=== PATIENT | female | born 1940 | race Caucasian/White ===

== ENCOUNTER → 2017-10-01 08:02 | Outpatient (CLI) | payer MEDICARE, OTHER, SELFPAY ==
[2017-10-01 09:08] LABS: Hemoglobin A1C% w Est Avg Glu 5.7 % (4.0-6.0)
== END ==
PROVIDERS: PCP Family Medicine; Visit Provider Family Medicine
DX: E11.9 Type 2 diabetes mellitus without complications (principal)
CPT/HCPCS: 36415; 83036

== ENCOUNTER → 2017-11-30 12:49 | Outpatient (CLI) | payer MEDICARE, OTHER, SELFPAY | PROVIDERS: PCP Family Medicine; Visit Provider Family Medicine | DX: M85.851 Other specified disorders of bone density and structure, right thigh (principal); Z78.0 Asymptomatic menopausal state | CPT/HCPCS: 77080 ==

== ENCOUNTER → 2018-03-21 08:09 | Outpatient (CLI) | payer MEDICARE, OTHER, SELFPAY ==
[2018-03-21 08:56] LABS: Add Manual Diff / Slide Review NO; Basophils Percent Auto 0.7 % (0-2); Hematocrit 37.8 % (36-46); Hemoglobin 12.2 g/dL (12.0-16.0); Lymphocytes Percent Auto 22.2 % (25-40); Mean Corpuscular HGB Conc 32.3 % (30-36); Mean Corpuscular Hemoglobin 29.9 PG (26-34); Mean Corpuscular Volume 92.5 fL (80-100); Monocytes Percent Auto 6.1 % (3-14); Neutrophils Absolute Auto 5800 /uL (3000-5900); Platelet Count 183 X10^3/uL (150-400); Red Blood Cell Count 4.09 X10^6/uL (4.0-5.2); Red Cell Distribution Width 14.6 % (11.6-14.8); White Blood Cell Count 8.7 X10^3/uL (4.5-11.0)
[2018-03-21 09:18] LABS: Alanine Aminotransferase 26 IU/L (9-52); Albumin 3.9 g/dL (3.5-5.0); Albumin Globulin Ratio 1.1 (1.0-2.8); Alkaline Phosphatase 79 U/L (38-126); Aspartate Aminotransferase 25 IU/L (14-36); Bilirubin Total 0.5 mg/dL (0.2-1.3); Blood Urea Nitrogen 22 mg/dL (7-17); Carbon Dioxide 23 mmol/L (22-32); Chloride 112 mmol/L (98-107); Cholesterol 113 mg/dL (140-199); Globulin 3.5 g/dL (1.7-4.1); Glucose 106 mg/dL (80-110); HDL Cholesterol 39 mg/dL (40-60); HEMOLYSIS < 15 (0-50); LDL Cholesterol Calculated 54 mg/dL (<100); Potassium 4.7 mmol/L (3.4-5.1); Sodium 147 mmol/L (137-145); Total Protein 7.4 g/dL (6.3-8.2); Triglycerides 99 mg/dL (35-150)
[2018-03-21 09:40] LABS: Hemoglobin A1C% w Est Avg Glu 6.2 % (4.0-6.0)
[2018-03-21 09:55] LABS: Microalbumin Urine Random 3.4 mg/dL (0-1.6)
[2018-03-21 09:56] LABS: Creatinine Urine Random 81.3 mg/dL; Microalbumi Creatinin Ratio Ur 41.8 ug/mg CR (<30)
== END ==
PROVIDERS: PCP Family Medicine; Visit Provider Family Medicine
DX: E03.9 Hypothyroidism, unspecified (principal); E11.9 Type 2 diabetes mellitus without complications; I10 Essential (primary) hypertension
CPT/HCPCS: 36415; 80053; 80061; 82043; 82570; 83036; 84443; 85025

== ENCOUNTER → 2018-04-26 10:02 | Outpatient (CLI) | payer MEDICARE, OTHER, SELFPAY ==
--- NOTE | 2018-04-26 10:05 | DI.US.S_ITS ---
PROCEDURE: US THYROID INDICATIONS: thyroid nodule TECHNIQUE: Real-time scanning was performed of the thyroid gland, with image documentation. COMPARISON: [facility], US, THYROID, 07/13/2016, 8:41. FINDINGS: Right: Thyroid lobe measures 4.7 x 2.9 x 2.9 cm, and is homogeneous in echotexture. Left: Thyroid lobe measures 3.2 x 1.4 x 1.1 cm, and is homogenous in echotexture. Isthmus: 4.0 mm thick. Nodule number: 1 Location: Right thyroid Size: Increased at 3.9 x 2.1 x 3.0 cm. Composition: Mixed cystic and solid Echogenicity: Heterogeneous Shape: wider than tall. Margins: Smooth Echogenic foci: None Total points: 2 ACR TI-RADS category: Not suspicious IMPRESSION: Slight increase in size of non-suspicious right thyroid nodule. ACR TI-RADS definitions and recommendations: TI-RADS 1 (benign): 0 points. FNA not needed. TI-RADS 2 (not suspicious): 2 points. FNA not needed. TI-RADS 3 (mildly suspicious): 3 points. * FNA if 2.5 cm or larger, follow up if 1.5 cm or larger (at 1, 3, and 5 years). TI-RADS 4 (moderately suspicious): 4-6 points. * FNA if 1.5 cm or larger, follow up if 1 cm or larger (at 1, 2, 3, and 5 years). TI-RADS 5 (highly suspicious): 7 points or more. * FNA if 1 cm or larger, follow up if 0.5 cm or larger (every year for 5 years). Dictated by: Lester MATTHEWS Interpreted: Saranya Romero MD on 04/26/2018 at 11:18 Approved by: Saranya Romero M.D. on 04/26/2018 at 12:56
== END ==
PROVIDERS: PCP Family Medicine; Visit Provider Family Medicine
DX: E04.1 Nontoxic single thyroid nodule (principal)
CPT/HCPCS: 76536

== ENCOUNTER → 2018-09-26 08:09 | Outpatient (CLI) | payer MEDICARE, OTHER, SELFPAY ==
[2018-09-26 09:09] LABS: Add Manual Diff / Slide Review NO; Basophils Absolute Auto 100 /uL (0-100); Basophils Percent Auto 0.9 % (0-2); Eosinophils Absolute Auto 300 /uL (0-450); Eosinophils Percent Auto 3.4 % (2-4); Hematocrit 35.5 % (36-46); Hemoglobin 12.1 g/dL (12.0-16.0); Lymphocytes Absolute Auto 1400 /uL (1100-4500); Lymphocytes Percent Auto 16.6 % (25-40); Mean Corpuscular Hemoglobin 31.2 PG (26-34); Monocytes Absolute Auto 500 /uL (0-900); Monocytes Percent Auto 6.1 % (3-14); Neutrophils Absolute Auto 6300 /uL (1500-7000); Platelet Count 218 X10^3/uL (150-400); Red Blood Cell Count 3.86 X10^6/uL (4.0-5.2); Red Cell Distribution Width 13.5 % (11.6-14.8); White Blood Cell Count 8.6 X10^3/uL (4.5-11.0)
[2018-09-26 09:27] LABS: Hemoglobin A1C% w Est Avg Glu 5.7 % (4.0-6.0)
[2018-09-26 09:46] LABS: BUN Creatinine Ratio 22.3 (6-22); Blood Urea Nitrogen 29 mg/dL (7-17); Calcium 9.8 mg/dL (8.4-10.2); Carbon Dioxide 26 mmol/L (22-32); Chloride 108 mmol/L (98-107); Estimated Glomerular Filt Rate 39.6 mL/min (>60); Glucose 100 mg/dL (80-110); HEMOLYSIS < 15 (0-50); Potassium 5.3 mmol/L (3.4-5.1); Sodium 141 mmol/L (137-145)
[2018-09-26 10:12] LABS: Thyroid Stimulating Hormone 4.15 uIU/mL (0.47-4.68)
== END ==
PROVIDERS: PCP Family Medicine; Visit Provider Family Medicine
DX: E03.9 Hypothyroidism, unspecified (principal); E11.9 Type 2 diabetes mellitus without complications; I10 Essential (primary) hypertension
CPT/HCPCS: 36415; 80048; 83036; 84443; 85025

== ENCOUNTER → 2018-10-10 08:41 | Outpatient (CLI) | payer MEDICARE, OTHER, SELFPAY ==
[2018-10-10 10:49] LABS: BUN Creatinine Ratio 27.1 (6-22); Blood Urea Nitrogen 38 mg/dL (7-17); Calcium 9.5 mg/dL (8.4-10.2); Carbon Dioxide 28 mmol/L (22-32); Chloride 107 mmol/L (98-107); Estimated Glomerular Filt Rate 36.3 mL/min (>60); Glucose 107 mg/dL (80-110); HEMOLYSIS < 15 (0-50); Potassium 4.6 mmol/L (3.4-5.1); Sodium 144 mmol/L (137-145)
== END ==
PROVIDERS: PCP Family Medicine; Visit Provider Family Medicine
DX: N28.9 Disorder of kidney and ureter, unspecified (principal)
CPT/HCPCS: 36415; 80048

== ENCOUNTER → 2018-10-28 09:49 | Outpatient (CLI) | payer MEDICARE, OTHER, SELFPAY ==
[2018-10-28 11:50] LABS: BUN Creatinine Ratio 21.7 (6-22); Blood Urea Nitrogen 26 mg/dL (7-17); Calcium 8.9 mg/dL (8.4-10.2); Carbon Dioxide 25 mmol/L (22-32); Chloride 109 mmol/L (98-107); Estimated Glomerular Filt Rate 43.3 mL/min (>60); Glucose 98 mg/dL (80-110); HEMOLYSIS 24 (0-50); Potassium 4.9 mmol/L (3.4-5.1); Sodium 142 mmol/L (137-145)
== END ==
PROVIDERS: PCP Family Medicine; Visit Provider Family Medicine
DX: N28.9 Disorder of kidney and ureter, unspecified (principal)
CPT/HCPCS: 36415; 80048

== ENCOUNTER → 2019-05-08 13:42 | Outpatient (CLI) | payer MEDICARE, OTHER, SELFPAY ==
[2019-05-08 18:44] LABS: Appearance Urine UA CLEAR; Bilirubin Urine UA NEGATIVE (NEGATIVE); Color Urine UA YELLOW; Glucose Urine UA NEGATIVE (Negative); Ketones Urine UA NEGATIVE (NEGATIVE); Leukocyte Esterase Urine UA TRACE (NEGATIVE); Nitrite Urine UA POSITIVE (Negative); Occult Blood Urine UA 3+ (Negative); Protein Urine UA 1+ (Negative); Specific Gravity Urine UA 1.025 (1.000-1.035); Urobilinogen Urine UA 0.2 E.U./dL (0.2)
[2019-05-08 18:47] LABS: Bacteria Urine Many (>30); Culture Indicated Urine Specimen Cultured; Hyaline Casts Urine 1-5/LPF; RBC Urine 5-10/HPF (0-5/HPF); Squamous Epithelial Cell Urine 1-5 /HPF (0-5/HPF); WBC Urine 10-30/HPF (0-5/HPF)
[2019-05-08 19:04] LABS: Creatinine Urine Random 85.4 mg/dL
[2019-05-08 19:09] LABS: Microalbumi Creatinin Ratio Ur 101.8 ug/mg CR (<30); Microalbumin Urine Random 8.7 mg/dL (0-1.6)
== END ==
PROVIDERS: PCP Family Medicine; Visit Provider Family Medicine
DX: E11.9 Type 2 diabetes mellitus without complications (principal); N39.0 Urinary tract infection, site not specified
CPT/HCPCS: 81001; 82043; 82570; 87077; 87086; 87186

== ENCOUNTER → 2019-06-03 11:22 | Outpatient (CLI) | payer MEDICARE, OTHER, SELFPAY | PROVIDERS: PCP Family Medicine; Visit Provider Nurse Practitioner | DX: N39.0 Urinary tract infection, site not specified (principal) | CPT/HCPCS: 87077; 87086; 87186 ==

== ENCOUNTER 2019-07-02 09:05 | Emergency (ER) | payer MEDICARE, OTHER, SELFPAY ==
[2019-07-02 09:10] VITALS: BP 193/79; PULSE 73; RESP 18; TEMP 36.9; O2SAT 99
--- NOTE | 2019-07-02 09:35 | DI.RAD.S_ITS ---
PROCEDURE: XR CHEST 2V INDICATIONS: cough for 5 days TECHNIQUE: 2 views of the chest were acquired. COMPARISON: [facility], , CHEST 2 VIEW, 07/05/2017, 20:13. FINDINGS: Surgical changes and devices: Left total shoulder arthroplasty Lungs and pleura: Lungs are clear. No pleural effusions or pneumothorax. Mediastinum: Mediastinal contours are normal. Heart size is normal. Bones and chest wall: No suspicious bony abnormalities. Soft tissues appear unremarkable. IMPRESSION: No evidence acute pulmonary process. Dictated by: Moo Fitzpatrick M.D. on 07/02/2019 at 9:50 Approved by: Moo Fitzpatrick M.D. on 07/02/2019 at 9:51
--- NOTE | 2019-07-02 09:37 | ED.URI ---
HPI - URI/Sore Throat General Chief Complaint: Upper Respiratory Symptoms Stated Complaint: NASTY COUGH PAST 2 DAYS POSS BLADDER INFECTION Time Seen by Provider: 07/02/19 09:18 Source: patient Mode of arrival: Ambulatory Limitations: no limitations History of Present Illness HPI Narrative: HPI: The patient is a 78-year-old female who presents to the emergency department with a dry and productive cough for the last 5 days prior to admission. She denies a history of fever sore throat headache. She believes that she may have a bladder infection because she has had some mild increased frequency. She states that she had a urinary tract infection in April and earlier in the year she had an abscess in her right lower abdomen of requiring surgery and developed a urinary tract infection at that time. She has minimal urgency. She has noted no blood recently in her urine and no vaginal bleeding or discharge. She admits to a history of myasthenia gravis that is in remission. 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 She also has braces on both legs from polio as a youth. She has had a history of hypertension in the past but is currently on no medications for that. She denies a history of congestive heart failure myocardial infarction COPD or asthma. She used to smoke as a youth and quit at the age of 25. She does not chew tobacco drink alcohol use any drugs. She denies a history of hepatitis but has a positive PPD skin test because her mother had a history of tuberculosis. She denies any HIV. She has not traveled outside the [place] or bent exposed to anyone known to have cope with 19. She has had no significant worsening shortness of breath or high fever. She denies any fever chills sweats headache nasal congestion sinus congestion sore throat significant shortness of breath chest pain palpitations dizziness nausea vomiting or abdominal pain. She has chronic loose stools without melena or hematochezia secondary to her ulcerative colitis and medications for ulcerative colitis. She denies any urinary symptoms. Related Data Home Medications Medication Instructions Recorded Confirmed cholecalciferol (vitamin D3) 25 1,000 unit PO DAILY 10/01/17 06/03/19 mcg (1,000 unit) capsule lysine 500 mg tablet 500 mg PO DAILY 10/01/17 06/03/19 Previous Rx's Medication Instructions Recorded Glucose: Home Monitor ea #1 07/01/16 Glucose: Test Strips str BID #100 07/01/16 Lancets BID #100 07/01/16 levothyroxine 100 mcg tablet 100 mcg PO QDAY #90 tab 09/26/18 naproxen sodium 220 mg tablet 440 mg PO DAILY #60 tab 09/26/18 baclofen 5 mg tablet 5 mg PO BID PRN #30 tab 05/08/19 famotidine 20 mg tablet 20 mg PO BID #60 tab 05/08/19 azithromycin 250 mg tablet See Rx Instructions PO .COMPLEX #6 06/03/19 tab albuterol sulfate 2 puff INHALATION Q4-6H PRN #8.5 07/02/19 gram levofloxacin [Levaquin] 500 mg PO Q24H #7 tab 07/02/19 prednisone 60 mg PO DAILY #15 tab 07/02/19 Allergies Allergy/AdvReac Type Severity Reaction Status Date / Time Sulfa (Sulfonamide Allergy Severe HIVES FROM Verified 07/02/19 09:23 Antibiotics) SULFA CREAM [SULFA (SULFONAMIDE ANTIBIOTICS)] Review of Systems Review of Systems Narrative: Review of systems are all negative except for those mentioned in the history of present illness. Patient History Medical History Chicken pox (Resolved ~1947) History of chickenpox (Acute) History of colitis (Acute) History of diabetes mellitus (Acute) History of diverticulitis (Acute) History of eczema (Acute) History of gastric ulcer (Acute) History of [facility] fever (Acute) History of skin cancer (Acute) History of ulcerative colitis (Acute) History of urinary incontinence (Acute) Hyperthyroidism (Chronic ~1992) Polio (Acute) Shoulder pain (Acute) Surgical History History of cholecystectomy (Acute) History of hip replacement History of knee replacement History of shoulder replacement (Acute) Status post cholecystectomy Family History Sister Age: 77 Heart disease Father No problems noted. Mother Myocardial infarction Brother No problems noted. Brother No problems noted. Social History marital status: Smoking Status: Former smoker alcohol intake: current substance use type: does not use Smoking Status: Former smoker alcohol intake frequency: 0-2 drinks per day Substance Use Type: does not use Exam Narrative Exam Narrative: PHYSICAL EXAM: CONSTITUTIONAL: Awake, Alert, Oriented, Coherent, Cooperative in NAD. Does not appear toxic or ill. HEAD: AT/NC EENT: PERRL, FROM of eyes, no discharge, . No epistaxis or nasal drainage Oral mucosa is moist and pink, posterior pharynx is without erythema or exudate. NECK: Supple, no obvious JVD, Trachea is midline without stridor, no palpable LN .. SPINE: No gross deformity, no palpable tenderness of the cervical, thoracic, lumbar or sacral spine. No CVA tenderness. THORAX: No deformity, retractions, chest wall tenderness, subcutaneous air or crepitice. LUNGS: She she has inspiratory crackles in her right posterior lower lung garcia with a few expiratory rhonchi and wheezes on the right. The rest of her lungs are clear and symmetrical HEART: Regular rhythm and rate without murmur. Heart tones are distant. ABDOMEN: Soft, non-tender, normal bowel sounds without guarding, rebound, rigidity or palpable mass EXTREMITIES: No edema, cyanosis, deformity or tenderness. The patient is wearing bilateral braces on her legs for secondary to her polio. SKIN: No rash, bruising, petechiae or purpura. NEURO: Awake, alert, oriented, conversive, cranial nerves II-XII are symmetrical and normal, moves all 4 extremities and is ambulatory Initial Vital Signs Initial Vital Signs: Vital Signs Temperature 98.4 F 07/02/19 09:10 Pulse Rate 73 07/02/19 09:10 Respiratory Rate 18 07/02/19 09:10 Blood Pressure 193/79 H 07/02/19 09:10 Pulse Oximetry 99 07/02/19 09:10 Course Orders Ordered: ED Orders 07/02/19 09:35 XR chest 2V Stat 07/02/19 10:00 Urinalysis and Microscopic Stat Urine Culture Stat 07/02/19 10:10 Influenza A & B (PCR) Stat Discontinued Medications Albuterol/Ipratropium (Duoneb) 3 ml INH NOW ONE Stop: 07/02/19 09:37 Last Admin: 07/02/19 11:06 Dose: Not Given Documented by: LIDIAIEDLE Prednisone (Deltasone) 60 mg PO NOW ONE Stop: 07/02/19 09:36 Last Admin: 07/02/19 10:08 Dose: 60 mg Documented by: ZUNILDA Vital Signs Vital signs: Vital Signs - 8 hr 07/02/19 09:10 07/02/19 11:10 07/02/19 11:32 Temperature 98.4 F Pulse Rate 73 67 69 Respiratory Rate 18 20 18 Blood Pressure 193/79 H 198/79 H Pulse Oximetry 99 96 96 MDM - URI/Sore Throat Lab Data Labs: Lab Results 07/02/19 07/02/19 Range/Units 10:00 10:10 Urine Color Yellow Urine Appearance Sl cloudy Urine pH 5.5 (4.5-8.0) Ur Specific [place] 1.025 (1.000-1.035) Urine Protein Trace H (Negative) Urine Glucose (UA) 1+ H (Negative) g/dL Urine Ketones Negative (NEGATIVE) Urine Occult Blood 1+ H (Negative) Urine Nitrate Positive H (Negative) Urine Bilirubin Negative (NEGATIVE) Urine Urobilinogen 0.2 (0.2) E.U./dL Ur Leukocyte Esterase Trace H (NEGATIVE) Urine RBC None seen (0-5/HPF) Urine WBC 0-1/hpf (0-5/HPF) Ur Squamous Epith Cells 0-1 /hpf (0-5/HPF) Urine Bacteria Many (>30) H (None) Ur Culture Indicated? Specimen cultured Influenza A (RT-PCR) Flu a negative (NEGATIVE) Influenza B (RT-PCR) Flu b negative (NEGATIVE) Discharge Plan Departure Patient Disposition: Home Clinical Impression: Cough, Myasthenia gravis, Polio Ulcerative colitis Qualifiers: Ulcerative colitis location: unspecified ulcerative colitis location Digestive disease complication type: unspecified complication Qualified Code(s): K51.919 - Ulcerative colitis, unspecified with unspecified complications Urinary tract infection Qualifiers: Urinary tract infection type: site unspecified Hematuria presence: without hematuria Qualified Code(s): N39.0 - Urinary tract infection, site not specified Discharge Date/Time: 07/02/19 11:44 Instructions: DI for Cough -- Adult, DI for Urinary Tract Infection (UTI), DI for Acute Bronchitis Activity Restrictions/Additional Instructions: 1. Take Levaquin 500 mg per day. 2. Drink 3-4 L of fluid per day keep yourself hydrated. 3. Follow-up with your primary care physician and be rechecked in 48-72 hours. 4. For the cough take the albuterol inhaler with a spacer 1-2 puffs every 2-4 hours as needed for cough, shortness of breath, or wheezing. 5. For the cough take the prednisone 60 mg per day for the next 5 days. 6. If you develop worsening pain, chest pain, shortness of breath, passing out, dizziness, you need to return to the emergency department or proceed to the nearest emergency whereever you are. Prescriptions: New albuterol sulfate 90 mcg/actuation HFA aerosol inhaler 2 puff INHALATION Q4-6H PRN (Reason: shortness of breath or wheezing) Qty: 8.5 RF: 2 prednisone 20 mg tablet 60 mg PO DAILY Qty: 15 RF: 0 levofloxacin [Levaquin] 500 mg tablet 500 mg PO Q24H Qty: 7 RF: 0 No Action levothyroxine 100 mcg tablet 100 mcg PO QDAY Qty: 90 RF: 3 naproxen sodium [Midol (naproxen)] 220 mg tablet 440 mg PO DAILY Qty: 60 RF: 3 azithromycin 250 mg tablet See Rx Instructions PO .COMPLEX Qty: 6 RF: 0 famotidine [Pepcid AC] 20 mg tablet 20 mg PO BID Qty: 60 RF: 3 baclofen 5 mg tablet 5 mg PO BID PRN (Reason: spasm) Qty: 30 RF: 0 Glucose: Home Monitor Qty: 1 RF: 0 Glucose: Test Strips BID Qty: 100 RF: 1 Lancets BID Qty: 100 RF: 6 lysine [L-Lysine] 500 mg tablet 500 mg PO DAILY RF: 0 cholecalciferol (vitamin D3) 1,000 unit capsule 1,000 unit PO DAILY RF: 0 Referrals: Sandhya Beaver DO [Primary Care Provider] -
[2019-07-02 10:08] LABS: RBC Urine None Seen (0-5/HPF)
[2019-07-02] MEDS: predniSONE 20 MG TABLET 60 MG PO (10:08)
[2019-07-02 10:10] LABS: Bilirubin Urine UA NEGATIVE (NEGATIVE); Color Urine UA YELLOW; Glucose Urine UA 1+ g/dL (Negative); Ketones Urine UA NEGATIVE (NEGATIVE); Leukocyte Esterase Urine UA TRACE (NEGATIVE); Nitrite Urine UA POSITIVE (Negative); Occult Blood Urine UA 1+ (Negative); Protein Urine UA TRACE (Negative); Specific Gravity Urine UA 1.025 (1.000-1.035); Urobilinogen Urine UA 0.2 E.U./dL (0.2)
[2019-07-02 10:18] LABS: Appearance Urine UA SL CLOUDY; pH Urine UA 5.5 (4.5-8.0)
[2019-07-02 10:19] LABS: Bacteria Urine Many (>30); Culture Indicated Urine Specimen Cultured; Squamous Epithelial Cell Urine 0-1 /HPF (0-5/HPF); WBC Urine 0-1/HPF (0-5/HPF)
--- NOTE | 2019-07-02 10:41 | RT ---
RT started Duoneb tx on wrong pt. Tx stopped approx after 1 min. HR remained the same. Pt in no distress.
[2019-07-02 10:46] LABS: Influenza A - CEPHEID Flu A NEGATIVE (NEGATIVE); Influenza B - CEPHEID Flu B NEGATIVE (NEGATIVE)
[2019-07-02 11:10] VITALS: PULSE 67; RESP 20; O2SAT 96
[2019-07-02] MEDS: ALBUTEROL/IPRATROPIUM 3 ML AMPUL INH (11:12)
[2019-07-02 11:32] VITALS: BP 198/79; PULSE 69; RESP 18; O2SAT 96
== END 2019-07-02 11:44 | disposition home or self-care (01) ==
PROVIDERS: Emergency Provider Emergency Medicine; PCP Family Medicine
DX: R05 Cough (principal); K51.919 Ulcerative colitis, unspecified with unspecified complications; N39.0 Urinary tract infection, site not specified; G70.9 Myoneural disorder, unspecified; A80.9 Acute poliomyelitis, unspecified
CPT/HCPCS: 71046; 81001; 87077; 87086; 87186; 87502; 94640; 99283

== ENCOUNTER → 2019-08-25 09:47 | Outpatient (CLI) | payer MEDICARE, OTHER, SELFPAY ==
[2019-08-27 08:52] LABS: COVID19 Sendout Not Detected (Not Detected)
== END ==
PROVIDERS: PCP Family Medicine; Visit Provider Registered Nurse
DX: R05 Cough (principal)
CPT/HCPCS: 87635

== ENCOUNTER → 2019-08-31 16:08 | Outpatient (CLI) | payer MEDICARE, OTHER, SELFPAY ==
--- NOTE | 2019-08-31 16:12 | DI.RAD.S_ITS ---
PROCEDURE: XR CHEST 2V INDICATIONS: Cough, recent pneumonia TECHNIQUE: 2 views of the chest were acquired. COMPARISON: [facility], CR, XR CHEST 2V, 07/02/2019, 9:35. FINDINGS: Surgical changes and devices: Patient is status post left shoulder arthroplasty. Lungs and pleura: Increased bronchovascular markings and bilateral hilar region are seen with mild bronchial wall thickening. No focal infiltrate. No pleural effusions or pneumothorax. Mediastinum: Mediastinal contours are normal. Heart size is normal. Bones and chest wall: No suspicious bony abnormalities. Soft tissues appear unremarkable. IMPRESSION: Suggestion of mild reactive airway disease. No focal infiltrate. Dictated by: Graham Hodgson M.D. on 08/31/2019 at 16:32 Approved by: Graham Hodgson M.D. on 08/31/2019 at 16:33
== END ==
PROVIDERS: PCP Family Medicine; Referring Provider Family Medicine; Visit Provider Family Medicine
DX: R05 Cough (principal); Z87.01 Personal history of pneumonia (recurrent)
CPT/HCPCS: 71046

== ENCOUNTER → 2019-09-13 08:31 | Outpatient (CLI) | payer MEDICARE, OTHER, SELFPAY ==
--- NOTE | 2019-09-13 08:34 | DI.US.S_ITS ---
PROCEDURE: US THYROID INDICATIONS: ENLARGED THYROID TECHNIQUE: Real-time scanning was performed of the thyroid gland, with image documentation. COMPARISON: [facility], US, THYROID, 07/13/2016, 8:41. [facility], US, US THYROID, 04/26/2018, 10:43. FINDINGS: Right: Thyroid lobe measures 5.7 x 3.0 x 3.0 cm, and is homogeneous in echotexture. Left: Thyroid lobe measures 3.8 x 1.9 x 1.1 cm, and is homogenous in echotexture. Isthmus: 4 mm thick. Nodule number: 1 Location: Superior right lobe Size: 3.7 x 1.9 x 3.1 cm. Composition: Mixed cystic and solid Echogenicity: Heterogeneous Shape: Wider than tall Margins: Smooth Echogenic foci: None Total points: 3 ACR TI-RADS category: Mildly suspicious IMPRESSION: Stable right thyroid nodule. Based on size of the nodule and ACR TI-RADS category, ultrasound-guided fine needle aspiration is recommended. ACR TI-RADS definitions and recommendations: TI-RADS 1 (benign): 0 points. FNA not needed. TI-RADS 2 (not suspicious): 2 points. FNA not needed. TI-RADS 3 (mildly suspicious): 3 points. * FNA if 2.5 cm or larger, follow up if 1.5 cm or larger (at 1, 3, and 5 years). TI-RADS 4 (moderately suspicious): 4-6 points. * FNA if 1.5 cm or larger, follow up if 1 cm or larger (at 1, 2, 3, and 5 years). TI-RADS 5 (highly suspicious): 7 points or more. * FNA if 1 cm or larger, follow up if 0.5 cm or larger (every year for 5 years). Dictated by: Enriqueta Rainey MD, PhD on 09/13/2019 at 14:09 Approved by: Enriqueta Rainey MD, PhD on 09/13/2019 at 14:15
== END ==
PROVIDERS: PCP Family Medicine; Referring Provider Family Medicine; Visit Provider Family Medicine
DX: E03.9 Hypothyroidism, unspecified (principal); E04.1 Nontoxic single thyroid nodule
CPT/HCPCS: 76536

== ENCOUNTER → 2019-10-11 15:00 | Outpatient (CLI) | payer MEDICARE, OTHER, SELFPAY ==
[2019-10-11 15:27] LABS: Appearance Urine UA SL CLOUDY; Bilirubin Urine UA NEGATIVE (NEGATIVE); Color Urine UA YELLOW; Glucose Urine UA 2+ g/dL (Negative); Ketones Urine UA NEGATIVE (NEGATIVE); Leukocyte Esterase Urine UA TRACE (NEGATIVE); Nitrite Urine UA NEGATIVE (Negative); Occult Blood Urine UA TRACE-INTACT (Negative); Protein Urine UA TRACE (Negative); Specific Gravity Urine UA 1.025 (1.000-1.035); Urobilinogen Urine UA 0.2 E.U./dL (0.2)
[2019-10-11 15:36] LABS: Bacteria Urine Moderate (10-30); Culture Indicated Urine Specimen Cultured; RBC Urine 0-1/HPF (0-5/HPF); Squamous Epithelial Cell Urine 1-5 /HPF (0-5/HPF); Transitional Epi Cells Urine 1-5/HPF (0-5/HPF); WBC Urine 10-30/HPF (0-5/HPF)
== END ==
PROVIDERS: PCP Family Medicine; Referring Provider Family Medicine; Visit Provider Family Medicine
DX: R35.0 Frequency of micturition (principal); R82.90 Unspecified abnormal findings in urine; R82.998 Other abnormal findings in urine
CPT/HCPCS: 81001; 87077; 87086; 87186

== ENCOUNTER 2019-10-20 12:42 | Emergency (ER) | payer MEDICARE, OTHER, SELFPAY ==
[2019-10-20] VITALS (7 sets, daily range): BP systolic 126–146; BP diastolic 60–67; PULSE 74–89; RESP 16–18; O2SAT 95–99; BMI 30.2
--- NOTE | 2019-10-20 14:07 | ED_ITS ---
HPI - Extremity Problem General Chief complaint: Extremity Problem,Nontraumatic Stated complaint: LEFT LEG IS SWOLLEN Time Seen by Provider: 10/20/19 14:05 Source: patient Mode of arrival: Family Vehicle Limitations: no limitations History of Present Illness HPI Narrative: CC: Swollen left lack HPI: The patient is an 79-year-old female with a past history of polio and states that her left leg is always smaller than her right. She has noticed over the last 2 days that her left leg has become more swollen than usual and greater than the right leg. She denies any fall or injury pain or discomfort. She states that she is on a diuretic which she has been taking without fail. She has a history of having deep vein thrombophlebitis years ago in the early . She is no longer on a blood thinner. She states she has also had questionable blood clots that have gone to her lungs. 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 She has had no problems since then. She denies any chest pain at this time shortness of breath cough difficulty in breathing. She denies a history of rheumatoid arthritis polymyalgia rheumatica lupus or any autoimmune disorders other than her myasthenia gravis. She denies any fever chills or sweats any chest pain, cough shortness of breath palpitations or dizziness nausea vomiting diarrhea change in bowel habits any urinary symptoms. The patient did admit that she has a history of ulcerative colitis in her medications were recently increased by her physician. She denies any pain or discomfort at this time.. She was just alarmed at the swelling of her leg which is never happened before. Related Data Home Medications Medication Instructions Recorded Confirmed cholecalciferol (vitamin D3) 25 1,000 unit PO DAILY 10/01/17 08/25/19 mcg (1,000 unit) capsule lysine 500 mg tablet 500 mg PO DAILY 10/01/17 08/25/19 prednisone 20 mg tablet 20 mg PO DAILY 09/08/19 Previous Rx's Medication Instructions Recorded Glucose: Home Monitor ea #1 07/01/16 Glucose: Test Strips str BID #100 07/01/16 Lancets BID #100 07/01/16 levothyroxine 100 mcg tablet 100 mcg PO QDAY #90 tab 09/26/18 naproxen sodium 220 mg tablet 440 mg PO DAILY #60 tab 09/26/18 baclofen 5 mg tablet 5 mg PO BID PRN #30 tab 05/08/19 albuterol sulfate 2 puff INHALATION Q4-6H PRN #8.5 07/02/19 gram famotidine 20 mg tablet 20 mg PO BID #180 tab 07/31/19 hydrocodone 5 mg-acetaminophen 325 See Rx Instructions PO BEDTIME PRN 08/31/19 mg tablet #10 tab cefpodoxime 200 mg tablet 200 mg PO BID 10 Days #20 tab 10/12/19 rivaroxaban [Xarelto] 15 mg PO BID #42 tab 10/20/19 Allergies Allergy/AdvReac Type Severity Reaction Status Date / Time Sulfa (Sulfonamide Allergy Severe HIVES FROM Verified 10/20/19 13:08 Antibiotics) SULFA CREAM [SULFA (SULFONAMIDE ANTIBIOTICS)] Review of Systems Review of Systems Narrative: Her review of systems were all negative except for those mentioned in the history of present illness. Patient History Medical History Chicken pox (Resolved ~1947) History of chickenpox (Acute) History of colitis (Acute) History of diabetes mellitus (Acute) History of diverticulitis (Acute) History of eczema (Acute) History of gastric ulcer (Acute) History of [place] fever (Acute) History of skin cancer (Acute) History of ulcerative colitis (Acute) History of urinary incontinence (Acute) Hyperthyroidism (Chronic ~1992) Polio (Acute) Shoulder pain (Acute) Surgical History History of cholecystectomy (Acute) History of hip replacement History of knee replacement History of shoulder replacement (Acute) Status post cholecystectomy Family History Sister Age: 77 Heart disease Father No problems noted. Mother Myocardial infarction Brother No problems noted. Brother No problems noted. Social History marital status: Smoking Status: Former smoker alcohol intake: current substance use type: does not use Smoking Status: Former smoker alcohol intake frequency: 0-2 drinks per day Substance Use Type: does not use Exam Narrative Exam Narrative: PHYSICAL EXAM: CONSTITUTIONAL: Awake, Alert, Oriented, Coherent, Cooperative in NAD. Does not appear toxic or ill. HEAD: AT/NC EENT: PERRL, FROM of eyes, . NOSE:No epistaxis or nasal drainage MOUTH:Oral mucosa is moist and pink,. NECK: Supple, no obvious JVD, Trachea is midline without stridor. SPINE: Palpationof the cervical, Thoracic, Lumbar or Sacral spine reveals no gross deformity or tenderness. No CVA tenderness. THORAX: No deformity, retractions, chest wall tenderness. LUNGS: Symmetrical breath sounds with crackles in both bases HEART: Normal heart tones, regular rhythm and rate without murmur. ABDOMEN: Soft, non-tender, normal bowel sounds without guarding, rebound, rigidity or palpable mass. EXTREMITIES: The patient has diffuse swelling of her left foot ankle leg knee and thigh with mild pitting no calf tenderness noted. Her right leg it is nontender to palpation. SKIN: No rash, bruising, petechiae or purpura. NEURO: Awake, alert, oriented, conversive, cranial nerves II-XII are symmetrical , moves all 4 extremities and is ambulatory. MENTAL HEALTH: Does not appear anxious or depressed. Initial Vital Signs Initial Vital Signs: Vital Signs Pulse Rate 89 10/20/19 13:03 Respiratory Rate 18 10/20/19 13:03 Blood Pressure 132/67 10/20/19 13:03 Pulse Oximetry 96 10/20/19 13:03 Course Course Course Narrative: 1516 the patient's chest x-ray revealed no acute cardiopulmonary pathology demonstrated radiographically. There are no findings consistent with congestive heart failure or pulmonary edema. 1545: Ultrasound was positive for deep vein thrombophlebitis involving the right common femoral vein. The patient will be started on Xarelto Orders Ordered: Discontinued Medications Rivaroxaban (Xarelto) 15 mg PO NOW ONE Stop: 10/20/19 16:05 Last Admin: 10/20/19 16:19 Dose: 15 mg Documented by: PILI Vital Signs Vital signs: Vital Signs - 8 hr 10/20/19 13:03 Pulse Rate 89 Respiratory Rate 18 Blood Pressure 132/67 Pulse Oximetry 96 MDM - Extremity (Nontraumatic) Lab Data Result diagrams: 10/20/19 14:48 10/20/19 14:48 Labs: Lab Results 10/20/19 10/20/19 10/20/19 Range/Units 14:48 14:48 14:48 WBC 8.9 (4.5-11.0) X10^3/uL RBC 4.09 (4.0-5.2) X10^6/uL Hgb 13.1 (12.0-16.0) g/dL Hct 39.4 (36-46) % MCV 96.5 (80-100) fL MCH 32.2 (26-34) PG MCHC 33.3 (30-36) % RDW 13.2 (11.6-14.8) % Plt Count 166 (150-400) X10^3/uL Neut % (Auto) 64.6 (50-75) % Lymph % (Auto) 24.4 L (25-40) % [place] % (Auto) 7.3 (3-14) % Eos % (Auto) 2.4 (2-4) % Baso % (Auto) 1.3 (0-2) % Neut # (Auto) 5800 (2648-9002) /uL Lymph # (Auto) 2200 (9423-4873) /uL [place] # (Auto) 700 (0-900) /uL Eos # (Auto) 200 (0-450) /uL Baso # (Auto) 100 (0-100) /uL D-Dimer 3196 H (<230) ng/mL Sodium 138 (137-145) mmol/L Potassium 3.6 (3.4-5.1) mmol/L Chloride 108 H (98-107) mmol/L Carbon Dioxide 23 (22-32) mmol/L BUN 20 H (7-17) mg/dL Creatinine 1.15 H (0.52-1.04) mg/dL Estimated GFR 45.4 L (>60) mL/min BUN/Creatinine Ratio 17.4 (6-22) Glucose 118 H (80-110) mg/dL Calcium 9.3 (8.4-10.2) mg/dL Total Bilirubin 0.4 (0.2-1.3) mg/dL AST 27 (14-36) IU/L ALT 22 (<35) IU/L Alkaline Phosphatase 55 (38-126) U/L Troponin I < 0.012 (0.01-0.034) ng/mL NT-Pro-B Natriuret Pep 105 (<450) pg/mL Total Protein 7.2 (6.3-8.2) g/dL Albumin 3.7 (3.5-5.0) g/dL Globulin 3.5 (1.7-4.1) g/dL Albumin/Globulin Ratio 1.1 (1.0-2.8) Discharge Plan Departure Patient Disposition: Home Clinical Impression: Myasthenia gravis, H/O poliomyelitis, Left leg swelling Ulcerative colitis Qualifiers: Ulcerative colitis location: unspecified ulcerative colitis location Digestive disease complication type: unspecified complication Qualified Code(s): K51.919 - Ulcerative colitis, unspecified with unspecified complications DVT (deep venous thrombosis) Qualifiers: DVT location: lower extremity Affected thrombotic vein of extremity: femoral Chronicity: acute Laterality: left Qualified Code(s): I82.412 - Acute embolism and thrombosis of left femoral vein Discharge Date/Time: 10/20/19 17:21 Instructions: Phlebitis/DVT (Alternative Therapy), DI for Deep Vein Thrombosis Activity Restrictions/Additional Instructions: 1. Your left leg is swollen as you have developed deep vein thrombophlebitis involving your right common femoral vein in the leg. 2. You need to take Xarelto 15 mg twice a day for 21 days. After that you need to take 20 mg per day for as long as needed per your primary care physician. 3. You need to follow-up with your primary care physician to be re-evaluated and receive your prescription for the Xarelto 20 mg per day starting on day 22 4. If you develop worsening pain, fever, chills, chest pain, shortness of breath, palpitations, racing of your heart, dizziness, feeling faint, or passing-out you need to return to the emergency department or proceed to the nearest emergency department where you are. 5. Continue the rest of your medications. Prescriptions: New Xarelto 15 mg tablet 15 mg PO BID Qty: 42 RF: 0 No Action levothyroxine 100 mcg tablet 100 mcg PO QDAY Qty: 90 RF: 3 naproxen sodium [Midol (naproxen)] 220 mg tablet 440 mg PO DAILY Qty: 60 RF: 3 famotidine [Pepcid AC] 20 mg tablet 20 mg PO BID Qty: 180 RF: 3 hydrocodone-acetaminophen 5-325 mg tablet See Rx Instructions PO BEDTIME PRN (Reason: pain) Qty: 10 RF: 0 baclofen 5 mg tablet 5 mg PO BID PRN (Reason: spasm) Qty: 30 RF: 0 Glucose: Home Monitor Qty: 1 RF: 0 Glucose: Test Strips BID Qty: 100 RF: 1 Lancets BID Qty: 100 RF: 6 prednisone 20 mg tablet 20 mg PO DAILY RF: 0 cefpodoxime 200 mg tablet 200 mg PO BID 10 Days Qty: 20 RF: 0 lysine [L-Lysine] 500 mg tablet 500 mg PO DAILY RF: 0 cholecalciferol (vitamin D3) 1,000 unit capsule 1,000 unit PO DAILY RF: 0 albuterol sulfate 90 mcg/actuation HFA aerosol inhaler 2 puff INHALATION Q4-6H PRN (Reason: shortness of breath or wheezing) Qty: 8.5 RF: 2 Referrals: Sandhya Beaver DO [Primary Care Provider] -
--- NOTE | 2019-10-20 14:17 | DI.US.S_ITS ---
PROCEDURE: US PERIPH VENOUS LOW EXTREM LT INDICATIONS: EDEMA TECHNIQUE: Real-time imaging, as well as color and pulse Doppler interrogation, were performed of the lower extremity deep veins from the inguinal ligament to the popliteal fossa. COMPARISON: None. FINDINGS: The common femoral, superficial femoral, profunda and popliteal veins are not compressible, and demonstrate intraluminal thrombus. The greater saphenous vein is patent. IMPRESSION: Common femoral, profunda, superficial femoral and popliteal veins demonstrate intraluminal thrombus consistent with the venous thrombosis.. Dictated by: Saranya Romero M.D. on 10/20/2019 at 16:12 Approved by: Saranya Romero M.D. on 10/20/2019 at 16:14
--- NOTE | 2019-10-20 14:20 | DI.RAD.S_ITS ---
PROCEDURE: XR CHEST 2V INDICATIONS: Swollen left leg; rule out pulmonary edema and CHF TECHNIQUE: 2 views of the chest were acquired. COMPARISON: [facility], CR, XR CHEST 2V, 08/31/2019, 16:07. FINDINGS: Surgical changes and devices: None. Lungs and pleura: Lungs are clear. No pleural effusions or pneumothorax. Mediastinum: Mediastinal contours are normal. Heart size is normal. Bones and chest wall: No suspicious bony abnormalities. Soft tissues appear unremarkable. IMPRESSION: No acute cardiopulmonary process demonstrated radiographically. No findings of CHF or pulmonary edema. Dictated by: Gilbert Cortes M.D. on 10/20/2019 at 14:40 Approved by: Gilbert Cortes M.D. on 10/20/2019 at 14:45
--- NOTE | 2019-10-20 14:58 | PC.NURSE ---
patient stated that she took hydrochlorothiazide today 50 mg for edema. Prednisone for colitis.
[2019-10-20 15:00] LABS: Add Manual Diff / Slide Review NO; Basophils Absolute Auto 100 /uL (0-100); Basophils Percent Auto 1.3 % (0-2); Eosinophils Absolute Auto 200 /uL (0-450); Eosinophils Percent Auto 2.4 % (2-4); Hematocrit 39.4 % (36-46); Hemoglobin 13.1 g/dL (12.0-16.0); Lymphocytes Absolute Auto 2200 /uL (1100-4500); Lymphocytes Percent Auto 24.4 % (25-40); Mean Corpuscular HGB Conc 33.3 % (30-36); Mean Corpuscular Hemoglobin 32.2 PG (26-34); Mean Corpuscular Volume 96.5 fL (80-100); Monocytes Absolute Auto 700 /uL (0-900); Monocytes Percent Auto 7.3 % (3-14); Neutrophils Absolute Auto 5800 /uL (1500-7000); Neutrophils Percent Auto 64.6 % (50-75); Platelet Count 166 X10^3/uL (150-400); Red Blood Cell Count 4.09 X10^6/uL (4.0-5.2); Red Cell Distribution Width 13.2 % (11.6-14.8); White Blood Cell Count 8.9 X10^3/uL (4.5-11.0)
[2019-10-20 15:10] LABS: Alanine Aminotransferase 22 IU/L (<35); Albumin 3.7 g/dL (3.5-5.0); Albumin Globulin Ratio 1.1 (1.0-2.8); Alkaline Phosphatase 55 U/L (38-126); Aspartate Aminotransferase 27 IU/L (14-36); BUN Creatinine Ratio 17.4 (6-22); Bilirubin Total 0.4 mg/dL (0.2-1.3); Blood Urea Nitrogen 20 mg/dL (7-17); Calcium 9.3 mg/dL (8.4-10.2); Carbon Dioxide 23 mmol/L (22-32); Chloride 108 mmol/L (98-107); Estimated Glomerular Filt Rate 45.4 mL/min (>60); Globulin 3.5 g/dL (1.7-4.1); Glucose 118 mg/dL (80-110); HEMOLYSIS 24 (0-50); Potassium 3.6 mmol/L (3.4-5.1); Sodium 138 mmol/L (137-145); Total Protein 7.2 g/dL (6.3-8.2)
[2019-10-20 15:16] LABS: D Dimer 3196 ng/mL (<230)
[2019-10-20 15:22] LABS: NT-proBNP (BNP-Adult 18+) 105 pg/mL (<450); Troponin I < 0.012 ng/mL (0.01-0.034)
[2019-10-20] MEDS: RIVAROXABAN 10 MG TABLET 15 MG PO (16:19)
== END 2019-10-20 17:21 | disposition home or self-care (01) ==
PROVIDERS: Emergency Provider Emergency Medicine; PCP Family Medicine
DX: I82.412 Acute embolism and thrombosis of left femoral vein (principal); K51.919 Ulcerative colitis, unspecified with unspecified complications; G70.00 Myasthenia gravis without (acute) exacerbation; Z86.12 Personal history of poliomyelitis
CPT/HCPCS: 71046; 80053; 83880; 84484; 85025; 85379; 93971; 99283; 99284

== ENCOUNTER → 2019-10-30 09:06 | Outpatient (CLI) | payer MEDICARE, SELFPAY | PROVIDERS: PCP Family Medicine; Referring Provider Family Medicine; Visit Provider Family Medicine | DX: E04.9 Nontoxic goiter, unspecified (principal); Z53.9 Procedure and treatment not carried out, unspecified reason ==

== ENCOUNTER → 2019-11-01 13:18 | Outpatient (CLI) | payer MEDICARE, OTHER, SELFPAY ==
--- NOTE | 2019-11-01 | DI.US.S_ITS ---
PROCEDURE: US FINE NEEDLE ASPIRATION INDICATIONS: ENLARGED THYROID TECHNIQUE: The indications, alternatives, benefits, risks, and complications of the procedure were explained to the patient. Written informed consent was obtained and placed in the chart. The area of interest was examined sonographically and a site was chosen for ultrasound guided percutaneous sampling. The skin was prepared and draped in the usual fashion, and anesthetized with 1% lidocaine infiltrated from the skin down to the lesion. Multiple passes were then performed, with contents emptied into an appropriate pathology specimen container. A bandage was applied to the area of access at completion of the study. COMPARISON: [facility], , THYROID, 09/13/2019, 9:15. FINDINGS: Location(s) of lesion(s) sampled: Complex partially solid and partially cystic right thyroid nodule measuring 3.7 x 1.9 x 3.1 cm. [place]: 25 gauge hypodermic needles, 18 gauge needle. Number of passes: 6 FNAs with a 25 gauge needle, aspiration of 6 mL of thin, clear fluid with the 18 gauge needle Medications: 1% lidocaine for local anaesthesia. Complications: None. IMPRESSION: Successful ultrasound-guided right lobe complex thyroid nodule fine needle aspiration, as well as cyst fluid aspiration, with cytology results pending. Dictated by: Moo Fitzpatrick M.D. on 11/01/2019 at 16:11 Approved by: Moo Fitzpatrick M.D. on 11/01/2019 at 16:13
--- NOTE | 2019-11-01 14:09 | PATH_ITS ---
Note [facility] Accession Number: [id number] TESTS RESULT FLAG UNITS REF RANGE LAB Clinician Provided Cytology Information No. of containers..01 Other (Miscellaneous) No. of containers..00 Previously Prepared Cytology Slide 01 RIGHT THYROID Clinician ICD10: R05 DIAGNOSIS: 02 RIGHT THYROID INCONCLUSIVE. [place] CATEGORY III. ATYPIA OF UNDETERMINED SIGNIFICANCE. PREDOMINANTLY BENIGN APPEARING FOLLICULAR CELLS WITH HURTHLE-OID FEATURES AND WITH FOCAL CYTOLOGIC ATYPIA. PLEASE SEE NOTE. NOTE: A repeat aspirate after an appropriate interval of observation may be helpful, if clinically indicated. Pathologist ICD10: 02 R89.6, E04.1 01 XR CHEST 2V 02 Susan Vicente MD, Pathologist NPI- [id number] 01 Zach Contreras, Mechanic ([facility]) 01 30 CC, RED, CLOUDY RECIEVED: IN CYTOLYT WITH 5 ALCOHOL FIXED AND 5 QUICK STAINED SLIDES ALSO 1 RNA VIAL WAS RECEIVED FOR FURTHER TESTING. /VDU 11/02/2019 [facility] FLAG LEGEND: L-Low Normal,H-High Normal,LL-Alert Low,HH-Alert High <-Panic Low,>-Panic High,A-Abnormal,AA-Critical Abnormal Performed at: 01 =Z [facility] [address] [address] [place] [address] [address] [facility], [place] [address] Dominick Aponte MD, 02 [facility] [address] [place] [id number] Carole Hernández MD, Performed at: [address] [facility] [address], [place], [place] [id number] MD Dominick Aponte MD Phone: [phone]
== END ==
PROVIDERS: PCP Family Medicine; Referring Provider Family Medicine; Visit Provider Family Medicine
DX: E04.1 Nontoxic single thyroid nodule (principal)
CPT/HCPCS: 10005

== ENCOUNTER → 2019-11-07 14:46 | Outpatient (CLI) | payer MEDICARE, OTHER, SELFPAY | PROVIDERS: PCP Family Medicine; Visit Provider Family Medicine | DX: N30.01 Acute cystitis with hematuria (principal) | CPT/HCPCS: 87077; 87086; 87186 ==

== ENCOUNTER 2019-11-10 08:46 | Emergency (ER) | payer MEDICARE, OTHER, SELFPAY ==
[2019-11-10] VITALS (7 sets, daily range): BP systolic 133–163; BP diastolic 63–89; PULSE 65–79; RESP 15–22; TEMP 37; O2SAT 96–98; BMI 30.6
--- NOTE | 2019-11-10 10:00 | DI.US.S_ITS ---
PROCEDURE: US PERIP VENOUS LOW EXTREM LT INDICATIONS: LEFT GROIN PAIN, HX RECURRENT DVT, HIGH THIGH TECHNIQUE: Real-time imaging, as well as color and pulse Doppler interrogation, were performed of the lower extremity deep veins from the inguinal ligament to the popliteal fossa. COMPARISON: [facility], , [facility] VENOUS LOW EXTREM LT, 10/20/2019, 15:36. FINDINGS: There are filling defects seen common femoral, femoral and popliteal veins are normally compressible, and free of intraluminal thrombus. Color and pulse Doppler consistent with extensive DVT. Compared with last exam, there is minimal change. IMPRESSION: Extensive DVT in the left lower extremity, minimally changed from the last exam. The preliminary result was given to Dr. Cazares by analytical lab technician. Dictated by: Flako Nieto M.D. on 11/10/2019 at 11:13 Approved by: Flako Nieto M.D. on 11/10/2019 at 11:19
[2019-11-10 10:10] LABS: Add Manual Diff / Slide Review NO; Basophils Absolute Auto 100 /uL (0-100); Basophils Percent Auto 0.9 % (0-2); Eosinophils Absolute Auto 400 /uL (0-450); Eosinophils Percent Auto 3.2 % (2-4); Hematocrit 36.1 % (36-46); Hemoglobin 11.6 g/dL (12.0-16.0); Lymphocytes Absolute Auto 2200 /uL (1100-4500); Lymphocytes Percent Auto 18.3 % (25-40); Mean Corpuscular Hemoglobin 30.4 PG (26-34); Mean Corpuscular Volume 94.8 fL (80-100); Monocytes Absolute Auto 900 /uL (0-900); Monocytes Percent Auto 7.1 % (3-14); Neutrophils Absolute Auto 8400 /uL (1500-7000); Neutrophils Percent Auto 70.5 % (50-75); Platelet Count 282 X10^3/uL (150-400); Red Cell Distribution Width 12.9 % (11.6-14.8)
[2019-11-10 10:17] LABS: Alanine Aminotransferase 14 IU/L (<35); Albumin 3.4 g/dL (3.5-5.0); Albumin Globulin Ratio 0.9 (1.0-2.8); Alkaline Phosphatase 62 U/L (38-126); Aspartate Aminotransferase 30 IU/L (14-36); BUN Creatinine Ratio 15.1 (6-22); Bilirubin Total 0.3 mg/dL (0.2-1.3); Blood Urea Nitrogen 19 mg/dL (7-17); Carbon Dioxide 21 mmol/L (22-32); Chloride 112 mmol/L (98-107); Creatine Kinase 32 U/L (30-135); D Dimer 668 ng/mL (<230); Estimated Glomerular Filt Rate 40.9 mL/min (>60); Globulin 3.7 g/dL (1.7-4.1); Glucose 109 mg/dL (80-110); HEMOLYSIS 26 (0-50); Potassium 4.1 mmol/L (3.4-5.1); Sodium 139 mmol/L (137-145); Total Protein 7.1 g/dL (6.3-8.2)
[2019-11-10 10:31] LABS: Erythrocyte Sedimentation Rate 57 MM/HR (0-20)
--- NOTE | 2019-11-10 12:05 | ED_ITS ---
HPI - Extremity Problem General Chief complaint: Extremity Problem,Nontraumatic Stated complaint: pain in groin area,possible blood clot Time Seen by Provider: 11/10/19 09:42 Source: patient Mode of arrival: Wheelchair History of Present Illness HPI Narrative: CC: left thigh and groin pain HPI: The patient is an 79-year-old female who was here 3 weeks ago and was diagnosed to have a blood clot in her left leg. She comes in today because she is having continued pain and discomfort in the same area. The patient states that she has pain and discomfort when arm walking. 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 She does not have an IVC umbrella. The pain and discomfort is 5 to 7/10 in intensity. She was just worried that the pain has continued and is not significantly improved. She denies a history of myocardial infarction stroke hypertension diabetes mellitus. She admits to history of polio. She has had no history of hepatitis TB or HIV. She denies any fever chills or sweats. She has had no headache chest pain cough shortness of breath racing of her heart palpitations dizziness. She has had no abdominal pain nausea vomiting diarrhea or any urinary symptoms. She states that she has a bladder infection and is on Cipro currently. Related Data Home Medications Medication Instructions Recorded Confirmed cholecalciferol (vitamin D3) 25 1,000 unit PO DAILY 10/01/17 10/27/19 mcg (1,000 unit) capsule lysine 500 mg tablet 500 mg PO DAILY 10/01/17 10/27/19 Previous Rx's Medication Instructions Recorded levothyroxine 100 mcg tablet 100 mcg PO QDAY #90 tab 09/26/18 baclofen 5 mg tablet 5 mg PO BID PRN #30 tab 05/08/19 albuterol sulfate 2 puff INHALATION Q4-6H PRN #8.5 07/02/19 gram famotidine 20 mg tablet 20 mg PO BID #180 tab 07/31/19 hydrocodone 5 mg-acetaminophen 325 1 tab PO DAILY PRN #20 tab 10/27/19 mg tablet rivaroxaban 20 mg tablet 20 mg PO DAILY #90 tab 10/27/19 cephalexin 500 mg capsule 500 mg PO TID #21 cap 11/09/19 cyclobenzaprine 10 mg PO TID PRN #15 tab 11/10/19 hydrocodone-acetaminophen [[place]] 1 tab PO Q6H PRN #12 tab 11/10/19 Allergies Allergy/AdvReac Type Severity Reaction Status Date / Time Sulfa (Sulfonamide Allergy Severe HIVES FROM Verified 11/10/19 08:58 Antibiotics) SULFA CREAM [SULFA (SULFONAMIDE ANTIBIOTICS)] Review of Systems Review of Systems Narrative: Review of systems were all negative except for those mentioned in the history of present illness Patient History Medical History (Updated 11/10/19 @ 12:10 by Moncho Nelson MD) Chicken pox (Resolved ~194) History of chickenpox (Acute) History of colitis (Acute) History of diabetes mellitus (Acute) History of diverticulitis (Acute) History of eczema (Acute) History of gastric ulcer (Acute) [facility] (Ac[facility]) History of skin cancer (Acute) History of ulcerative colitis (Acute) History of urinary incontinence (Acute) Hyperthyroidism (Chronic ~1992) Polio (Acute) Shoulder pain (Acute) Surgical History History of cholecystectomy (Acute) History of hip replacement History of knee replacement History of shoulder replacement (Acute) Status post cholecystectomy Family History Sister Age: 77 Heart disease Father No problems noted. Mother Myocardial infarction Brother No problems noted. Brother No problems noted. Social History marital status: Smoking Status: Former smoker alcohol intake: current substance use type: does not use Smoking Status: Former smoker alcohol intake frequency: 0-2 drinks per day Substance Use Type: does not use Exam Narrative Exam Narrative: PHYSICAL EXAM: CONSTITUTIONAL: Awake, Alert, Oriented, Coherent, Cooperative in NAD. Does not appear toxic or ill. HEAD: AT/NC EENT: PERRL, FROM of eyes, no discharge, no nystagmus MOUTH:Oral mucosa is moist and pink, posterior pharynx is without erythema or exudate. NECK: Supple, no obvious JVD, Trachea is midline without stridor, no palpable LN. SPINE: Palpation of the cervical, Thoracic, Lumbar or Sacral spine reveals no gross deformity or tenderness. No CVA tenderness. THORAX: No deformity, retractions, chest wall tenderness. LUNGS: Clear, symmetrical breath sounds without respiratory distress. HEART: Normal heart tones, regular rhythm and rate without murmur. ABDOMEN: Soft, non-tender, normal bowel sounds without guarding, rebound, rigidity or palpable mass. EXTREMITIES: The patient is tender to palpation over her medial thigh adjacent to the inguinal ligament as well as the adductor muscles of the left thigh. There is no significant swelling of the leg erythema or warmth. There is pain on internal rotation and flexion of the left hip. The patient may have some degree of tendinitis or strain involving the adductor muscles and flexors of the hip including the ileus psoas and iliacus muscles. SKIN: No rash, bruising, petechiae or purpura. NEURO: Awake, alert, oriented, conversive, cranial nerves II-XII are symmetrical , moves all 4 extremities with generalized weakness in both of her legs secondary to her polio. However she is ambulatory. MENTAL HEALTH: Does not appear anxious or depressed. Initial Vital Signs Initial Vital Signs: Vital Signs Temperature 98.6 F 11/10/19 08:58 Pulse Rate 79 11/10/19 08:58 Respiratory Rate 15 11/10/19 08:58 Blood Pressure 136/63 11/10/19 08:58 Pulse Oximetry 98 11/10/19 08:58 Course Course Course Narrative: 1145: The information technology specialist stated that the patient still has t he thrombosis in her thigh which is unchanged but is not a complete occlusion. The patient was not having any chest pain or shortness of breath. The D-dimer was checked just confirm whether not the patient had deep vein thrombosis in her leg. Clinically the patient has tenderness over her abductor muscles of the left thigh with pain on internal rotation of the leg. She also has pain on flexion of the hip which appears to be muscular in nature. The patient is on Xarelto for her blood clot. The patient will be discharged with [place] and cyclobenzaprine for pain management. Orders Ordered: ED Orders 11/10/19 09:00 Complete Blood Count AUTO DIFF Stat Comprehensive Metabolic Panel Stat Creatine Kinase Stat D Dimer Stat Erythrocyte Sedimentation Rate Stat 11/10/19 10:00 US periph venous low extrem lt Stat Vital Signs Vital signs: Vital Signs - 8 hr 11/10/19 08:58 11/10/19 09:32 11/10/19 10:00 Temperature 98.6 F Pulse Rate 79 67 71 Respiratory Rate 15 21 22 Blood Pressure 136/63 142/64 H Pulse Oximetry 98 97 97 11/10/19 10:30 11/10/19 11:00 11/10/19 11:30 Temperature Pulse Rate 65 69 66 Respiratory Rate 15 18 15 Blood Pressure 144/65 H 133/64 147/65 H Pulse Oximetry 97 97 MDM - Extremity (Nontraumatic) Lab Data Result diagrams: 11/10/19 09:00 11/10/19 09:00 Labs: Lab Results 11/10/19 11/10/19 11/10/19 Range/Units 09:00 09:00 09:00 WBC 12.0 H (4.5-11.0) X10^3/uL RBC 3.80 L (4.0-5.2) X10^6/uL Hgb 11.6 L (12.0-16.0) g/dL Hct 36.1 (36-46) % MCV 94.8 (80-100) fL MCH 30.4 (26-34) PG MCHC 32.0 (30-36) % RDW 12.9 (11.6-14.8) % Plt Count 282 (150-400) X10^3/uL Neut % (Auto) 70.5 (50-75) % Lymph % (Auto) 18.3 L (25-40) % Dixie % (Auto) 7.1 (3-14) % Eos % (Auto) 3.2 (2-4) % Baso % (Auto) 0.9 (0-2) % Neut # (Auto) 8400 H (2328-1548) /uL Lymph # (Auto) 2200 (7587-3098) /uL Dixie # (Auto) 900 (0-900) /uL Eos # (Auto) 400 (0-450) /uL Baso # (Auto) 100 (0-100) /uL ESR 57 H (0-20) MM/HR D-Dimer 668 H (<230) ng/mL Sodium 139 (137-145) mmol/L Potassium 4.1 (3.4-5.1) mmol/L Chloride 112 H (98-107) mmol/L Carbon Dioxide 21 L (22-32) mmol/L BUN 19 H (7-17) mg/dL Creatinine 1.26 H (0.52-1.04) mg/dL Estimated GFR 40.9 L (>60) mL/min BUN/Creatinine Ratio 15.1 (6-22) Glucose 109 (80-110) mg/dL Calcium 9.0 (8.4-10.2) mg/dL Total Bilirubin 0.3 (0.2-1.3) mg/dL AST 30 (14-36) IU/L ALT 14 (<35) IU/L Alkaline Phosphatase 62 (38-126) U/L Total Creatine Kinase 32 (30-135) U/L Total Protein 7.1 (6.3-8.2) g/dL Albumin 3.4 L (3.5-5.0) g/dL Globulin 3.7 (1.7-4.1) g/dL Albumin/Globulin Ratio 0.9 L (1.0-2.8) Discharge Plan Departure Patient Disposition: Home Clinical Impression: Polio Muscle strain of left thigh Qualifiers: Encounter type: initial encounter Qualified Code(s): S76.912A - Strain of unspecified muscles, fascia and tendons at thigh level, left thigh, initial encounter Deep venous thrombosis Qualifiers: DVT location: lower extremity Affected thrombotic vein of extremity: unspecified lower extremity proximal vein Chronicity: unspecified Laterality: left Qualified Code(s): I82.4Y2 - Acute embolism and thrombosis of unspecified deep veins of left proximal lower extremity Discharge Date/Time: 11/10/19 12:44 Instructions: DI for Deep Vein Thrombosis, DI for Muscle Strain Activity Restrictions/Additional Instructions: 1. The the ultrasound of your leg reveals that you still have the blood clot in your thigh and it is not completely occluded and is not any larger. Clinically I believe you also have a muscle strain of your adductor muscles and anterior thigh muscles causing the pain and discomfort. 2. Follow-up with your primary care physician to be evaluated in 48-72 hours. 3. Take the cyclobenzaprine 10 mg 3 times a day as necessary for muscle spasms pain and discomfort in your thigh. 4. Continue taking your Xarelto as prescribed 5. For severe pain and discomfort as a rescue medication you can take 1 [place] 5/325 every 6 hours. Prescriptions: New hydrocodone-acetaminophen [[place]] 5-325 mg tablet 1 tab PO Q6H PRN (Reason: pain) Qty: 12 RF: 0 cyclobenzaprine 10 mg tablet 10 mg PO TID PRN (Reason: muscle spasm) Qty: 15 RF: 0 No Action levothyroxine 100 mcg tablet 100 mcg PO QDAY Qty: 90 RF: 3 famotidine [Pepcid AC] 20 mg tablet 20 mg PO BID Qty: 180 RF: 3 Xarelto 20 mg tablet 20 mg PO DAILY Qty: 90 RF: 0 hydrocodone-acetaminophen 5-325 mg tablet 1 tab PO DAILY PRN (Reason: pain) Qty: 20 RF: 0 baclofen 5 mg tablet 5 mg PO BID PRN (Reason: spasm) Qty: 30 RF: 0 cephalexin 500 mg capsule 500 mg PO TID Qty: 21 RF: 0 lysine [L-Lysine] 500 mg tablet 500 mg PO DAILY RF: 0 cholecalciferol (vitamin D3) 1,000 unit capsule 1,000 unit PO DAILY RF: 0 albuterol sulfate 90 mcg/actuation HFA aerosol inhaler 2 puff INHALATION Q4-6H PRN (Reason: shortness of breath or wheezing) Qty: 8.5 RF: 2 Referrals: Sandhya Beaver DO [Primary Care Provider] -
== END 2019-11-10 12:44 | disposition home or self-care (01) ==
PROVIDERS: Emergency Provider Emergency Medicine; PCP Family Medicine
DX: I82.4Y2 Acute embolism and thrombosis of unspecified deep veins of left proximal lower extremity (principal); S76.912A Strain of unspecified muscles, fascia and tendons at thigh level, left thigh, initial encounter; Z86.12 Personal history of poliomyelitis
CPT/HCPCS: 36415; 80053; 82550; 85025; 85379; 85651; 93041; 93971; 99284

== ENCOUNTER → 2019-11-22 08:25 | Outpatient (CLI) | payer MEDICARE, OTHER, SELFPAY ==
--- NOTE | 2019-11-22 08:27 | DI.RAD.S_ITS ---
PROCEDURE: FL BARIUM SWALLOW INDICATIONS: dysphagia COMPARISON: None. FINDINGS: Function: There is normal esophageal peristalsis except for episodic tertiary contractions within the distal esophagus. No elicited gastroesophageal reflux. Morphology: Single contrast images demonstrate normal mucosal morphology. These views show no esophageal strictures, extrinsic mass effects, or diverticula. Limited images of the stomach demonstrate normal appearance. IMPRESSION: Episodic tertiary contractions are identified within the esophagus as a likely etiology of reported dysphagia. No stricture or mass is found, no reflux was identified. 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 Dictated by: Meek Chase M.D. on 11/22/2019 at 10:47 Approved by: Meek Chase M.D. on 11/22/2019 at 10:55
== END ==
PROVIDERS: PCP Family Medicine; Referring Provider Family Medicine; Visit Provider Family Medicine
DX: R13.10 Dysphagia, unspecified (principal)
CPT/HCPCS: 74220

== ENCOUNTER → 2019-12-06 15:58 | Outpatient (CLI) | payer MEDICARE, OTHER, SELFPAY ==
--- NOTE | 2019-12-06 16:02 | DI.RAD.S_ITS ---
PROCEDURE: XR CHEST 2V INDICATIONS: cough TECHNIQUE: 2 views of the chest were acquired. COMPARISON: [facility], CR, XR CHEST 2V, 10/20/2019, 14:14. FINDINGS: Surgical changes and devices: Right shoulder arthroplasty. Lungs and pleura: Lungs are clear. No pleural effusions or pneumothorax. Mediastinum: Mediastinal contours are normal. Heart size is normal. Bones and chest wall: No suspicious bony abnormalities. Soft tissues appear unremarkable. IMPRESSION: No acute pulmonary process. Dictated by: Saranya Romero M.D. on 12/06/2019 at 16:29 Approved by: Saranya Romero M.D. on 12/06/2019 at 16:29
== END ==
PROVIDERS: PCP Family Medicine; Referring Provider Physician Assistant; Visit Provider Physician Assistant
DX: R05 Cough (principal)
CPT/HCPCS: 71046

== ENCOUNTER → 2019-12-28 10:19 | Outpatient (CLI) | payer MEDICARE, OTHER, SELFPAY ==
[2019-12-28 11:13] LABS: Add Manual Diff / Slide Review NO; Basophils Absolute Auto 100 /uL (0-100); Basophils Percent Auto 1.3 % (0-2); Eosinophils Absolute Auto 300 /uL (0-450); Eosinophils Percent Auto 3.9 % (2-4); Hematocrit 37.5 % (36-46); Hemoglobin 12.3 g/dL (12.0-16.0); Lymphocytes Absolute Auto 1400 /uL (1100-4500); Lymphocytes Percent Auto 16.9 % (25-40); Mean Corpuscular HGB Conc 32.7 % (30-36); Mean Corpuscular Hemoglobin 30.5 PG (26-34); Mean Corpuscular Volume 93.4 fL (80-100); Monocytes Absolute Auto 500 /uL (0-900); Monocytes Percent Auto 5.4 % (3-14); Neutrophils Absolute Auto 6100 /uL (1500-7000); Neutrophils Percent Auto 72.5 % (50-75); Platelet Count 209 X10^3/uL (150-400); Red Blood Cell Count 4.02 X10^6/uL (4.0-5.2); Red Cell Distribution Width 13.9 % (11.6-14.8); White Blood Cell Count 8.5 X10^3/uL (4.5-11.0)
[2019-12-28 11:20] LABS: Hemoglobin A1C% w Est Avg Glu 6.4 % (4.0-6.0)
[2019-12-28 11:26] LABS: Alanine Aminotransferase 20 IU/L (<35); Albumin 3.7 g/dL (3.5-5.0); Albumin Globulin Ratio 1.1 (1.0-2.8); Alkaline Phosphatase 81 U/L (38-126); Aspartate Aminotransferase 29 IU/L (14-36); BUN Creatinine Ratio 12.4 (6-22); Bilirubin Total 0.4 mg/dL (0.2-1.3); Blood Urea Nitrogen 16 mg/dL (7-17); C-Reactive Protein Quant 0.5 mg/dL (<1.0); Calcium 9.3 mg/dL (8.4-10.2); Carbon Dioxide 25 mmol/L (22-32); Chloride 108 mmol/L (98-107); Estimated Glomerular Filt Rate 39.8 mL/min (>60); Globulin 3.5 g/dL (1.7-4.1); Glucose 112 mg/dL (80-110); HEMOLYSIS < 15 (0-50); Potassium 4.5 mmol/L (3.4-5.1); Sodium 139 mmol/L (137-145); Total Protein 7.2 g/dL (6.3-8.2)
[2019-12-28 11:28] LABS: Erythrocyte Sedimentation Rate 35 MM/HR (0-20)
[2019-12-28 11:55] LABS: TSH w/ Reflex to FT4 3.07 uIU/mL (0.47-4.68)
== END ==
PROVIDERS: PCP Family Medicine; Referring Provider Family Medicine; Visit Provider Family Medicine
DX: E03.9 Hypothyroidism, unspecified (principal); E11.9 Type 2 diabetes mellitus without complications; E66.9 Obesity, unspecified; I10 Essential (primary) hypertension
CPT/HCPCS: 36415; 80053; 83036; 84443; 85025; 85651; 86140

== ENCOUNTER → 2020-04-29 15:39 | Outpatient (CLI) | payer MEDICARE, OTHER, SELFPAY ==
[2020-04-29 16:38] LABS: COVID19 -Nasal RAPID Negative (Negative)
== END ==
PROVIDERS: PCP Family Medicine; Visit Provider Physician Assistant
DX: Z01.812 Encounter for preprocedural laboratory examination (principal); Z20.822 Contact with and (suspected) exposure to COVID-19
CPT/HCPCS: 87635; C9803

== ENCOUNTER → 2020-05-02 09:48 | Outpatient (CLI) | payer MEDICARE, OTHER, SELFPAY ==
--- NOTE | 2020-05-02 09:55 | DI.RAD.S_ITS ---
PROCEDURE: XR HAND RT MIN 3V INDICATIONS: pain and swelling in hands and wrists TECHNIQUE: 3 views of the hand(s) acquired. COMPARISON: [facility], CR, XR WRIST RT MIN 3V, 05/02/2020, 10:41. FINDINGS: Bones: No fractures or dislocations. Diffuse IP and 1st CMC degenerative narrowing are present. Radiocarpal narrowing is present. There is mild appearance of dystrophic calcifications near the radial ulnar joint. No suspicious bony lesions. Soft tissues: No suspicious soft tissue calcifications. IMPRESSION: 1. IP, CMC as well as radiocarpal arthritic narrowing are present. Dystrophic calcifications versus chondral calcinosis is noted at the radioulnar joint. Dictated by: Saranya Roemro M.D. on 05/02/2020 at 12:56 Approved by: Saranya Romero M.D. on 05/02/2020 at 12:58
--- NOTE | 2020-05-02 09:55 | DI.RAD.S_ITS ---
PROCEDURE: XR HAND LT MIN 3V INDICATIONS: pain and swelling in hands and wrists TECHNIQUE: 3 views of the hand(s) acquired. COMPARISON: None. FINDINGS: Bones: No fractures or dislocations. Diffuse IP degenerative changes are present. Minimal periarticular osteophytes are present. No gross erosions. Mild 1st CMC degenerative narrowing.. No suspicious bony lesions. Soft tissues: No suspicious soft tissue calcifications. IMPRESSION: IP and 1st CMC degenerative narrowing suggestive of osteoarthritis. Dictated by: Saranya Romero M.D. on 05/02/2020 at 12:55 Approved by: Saranya Romero M.D. on 05/02/2020 at 12:56
--- NOTE | 2020-05-02 09:55 | DI.RAD.S_ITS ---
PROCEDURE: XR WRIST RT MIN 3V INDICATIONS: joint swelling, possible RA? TECHNIQUE: 3 views of the wrist were acquired. COMPARISON: [facility], , WRIST MINIMUM 3 VIEWS LEFT, 07/05/2017, 20:01. FINDINGS: Bones: No fractures or dislocations. No suspicious bony lesions. Dystrophic calcifications are noted the radial ulnar joint space. Radiocarpal narrowing as well as 1st CMC narrowing or identified. No definitive erosions are identified. Soft tissues: No suspicious soft tissue calcifications. IMPRESSION: Radiocarpal and 1st CMC degenerative narrowing suggestive of arthritis. Dystrophic calcifications the radial ulnar joint are present possibly related to cartilage degeneration/chondrocalcinosis. No erosions are identified. Dictated by: Saranya Romero M.D. on 05/02/2020 at 13:00 Approved by: Saranya Romero M.D. on 05/02/2020 at 13:02
--- NOTE | 2020-05-02 09:55 | DI.RAD.S_ITS ---
PROCEDURE: XR WRIST LT MIN 3V INDICATIONS: joint swelling, possible RA? TECHNIQUE: 3 views of the wrist were acquired. COMPARISON: [facility], , WRIST MINIMUM 3 VIEWS LEFT, 07/05/2017, 20:01. FINDINGS: Bones: No fractures or dislocations. No suspicious bony lesions. Radiocarpal and mild 1st CMC degenerative narrowing are present. No erosions are identified. Overall appearance is relatively stable compared to 2018. Soft tissues: No suspicious soft tissue calcifications. IMPRESSION: Radiocarpal and 1st CMC degenerative narrowing suggestive of arthritis. No erosions are identified. Dictated by: Saranya Romero M.D. on 05/02/2020 at 13:00 Approved by: Saranya Romero M.D. on 05/02/2020 at 13:00
[2020-05-02 12:18] LABS: Add Manual Diff / Slide Review NO; Basophils Absolute Auto 0 /uL (0-100); Basophils Percent Auto 0.5 % (0-2); Eosinophils Absolute Auto 400 /uL (0-450); Eosinophils Percent Auto 5.5 % (2-4); Hematocrit 32.7 % (36-46); Hemoglobin 10.5 g/dL (12.0-16.0); Lymphocytes Absolute Auto 1500 /uL (1100-4500); Lymphocytes Percent Auto 22.1 % (25-40); Mean Corpuscular HGB Conc 32.1 % (30-36); Mean Corpuscular Hemoglobin 29.8 PG (26-34); Mean Corpuscular Volume 92.7 fL (80-100); Monocytes Absolute Auto 300 /uL (0-900); Monocytes Percent Auto 5.2 % (3-14); Neutrophils Absolute Auto 4400 /uL (1500-7000); Neutrophils Percent Auto 66.7 % (50-75); Platelet Count 224 X10^3/uL (150-400); Red Blood Cell Count 3.53 X10^6/uL (4.0-5.2); Red Cell Distribution Width 14.4 % (11.6-14.8); White Blood Cell Count 6.6 X10^3/uL (4.5-11.0)
[2020-05-02 12:26] LABS: Hemoglobin A1C% w Est Avg Glu 5.8 % (4.0-6.0)
[2020-05-02 12:40] LABS: Erythrocyte Sedimentation Rate 39 MM/HR (0-20)
[2020-05-02 13:20] LABS: Alanine Aminotransferase 23 IU/L (<35); Albumin 3.3 g/dL (3.5-5.0); Albumin Globulin Ratio 0.9 (1.0-2.8); Alkaline Phosphatase 71 U/L (38-126); Aspartate Aminotransferase 31 IU/L (14-36); BUN Creatinine Ratio 19.6 (6-22); Bilirubin Total 0.3 mg/dL (0.2-1.3); Blood Urea Nitrogen 28 mg/dL (7-17); C-Reactive Protein Quant < 0.5 mg/dL (<1.0); Calcium 9.3 mg/dL (8.4-10.2); Carbon Dioxide 23 mmol/L (22-32); Chloride 114 mmol/L (98-107); Estimated Glomerular Filt Rate 35.3 mL/min (>60); Globulin 3.7 g/dL (1.7-4.1); Glucose 122 mg/dL (80-110); HEMOLYSIS < 15 (0-50); Potassium 5.3 mmol/L (3.4-5.1); Sodium 142 mmol/L (137-145)
[2020-05-02 13:25] LABS: Rheumatoid Factor < 8.6 IU/mL (<12.0)
== END ==
PROVIDERS: PCP Family Medicine; Referring Provider Family Medicine; Visit Provider Family Medicine
DX: M79.642 Pain in left hand (principal); M79.641 Pain in right hand; M25.532 Pain in left wrist; M25.531 Pain in right wrist; M25.432 Effusion, left wrist; M25.431 Effusion, right wrist; E11.9 Type 2 diabetes mellitus without complications; E03.9 Hypothyroidism, unspecified
CPT/HCPCS: 36415; 73110; 73130; 80053; 83036; 84439; 84443; 85025; 85651; 86140; 86430

== ENCOUNTER → 2020-05-02 13:28 | Outpatient (CLI) | payer MEDICARE, OTHER, SELFPAY ==
[2020-05-02 14:17] LABS: TSH w/ Reflex to FT4 5.03 uIU/mL (0.47-4.68)
[2020-05-02 15:11] LABS: Free T4, Direct Thyroxine 1.69 ng/dL (0.78-2.19)
== END ==
PROVIDERS: PCP Family Medicine; Visit Provider Family Medicine
DX: E03.9 Hypothyroidism, unspecified (principal)
CPT/HCPCS: 84439; 84443

== ENCOUNTER → 2020-05-20 09:04 | Outpatient (CLI) | payer MEDICARE, OTHER, SELFPAY ==
[2020-05-20 11:22] LABS: COVID19 -Nasal RAPID Negative (Negative)
== END ==
PROVIDERS: PCP Family Medicine; Referring Provider Physician Assistant; Visit Provider Physician Assistant
DX: Z01.812 Encounter for preprocedural laboratory examination (principal); Z20.822 Contact with and (suspected) exposure to COVID-19
CPT/HCPCS: 87635; C9803

== ENCOUNTER 2020-05-22 07:36 | Day surgery (SDC) | payer MEDICARE, OTHER, SELFPAY ==
--- NOTE | 2020-05-22 | PATH_ITS ---
[facility] Accession Number: [id number] . 01 Material submitted: . PART A: colon - RIGHT COLON RANDOM PART B: cecum - CECAL POLYP PART C: colon - TRANSVERSE COLON RANDOM PART D: colon - LEFT COLON RANDOM PART E: rectum - RECTUM RANDOM . 01 Clinical history: . A: H/O ULCERATIVE COLITIS C: H/O ULCERATIVE COLITIS D: H/O ULCERATIVE COLITIS . 02 Diagnosis: A, C-E: Right Colon, Transverse Colon, Left Colon, Rectum, Random Biopsies: Colonic mucosa with no significant diagnostic abnormality. Negative for active inflammation, granulomas, dysplasia, and malignancy. . B. Cecum, Polyp, Biopsy: Tubular adenoma. [facility] 05/27/2020 1345 Local . 02 Electronically signed: . Carole Hernández MD, Pathologist NPI- [id number] . 01 Gross description: . Part A: RIGHT COLON RANDOM: Received in formalin are 4 fragment(s) of wilhelm, soft tissue measuring 0.1 x 0.1 x 0.1 cm to 0.4 x 0.2 x 0.2 cm submitted entirely in 1 cassette(s) Part B: CECAL POLYP: Received in formalin are multiple fragment(s) of wilhelm, soft tissue measuring 0.1 x 0.1 x 0.1 cm to 0.2 x 0.2 x 0.2 cm submitted entirely in 1 cassette(s) Part C: TRANSVERSE COLON RANDOM: Received in formalin are 4 fragment(s) of wilhelm, soft tissue measuring 0.1 x 0.1 x 0.1 cm to 0.4 x 0.2 x 0.2 cm submitted entirely in 1 cassette(s) Part D: LEFT COLON RANDOM: Received in formalin are multiple fragment(s) of wilhelm, soft tissue measuring 0.1 x 0.1 x 0.1 cm to 0.4 x 0.4 x 0.2 cm submitted entirely in 1 cassette(s) Part E: RECTUM RANDOM: Received in formalin are 4 fragment(s) of wilhelm, soft tissue measuring 0.1 x 0.1 x 0.1 cm to 0.4 x 0.3 x 0.2 cm submitted entirely in 1 cassette(s) /TASH 05/23/2020 1915 Local . 02 Pathologist provided ICD-10: D12.0, R19.7 . 02 CPT . 465059, [id number], 190237, [id number], [id number] Performed at: 01 [facility] [address] [place] [address], [place], [place] [id number] MD Dominick Aponte MD Phone: [phone] Performed at: 02 [facility] [address] [place], [place] [id number] MD Carole Hernández MD Phone: [phone]
--- NOTE | 2020-05-22 07:58 | P.HP_ITS ---
History of Present Illness History of Present Illness Date Patient Seen: 05/22/20 Chief complaint: SDC Narrative: 79-year-old female with history of ulcer colitis who is presenting with weight loss. Last colonoscopy performed in 2013 here for assessment of disease activity Patient History Medical History Chicken pox (~1947) Frequent urinary tract infections History of chickenpox History of colitis History of diabetes mellitus History of diverticulitis History of eczema History of gastric ulcer History of [facility] fever History of skin cancer History of ulcerative colitis History of urinary incontinence Hyperthyroidism (~1992) Polio Shoulder pain Surgical History History of cholecystectomy History of hip replacement History of knee replacement History of shoulder replacement Status post cholecystectomy Family & Social History Family History Sister Age: 78 Heart disease Father No problems noted. Mother Myocardial infarction Brother No problems noted. Brother No problems noted. Tobacco & Substance use: Smoking Status Former smoker alcohol intake current alcohol intake frequency 0-2 drinks per day Substance Use Type does not use Meds Home Medications and Allergies Home Medications Medication Instructions Recorded Confirmed Type cholecalciferol (vitamin D3) 25 1,000 unit PO DAILY 10/01/17 12/06/19 History mcg (1,000 unit) capsule lysine 500 mg tablet 500 mg PO DAILY 10/01/17 12/06/19 History baclofen 5 mg tablet 5 mg PO BID PRN #30 tab 05/08/19 12/06/19 Rx albuterol sulfate 2 puff INHALATION Q4-6H PRN #8.5 07/02/19 12/06/19 Rx gram hydrocodone 5 mg-acetaminophen 325 1 tab PO DAILY PRN #20 tab 10/27/19 12/06/19 Rx mg tablet Acetaminophen 1000mg PO 11/30/19 12/06/19 History Centrum for Women w/D3 PO 11/30/19 12/06/19 History mesalamine 1.2 gram tablet,delayed 2.4 gram PO BID tab 11/30/19 12/06/19 History release famotidine 20 mg tablet 20 mg PO BID #180 tab 12/28/19 12/28/19 Rx rivaroxaban 20 mg tablet 20 mg PO DAILY #90 tab 12/28/19 12/28/19 Rx hydrochlorothiazide 50 mg tablet 50 mg PO Q OTHER DAY #90 tab 01/01/20 Rx levothyroxine 100 mcg tablet 100 mcg PO QDAY #90 tab 01/01/20 Rx Lialda BID 05/22/20 History Synthroid 05/22/20 History Xarelto 05/22/20 History Allergies Allergy/AdvReac Type Severity Reaction Status Date / Time Sulfa (Sulfonamide Allergy Severe HIVES FROM Verified 05/22/20 08:18 Antibiotics) SULFA CREAM [SULFA (SULFONAMIDE ANTIBIOTICS)] Exam Narrative Exam Narrative: General: Patient is well developed, not in apparent distress Cardiovascular: Regular rate and rhythm, no murmurs, rubs, or gallops; no evidence of edema; no palpable abdominal aortic aneurysm Gastrointestinal: Normoactive bowel sounds, soft, nontender, nondistended, no rebound tenderness, no hepatosplenomegaly, no evidence of hernia Assessment & Plan Assessment & Plan narrative: 79-year-old female with history of ulcerative colitis here for evaluation of disease activity and random biopsies. Regarding the procedure(s), the risks and potential complications, benefits, and alternatives (including not doing the procedure) were discussed with the patient. The risks include but are not limited to bleeding, splenic injury, infection, perforation which may require surgical intervention, missed lesions, and adverse reactions to sedative medicines. After a question and answer period, the patient agreed to proceed with the procedure(s) and gives informed consent.
--- NOTE | 2020-05-22 08:01 | P.HP_ITS ---
History of Present Illness History of Present Illness Chief complaint: [facility] Narrative: 79-year-old female with history of ulcer colitis who is presenting with weight loss. Last colonoscopy performed in 2013 here for assessment of disease activity Patient History Medical History Chicken pox (~1947) Frequent urinary tract infections History of chickenpox History of colitis History of diabetes mellitus History of diverticulitis History of eczema History of gastric ulcer History of [facility] fever History of skin cancer History of ulcerative colitis History of urinary incontinence Hyperthyroidism (~1992) Polio Shoulder pain Surgical History History of cholecystectomy History of hip replacement History of knee replacement History of shoulder replacement Status post cholecystectomy Family & Social History Family History Sister Age: 78 Heart disease Father No problems noted. Mother Myocardial infarction Brother No problems noted. Brother No problems noted. Tobacco & Substance use: Smoking Status Former smoker alcohol intake current alcohol intake frequency 0-2 drinks per day Substance Use Type does not use Meds Home Medications and Allergies Home Medications Medication Instructions Recorded Confirmed Type cholecalciferol (vitamin D3) 25 1,000 unit PO DAILY 10/01/17 12/06/19 History mcg (1,000 unit) capsule lysine 500 mg tablet 500 mg PO DAILY 10/01/17 12/06/19 History baclofen 5 mg tablet 5 mg PO BID PRN #30 tab 05/08/19 12/06/19 Rx albuterol sulfate 2 puff INHALATION Q4-6H PRN #8.5 07/02/19 12/06/19 Rx gram hydrocodone 5 mg-acetaminophen 325 1 tab PO DAILY PRN #20 tab 10/27/19 12/06/19 Rx mg tablet Acetaminophen 1000mg PO 11/30/19 12/06/19 History Centrum for Women w/D3 PO 11/30/19 12/06/19 History mesalamine 1.2 gram tablet,delayed 2.4 gram PO BID tab 11/30/19 12/06/19 History release famotidine 20 mg tablet 20 mg PO BID #180 tab 12/28/19 12/28/19 Rx rivaroxaban 20 mg tablet 20 mg PO DAILY #90 tab 12/28/19 12/28/19 Rx hydrochlorothiazide 50 mg tablet 50 mg PO Q OTHER DAY #90 tab 01/01/20 Rx levothyroxine 100 mcg tablet 100 mcg PO QDAY #90 tab 01/01/20 Rx Allergies Allergy/AdvReac Type Severity Reaction Status Date / Time Sulfa (Sulfonamide Allergy Severe HIVES FROM Verified 12/06/19 15:37 Antibiotics) SULFA CREAM [SULFA (SULFONAMIDE ANTIBIOTICS)]
[2020-05-22] MEDS: SODIUM CHLORIDE 0.9% 1,000 ML 70 ML IV (08:20)
[2020-05-22 08:35] VITALS: BP 130/67; PULSE 62; RESP 18; TEMP 36.2; O2SAT 100; BMI 27.6
[2020-05-22 08:42] VITALS: BP 130/67; PULSE 62; RESP 18; TEMP 36.2; O2SAT 100
--- NOTE | 2020-05-22 09:16 | P.OP.ENDO_ITS ---
Operative Date/Time/Diagnoses Date of procedure: 05/22/20 Procedure Notes Procedure in detail: Surgeon: Dave Veliz MD Procedure: Colonoscopy with polypectomy and biopsy Preoperative diagnosis: History of ulcerative colitis (assess disease activity), weight loss Postoperative diagnosis: No evidence of active inflammation; cecal polyp; diverticulosis; grade 1 internal hemorrhoids Medications: Conscious sedation using 4 mg IV of Midazolam and 75 mcg IV of Fentanyl Preanesthesia Assessment An H and P was performed/updated and the Px?s ASA class is 2. The procedure was discussed in detail with the patient. The potential risks and complications including infection, bleeding, missed lesions, perforation, need for surgery in case of perforation, prolonged hospital stay, and were explained. A brief question and answer period was allotted and once all questions were answered, informed consent was obtained. The patient was brought back to the procedure room and placed on standard monitoring. The patient?s vital signs were monitored continuously throughout the entire procedure. Prior to starting, a timeout was performed to confirm the patient?s identity, allergies, medications, and procedure. Procedure in detail The patient was placed in left lateral decubitus position and once adequate sedation was obtained a RICHY was performed. The digital rectal examination did not reveal any palpable lesions. The tip of the colonoscope was placed in the anal canal and advanced without difficulty all the way to the cecum which was identified by the appendiceal orifice and the ileocecal valve. The terminal ileum was intubated to a distance of 5 cm from the ileocecal valve and the mucosa appeared normal. The colonoscope was then brought back to the cecum and careful examination of all alcantar of the colon was performed with irrigation of any residual stool. The colonic mucosa appeared normal throughout the entire colon. Random colon biopsies were obtained from the right colon, transverse colon, left colon, and rectum to evaluate for microscopic colitis There was note of few diverticula in the ascending, transverse colon, and descending colon which were medium-sized There were multiple diverticula in the sigmoid colon which were small to medium-sized Retroflexion was performed in the rectum which revealed grade 1 internal hemorrhoids The patient tolerated the procedure well and will be brought back to the recovery area to be discharged once criteria are met. The prep was judged to be good and adequate to identify polyps less than 5 mm. The withdrawal time was 14 minutes. The total physician intraservice time was 23 minutes. Complications There were no complications and estimated blood loss was minimal. Recommendations: Resume previous diet Continue outPx medications Follow up pathology results Repeat colonoscopy in 2 years for surveillance. This would be dependent on the patient's health issues at that time. Call our office ([facility]) to schedule follow-up with Alberto An emergency contact number was given to the patient for any complications related to the procedure
[2020-05-22] MEDS: MIDAZOLAM 5 MG/5 ML VIAL IV (09:24)
[2020-05-22] MEDS: fentaNYL 250 MCG/5 ML INJ IV (09:26)
[2020-05-22 09:48] VITALS: BP 122/55; PULSE 76; RESP 17; TEMP 36.3; O2SAT 98
[2020-05-22 09:53] VITALS: BP 120/62; PULSE 67; RESP 12; O2SAT 100
[2020-05-22 09:57] VITALS: BP 133/71; PULSE 63; RESP 13; O2SAT 99
--- NOTE | 2020-05-22 10:17 | SUR.PHASEII ---
Pt has met discharge criteria: VSS, denied pain or nausea, able to drink fluids without difficulty. Discharge instructions discussed with pt, all questions answered. Transported via W\C to private vehicle.
== END 2020-05-22 10:18 | disposition home or self-care (01) ==
PROVIDERS: PCP Family Medicine; Referring Provider Family Medicine; Visit Provider Internal Medicine Gastroenterology
PROC: 0DJD8ZZ Inspection of Lower Intestinal Tract, Via Natural or Artificial Opening Endoscopic (ICD-10-PCS; CPT 45378; principal; 2020-05-22 09:30)
DX: Z09 Encounter for follow-up examination after completed treatment for conditions other than malignant neoplasm (principal); Z87.19 Personal history of other diseases of the digestive system; R63.4 Abnormal weight loss; E11.9 Type 2 diabetes mellitus without complications; E03.9 Hypothyroidism, unspecified; I10 Essential (primary) hypertension; K57.30 Diverticulosis of large intestine without perforation or abscess without bleeding; K64.0 First degree hemorrhoids; D12.0 Benign neoplasm of cecum
CPT/HCPCS: 45380; J2250; J3010

== ENCOUNTER → 2020-08-29 11:33 | Outpatient (CLI) | payer MEDICARE, OTHER, SELFPAY ==
[2020-08-29 14:45] LABS: Appearance Urine UA CLEAR; Bilirubin Urine UA NEGATIVE (NEGATIVE); Color Urine UA YELLOW; Glucose Urine UA NEGATIVE (Negative); Ketones Urine UA NEGATIVE (NEGATIVE); Leukocyte Esterase Urine UA NEGATIVE (NEGATIVE); Nitrite Urine UA POSITIVE (Negative); Occult Blood Urine UA TRACE-LYSED (Negative); Protein Urine UA 1+ (Negative); Specific Gravity Urine UA >=1.030 (1.000-1.035); Urobilinogen Urine UA 0.2 E.U./dL (0.2)
[2020-08-29 15:06] LABS: RBC Urine 0-1/HPF (0-5/HPF)
[2020-08-29 15:07] LABS: Bacteria Urine Many (>30); Culture Indicated Urine Specimen Cultured; Hyaline Casts Urine 1-5/LPF; Squamous Epithelial Cell Urine 0-1 /HPF (0-5/HPF); WBC Urine 1-5/HPF (0-5/HPF)
== END ==
PROVIDERS: PCP Family Medicine; Referring Provider Family Medicine; Visit Provider Family Medicine
DX: N39.0 Urinary tract infection, site not specified (principal)
CPT/HCPCS: 81001; 87077; 87086; 87186

== ENCOUNTER → 2020-09-17 08:12 | Outpatient (CLI) | payer MEDICARE, OTHER, SELFPAY ==
[2020-09-17 08:46] LABS: Appearance Urine UA CLEAR; Bilirubin Urine UA NEGATIVE (NEGATIVE); Color Urine UA YELLOW; Glucose Urine UA NEGATIVE (Negative); Ketones Urine UA NEGATIVE (NEGATIVE); Leukocyte Esterase Urine UA NEGATIVE (NEGATIVE); Nitrite Urine UA NEGATIVE (Negative); Occult Blood Urine UA 2+ (Negative); Protein Urine UA TRACE (Negative); Specific Gravity Urine UA 1.025 (1.000-1.035); Urobilinogen Urine UA 0.2 E.U./dL (0.2)
[2020-09-17 08:58] LABS: Bacteria Urine Many (>30); RBC Urine 5-10/HPF (0-5/HPF); Squamous Epithelial Cell Urine 10-30 /HPF (0-5/HPF); WBC Urine 10-30/HPF (0-5/HPF)
[2020-09-17 08:59] LABS: Culture Indicated Urine Cult Not Indicated
== END ==
PROVIDERS: PCP Family Medicine; Referring Provider Family Medicine; Visit Provider Family Medicine
DX: N39.0 Urinary tract infection, site not specified (principal)
CPT/HCPCS: 81001

== ENCOUNTER → 2020-09-24 08:53 | Outpatient (CLI) | payer MEDICARE, OTHER, SELFPAY ==
[2020-09-24 10:12] LABS: Add Manual Diff / Slide Review NO; Basophils Absolute Auto 0 /uL (0-100); Basophils Percent Auto 0.8 % (0-2); Eosinophils Absolute Auto 100 /uL (0-450); Eosinophils Percent Auto 1.1 % (2-4); Hematocrit 33.5 % (36-46); Hemoglobin A1C% w Est Avg Glu 5.5 % (4.0-6.0); Lymphocytes Absolute Auto 1300 /uL (1100-4500); Lymphocytes Percent Auto 21.7 % (25-40); Mean Corpuscular HGB Conc 32.8 % (30-36); Mean Corpuscular Hemoglobin 30.3 PG (26-34); Mean Corpuscular Volume 92.6 fL (80-100); Monocytes Absolute Auto 400 /uL (0-900); Monocytes Percent Auto 5.8 % (3-14); Neutrophils Absolute Auto 4300 /uL (1500-7000); Neutrophils Percent Auto 70.6 % (50-75); Platelet Count 232 X10^3/uL (150-400); Red Blood Cell Count 3.61 X10^6/uL (4.0-5.2); Red Cell Distribution Width 13.8 % (11.6-14.8); White Blood Cell Count 6.1 X10^3/uL (4.5-11.0)
[2020-09-24 10:56] LABS: Alanine Aminotransferase 28 IU/L (<35); Albumin 3.5 g/dL (3.5-5.0); Albumin Globulin Ratio 0.9 (1.0-2.8); Alkaline Phosphatase 78 U/L (38-126); Aspartate Aminotransferase 28 IU/L (14-36); BUN Creatinine Ratio 22.2 (6-22); Bilirubin Total 0.3 mg/dL (0.2-1.3); Blood Urea Nitrogen 32 mg/dL (7-17); Calcium 9.2 mg/dL (8.4-10.2); Carbon Dioxide 19 mmol/L (22-32); Chloride 114 mmol/L (98-107); Cholesterol 146 mg/dL (140-199); Globulin 3.9 g/dL (1.7-4.1); Glucose 95 mg/dL (80-110); HDL Cholesterol 43 mg/dL (40-60); HEMOLYSIS < 15 (0-50); LDL Cholesterol Calculated 85 mg/dL (<100); Potassium 5.1 mmol/L (3.4-5.1); Sodium 141 mmol/L (137-145); Total Protein 7.4 g/dL (6.3-8.2); Triglycerides 89 mg/dL (35-150)
[2020-09-24 11:24] LABS: TSH w/ Reflex to FT4 4.36 uIU/mL (0.47-4.68)
[2020-09-24 14:35] LABS: Creatinine Urine Random 92.6 mg/dL
[2020-09-24 14:39] LABS: Microalbumi Creatinin Ratio Ur 32.3 ug/mg CR (<30)
== END ==
PROVIDERS: PCP Family Medicine; Referring Provider Family Medicine; Visit Provider Family Medicine
DX: E03.9 Hypothyroidism, unspecified (principal); E11.9 Type 2 diabetes mellitus without complications; E66.9 Obesity, unspecified; I10 Essential (primary) hypertension; N39.0 Urinary tract infection, site not specified
CPT/HCPCS: 36415; 80053; 80061; 82043; 82570; 83036; 84443; 85025; 87077; 87086; 87186

== ENCOUNTER → 2020-10-11 09:51 | Outpatient (CLI) | payer MEDICARE, OTHER, SELFPAY ==
[2020-10-11 10:54] LABS: BUN Creatinine Ratio 20.8 (6-22); Blood Urea Nitrogen 27 mg/dL (7-17); Calcium 8.9 mg/dL (8.4-10.2); Carbon Dioxide 20 mmol/L (22-32); Chloride 113 mmol/L (98-107); Estimated Glomerular Filt Rate 39.3 mL/min (>60); Glucose 90 mg/dL (80-110); HEMOLYSIS < 15 (0-50); Potassium 4.8 mmol/L (3.4-5.1); Sodium 140 mmol/L (137-145)
== END ==
PROVIDERS: PCP Family Medicine; Referring Provider Family Medicine; Visit Provider Family Medicine
DX: Z12.31 Encounter for screening mammogram for malignant neoplasm of breast (principal); N28.9 Disorder of kidney and ureter, unspecified; N39.0 Urinary tract infection, site not specified
CPT/HCPCS: 36415; 80048; 87077; 87086; 87186

== ENCOUNTER → 2020-12-30 11:09 | Outpatient (CLI) | payer MEDICARE, OTHER, SELFPAY ==
[2020-12-30 13:05] LABS: BUN Creatinine Ratio 16.1 (6-22); Blood Urea Nitrogen 20 mg/dL (7-17); Calcium 8.7 mg/dL (8.4-10.2); Carbon Dioxide 21 mmol/L (22-32); Chloride 115 mmol/L (98-107); Estimated Glomerular Filt Rate 41.5 mL/min (>60); Glucose 91 mg/dL (80-110); HEMOLYSIS < 15 (0-50); Potassium 5.3 mmol/L (3.4-5.1); Sodium 142 mmol/L (137-145)
== END ==
PROVIDERS: PCP Family Medicine; Referring Provider Family Medicine; Visit Provider Family Medicine
DX: I10 Essential (primary) hypertension (principal); E11.9 Type 2 diabetes mellitus without complications
CPT/HCPCS: 36415; 80048

== ENCOUNTER 2021-04-07 11:28 | Emergency (ER) | payer MEDICARE, OTHER, SELFPAY ==
[2021-04-07 11:44] VITALS: BP 192/78; PULSE 78; RESP 18; TEMP 36.7; O2SAT 100
--- NOTE | 2021-04-07 14:05 | ED_ITS ---
HPI - Eye Problem General Chief complaint: Eye Problems Stated complaint: Swelling/infection? on right eye Time Seen by Provider: 04/07/21 14:04 Source: patient Mode of arrival: Ambulatory Limitations: no limitations History of Present Illness HPI Narrative: This is a 80-year-old female comes emergency department with complaint of swelling of her right upper eyelid. Patient states been there for several days has been increasing in size. She states not painful, it is not interfering with her vision but has been increasing in size. She has tried warm compresses without any improvement. She tried setting up a follow-up appointment with ophthalmology in [place] or [place] but has been unsuccessful. She comes in today it has been continuing to grow in size. Patient states she is on Xarelto for history of DVT. She does have a history of hypothyroidism, ulcerative colitis, CKD and myasthenia gravis. She is allergic to sulfa. Related Data Home Medications Medication Instructions Recorded Confirmed cholecalciferol (vitamin D3) 25 1,000 unit PO DAILY 10/01/17 12/31/20 mcg (1,000 unit) capsule lysine 500 mg tablet (L-Lysine) 500 mg PO DAILY 10/01/17 12/31/20 Centrum for Women w/D3 PO 11/30/19 12/31/20 mesalamine 1.2 gram tablet,delayed 2.4 gram PO BID tab 11/30/19 12/31/20 release Lialda BID 05/22/20 12/31/20 Previous Rx's Medication Instructions Recorded baclofen 5 mg tablet 5 mg PO BID PRN #30 tab 05/08/19 albuterol sulfate 90 mcg/actuation 2 puff INHALATION Q4-6H PRN #8.5 07/02/19 aerosol inhaler gram tramadol 50 mg tablet 50 mg PO DAILY PRN #20 tab 06/20/20 famotidine 20 mg tablet (Pepcid AC) 20 mg PO BID #180 tab 09/26/20 levothyroxine 100 mcg tablet 100 mcg PO QDAY #90 tab 09/26/20 rivaroxaban 20 mg tablet (Xarelto) 20 mg PO DAILY #90 tab 09/26/20 nitrofurantoin 100 mg PO BID #14 cap 10/14/20 monohydrate/macrocrystals 100 mg capsule hydrochlorothiazide 25 mg tablet 25 mg PO DAILY PRN #90 tab 12/31/20 Allergies Allergy/AdvReac Type Severity Reaction Status Date / Time Sulfa (Sulfonamide Allergy Severe HIVES FROM Verified 05/22/20 08:18 Antibiotics) SULFA CREAM [SULFA (SULFONAMIDE ANTIBIOTICS)] Review of Systems Review of Systems ROS Unobtainable: All systems reviewed & are unremarkable except as noted in HPI and below Patient History Medical History Arthritis, multiple joint involvement Chicken pox (~194) CKD (chronic kidney disease) stage 3, GFR 30-59 ml/min Frequent urinary tract infections History of chickenpox History of colitis History of diabetes mellitus History of diverticulitis History of eczema History of gastric ulcer History of [place] fever History of skin cancer History of ulcerative colitis History of urinary incontinence Hyperthyroidism (~1992) Polio Shoulder pain Surgical History History of cholecystectomy History of hip replacement History of knee replacement History of shoulder replacement Status post cholecystectomy Family History Sister Age: 78 Heart disease Father No problems noted. Mother Myocardial infarction Brother No problems noted. Brother No problems noted. Social History marital status: household members: spouse and children Smoking Status: Former smoker alcohol intake: current substance use type: does not use Smoking Status: Former smoker alcohol intake frequency: 0-2 drinks per day Substance Use Type: does not use Exam Narrative Exam Narrative: GEN: well nourished, well appearing female, alert and oriented x 3, patient appears to be in mild distress. HEENT: Atraumatic, pupils are equal round reactive to light, extraocular movements are intact, patient has a right upper eyelid has a circumscribed area of swelling that the about marble size. It is slightly full but nontender to touch. It is not fluctuant. There is some slight erythema. There is no drainage, she does not have any conjunctival changes. Nares are clear. HEART: Regular rate and rhythm without murmur, clicks, rubs. LUNGS:Lungs clear to auscultation, no wheezes, rales, crackles, chest moves symmetrically ABD:bowel sounds normal, soft, non-tender, no guarding, rebound, rigidity, no masses noted, no hepatosplenomegaly MSCL: Non-tender, no muscle atrophy, normal gait patient does use walker. NEURO:CN 2-12 intact, sensation normal Initial Vital Signs Initial Vital Signs: Vital Signs Temperature 98.1 F 04/07/21 11:44 Pulse Rate 78 04/07/21 11:44 Respiratory Rate 18 04/07/21 11:44 Blood Pressure 192/78 H 04/07/21 11:44 Pulse Oximetry 100 04/07/21 11:44 Course Consultations Consultation #1: Dr. Aranza Vergara, patient has largely exam does not appear to have any infection. It is not interfering with her vision but has been growing and is quite sizable. She is happy to see the patient shortly. Patient is otherwise asymptomatic so plan for patient to see in the office tomorrow 11:10 a.m. for treatment. Vital Signs Vital signs: Vital Signs - 8 hr 04/07/21 15:18 Pulse Rate 70 Respiratory Rate 16 Blood Pressure 186/82 H Pulse Oximetry 96 Discharge Plan Departure Patient Disposition: Home Clinical Impression: Chalazion of right upper eyelid Activity Restrictions/Additional Instructions: Follow up with Dr. Vergara, tomorrow the ophthalmology office here at [facility] @ 11:10am. Please arrive by 10:45am for your appointment. Use warm compresses to the affected eyelid every several hours. If you have pain you can take Tylenol up to 650 mg every 6 hours. Please return with for pain, warmth, increasing or spreading redness or swelling, fevers, changes to vision or other new or concerning symptoms. Prescriptions: No Action hydrochlorothiazide 25 mg tablet 25 mg PO DAILY PRN (Reason: swelling) Qty: 90 1RF baclofen 5 mg tablet 5 mg PO BID PRN (Reason: spasm) Qty: 30 0RF tramadol 50 mg tablet 50 mg PO DAILY PRN (Reason: severe pain) Qty: 20 0RF mesalamine 1.2 gram tablet,delayed release (DR/EC) 2.4 gram PO BID 0RF Centrum for Women w/D3 PO 0RF famotidine [Pepcid AC] 20 mg tablet 20 mg PO BID Qty: 180 3RF levothyroxine 100 mcg tablet 100 mcg PO QDAY Qty: 90 3RF Xarelto 20 mg tablet 20 mg PO DAILY Qty: 90 3RF Rx Instructions: must administer with evening meal nitrofurantoin monohyd/m-cryst 100 mg capsule 100 mg PO BID Qty: 14 0RF Rx Instructions: must administer with a meal/food lysine [L-Lysine] 500 mg tablet 500 mg PO DAILY 0RF cholecalciferol (vitamin D3) 1,000 unit capsule 1,000 unit PO DAILY 0RF albuterol sulfate 90 mcg/actuation HFA aerosol inhaler 2 puff INHALATION Q4-6H PRN (Reason: shortness of breath or wheezing) Qty: 8.5 2RF Rx Instructions: Take 1-2 puffs every 2-4 hours as needed for cough, shortness of breath, or wheezing Lialda 1,000 mg BID 0RF Referrals: Aranza Vergara MD [Physician] - Sandhya Beaver DO [Primary Care Provider] -
[2021-04-07 15:18] VITALS: BP 186/82; PULSE 70; RESP 16; O2SAT 96
== END 2021-04-07 15:19 | disposition home or self-care (01) ==
PROVIDERS: Emergency Provider Emergency Medicine; PCP Family Medicine
DX: H00.11 Chalazion right upper eyelid (principal); Z79.01 Long term (current) use of anticoagulants; Z87.891 Personal history of nicotine dependence
CPT/HCPCS: 99281

== ENCOUNTER → 2021-06-30 09:05 | Outpatient (CLI) | payer MEDICARE, OTHER, SELFPAY ==
[2021-06-30 11:43] LABS: Add Manual Diff / Slide Review NO; Basophils Absolute Auto 100 /uL (0-100); Eosinophils Absolute Auto 300 /uL (0-450); Eosinophils Percent Auto 3.5 % (2-4); Hematocrit 34.6 % (36-46); Hemoglobin 11.5 g/dL (12.0-16.0); Lymphocytes Absolute Auto 1600 /uL (1100-4500); Lymphocytes Percent Auto 21.8 % (25-40); Mean Corpuscular HGB Conc 33.1 % (30-36); Mean Corpuscular Hemoglobin 30.9 PG (26-34); Mean Corpuscular Volume 93.5 fL (80-100); Monocytes Absolute Auto 300 /uL (0-900); Monocytes Percent Auto 4.4 % (3-14); Neutrophils Absolute Auto 4900 /uL (1500-7000); Neutrophils Percent Auto 69.3 % (50-75); Platelet Count 222 X10^3/uL (150-400); Red Cell Distribution Width 14.2 % (11.6-14.8); White Blood Cell Count 7.1 X10^3/uL (4.5-11.0)
[2021-06-30 12:25] LABS: BUN Creatinine Ratio 17.2 (6-22); Blood Urea Nitrogen 20 mg/dL (7-17); C-Reactive Protein Quant < 0.5 mg/dL (<1.0); Calcium 9.3 mg/dL (8.4-10.2); Carbon Dioxide 24 mmol/L (22-32); Chloride 109 mmol/L (98-107); Estimated Glomerular Filt Rate 44.8 mL/min (>60); Glucose 87 mg/dL (80-110); HEMOLYSIS < 15 (0-50); Potassium 5.1 mmol/L (3.4-5.1); Sodium 142 mmol/L (137-145)
[2021-06-30 12:28] LABS: Rheumatoid Factor < 8.6 IU/mL (<12.0)
== END ==
PROVIDERS: PCP Family Medicine; Referring Provider Family Medicine; Visit Provider Family Medicine
DX: K51.90 Ulcerative colitis, unspecified, without complications (principal); M25.541 Pain in joints of right hand; M25.542 Pain in joints of left hand; N18.30 Chronic kidney disease, stage 3 unspecified
CPT/HCPCS: 36415; 80048; 85025; 86140; 86430

== ENCOUNTER → 2021-09-01 09:53 | Outpatient (CLI) | payer MEDICARE, OTHER, SELFPAY ==
[2021-09-01 14:50] LABS: BUN Creatinine Ratio 21.8 (6-22); Blood Urea Nitrogen 26 mg/dL (7-17); Calcium 8.8 mg/dL (8.4-10.2); Carbon Dioxide 28 mmol/L (22-32); Chloride 107 mmol/L (98-107); Estimated Glomerular Filt Rate 46 mL/min (>60); Glucose 158 mg/dL (80-110); HEMOLYSIS < 15 (0-50); Potassium 4.6 mmol/L (3.4-5.1); Sodium 142 mmol/L (137-145)
== END ==
PROVIDERS: PCP Family Medicine; Referring Provider Family Medicine; Visit Provider Family Medicine
DX: I10 Essential (primary) hypertension (principal); N18.32 Chronic kidney disease, stage 3b
CPT/HCPCS: 36415; 80048

== ENCOUNTER → 2022-02-05 08:41 | Outpatient (CLI) | payer MEDICARE, OTHER, SELFPAY ==
[2022-02-05 09:22] LABS: Appearance Urine UA CLEAR; Bilirubin Urine UA NEGATIVE (NEGATIVE); Color Urine UA YELLOW; Glucose Urine UA NEGATIVE (Negative); Ketones Urine UA NEGATIVE (NEGATIVE); Leukocyte Esterase Urine UA TRACE (NEGATIVE); Nitrite Urine UA POSITIVE (Negative); Occult Blood Urine UA 2+ (Negative); Protein Urine UA 1+ (Negative); Specific Gravity Urine UA 1.025 (1.000-1.035); Urobilinogen Urine UA 0.2 E.U./dL (0.2)
[2022-02-05 09:40] LABS: Bacteria Urine Many (>30); RBC Urine 5-10/HPF (0-5/HPF); Squamous Epithelial Cell Urine 1-5 /HPF (0-5/HPF); WBC Urine 10-30/HPF (0-5/HPF)
[2022-02-05 09:41] LABS: Culture Indicated Urine Specimen Cultured
[2022-02-05 11:06] LABS: Add Manual Diff / Slide Review NO; Basophils Absolute Auto 100 /uL (0-100); Basophils Percent Auto 1.1 % (0-2); Eosinophils Absolute Auto 300 /uL (0-450); Hematocrit 32.7 % (36-46); Hemoglobin 10.5 g/dL (12.0-16.0); Lymphocytes Absolute Auto 1400 /uL (1100-4500); Lymphocytes Percent Auto 19.6 % (25-40); Mean Corpuscular Hemoglobin 29.3 PG (26-34); Mean Corpuscular Volume 91.6 fL (80-100); Monocytes Absolute Auto 400 /uL (0-900); Monocytes Percent Auto 6.1 % (3-14); Neutrophils Absolute Auto 4700 /uL (1500-7000); Neutrophils Percent Auto 68.2 % (50-75); Platelet Count 225 X10^3/uL (150-400); Red Blood Cell Count 3.57 X10^6/uL (4.0-5.2); Red Cell Distribution Width 13.7 % (11.6-14.8); White Blood Cell Count 6.9 X10^3/uL (4.5-11.0)
[2022-02-05 11:13] LABS: Hemoglobin A1C% w Est Avg Glu 5.6 % (4.0-6.0)
[2022-02-05 11:23] LABS: Alanine Aminotransferase 20 IU/L (<35); Albumin 3.7 g/dL (3.5-5.0); Alkaline Phosphatase 72 U/L (38-126); Aspartate Aminotransferase 23 IU/L (14-36); BUN Creatinine Ratio 22.1 (6-22); Bilirubin Total 0.3 mg/dL (0.2-1.3); Blood Urea Nitrogen 29 mg/dL (7-17); Calcium 8.4 mg/dL (8.4-10.2); Carbon Dioxide 21 mmol/L (22-32); Chloride 111 mmol/L (98-107); Estimated Glomerular Filt Rate 41 mL/min (>60); Globulin 3.6 g/dL (1.7-4.1); Glucose 99 mg/dL (80-110); HEMOLYSIS < 15 (0-50); Potassium 4.8 mmol/L (3.4-5.1); Sodium 142 mmol/L (137-145); Total Protein 7.3 g/dL (6.3-8.2)
[2022-02-05 11:55] LABS: TSH w/ Reflex to FT4 4.25 uIU/mL (0.47-4.68)
== END ==
PROVIDERS: PCP Family Medicine; Referring Provider Family Medicine; Visit Provider Family Medicine
DX: E11.9 Type 2 diabetes mellitus without complications (principal); N18.32 Chronic kidney disease, stage 3b; N39.0 Urinary tract infection, site not specified; E03.9 Hypothyroidism, unspecified
CPT/HCPCS: 36415; 80053; 81003; 81015; 83036; 84443; 85025; 87077; 87086; 87186

== ENCOUNTER 2022-05-31 20:09 | Emergency (ER) | payer MEDICARE, OTHER, SELFPAY ==
--- NOTE | 2022-05-31 20:28 | ED_ITS ---
HPI - General Adult General Chief complaint: Urogenital-Female Stated complaint: Bladder infection for 4 months, Dizzy Time Seen by Provider: 05/31/22 20:11 Source: patient Mode of arrival: Ambulatory Limitations: no limitations History of Present Illness HPI narrative: Patient is an 81-year-old female. She is here for evaluation of dizziness. Patient states that she was at her normal state of health. She took a nap this afternoon which is somewhat unusual for her. When she woke up she felt lightheaded. She was able to walk to the bathroom with her walker which she normally uses. She told family about the dizziness. She went and ate something. She also drank some fluids. She sat down on her chair and watched more TV and after period of time then told the rest of her family that she still was not feeling very well. She states that she has felt like this in the past. She was concerned that maybe her frequent urinary tract infections had returned and that she had sepsis because this has happened to her in the past. She is not have any specific urinary symptoms. She denied chest pain and shortness of breath. No vision changes. Shortness of breath. Related Data Home Medications Medication Instructions Recorded Confirmed cholecalciferol (vitamin D3) 25 1,000 unit PO DAILY 10/01/17 04/02/22 mcg (1,000 unit) capsule lysine 500 mg tablet (L-Lysine) 500 mg PO DAILY 10/01/17 04/02/22 Centrum for Women w/D3 PO 11/30/19 04/02/22 mesalamine 1.2 gram tablet,delayed 2.4 gram PO BID 11/30/19 04/02/22 release Lialda BID COLITIS 05/22/20 04/02/22 Previous Rx's Medication Instructions Recorded albuterol sulfate 90 mcg/actuation 2 puff inhalation Q4-6H PRN 07/02/19 aerosol inhaler shortness of breath or wheezing #8.5 grams tramadol 50 mg tablet 50 mg PO DAILY PRN severe pain #20 06/20/20 tabs diclofenac sodium 1 % topical gel 2 g topical BID #100 grams 06/30/21 (Arthritis Pain (diclofenac)) famotidine 20 mg tablet (Pepcid AC) 20 mg PO BID #180 tabs 09/04/21 rivaroxaban 20 mg tablet (Xarelto) 20 mg PO DAILY #90 tabs 09/04/21 lisinopril 20 mg tablet See Rx Instructions .Route 09/29/21 .COMPLEX #30 tabs levothyroxine 100 mcg tablet 100 mcg PO QDAY #14 tabs 12/08/21 amlodipine 5 mg tablet 5 mg PO DAILY #30 tabs 02/05/22 hydrochlorothiazide 25 mg tablet 25 mg PO DAILY PRN swelling #90 02/05/22 tabs cefpodoxime 100 mg tablet 100 mg PO BID #10 tabs 02/09/22 valacyclovir 1 gram tablet 1,000 mg PO BID #20 tabs 04/02/22 gabapentin 100 mg capsule See Rx Instructions .Route 05/08/22 .COMPLEX #30 caps Allergies Allergy/AdvReac Type Severity Reaction Status Date / Time Sulfa (Sulfonamide Allergy Severe HIVES FROM Verified 04/02/22 14:42 Antibiotics) SULFA CREAM [SULFA (SULFONAMIDE ANTIBIOTICS)] Review of Systems Constitutional Constitutional: Reports system reviewed and no additional complaints, except as documented ENT Ears, Nose, Mouth, and Throat: Reports system reviewed and no additional complaints, except as documented Cardiovascular Cardiovascular: Reports system reviewed and no additional complaints, except as documented Respiratory Respiratory: Reports system reviewed and no additional complaints, except as documented Gastrointestinal Gastrointestinal: Reports system reviewed and no additional complaints, except as documented Neurologic Neurologic: Reports system reviewed and no additional complaints, except as documented Hematologic/Lymphatic On Anticoagulants: No Patient History Medical History Arthritis, multiple joint involvement Chicken pox (~1947) CKD (chronic kidney disease) stage 3, GFR 30-59 ml/min Frequent urinary tract infections History of chickenpox History of colitis History of diabetes mellitus History of diverticulitis History of eczema History of gastric ulcer [facility] History of skin cancer History of ulcerative colitis History of urinary incontinence Hyperthyroidism (~1992) Polio Shoulder pain Surgical History History of cholecystectomy History of hip replacement History of knee replacement History of shoulder replacement Status post cholecystectomy Family History Sister Age: 80 Heart disease Father No problems noted. Mother Myocardial infarction Brother No problems noted. Brother No problems noted. Social History marital status: household members: spouse and children Smoking Status: Former smoker alcohol intake: current substance use type: does not use Smoking Status: Former smoker alcohol intake frequency: 0-2 drinks per day Substance Use Type: does not use Exam Initial Vital Signs Initial Vital Signs: Vital Signs Temperature 98.6 F 05/31/22 20:29 Pulse Rate 78 05/31/22 20:29 Respiratory Rate 18 05/31/22 20:29 Blood Pressure 177/75 H 05/31/22 20:29 Pulse Oximetry 97 05/31/22 20:29 Oxygen Delivery Method 05/31/22 20:29 Const General: cooperative, comfortable and No ill appearing HENMT Head: normal to inspection and normocephalic Resp Effort & Inspection: normal respiratory effort Auscultation: clear to auscultation bilaterally Cardio Rate: regular rate Rhythm: regular rhythm GI Inspection: normal to inspection Palpation: soft and No tender Skin General: no rashes or lesions noted Neuro General: patient alert, patient awake and moves all extremities Speech: speech normal Extrem General: normal to inspection and capillary refill normal Psych Appearance: grossly normal and well kempt Course Orders Ordered: ED Orders 05/31/22 20:35 EKG-12 Lead Stat 05/31/22 20:49 Basic Metabolic Panel Stat Complete Blood Count AUTO DIFF Stat Vital Signs Vital signs: Vital Signs - 8 hr 05/31/22 20:29 Temperature 98.6 F Pulse Rate 78 Respiratory Rate 18 Blood Pressure 177/75 H Pulse Oximetry 97 Oxygen Delivery Method Room Air Medical Decision Making Medical Records Medical records reviewed: Yes I reviewed the patient's medical records. Lab Data Lab results reviewed: Yes I reviewed the patient's lab results. 05/31/22 20:49 05/31/22 20:49 Labs: Lab Results 05/31/22 05/31/22 Range/Units 20:49 20:49 WBC 8.9 (4.5-11.0) X10^3/uL RBC 3.21 L (4.0-5.2) X10^6/uL Hgb 10.2 L (12.0-16.0) g/dL Hct 31.4 L (36-46) % MCV 97.9 (80-100) fL MCH 31.8 (26-34) PG MCHC 32.5 (30-36) % RDW 14.5 (11.6-14.8) % Plt Count 213 (150-400) X10^3/uL Neut % (Auto) 64.9 (50-75) % Lymph % (Auto) 24.0 L (25-40) % [place] % (Auto) 6.5 (3-14) % Eos % (Auto) 3.9 (2-4) % Baso % (Auto) 0.7 (0-2) % Neut # (Auto) 5800 (9464-2002) /uL Lymph # (Auto) 2100 (6573-5282) /uL [place] # (Auto) 600 (0-900) /uL Eos # (Auto) 300 (0-450) /uL Baso # (Auto) 100 (0-100) /uL Sodium 146 H (137-145) mmol/L Potassium 4.2 (3.4-5.1) mmol/L Chloride 112 H (98-107) mmol/L Carbon Dioxide 23 (22-32) mmol/L BUN 29 H (7-17) mg/dL Creatinine 1.07 H (0.52-1.04) mg/dL Estimated GFR 52 L (>60) mL/min BUN/Creatinine Ratio 27.1 H (6-22) Glucose 140 H (80-110) mg/dL Calcium 8.5 (8.4-10.2) mg/dL Urine Dip Bedside Urine Glucose Negative Bedside Urine Bilirubin - Negative Bedside Urine Ketone - Negative Urine Specific [place] 1.025 Bedside Urine Occult Blood - Negative Bedside Urine pH 6.0 Bedside Urine Protein - Negative Bedside Urine Urobilinogen - Negative Bedside Urine Nitrite - Negative Bedside Urine Leukocytes - Negative Esterase Point of care testing: Urine Dip Bedside Urine Glucose Negative Bedside Urine Bilirubin - Negative Bedside Urine Ketone - Negative Urine Specific [place] 1.025 Bedside Urine Occult Blood - Negative Bedside Urine pH 6.0 Bedside Urine Protein - Negative Bedside Urine Urobilinogen - Negative Bedside Urine Nitrite - Negative Bedside Urine Leukocytes - Negative Esterase ECG Data Attestation: I personally reviewed and interpreted this ECG as follows: Interpretation: Sinus rhythm Ventricular rate 65 Normal QRS Normal QTC No ST T wave changes MDM Narrative Medical decision making narrative: Patient's workup here in the emergency department is unremarkable. Low suspicion for ACS/CVA. Her symptoms are also not consistent with vertigo as she describes more of a lightheadedness rather than a room spinning sensation. She is no palpitations. Her EKG is unremarkable. Labs show no acute abnormalities that would explain her symptoms today. During her stay here in the emergency department her symptoms completely resolved. She was able to ambulate at home with her walker which she does at baseline. We will hold on any further workup for now. Patient was given return precautions. She expressed understanding and agreement. Discharge Plan Departure Patient Disposition: Home Clinical Impression: Lightheadedness Instructions: DI for Dizziness-Nonvertigo Activity Restrictions/Additional Instructions: Recommend that you continue to take all of your medications as directed. Sure that you are staying hydrated. Contact your primary doctor for follow-up. Return to the emergency department for any new symptoms. Prescriptions: No Action diclofenac sodium [Arthritis Pain (diclofenac)] 1 % gel 2 g topical BID Qty: 100 1RF Rx Instructions: apply to single elbow, wrist or hand; for hand includes palm/fingers/back of hand tramadol 50 mg tablet 50 mg PO DAILY PRN (Reason: severe pain) Qty: 20 0RF hydrochlorothiazide 25 mg tablet 25 mg PO DAILY PRN (Reason: swelling) Qty: 90 1RF amlodipine 5 mg tablet 5 mg PO DAILY Qty: 30 2RF valacyclovir 1 gram tablet 1,000 mg PO BID Qty: 20 0RF mesalamine 1.2 gram tablet,delayed release (DR/EC) 2.4 gram PO BID Centrum for Women w/D3 PO Xarelto 20 mg tablet 20 mg PO DAILY Qty: 90 3RF Rx Instructions: must administer with evening meal famotidine [Pepcid AC] 20 mg tablet 20 mg PO BID Qty: 180 3RF lisinopril 20 mg tablet See Rx Instructions .ROUTE .COMPLEX Qty: 30 3RF Dose Instruction: TAKE 1 TABLET BY MOUTH DAILY Rx Instructions: TAKE 1 TABLET BY MOUTH DAILY levothyroxine 100 mcg tablet 100 mcg PO QDAY Qty: 14 0RF cefpodoxime 100 mg tablet 100 mg PO BID Qty: 10 0RF Rx Instructions: must administer with a meal/food gabapentin 100 mg capsule See Rx Instructions .ROUTE .COMPLEX Qty: 30 0RF Dose Instruction: TAKE 1 TO 3 CAPSULES BY MOUTH EVERY NIGHT AT BEDTIME FOR PAIN DUE TO SHINGLES OUTBREAK Rx Instructions: TAKE 1 TO 3 CAPSULES BY MOUTH EVERY NIGHT AT BEDTIME FOR PAIN DUE TO SHINGLES OUTBREAK lysine [L-Lysine] 500 mg tablet 500 mg PO DAILY cholecalciferol (vitamin D3) 1,000 unit capsule 1,000 unit PO DAILY albuterol sulfate 90 mcg/actuation HFA aerosol inhaler 2 puff INHALATION Q4-6H PRN (Reason: shortness of breath or wheezing) Qty: 8.5 2RF Rx Instructions: Take 1-2 puffs every 2-4 hours as needed for cough, shortness of breath, or wheezing Lialda 1,000 mg BID Referrals: Sandhya Beaver DO [Primary Care Provider] - Stand Alone Forms: Patient Portal/API
[2022-05-31 20:29] VITALS: BP 177/75; PULSE 78; RESP 18; TEMP 37; O2SAT 97; BMI 26.9
[2022-05-31 21:00] LABS: Add Manual Diff / Slide Review NO; Basophils Absolute Auto 100 /uL (0-100); Basophils Percent Auto 0.7 % (0-2); Eosinophils Absolute Auto 300 /uL (0-450); Eosinophils Percent Auto 3.9 % (2-4); Hematocrit 31.4 % (36-46); Hemoglobin 10.2 g/dL (12.0-16.0); Lymphocytes Absolute Auto 2100 /uL (1100-4500); Mean Corpuscular HGB Conc 32.5 % (30-36); Mean Corpuscular Hemoglobin 31.8 PG (26-34); Mean Corpuscular Volume 97.9 fL (80-100); Monocytes Absolute Auto 600 /uL (0-900); Monocytes Percent Auto 6.5 % (3-14); Neutrophils Absolute Auto 5800 /uL (1500-7000); Neutrophils Percent Auto 64.9 % (50-75); Platelet Count 213 X10^3/uL (150-400); Red Blood Cell Count 3.21 X10^6/uL (4.0-5.2); Red Cell Distribution Width 14.5 % (11.6-14.8); White Blood Cell Count 8.9 X10^3/uL (4.5-11.0)
[2022-05-31 21:11] VITALS: PULSE 70; O2SAT 95
[2022-05-31 21:11] LABS: BUN Creatinine Ratio 27.1 (6-22); Blood Urea Nitrogen 29 mg/dL (7-17); Calcium 8.5 mg/dL (8.4-10.2); Carbon Dioxide 23 mmol/L (22-32); Chloride 112 mmol/L (98-107); Estimated Glomerular Filt Rate 52 mL/min (>60); Glucose 140 mg/dL (80-110); HEMOLYSIS < 15 (0-50); Potassium 4.2 mmol/L (3.4-5.1); Sodium 146 mmol/L (137-145)
[2022-05-31 21:30] VITALS: PULSE 63; O2SAT 94
[2022-05-31 21:42] VITALS: BP 152/78; PULSE 66; RESP 14; TEMP 36.1; O2SAT 98
== END 2022-05-31 21:43 | disposition home or self-care (01) ==
PROVIDERS: Emergency Provider Emergency Medicine; PCP Family Medicine
DX: R42 Dizziness and giddiness (principal); R07.9 Chest pain, unspecified
CPT/HCPCS: 36415; 80048; 81003; 85025; 93005; 93010; 99282; 99284

== ENCOUNTER → 2022-08-11 09:33 | Outpatient (CLI) | payer MEDICARE, SELFPAY ==
[2022-08-11 10:35] LABS: Appearance Urine UA CLEAR; Bilirubin Urine UA NEGATIVE (NEGATIVE); Color Urine UA YELLOW; Glucose Urine UA NEGATIVE (Negative); Ketones Urine UA NEGATIVE (NEGATIVE); Leukocyte Esterase Urine UA NEGATIVE (NEGATIVE); Nitrite Urine UA POSITIVE (Negative); Occult Blood Urine UA NEGATIVE (Negative); Protein Urine UA TRACE (Negative); Specific Gravity Urine UA >=1.030 (1.000-1.035); Urobilinogen Urine UA 0.2 E.U./dL (0.2)
[2022-08-11 10:36] LABS: Add Manual Diff / Slide Review NO; Basophils Absolute Auto 100 /uL (0-100); Basophils Percent Auto 0.9 % (0-2); Eosinophils Absolute Auto 400 /uL (0-450); Eosinophils Percent Auto 3.9 % (2-4); Hematocrit 31.2 % (36-46); Hemoglobin 10.3 g/dL (12.0-16.0); Lymphocytes Absolute Auto 1400 /uL (1100-4500); Lymphocytes Percent Auto 14.5 % (25-40); Mean Corpuscular Hemoglobin 31.5 PG (26-34); Mean Corpuscular Volume 95.3 fL (80-100); Monocytes Absolute Auto 500 /uL (0-900); Monocytes Percent Auto 5.1 % (3-14); Neutrophils Absolute Auto 7100 /uL (1500-7000); Neutrophils Percent Auto 75.6 % (50-75); Platelet Count 216 X10^3/uL (150-400); Red Blood Cell Count 3.27 X10^6/uL (4.0-5.2); White Blood Cell Count 9.4 X10^3/uL (4.5-11.0)
[2022-08-11 10:47] LABS: pH Urine UA 5.5 (4.5-8.0)
[2022-08-11 10:51] LABS: Alanine Aminotransferase 25 IU/L (<35); Albumin 3.6 g/dL (3.5-5.0); Alkaline Phosphatase 64 U/L (38-126); Aspartate Aminotransferase 26 IU/L (14-36); Bilirubin Total 0.4 mg/dL (0.2-1.3); Blood Urea Nitrogen 19 mg/dL (7-17); Calcium 8.5 mg/dL (8.4-10.2); Carbon Dioxide 25 mmol/L (22-32); Chloride 109 mmol/L (98-107); Cholesterol 136 mg/dL (140-199); Estimated Glomerular Filt Rate 42 mL/min (>60); Globulin 3.5 g/dL (1.7-4.1); Glucose 98 mg/dL (80-110); HDL Cholesterol 47 mg/dL (40-60); HEMOLYSIS < 15 (0-50); LDL Cholesterol Calculated 68 mg/dL (<100); Potassium 4.9 mmol/L (3.4-5.1); Sodium 141 mmol/L (137-145); Total Protein 7.1 g/dL (6.3-8.2); Triglycerides 103 mg/dL (35-150)
[2022-08-11 10:55] LABS: RBC Urine 1-5/HPF (0-5/HPF); WBC Urine 1-5/HPF (0-5/HPF)
[2022-08-11 10:56] LABS: Bacteria Urine Moderate (10-30); Culture Indicated Urine Cult Not Indicated; Squamous Epithelial Cell Urine 1-5 /HPF (0-5/HPF)
[2022-08-11 11:27] LABS: Creatinine Urine Random 97.3 mg/dL
[2022-08-11 11:35] LABS: Microalbumi Creatinin Ratio Ur 70.9 ug/mg CR (<30); Microalbumin Urine Random 6.9 mg/dL (0-1.6)
[2022-08-11 11:43] LABS: TSH w/ Reflex to FT4 5.41 uIU/mL (0.47-4.68)
[2022-08-12 07:36] LABS: Labcorp Hemoglobin (Hb) A1c 5.8 % (4.8-5.6)
== END ==
PROVIDERS: PCP Family Medicine; Referring Provider Physician Assistant; Visit Provider Physician Assistant
DX: E03.9 Hypothyroidism, unspecified (principal); G70.00 Myasthenia gravis without (acute) exacerbation; I10 Essential (primary) hypertension; K51.90 Ulcerative colitis, unspecified, without complications; N18.30 Chronic kidney disease, stage 3 unspecified; N39.0 Urinary tract infection, site not specified; E11.9 Type 2 diabetes mellitus without complications
CPT/HCPCS: 36415; 80053; 80061; 81001; 82043; 82570; 83036; 84439; 84443; 85025

== ENCOUNTER 2022-09-06 10:17 | Emergency (ER) | payer MEDICARE, OTHER, SELFPAY ==
[2022-09-06 10:25] VITALS: BP 172/70; PULSE 79; RESP 16; TEMP 36.1; O2SAT 99; BMI 26.4
[2022-09-06] MEDS: PROPARACAINE 0.5% OPHTH SOL 1 DROPS EYE-LEFT (10:27)
[2022-09-06] MEDS: FLUORESCEIN 1 MG STRIP EYE-LEFT (10:27)
--- NOTE | 2022-09-06 10:31 | ED.EYEPROB ---
HPI - Eye Problem General Chief complaint: Eye Problems Stated complaint: redness in left eye Time Seen by Provider: 09/06/22 10:18 History of Present Illness HPI Narrative: 81-year-old female with history of hypertension, former smoker presents with a chief complaint of some left eye irritation. Yesterday she states that she felt like something might be in her eye and she was itching and scratching it over the course of the day and then noticed over the night and this morning that her eye was crusted and had become more red and she is feeling the beginning of some crusting in her right eye as well. She denies any traumatic injury. She does not complain of any visual change. She does not wear contacts. She recently traveled from [place] and saw her grandkids but denies exposure to any ill persons. She is had no runny nose, sore throat or cough. She denies any chest pain or shortness of breath. She has no nausea, vomiting or diarrhea but does state that she was up multiple times last night urinating. She complains of frequency but denies any dysuria, urgency or hematuria Related Data Home Medications Medication Instructions Recorded Confirmed cholecalciferol (vitamin D3) 25 1,000 unit PO DAILY 10/01/17 08/11/22 mcg (1,000 unit) capsule lysine 500 mg tablet (L-Lysine) 500 mg PO DAILY 10/01/17 08/11/22 Centrum for Women w/D3 PO 11/30/19 08/11/22 Previous Rx's Medication Instructions Recorded diclofenac sodium 1 % topical gel 2 g topical BID #100 grams 06/30/21 (Arthritis Pain (diclofenac)) amlodipine 5 mg tablet 5 mg PO DAILY #30 tabs 08/11/22 amlodipine 5 mg tablet 5 mg PO DAILY #90 tabs 08/11/22 famotidine 20 mg tablet (Pepcid AC) 20 mg PO BID #180 tabs 08/11/22 hydrochlorothiazide 25 mg tablet 25 mg PO DAILY PRN swelling #90 08/11/22 tabs levothyroxine 100 mcg tablet 100 mcg PO QDAY #90 tabs 08/11/22 lisinopril 20 mg tablet 20 mg PO DAILY #90 tabs 08/11/22 rivaroxaban 20 mg tablet (Xarelto) 20 mg PO DAILY #90 tabs 08/11/22 cephalexin 500 mg capsule 500 mg PO BID #10 caps 09/06/22 Allergies Allergy/AdvReac Type Severity Reaction Status Date / Time Sulfa (Sulfonamide Allergy Severe HIVES FROM Verified 08/11/22 11:08 Antibiotics) SULFA CREAM [SULFA (SULFONAMIDE ANTIBIOTICS)] Review of Systems Review of Systems Narrative: GENERAL: Denies chills, fatigue, malaise, fever, sweats. HEENT: See HPI RESPIRATORY: Denies dyspnea, cough, wheezing, hemoptysis, sputum. CARDIOVASCULAR: Denies chest pain, palpitations, orthopnea, edema, GASTROINTESTINAL: Denies nausea, vomiting, abdominal pain, diarrhea, constipation, melena. : See HPI MUSCULOSKELETAL: denies weakness, joint pain, or bony pain SKIN: Denies rash, skin lesions, or other NEUROLOGIC: Denies weakness, headache, numbness, change in speech, confusion, seizures, incoordination. PSYCHIATRIC: No concerning psychosocial issues. 12 point review of systems is negative except for those stated above Patient History Medical History Arthritis, multiple joint involvement Chicken pox (~1947) CKD (chronic kidney disease) stage 3, GFR 30-59 ml/min Frequent urinary tract infections Herpes zoster History of chickenpox History of colitis History of diabetes mellitus History of diverticulitis History of eczema History of gastric ulcer [facility] of [facility] fever History of skin cancer History of ulcerative colitis History of urinary incontinence Hyperthyroidism (~1992) Polio Shoulder pain Type 2 diabetes mellitus without complication, without long-term current use of insulin (12/29/16) Surgical History History of cholecystectomy History of hip replacement History of knee replacement History of shoulder replacement Status post cholecystectomy Family History Sister Age: 80 Heart disease Father No problems noted. Mother Myocardial infarction Brother No problems noted. Brother No problems noted. Social History marital status: household members: spouse and children Smoking Status: Former smoker alcohol intake: current substance use type: does not use Smoking Status: Former smoker alcohol intake frequency: 0-2 drinks per day Substance Use Type: does not use Exam Narrative Exam Narrative: GENERAL: [81] year old patient appears stated age. Well-developed patient, in mild distress. HEAD: Atraumatic. Normocephalic. EYES: Pupils equal round and reactive. Extraocular motions intact. Left eye with minimal exudate, some matting, watering and scleral injection with minimal subconjunctival hemorrhage. Funduscopic exam within normal limits. Patient feels significant improvement after use of proparacaine. No dye uptake with fluorescein. Upper lid everted and no foreign body noted. Pressure 18 mmHg. Right eye without injection or drainage, normal funduscopic exam ENT: Nose without bleeding, purulent drainage. Throat without erythema, tonsillar hypertrophy or exudate. Airway patent. NECK: Trachea midline. Non tender CARDIOVASCULAR: Regular rate and rhythm without murmurs, gallops, or rubs. RESPIRATORY: Clear to auscultation. Breath sounds equal bilaterally. No wheezes, rales, or rhonchi. GASTROINTESTINAL: Abdomen soft, non-tender, nondistended. EXTREMITIES: No edema or joint tenderness. BACK: Nontender without deformity or crepitance. No flank tenderness. NEURO: AOx3. SKIN: No rash or erythema of visible areas Initial Vital Signs Initial Vital Signs: Vital Signs Temperature 96.9 F L 09/06/22 10:25 Pulse Rate 79 09/06/22 10:25 Respiratory Rate 16 09/06/22 10:25 Blood Pressure 172/70 H 09/06/22 10:25 Pulse Oximetry 99 09/06/22 10:25 Oxygen Delivery Method Room Air 09/06/22 10:25 Course Orders Ordered: ED Orders 09/06/22 10:57 Urine Microscopic Stat Discontinued Medications Fluorescein Sodium (Fluorescein 1 Mg Strip) 1 mg EYE-LEFT NOW ONE Stop: 09/06/22 10:19 Last Admin: 09/06/22 10:27 Dose: 1 mg Documented By: ARACELI Ofloxacin (Ofloxacin 0.3% Ophth 5 Ml) 1 drops EYE-BOTH NOW ONE Stop: 09/06/22 10:43 Last Admin: 09/06/22 10:52 Dose: 1 drop Documented By: RACH Proparacaine HCl (Proparacaine 0.5% Ophth Whit) 1 drops EYE-LEFT NOW ONE Stop: 09/06/22 10:19 Last Admin: 09/06/22 10:27 Dose: 1 drop Documented By: ARACELI Vital Signs Vital signs: Vital Signs - 8 hr 09/06/22 10:25 Temperature 96.9 F L Pulse Rate 79 Respiratory Rate 16 Blood Pressure 172/70 H Pulse Oximetry 99 Oxygen Delivery Method Room Air MDM - Eye Problem Lab Data Labs: Urine Dip Bedside Urine Glucose Negative Bedside Urine Bilirubin - Negative Bedside Urine Ketone - Negative Urine Specific [place] 1.025 Bedside Urine Occult Blood + Bedside Urine pH 6.0 Bedside Urine Protein + 30 Bedside Urine Urobilinogen - Negative Bedside Urine Nitrite + Positive Bedside Urine Leukocytes + 70 Esterase MDM Narrative Medical decision making narrative: [81] year old patient presents with left eye redness drainage and irritation, also urinary frequency Multiple etiologies for patient's symptoms considered including, but not limited to: [Viral conjunctivitis, bacterial conjunctivitis, foreign body, corneal abrasion, acute angle closure glaucoma versus other, also UTI considered] Prior Charts reviewed in our EMR Primary Historian: patient Labs reviewed and interpreted by myself: Urine POC notes Patient's history and physical exam are reassuring. Multiple diagnoses considered regarding her eyes and based on physical exam findings noted above there is no evidence of abrasion or foreign body, pressures are normal, no visual change. Given the redness, watering and matting she is appropriate for antibiotic treatment. Urine with evidence of infection, but thankfully no systemic complaints. Prior Cx notes pansensitive Ecoli and Klebsiela. Findings and discharge diagnosis discussed with patient/family followed by verbalization of understanding Return precautions discussed with patient/family whom verbalize understanding of diagnosis and plan Discharge Plan Departure Patient Disposition: Home Clinical Impression: Conjunctivitis, Subconjunctival hemorrhage, Acute UTI Instructions: DI for Conjunctivitis, DI for Urinary Tract Infection (UTI), DI for Subconjunctival Hemorrhage Activity Restrictions/Additional Instructions: *You have been diagnosed with [conjunctivitis, mild subconjunctival hemorrhage and urinary tract infection] *What to do: *Please continue to take your regular medications as directed. [ x] New medication prescriptions sent to your pharmacy: [[facility] in [place] ] [ ] New medication written as a paper prescription [ ] No new medications given *Please follow up with your primary care provider in 2-3 days, call for an appointment. Let them know you were seen in the Emergency Department and that we ask that you be seen in follow up. We will electronically transmit a record of today's note if your PCP is in our system *Return to Emergency Department if you should have any new, worsening or concerning symptoms, such as [fever greater than 101 F, shaking chills, worsening pain, persistent vomiting or other bothersome symptoms] Prescriptions: New cephalexin 500 mg capsule 500 mg PO BID Qty: 10 0RF No Action diclofenac sodium [Arthritis Pain (diclofenac)] 1 % gel 2 g topical BID Qty: 100 1RF Rx Instructions: apply to single elbow, wrist or hand; for hand includes palm/fingers/back of hand amlodipine 5 mg tablet 5 mg PO DAILY Qty: 90 3RF amlodipine 5 mg tablet 5 mg PO DAILY Qty: 30 0RF famotidine [Pepcid AC] 20 mg tablet 20 mg PO BID Qty: 180 3RF hydrochlorothiazide 25 mg tablet 25 mg PO DAILY PRN (Reason: swelling) Qty: 90 3RF levothyroxine 100 mcg tablet 100 mcg PO QDAY Qty: 90 3RF lisinopril 20 mg tablet 20 mg PO DAILY Qty: 90 3RF Xarelto 20 mg tablet 20 mg PO DAILY Qty: 90 3RF Rx Instructions: must administer with evening meal Centrum for Women w/D3 PO lysine [L-Lysine] 500 mg tablet 500 mg PO DAILY cholecalciferol (vitamin D3) 1,000 unit capsule 1,000 unit PO DAILY Referrals: Sandhya Beaver DO [Primary Care Provider] - Stand Alone Forms: Patient Portal/API
[2022-09-06] MEDS: OFLOXACIN 0.3% OPHTH 5 ML 1 DROPS EYE-BOTH (10:52)
[2022-09-06 11:16] LABS: Bacteria Urine Many (>30); RBC Urine 1-5/HPF (0-5/HPF); Squamous Epithelial Cell Urine 1-5 /HPF (0-5/HPF); WBC Urine 10-30/HPF (0-5/HPF)
[2022-09-06 11:17] LABS: Culture Indicated Urine Specimen Cultured
== END 2022-09-06 11:09 | disposition home or self-care (01) ==
PROVIDERS: Emergency Provider Emergency Medicine; PCP Family Medicine
DX: H11.32 Conjunctival hemorrhage, left eye (principal); H10.9 Unspecified conjunctivitis; N39.0 Urinary tract infection, site not specified
CPT/HCPCS: 81003; 81015; 87077; 87086; 87186; 99282

== ENCOUNTER → 2023-01-05 14:40 | Outpatient (CLI) | payer MEDICARE, OTHER, SELFPAY ==
[2023-01-05 18:43] LABS: Bacteria Urine Many (>30); RBC Urine None Seen (0-5/HPF); Squamous Epithelial Cell Urine 1-5 /HPF (0-5/HPF); WBC Urine 5-10/HPF (0-5/HPF)
[2023-01-05 18:44] LABS: Culture Indicated Urine Specimen Cultured
== END ==
PROVIDERS: PCP Student in an Organized Health Care Education/Training Program; Visit Provider Student in an Organized Health Care Education/Training Program
DX: N39.0 Urinary tract infection, site not specified (principal)
CPT/HCPCS: 81015; 87077; 87086; 87186

== ENCOUNTER → 2023-01-14 11:12 | Outpatient (CLI) | payer MEDICARE, OTHER, SELFPAY ==
[2023-01-14 11:46] LABS: Add Manual Diff / Slide Review NO; Basophils Absolute Auto 100 /uL (0-100); Basophils Percent Auto 0.9 % (0-2); Eosinophils Absolute Auto 400 /uL (0-450); Hematocrit 31.9 % (36-46); Hemoglobin 10.6 g/dL (12.0-16.0); Lymphocytes Absolute Auto 1600 /uL (1100-4500); Lymphocytes Percent Auto 17.5 % (25-40); Mean Corpuscular Hemoglobin 30.5 PG (26-34); Mean Corpuscular Volume 92.4 fL (80-100); Monocytes Absolute Auto 500 /uL (0-900); Monocytes Percent Auto 5.4 % (3-14); Neutrophils Absolute Auto 6700 /uL (1500-7000); Neutrophils Percent Auto 72.2 % (50-75); Platelet Count 216 X10^3/uL (150-400); Red Blood Cell Count 3.46 X10^6/uL (4.0-5.2); Red Cell Distribution Width 14.5 % (11.6-14.8); White Blood Cell Count 9.3 X10^3/uL (4.5-11.0)
[2023-01-14 12:30] LABS: Alanine Aminotransferase 62 IU/L (<35); Albumin 3.5 g/dL (3.5-5.0); Albumin Globulin Ratio 0.9 (1.0-2.8); Alkaline Phosphatase 84 U/L (38-126); Aspartate Aminotransferase 44 IU/L (14-36); BUN Creatinine Ratio 18.3 (6-22); Bilirubin Total 0.5 mg/dL (0.2-1.3); Blood Urea Nitrogen 21 mg/dL (7-17); Calcium 9.1 mg/dL (8.4-10.2); Carbon Dioxide 20 mmol/L (22-32); Chloride 109 mmol/L (98-107); Estimated Glomerular Filt Rate 47 mL/min (>60); Globulin 3.7 g/dL (1.7-4.1); Glucose 95 mg/dL (80-110); HEMOLYSIS < 15 (0-50); Potassium 4.7 mmol/L (3.4-5.1); Sodium 140 mmol/L (137-145); Total Protein 7.2 g/dL (6.3-8.2)
== END ==
PROVIDERS: PCP Student in an Organized Health Care Education/Training Program; Referring Provider Student in an Organized Health Care Education/Training Program; Visit Provider Student in an Organized Health Care Education/Training Program
DX: D64.9 Anemia, unspecified (principal); R79.89 Other specified abnormal findings of blood chemistry
CPT/HCPCS: 36415; 80053; 85025

== ENCOUNTER → 2023-01-18 10:01 | Outpatient (CLI) | payer MEDICARE, OTHER, SELFPAY ==
[2023-01-18 13:32] LABS: Bacteria Urine None Seen; Culture Indicated Urine Cult Not Indicated; RBC Urine None Seen (0-5/HPF); Squamous Epithelial Cell Urine None Seen (0-5/HPF); Urine Comments N; WBC Urine 0-1/HPF (0-5/HPF)
== END ==
PROVIDERS: PCP Student in an Organized Health Care Education/Training Program; Visit Provider Student in an Organized Health Care Education/Training Program
DX: N39.0 Urinary tract infection, site not specified (principal)
CPT/HCPCS: 81015

== ENCOUNTER → 2023-02-19 14:14 | Outpatient (CLI) | payer MEDICARE, OTHER, SELFPAY ==
[2023-02-19 19:05] LABS: Bilirubin Urine UA NEGATIVE (NEGATIVE); Color Urine UA YELLOW; Glucose Urine UA NEGATIVE (Negative); Ketones Urine UA NEGATIVE (NEGATIVE); Leukocyte Esterase Urine UA NEGATIVE (NEGATIVE); Nitrite Urine UA POSITIVE (Negative); Occult Blood Urine UA TRACE-INTACT (Negative); Protein Urine UA NEGATIVE (Negative); Specific Gravity Urine UA 1.025 (1.000-1.035); Urobilinogen Urine UA 0.2 E.U./dL (0.2)
[2023-02-19 19:17] LABS: Appearance Urine UA SL CLOUDY; Bacteria Urine Many (>30); Culture Indicated Urine Specimen Cultured; RBC Urine 1-5/HPF (0-5/HPF); Squamous Epithelial Cell Urine 1-5 /HPF (0-5/HPF); WBC Urine 1-5/HPF (0-5/HPF)
== END ==
PROVIDERS: PCP Student in an Organized Health Care Education/Training Program; Visit Provider Student in an Organized Health Care Education/Training Program
DX: R53.83 Other fatigue (principal)
CPT/HCPCS: 81001; 87077; 87086; 87186

== ENCOUNTER → 2023-02-19 14:18 | Outpatient (CLI) | payer MEDICARE, OTHER, SELFPAY ==
[2023-02-19 18:08] LABS: Add Manual Diff / Slide Review NO; Basophils Absolute Auto 100 /uL (0-100); Basophils Percent Auto 0.6 % (0-2); Eosinophils Absolute Auto 400 /uL (0-450); Hematocrit 30.3 % (36-46); Hemoglobin 10.1 g/dL (12.0-16.0); Lymphocytes Absolute Auto 1700 /uL (1100-4500); Lymphocytes Percent Auto 19.9 % (25-40); Mean Corpuscular HGB Conc 33.3 % (30-36); Mean Corpuscular Hemoglobin 30.1 PG (26-34); Mean Corpuscular Volume 90.3 fL (80-100); Monocytes Absolute Auto 600 /uL (0-900); Monocytes Percent Auto 7.4 % (3-14); Neutrophils Absolute Auto 5700 /uL (1500-7000); Neutrophils Percent Auto 67.1 % (50-75); Platelet Count 241 X10^3/uL (150-400); Red Blood Cell Count 3.35 X10^6/uL (4.0-5.2); Red Cell Distribution Width 13.5 % (11.6-14.8); White Blood Cell Count 8.5 X10^3/uL (4.5-11.0)
[2023-02-19 18:21] LABS: Alanine Aminotransferase 20 IU/L (<35); Albumin 3.5 g/dL (3.5-5.0); Albumin Globulin Ratio 0.9 (1.0-2.8); Alkaline Phosphatase 76 U/L (38-126); Aspartate Aminotransferase 25 IU/L (14-36); BUN Creatinine Ratio 21.5 (6-22); Bilirubin Total 0.2 mg/dL (0.2-1.3); Blood Urea Nitrogen 26 mg/dL (7-17); Calcium 9.3 mg/dL (8.4-10.2); Carbon Dioxide 19 mmol/L (22-32); Chloride 113 mmol/L (98-107); Estimated Glomerular Filt Rate 44 mL/min (>60); Globulin 3.7 g/dL (1.7-4.1); Glucose 74 mg/dL (80-110); HEMOLYSIS < 15 (0-50); Sodium 140 mmol/L (137-145); Total Protein 7.2 g/dL (6.3-8.2)
[2023-02-19 18:39] LABS: Vitamin D 25 Hydroxy (D3) 19.6 ng/mL (30.0-100.0)
[2023-02-19 18:56] LABS: TSH w/ Reflex to FT4 3.47 uIU/mL (0.47-4.68)
== END ==
PROVIDERS: PCP Student in an Organized Health Care Education/Training Program; Referring Provider Student in an Organized Health Care Education/Training Program; Visit Provider Student in an Organized Health Care Education/Training Program
DX: R53.83 Other fatigue (principal); Z00.00 Encounter for general adult medical examination without abnormal findings
CPT/HCPCS: 36415; 80053; 81001; 82306; 84443; 85025; 87077; 87086; 87186

== ENCOUNTER → 2023-03-08 13:58 | Outpatient (CLI) | payer MEDICARE, OTHER, SELFPAY ==
[2023-03-08 18:48] LABS: Appearance Urine UA CLEAR; Bilirubin Urine UA NEGATIVE (NEGATIVE); Color Urine UA YELLOW; Glucose Urine UA NEGATIVE (Negative); Ketones Urine UA NEGATIVE (NEGATIVE); Leukocyte Esterase Urine UA NEGATIVE (NEGATIVE); Nitrite Urine UA NEGATIVE (Negative); Occult Blood Urine UA TRACE-INTACT (Negative); Protein Urine UA NEGATIVE (Negative); Urobilinogen Urine UA 0.2 E.U./dL (0.2)
[2023-03-08 18:50] LABS: pH Urine UA 5.5 (4.5-8.0)
[2023-03-08 19:05] LABS: Bacteria Urine Many (>30); Culture Indicated Urine Specimen Cultured; RBC Urine None Seen (0-5/HPF); Squamous Epithelial Cell Urine 1-5 /HPF (0-5/HPF); WBC Urine 5-10/HPF (0-5/HPF)
== END ==
PROVIDERS: PCP Student in an Organized Health Care Education/Training Program; Visit Provider Student in an Organized Health Care Education/Training Program
DX: N39.0 Urinary tract infection, site not specified (principal)
CPT/HCPCS: 81001; 87077; 87086; 87186

== ENCOUNTER → 2023-03-19 11:11 | Outpatient (CLI) | payer MEDICARE, OTHER, SELFPAY ==
[2023-03-19 13:43] LABS: Appearance Urine UA CLEAR; Bilirubin Urine UA NEGATIVE (NEGATIVE); Color Urine UA YELLOW; Glucose Urine UA TRACE g/dL (Negative); Ketones Urine UA TRACE (NEGATIVE); Leukocyte Esterase Urine UA NEGATIVE (NEGATIVE); Nitrite Urine UA NEGATIVE (Negative); Occult Blood Urine UA NEGATIVE (Negative); Protein Urine UA TRACE (Negative); Specific Gravity Urine UA >=1.030 (1.000-1.035); Urobilinogen Urine UA 0.2 E.U./dL (0.2)
[2023-03-19 14:02] LABS: Bacteria Urine None Seen; Culture Indicated Urine Cult Not Indicated; RBC Urine None Seen (0-5/HPF); Squamous Epithelial Cell Urine 0-1 /HPF (0-5/HPF); WBC Urine None Seen (0-5/HPF)
== END ==
PROVIDERS: PCP Student in an Organized Health Care Education/Training Program; Visit Provider Student in an Organized Health Care Education/Training Program
DX: N39.0 Urinary tract infection, site not specified (principal)
CPT/HCPCS: 81001

== ENCOUNTER → 2023-05-11 09:35 | Outpatient (CLI) | payer MEDICARE, OTHER, SELFPAY ==
[2023-05-11 11:44] LABS: Add Manual Diff / Slide Review NO; Basophils Absolute Auto 100 /uL (0-100); Basophils Percent Auto 0.7 % (0-2); Eosinophils Absolute Auto 200 /uL (0-450); Eosinophils Percent Auto 1.8 % (2-4); Hematocrit 24.1 % (36-46); Hemoglobin 7.9 g/dL (12.0-16.0); Lymphocytes Absolute Auto 1800 /uL (1100-4500); Lymphocytes Percent Auto 17.2 % (25-40); Mean Corpuscular HGB Conc 32.8 % (30-36); Mean Corpuscular Hemoglobin 29.1 PG (26-34); Mean Corpuscular Volume 88.5 fL (80-100); Monocytes Absolute Auto 400 /uL (0-900); Monocytes Percent Auto 3.6 % (3-14); Neutrophils Absolute Auto 7900 /uL (1500-7000); Neutrophils Percent Auto 76.7 % (50-75); Platelet Count 340 X10^3/uL (150-400); Red Blood Cell Count 2.72 X10^6/uL (4.0-5.2); Red Cell Distribution Width 15.2 % (11.6-14.8); White Blood Cell Count 10.3 X10^3/uL (4.5-11.0)
[2023-05-11 12:07] LABS: HEMOLYSIS < 15 (0-50); Iron 18 ug/dL (37-170)
[2023-05-11 12:09] LABS: Alanine Aminotransferase 17 IU/L (<35); Albumin 3.4 g/dL (3.5-5.0); Alkaline Phosphatase 69 U/L (38-126); Aspartate Aminotransferase 24 IU/L (14-36); BUN Creatinine Ratio 19.3 (6-22); Bilirubin Total 0.5 mg/dL (0.2-1.3); Blood Urea Nitrogen 31 mg/dL (7-17); Calcium 9.1 mg/dL (8.4-10.2); Carbon Dioxide 17 mmol/L (22-32); Chloride 114 mmol/L (98-107); Estimated Glomerular Filt Rate 32 mL/min (>60); Globulin 3.5 g/dL (1.7-4.1); Glucose 113 mg/dL (80-110); HEMOLYSIS < 15 (0-50); Potassium 5.2 mmol/L (3.4-5.1); Sodium 139 mmol/L (137-145); Total Protein 6.9 g/dL (6.3-8.2)
[2023-05-11 12:19] LABS: Percent Iron Saturation 6 % (15-50); Total Iron Binding Capacity 298 ug/dL (265-497); Transferrin 255 mg/dL (206-381)
[2023-05-11 12:36] LABS: Ferritin 8 ng/mL (11-264)
== END ==
PROVIDERS: PCP Student in an Organized Health Care Education/Training Program; Referring Provider Student in an Organized Health Care Education/Training Program; Visit Provider Student in an Organized Health Care Education/Training Program
DX: R53.83 Other fatigue (principal)
CPT/HCPCS: 36415; 80053; 82728; 83540; 83550; 85025

== ENCOUNTER → 2023-05-18 08:40 | Outpatient (CLI) | payer MEDICARE, OTHER, SELFPAY ==
[2023-05-18 09:00] LABS: Add Manual Diff / Slide Review NO; Basophils Absolute Auto 100 /uL (0-100); Basophils Percent Auto 1.1 % (0-2); Eosinophils Absolute Auto 400 /uL (0-450); Eosinophils Percent Auto 3.6 % (2-4); Hematocrit 22.3 % (36-46); Hemoglobin 7.1 g/dL (12.0-16.0); Lymphocytes Absolute Auto 1500 /uL (1100-4500); Lymphocytes Percent Auto 14.7 % (25-40); Mean Corpuscular Hemoglobin 28.4 PG (26-34); Mean Corpuscular Volume 88.7 fL (80-100); Monocytes Absolute Auto 600 /uL (0-900); Monocytes Percent Auto 5.9 % (3-14); Neutrophils Absolute Auto 7600 /uL (1500-7000); Neutrophils Percent Auto 74.7 % (50-75); Platelet Count 283 X10^3/uL (150-400); Red Blood Cell Count 2.51 X10^6/uL (4.0-5.2); Red Cell Distribution Width 15.3 % (11.6-14.8); White Blood Cell Count 10.2 X10^3/uL (4.5-11.0)
[2023-05-18 09:52] LABS: Alanine Aminotransferase 19 IU/L (<35); Albumin 3.2 g/dL (3.5-5.0); Albumin Globulin Ratio 0.9 (1.0-2.8); Alkaline Phosphatase 68 U/L (38-126); Aspartate Aminotransferase 36 IU/L (14-36); BUN Creatinine Ratio 22.1 (6-22); Bilirubin Total 0.5 mg/dL (0.2-1.3); Blood Urea Nitrogen 30 mg/dL (7-17); Calcium 8.9 mg/dL (8.4-10.2); Carbon Dioxide 16 mmol/L (22-32); Chloride 118 mmol/L (98-107); Estimated Glomerular Filt Rate 39 mL/min (>60); Globulin 3.4 g/dL (1.7-4.1); Glucose 96 mg/dL (80-110); HEMOLYSIS < 15 (0-50); Sodium 141 mmol/L (137-145); Total Protein 6.6 g/dL (6.3-8.2)
[2023-05-18 09:57] LABS: Potassium 5.5 mmol/L (3.4-5.1)
[2023-05-18 10:25] LABS: Appearance Urine UA CLEAR; Bilirubin Urine UA NEGATIVE (NEGATIVE); Color Urine UA YELLOW; Glucose Urine UA NEGATIVE (Negative); Ketones Urine UA NEGATIVE (NEGATIVE); Leukocyte Esterase Urine UA NEGATIVE (NEGATIVE); Nitrite Urine UA NEGATIVE (Negative); Occult Blood Urine UA NEGATIVE (Negative); Protein Urine UA TRACE (Negative); Specific Gravity Urine UA 1.025 (1.000-1.035); Urobilinogen Urine UA 0.2 E.U./dL (0.2)
[2023-05-18 10:36] LABS: Bacteria Urine Few (2-10); Culture Indicated Urine Cult Not Indicated; RBC Urine None Seen (0-5/HPF); Squamous Epithelial Cell Urine 1-5 /HPF (0-5/HPF); Urine Volume 10mL (spun); WBC Urine 1-5/HPF (0-5/HPF)
== END ==
PROVIDERS: PCP Student in an Organized Health Care Education/Training Program; Referring Provider Student in an Organized Health Care Education/Training Program; Visit Provider Student in an Organized Health Care Education/Training Program
DX: K62.5 Hemorrhage of anus and rectum (principal); D64.9 Anemia, unspecified; R79.89 Other specified abnormal findings of blood chemistry; N39.0 Urinary tract infection, site not specified; R53.83 Other fatigue
CPT/HCPCS: 36415; 80053; 81001; 85025

== ENCOUNTER 2023-05-18 12:21 | Inpatient (IN) | payer MEDICARE, OTHER, SELFPAY ==
[2023-05-18] VITALS (18 sets, daily range): BP systolic 101–145; BP diastolic 41–64; PULSE 61–76; RESP 15–39; TEMP 36.1–36.9; O2SAT 98–100; BMI 25.1; BMI 25.7
--- NOTE | 2023-05-18 13:18 | ED_ITS ---
HPI - Recheck/Abnormal Lab/Rx General Chief Complaint: Recheck/Abnormal Lab/Rx Stated Complaint: HEMOGLOBIN WAS LOW DR ZELAYA Time Seen by Provider: 05/18/23 13:16 Source: patient Mode of arrival: Wheelchair Limitations: no limitations History of Present Illness HPI narrative: 82-year-old female history of hypertension, smoker, history of post-polio syndrome who presents with complaint of low hemoglobin. Patient notes on May 01 she had a large maroon bloody stool while visiting her family in [place]. She did not seek care at that time and returned here on the . She is noted she has been overall sort of weak. She saw her physician who started iron infusions she had 1 which made her feel quite a bit better and then she sort of tapered often become more weak over time. Patient states no fevers no chills. No lightheadedness or syncope. No chest pain or shortness of breath. No abdominal pain. She has not appreciate any other black or bloody stools. She has not been having frequent diarrhea. Patient denies any vaginal bleeding or urinary changes. No new swelling of extremities. Patient states she was at a GI appointment today with Dr. Meadows but did not get to complete that. She has had for scopes in the past with the last 1 being in 2013 with a small polyp. Patient states she is on Xarelto for prior pulmonary emboli. She has had prior cholecystectomy, partial vaginal hysterectomy, left leg surgery for polio syndrome, are 4 prior colonoscopies. Related Data Home Medications Medication Instructions Recorded Confirmed Centrum for Women w/D3 1 tab PO DAILY 11/30/19 05/18/23 acetaminophen 500 mg tablet 1,000 mg PO BID PRN Pain (Scale 05/18/23 05/18/23 (Acetaminophen Extra Strength) Score 4-6) hydrochlorothiazide 25 mg tablet 25 mg PO Q OTHER DAY swelling 05/18/23 05/18/23 Previous Rx's Medication Instructions Recorded famotidine 20 mg tablet (Pepcid AC) 20 mg PO BID #180 tabs 08/11/22 levothyroxine 100 mcg tablet 100 mcg PO QDAY #90 tabs 08/11/22 rivaroxaban 20 mg tablet (Xarelto) 20 mg PO DAILY #90 tabs 08/11/22 cephalexin 250 mg tablet 250 mg PO DAILY #30 tabs 03/19/23 Allergies Allergy/AdvReac Type Severity Reaction Status Date / Time Sulfa (Sulfonamide Allergy Severe HIVES FROM Verified 05/11/23 08:48 Antibiotics) SULFA CREAM [SULFA (SULFONAMIDE ANTIBIOTICS)] Review of Systems Review of Systems ROS Unobtainable: All systems reviewed & are unremarkable except as noted in HPI and below Patient History Medical History Herpes zoster CKD (chronic kidney disease) stage 3, GFR 30-59 ml/min Arthritis, multiple joint involvement Frequent urinary tract infections Chicken pox (~1947) Hyperthyroidism (~1992) History of [place] fever Shoulder pain History of eczema Polio History of chickenpox History of urinary incontinence History of ulcerative colitis History of gastric ulcer History of diverticulitis History of colitis History of skin cancer History of diabetes mellitus Type 2 diabetes mellitus without complication, without long-term current use of insulin (12/29/16) Surgical History History of shoulder replacement History of cholecystectomy Status post cholecystectomy History of knee replacement History of hip replacement Family History Sister Age: 80 Heart disease Father No problems noted. Mother Myocardial infarction Brother No problems noted. Brother No problems noted. Social History marital status: household members: spouse and children Smoking Status: Former smoker alcohol intake: current substance use type: does not use Smoking Status: Former smoker alcohol intake frequency: 0-2 drinks per day Substance Use Type: does not use Exam Narrative Exam Narrative: GENERAL: Alert and oriented x three, pale female in mild distress. HEENT: Head normocephalic, atraumatic, EOMI, pupils reactive, face symmetric, moist mucous membranes NECK: Supple, full range of motion CARDIOVASCULAR: Regular rate and rhythm without murmurs, rubs or gallops. RESPIRATORY: Breath sounds equal bilaterally, no wheezes rales or rhonchi. ABDOMEN: Soft, nontender. Nondistended. Normoactive bowel sounds all 4 quadrants. No guarding or rebound, rigidity, no mass : No CVA tenderness EXTREMITIES: No clubbing or edema. Neurovascularly intact NEUROLOGICAL: Cranial nerves II through XII grossly intact. Moving all extremities SKIN: Warm, dry, no petechiae, no rashes or lesions. Initial Vital Signs Initial Vital Signs: Vital Signs Temperature 98.4 F 05/18/23 12:31 Pulse Rate 71 05/18/23 12:31 Respiratory Rate 18 05/18/23 12:31 Blood Pressure 104/52 L 05/18/23 12:31 Pulse Oximetry 98 05/18/23 12:31 Oxygen Delivery Method Room Air 05/18/23 12:31 Course Orders Ordered: ED Orders 05/18/23 13:16 Complete Blood Count AUTO DIFF Stat Comprehensive Metabolic Panel Stat PRBC [Packed Cells] Stat PTT Partial Thromboplastin [place] Stat Prothrombin Time INR Stat Type and Screen Stat 05/18/23 13:43 EKG-12 Lead Stat 05/18/23 14:50 Consult to General Surgery Stat Lactated Ringer's (Lactated Ringers) 1,000 mls @ 42 mls/hr IV CONT EBONI Naloxone HCl (Naloxone 0.4 Mg/Ml Vial) 0.2 mg IV Q2MIN PRN PRN Reason: Opiate Reversal Pantoprazole Sodium (Pantoprazole 40 Mg Vial) 40 mg IV DAILY EBONI Discontinued Medications Ondansetron HCl (Ondansetron 4 Mg/2 Ml Inj) 4 mg IV NOW PRN PRN Reason: Nausea And Vomiting Ondansetron HCl (Ondansetron 4 Mg Odt) 4 mg SL NOW PRN PRN Reason: Nausea And Vomiting Pantoprazole Sodium (Pantoprazole 40 Mg Vial) 80 mg IV NOW ONE Stop: 05/18/23 12:49 Last Admin: 05/18/23 13:45 Dose: 80 mg Documented By: ARACELI Vital Signs Vital signs: Vital Signs - 8 hr 05/18/23 12:31 05/18/23 12:45 05/18/23 13:00 Temperature 98.4 F Pulse Rate 71 76 69 Respiratory Rate 18 25 H 39 H Blood Pressure 104/52 L Pulse Oximetry 98 Oxygen Delivery Method Room Air 05/18/23 13:02 05/18/23 13:02 05/18/23 13:30 Temperature Pulse Rate 68 Respiratory Rate 15 Blood Pressure 135/58 L 136/59 L Pulse Oximetry 98 Oxygen Delivery Method 05/18/23 13:30 05/18/23 14:00 05/18/23 14:01 Temperature Pulse Rate 69 65 67 Respiratory Rate 18 20 Blood Pressure Pulse Oximetry 100 100 100 Oxygen Delivery Method 05/18/23 14:01 05/18/23 14:30 05/18/23 14:30 Temperature Pulse Rate 69 Respiratory Rate 19 Blood Pressure 119/57 L 121/59 L Pulse Oximetry 100 Oxygen Delivery Method 05/18/23 14:51 05/18/23 14:51 Temperature Pulse Rate 71 Respiratory Rate 28 H Blood Pressure 145/64 H Pulse Oximetry 100 Oxygen Delivery Method MDM - Recheck/Abnormal Lab/Rx Lab Data 05/18/23 13:16 05/18/23 13:16 Labs: Lab Results 05/18/23 Range/Units 13:16 WBC 9.9 (4.5-11.0) X10^3/uL RBC 2.51 L (4.0-5.2) X10^6/uL Hgb 7.0 L (12.0-16.0) g/dL Hct 22.2 L (36-46) % MCV 88.4 (80-100) fL MCH 28.1 (26-34) PG MCHC 31.8 (30-36) % RDW 15.5 H (11.6-14.8) % Plt Count 274 (150-400) X10^3/uL Neut % (Auto) 73.4 (50-75) % Lymph % (Auto) 15.8 L (25-40) % Petroleum % (Auto) 5.8 (3-14) % Eos % (Auto) 4.1 H (2-4) % Baso % (Auto) 0.9 (0-2) % Neut # (Auto) 7300 H (5870-4430) /uL Lymph # (Auto) 1600 (4790-9051) /uL Petroleum # (Auto) 600 (0-900) /uL Eos # (Auto) 400 (0-450) /uL Baso # (Auto) 100 (0-100) /uL PT 16.8 H (9.4-12.5) SECONDS INR 1.5 H (0.9-1.3) APTT 40 H (25.1-36.5) SECONDS Sodium 140 (137-145) mmol/L Potassium 5.6 H (3.4-5.1) mmol/L Chloride 117 H (98-107) mmol/L Carbon Dioxide 16 L (22-32) mmol/L BUN 31 H (7-17) mg/dL Creatinine 1.34 H (0.52-1.04) mg/dL Estimated GFR 39 L (>60) mL/min BUN/Creatinine Ratio 23.1 H (6-22) Glucose 93 (80-110) mg/dL Calcium 9.0 (8.4-10.2) mg/dL Total Bilirubin 0.4 (0.2-1.3) mg/dL AST 27 (14-36) IU/L ALT 19 (<35) IU/L Alkaline Phosphatase 63 (38-126) U/L Total Protein 7.1 (6.3-8.2) g/dL Albumin 3.4 L (3.5-5.0) g/dL Globulin 3.7 (1.7-4.1) g/dL Albumin/Globulin Ratio 0.9 L (1.0-2.8) Blood Type A Positive Antibody Screen Negative Crossmatch See Detail Urine Dip Bedside Urine Glucose Negative Bedside Urine Bilirubin - Negative Bedside Urine Ketone - Negative Urine Specific [place] 1.020 Bedside Urine Occult Blood - Negative Bedside Urine pH 5.5 Bedside Urine Protein +/- 15 Bedside Urine Urobilinogen - Negative Bedside Urine Nitrite - Negative Bedside Urine Leukocytes - Negative Esterase ECG Data Attestation: I personally reviewed and interpreted this ECG as follows: Prior ECG tracings: available for review Interpretation: Sinus rhythm rate of 64 WI 178 QTC of 398, QRS of 92. Nonspecific change. Patient has prior from 05/31/2022 no significant changes noted. MDM Narrative Medical decision making narrative: This is an 82-year-old female who comes to emergency department with complaint of recent GI bleed around the 01 of May with low hemoglobin. Patient is overall hemodynamically stable. Patient has had downward trending hemoglobin was in the 10 range throughout December and February on April was 7 9 dropped to 7 1 on 05/18 after iron infusion. Patient is 7 on repeat here. No microcytosis. INR is 1.5. CMP from this morning show chronic kidney disease but appeared stable with elevated BUN potassium of 5.5 was not noted to have hemolysis. LFTs were appropriate. Repeat CMP shows slightly increased potassium of 5.6 creatinine of 1.34, chloride of 117, CO2 of 16 with a BUN of 31. LFTs are overall negative. Sodium is 140. Patient was transfused 1 unit of PRBCs. Given Protonix. Spoke with Dr. Johnson, general surgery happy to see patient. We did discuss patient is on rivaroxaban. Spoke with Dr. Nunez, accepts patient for admission. Asked for a 2nd unit of blood. Hold off on additional fluids with the hyperkalemia no acute EKG changes but patient will be getting quite a bit of fluid with her blood work. Discharge Plan Departure Patient Disposition: Admitted As Inpatient Clinical Impression: Anemia, GI bleed Admit Date/Time: 05/18/23 14:59 Admit Provider: Ana Nunez
[2023-05-18 13:27] LABS: Add Manual Diff / Slide Review NO; Basophils Absolute Auto 100 /uL (0-100); Basophils Percent Auto 0.9 % (0-2); Eosinophils Absolute Auto 400 /uL (0-450); Eosinophils Percent Auto 4.1 % (2-4); Hematocrit 22.2 % (36-46); Lymphocytes Absolute Auto 1600 /uL (1100-4500); Lymphocytes Percent Auto 15.8 % (25-40); Mean Corpuscular HGB Conc 31.8 % (30-36); Mean Corpuscular Hemoglobin 28.1 PG (26-34); Mean Corpuscular Volume 88.4 fL (80-100); Monocytes Absolute Auto 600 /uL (0-900); Monocytes Percent Auto 5.8 % (3-14); Neutrophils Absolute Auto 7300 /uL (1500-7000); Neutrophils Percent Auto 73.4 % (50-75); Platelet Count 274 X10^3/uL (150-400); Red Blood Cell Count 2.51 X10^6/uL (4.0-5.2); Red Cell Distribution Width 15.5 % (11.6-14.8); White Blood Cell Count 9.9 X10^3/uL (4.5-11.0)
[2023-05-18 13:33] LABS: INR 1.5 (0.9-1.3); Prothrombin Time 16.8 SECONDS (9.4-12.5)
[2023-05-18 13:36] LABS: PTT Partial Thromboplastin Tim 40 SECONDS (25.1-36.5)
[2023-05-18] MEDS: PANTOPRAZOLE 40 MG VIAL 80 MG IV (13:45)
[2023-05-18 13:54] LABS: Alanine Aminotransferase 19 IU/L (<35); Albumin 3.4 g/dL (3.5-5.0); Albumin Globulin Ratio 0.9 (1.0-2.8); Alkaline Phosphatase 63 U/L (38-126); Aspartate Aminotransferase 27 IU/L (14-36); BUN Creatinine Ratio 23.1 (6-22); Bilirubin Total 0.4 mg/dL (0.2-1.3); Blood Urea Nitrogen 31 mg/dL (7-17); Carbon Dioxide 16 mmol/L (22-32); Chloride 117 mmol/L (98-107); Estimated Glomerular Filt Rate 39 mL/min (>60); Globulin 3.7 g/dL (1.7-4.1); Glucose 93 mg/dL (80-110); HEMOLYSIS 17 (0-50); Potassium 5.6 mmol/L (3.4-5.1); Sodium 140 mmol/L (137-145); Total Protein 7.1 g/dL (6.3-8.2)
--- NOTE | 2023-05-18 14:03 | PC.NURSE ---
Blood consent signed and on the chart
--- NOTE | 2023-05-18 16:54 | PM.CALLCOV.1 ---
Call Coverage Note Note Date of Patient Contact: 05/18/23 Time of Patient Contact: 16:54 Narrative of Care Provided: 82F on Xarelto admitted with GIB/melena. Hx of UC last colonoscopy 3 yrs ago normal. Hct at admit 22, baseline 35. Hemodynamically stable. Plan EGD WednesdayMay 19 afternoon. If neg EGD will prep for colonoscopy NPO after 10 AM tomorrow.
--- NOTE | 2023-05-18 18:07 | PM.HP.1 ---
History of Present Illness History of Present Illness Date Patient Seen: 05/18/23 Time Patient Seen: 17:00 Chief complaint: HEMOGLOBIN WAS LOW DR ZELAYA Narrative: Patient is a pleasant 82 yo F with myasthenia gravis, post polio syndrome, chronic UTIs, CKD, hypothyroidism, hypertension, and hx of pulmonary emboli and DVT requiring anticoagulation therapy who presented to me in clinic May 11 with increased weakness. She returned from a trip to [place] in which she had large volume bright red blood per rectum on one occasion (may 01). She reports stools have returned to normal. She continues to have weakness despite iron transfusions. She was scheduled to see GI doctor today who recommended upper and lower scopes based on decreased hemoglobin. Patient presented to the ED for evaluation and admission. [facility] Medical History Herpes zoster CKD (chronic kidney disease) stage 3, GFR 30-59 ml/min Arthritis, multiple joint involvement Frequent urinary tract infections Chicken pox (~1946) Hyperthyroidism (~1992) History of [place] fever Shoulder pain History of eczema Polio History of chickenpox History of urinary incontinence History of ulcerative colitis History of gastric ulcer History of diverticulitis History of colitis History of skin cancer History of diabetes mellitus Type 2 diabetes mellitus without complication, without long-term current use of insulin (12/29/16) Surgical History History of shoulder replacement History of cholecystectomy Status post cholecystectomy History of knee replacement History of hip replacement Family History Sister Age: 80 Heart disease Father No problems noted. Mother Myocardial infarction Brother No problems noted. Brother No problems noted. Social History marital status: household members: spouse and children Smoking Status: Former smoker alcohol intake: current substance use type: does not use Meds Home Medications and Allergies Home Medications Medication Instructions Recorded Confirmed Type Centrum for Women w/D3 1 tab PO DAILY 11/30/19 05/18/23 History famotidine 20 mg tablet (Pepcid AC) 20 mg PO BID #180 tabs 08/11/22 05/18/23 Rx levothyroxine 100 mcg tablet 100 mcg PO QDAY #90 tabs 08/11/22 05/18/23 Rx rivaroxaban 20 mg tablet (Xarelto) 20 mg PO DAILY #90 tabs 08/11/22 05/18/23 Rx cephalexin 250 mg tablet 250 mg PO DAILY #30 tabs 03/19/23 05/18/23 Rx acetaminophen 500 mg tablet 1,000 mg PO BID PRN Pain (Scale 05/18/23 05/18/23 History (Acetaminophen Extra Strength) Score 4-6) hydrochlorothiazide 25 mg tablet 25 mg PO Q OTHER DAY swelling 05/18/23 05/18/23 History Allergies Allergy/AdvReac Type Severity Reaction Status Date / Time Sulfa (Sulfonamide Allergy Severe HIVES FROM Verified 05/11/23 08:48 Antibiotics) SULFA CREAM [SULFA (SULFONAMIDE ANTIBIOTICS)] Review of Systems Review of Systems Narrative: as per HPI Exam Vital Signs (past 8 hours): - 05/18/23 12:31 05/18/23 12:45 05/18/23 13:00 Temperature 98.4 F Pulse Rate 71 76 69 Respiratory Rate 18 25 H 39 H Blood Pressure 104/52 L Pulse Oximetry 98 Oxygen Delivery Method Room Air Oxygen Flow Rate 05/18/23 13:02 05/18/23 13:02 05/18/23 13:30 Temperature Pulse Rate 68 Respiratory Rate 15 Blood Pressure 135/58 L 136/59 L Pulse Oximetry 98 Oxygen Delivery Method Oxygen Flow Rate 05/18/23 13:30 05/18/23 14:00 05/18/23 14:01 Temperature Pulse Rate 69 65 67 Respiratory Rate 18 20 Blood Pressure Pulse Oximetry 100 100 100 Oxygen Delivery Method Oxygen Flow Rate 05/18/23 14:01 05/18/23 14:30 05/18/23 14:30 Temperature Pulse Rate 69 Respiratory Rate 19 Blood Pressure 119/57 L 121/59 L Pulse Oximetry 100 Oxygen Delivery Method Oxygen Flow Rate 05/18/23 14:51 05/18/23 14:51 05/18/23 15:00 Temperature Pulse Rate 71 Respiratory Rate 28 H Blood Pressure 145/64 H 132/60 Pulse Oximetry 100 Oxygen Delivery Method Oxygen Flow Rate 05/18/23 15:00 05/18/23 15:30 05/18/23 16:50 Temperature 97.4 F L 97.6 F Pulse Rate 65 64 75 Respiratory Rate 20 18 16 Blood Pressure 123/46 L 120/57 L Pulse Oximetry 99 100 Oxygen Delivery Method Oxygen Flow Rate 0 05/18/23 17:08 Temperature 97.5 F L Pulse Rate 71 Respiratory Rate 16 Blood Pressure 117/41 L Pulse Oximetry Oxygen Delivery Method Oxygen Flow Rate Oxygen Delivery Method Room Air Oxygen Flow Rate 0 Narrative Exam Narrative: Const General: comfortable, no acute distress and well groomed HENMT Head: normal to inspection Eyes General: appearance normal, both eyes and all related structures Neck Neck: normal visual inspection Resp Effort & Inspection: normal respiratory effort and able to speak in complete sentences Neuro General: patient alert and patient oriented x3 Psych Appearance: grossly normal Mental Status: mental status grossly normal Speech and Movement: speech and movement normal Mood: congruent mood Affect: normal affect Attitude: cooperative Thought Process: normal Thought Content: normal Judgment: judgment good Objective Labs 05/18/23 13:16 05/18/23 13:16 Labs: Laboratory Results - last 24 hr 05/18/23 13:16 WBC 9.9 RBC 2.51 L Hgb 7.0 L Hct 22.2 L MCV 88.4 MCH 28.1 MCHC 31.8 RDW 15.5 H Plt Count 274 Neut % (Auto) 73.4 Lymph % (Auto) 15.8 L [place] % (Auto) 5.8 Eos % (Auto) 4.1 H Baso % (Auto) 0.9 Neut # (Auto) 7300 H Lymph # (Auto) 1600 [place] # (Auto) 600 Eos # (Auto) 400 Baso # (Auto) 100 PT 16.8 H INR 1.5 H APTT 40 H Sodium 140 Potassium 5.6 H Chloride 117 H Carbon Dioxide 16 L BUN 31 H Creatinine 1.34 H Estimated GFR 39 L BUN/Creatinine Ratio 23.1 H Glucose 93 Calcium 9.0 Total Bilirubin 0.4 AST 27 ALT 19 Alkaline Phosphatase 63 Total Protein 7.1 Albumin 3.4 L Globulin 3.7 Albumin/Globulin Ratio 0.9 L Blood Type A Positive Antibody Screen Negative Crossmatch See Detail Assessment & Plan Assessment and plan (1) GI bleed: Qualifiers: GI bleed type/associated pathology: unspecified gastrointestinal hemorrhage type Qualified Code(s): K92.2 - Gastrointestinal hemorrhage, unspecified Status: Acute (2) Anemia: Qualifiers: Anemia type: iron deficiency Iron deficiency anemia type: chronic blood loss Qualified Code(s): D50.0 - Iron deficiency anemia secondary to blood loss (chronic) Status: Acute (3) Weakness: Status: Acute (4) Hyperkalemia: Status: Acute (5) Hx of deep venous thrombosis: Status: Acute (6) Elevated serum creatinine: Status: Acute (7) CKD (chronic kidney disease) stage 3, GFR 30-59 ml/min: Qualifiers: Chronic kidney disease stage 3 subtype: stage 3b (GFR 30-44) Qualified Code(s): N18.32 - Chronic kidney disease, stage 3b Status: Acute Plan GI Bleed Anemia Chronic anticoagulation Patient reported large volume of bright red blood per rectum 05/01 with transition back to normal stool and no further episodes. She does have chronic anemia normally with hemoglobin around 10, decreased to 7.9. Iron panel consistent with iron deficiency anemia. She was started on outpatient infusion therapy with repeat labs showing Hgb 7.1. She was admitted 05/18 with consultation from surgery and plan to perform EGD 05/19 and if no findings, plan for colonoscopy on 05/20. Patient is on anticoagulation for hx of DVT and pulmonary emboli, holding at this time. Pantoprazole IV given. -transfuse 2 units PRBC, repeat CBC following -daily CBC -IV pantoprazole daily -hold anticoagulation -appreciate recs and surgery input Hyperkalemia CKD, stage 3 Slowly rising potassium, currently at 5.6. Patient asymptomatic. ECG without changes. Patient does have stable CKD with creatinine currently 1.3. -daily ekg, daily BMP Hypertension -continue daily HCTZ Chronic UTIs -will hold daily cephalexin while inpatient Hypothyroidism -continue levothyroxine 100 mcg Disposition -Pending evaluation of EGD and colonoscopy. Anticipate 3-4 day inpatient admission. Quality VTE Deep Vein Thrombosis/Pulmonary Embolism Present on Admission: No
[2023-05-19] VITALS (13 sets, daily range): BP systolic 118–140; BP diastolic 45–67; PULSE 60–73; RESP 12–24; TEMP 36.1–36.8; O2SAT 73–99; BMI 25.7
--- NOTE | 2023-05-19 | PATH_ITS ---
[facility] Accession Number: [id number] No. of containers..01 Tissue . 01 Material submitted: . gastrointestinal site - GASTRIC BX . 01 Diagnosis: Stomach, Biopsy: Gastric antral mucosa with mild chronic inlammation. Negative for Helicobacter organisms by immunohistochemistry. Negative for intestinal metaplasia. Negative for dysplasia or malignancy. MRV 05/25/2023 1615 Local . 01 Electronically signed: . Gregorio Huynh MD, PhD, Pathologist NPI- [id number] . 01 Gross description: . GASTRIC BX: Received in formalin are 2 fragment(s) of wilhelm, soft tissue measuring 0.1 x 0.1 x 0.1 cm to 0.3 x 0.3 x 0.2 cm submitted entirely in 1 cassette(s) /TASH 05/20/2023 2203 Local . 01 Microscopic: . An immunohistochemical stain was performed to evaluate for Helicobacter organisms and is negative. The control stain showed appropriate reactivity. . * This test was developed and its performance characteristics determined by [facility]. It has not been cleared or approved by the U.S. Food and Drug Administration. The FDA has determined that such clearance or approval is not necessary. This test is used for clinical purposes. It should not be regarded as investigational or for research. . 01 Pathologist provided ICD-10: K29.70 . 01 CPT . 576511, [id number] Specimen Comment: A courtesy copy of this report has been sent to [phone] Performed at: 01 [facility] [address] [place] [address] Suite [facility] [place], [place], [place] [id number] MD Dominick Aponte MD Phone: [phone]
[2023-05-19 05:12] LABS: Add Manual Diff / Slide Review NO; Basophils Absolute Auto 100 /uL (0-100); Basophils Percent Auto 0.7 % (0-2); Eosinophils Absolute Auto 500 /uL (0-450); Eosinophils Percent Auto 6.2 % (2-4); Hematocrit 29.3 % (36-46); Hemoglobin 9.6 g/dL (12.0-16.0); Lymphocytes Absolute Auto 1500 /uL (1100-4500); Lymphocytes Percent Auto 17.4 % (25-40); Mean Corpuscular HGB Conc 32.9 % (30-36); Mean Corpuscular Volume 87.9 fL (80-100); Monocytes Absolute Auto 700 /uL (0-900); Monocytes Percent Auto 8.1 % (3-14); Neutrophils Absolute Auto 5900 /uL (1500-7000); Neutrophils Percent Auto 67.6 % (50-75); Platelet Count 215 X10^3/uL (150-400); Red Blood Cell Count 3.33 X10^6/uL (4.0-5.2); Red Cell Distribution Width 15.1 % (11.6-14.8); White Blood Cell Count 8.7 X10^3/uL (4.5-11.0)
[2023-05-19 05:49] LABS: Blood Urea Nitrogen 25 mg/dL (7-17); Calcium 8.7 mg/dL (8.4-10.2); Carbon Dioxide 15 mmol/L (22-32); Chloride 119 mmol/L (98-107); Estimated Glomerular Filt Rate 43 mL/min (>60); Glucose 96 mg/dL (80-110); HEMOLYSIS < 15 (0-50); Sodium 141 mmol/L (137-145)
[2023-05-19] MEDS: LEVOTHYROXINE 100 MCG TABLET PO (06:20)
[2023-05-19] MEDS: PANTOPRAZOLE 40 MG VIAL IV (08:25)
--- NOTE | 2023-05-19 08:26 | PM.PN.1 ---
Subjective Subjective Date Patient Seen: 05/19/23 Time Patient Seen: 08:16 Exam Vital Signs (past 8 hours): - 05/19/23 04:00 Temperature 97.6 F Pulse Rate 60 Respiratory Rate 18 Blood Pressure 122/45 L Pulse Oximetry 96 Oxygen Flow Rate 0 Oxygen Delivery Method Room Air Oxygen Flow Rate 0 Objective Labs 05/19/23 04:40 05/19/23 04:40 Labs: Laboratory Results - last 24 hr 05/18/23 05/19/23 13:16 04:40 WBC 9.9 8.7 RBC 2.51 L 3.33 L Hgb 7.0 L 9.6 L Hct 22.2 L 29.3 L MCV 88.4 87.9 MCH 28.1 29.0 MCHC 31.8 32.9 RDW 15.5 H 15.1 H Plt Count 274 215 Neut % (Auto) 73.4 67.6 Lymph % (Auto) 15.8 L 17.4 L [place] % (Auto) 5.8 8.1 Eos % (Auto) 4.1 H 6.2 H Baso % (Auto) 0.9 0.7 Neut # (Auto) 7300 H 5900 Lymph # (Auto) 1600 1500 [place] # (Auto) 600 700 Eos # (Auto) 400 500 H Baso # (Auto) 100 100 PT 16.8 H INR 1.5 H APTT 40 H Sodium 140 141 Potassium 5.6 H 5.0 Chloride 117 H 119 H Carbon Dioxide 16 L 15 L BUN 31 H 25 H Creatinine 1.34 H 1.25 H Estimated GFR 39 L 43 L BUN/Creatinine Ratio 23.1 H 20.0 Glucose 93 96 Calcium 9.0 8.7 Total Bilirubin 0.4 AST 27 ALT 19 Alkaline Phosphatase 63 Total Protein 7.1 Albumin 3.4 L Globulin 3.7 Albumin/Globulin Ratio 0.9 L Blood Type A Positive Antibody Screen Negative Crossmatch See Detail [facility] Medical History Herpes zoster CKD (chronic kidney disease) stage 3, GFR 30-59 ml/min Arthritis, multiple joint involvement Frequent urinary tract infections Chicken pox (~1947) Hyperthyroidism (~1992) History of [place] fever Shoulder pain History of eczema Polio History of chickenpox History of urinary incontinence History of ulcerative colitis History of gastric ulcer History of diverticulitis History of colitis History of skin cancer History of diabetes mellitus Type 2 diabetes mellitus without complication, without long-term current use of insulin (12/29/16) Surgical History History of shoulder replacement History of cholecystectomy Status post cholecystectomy History of knee replacement History of hip replacement Family History Sister Age: 81 Heart disease Father No problems noted. Mother Myocardial infarction Brother No problems noted. Brother No problems noted. Social History marital status: household members: spouse and children Smoking Status: Former smoker alcohol intake: current substance use type: does not use Quality VTE Deep Vein Thrombosis/Pulmonary Embolism Present on Admission: No
--- NOTE | 2023-05-19 08:50 | PM.CN ---
History of Present Illness Consult details Date Patient Seen: 05/19/23 Time Patient Seen: 08:50 Chief complaint: HEMOGLOBIN WAS LOW DR ZELAYA Narrative: 82-year-old woman PMH peptic ulcer disease, atrial fibrillation on chronic anticoagulation admitted to the hospital for GI bleed. Describes melanotic stool no abdominal pain. History of peptic ulcer disease. At admission hemodynamically stable initial hematocrit 22 received 2 units of PRBCs now 29. Meds Home Medications and Allergies Home Medications Medication Instructions Recorded Confirmed Type Centrum for Women w/D3 1 tab PO DAILY 11/30/19 05/18/23 History famotidine 20 mg tablet (Pepcid AC) 20 mg PO BID #180 tabs 08/11/22 05/18/23 Rx levothyroxine 100 mcg tablet 100 mcg PO QDAY #90 tabs 08/11/22 05/18/23 Rx rivaroxaban 20 mg tablet (Xarelto) 20 mg PO DAILY #90 tabs 08/11/22 05/18/23 Rx cephalexin 250 mg tablet 250 mg PO DAILY #30 tabs 03/19/23 05/18/23 Rx acetaminophen 500 mg tablet 1,000 mg PO BID PRN Pain (Scale 05/18/23 05/18/23 History (Acetaminophen Extra Strength) Score 4-6) hydrochlorothiazide 25 mg tablet 25 mg PO Q OTHER DAY swelling 05/18/23 05/18/23 History Allergies Allergy/AdvReac Type Severity Reaction Status Date / Time Sulfa (Sulfonamide Allergy Severe HIVES FROM Verified 05/11/23 08:48 Antibiotics) SULFA CREAM [SULFA (SULFONAMIDE ANTIBIOTICS)] Exam Vital Signs (past 8 hours): - 05/19/23 04:00 05/19/23 08:37 Temperature 97.6 F 98.2 F Pulse Rate 60 63 Respiratory Rate 18 16 Blood Pressure 122/45 L 121/52 L Pulse Oximetry 96 99 Oxygen Flow Rate 0 Oxygen Delivery Method Room Air Oxygen Flow Rate 0 Narrative Exam Narrative: General adult woman alert oriented no acute distress Chest nonlabored respiration Extremities warm well perfused Objective Labs 05/19/23 04:40 05/19/23 04:40 Labs: Laboratory Results - last 24 hr 05/18/23 05/19/23 13:16 04:40 WBC 9.9 8.7 RBC 2.51 L 3.33 L Hgb 7.0 L 9.6 L Hct 22.2 L 29.3 L MCV 88.4 87.9 MCH 28.1 29.0 MCHC 31.8 32.9 RDW 15.5 H 15.1 H Plt Count 274 215 Neut % (Auto) 73.4 67.6 Lymph % (Auto) 15.8 L 17.4 L [place] % (Auto) 5.8 8.1 Eos % (Auto) 4.1 H 6.2 H Baso % (Auto) 0.9 0.7 Neut # (Auto) 7300 H 5900 Lymph # (Auto) 1600 1500 [place] # (Auto) 600 700 Eos # (Auto) 400 500 H Baso # (Auto) 100 100 PT 16.8 H INR 1.5 H APTT 40 H Sodium 140 141 Potassium 5.6 H 5.0 Chloride 117 H 119 H Carbon Dioxide 16 L 15 L BUN 31 H 25 H Creatinine 1.34 H 1.25 H Estimated GFR 39 L 43 L BUN/Creatinine Ratio 23.1 H 20.0 Glucose 93 96 Calcium 9.0 8.7 Total Bilirubin 0.4 AST 27 ALT 19 Alkaline Phosphatase 63 Total Protein 7.1 Albumin 3.4 L Globulin 3.7 Albumin/Globulin Ratio 0.9 L Blood Type A Positive Antibody Screen Negative Crossmatch See Detail [facility] Medical History Herpes zoster CKD (chronic kidney disease) stage 3, GFR 30-59 ml/min Arthritis, multiple joint involvement Frequent urinary tract infections Chicken pox (~1947) Hyperthyroidism (~1992) History of [place] fever Shoulder pain History of eczema Polio History of chickenpox History of urinary incontinence History of ulcerative colitis History of gastric ulcer History of diverticulitis History of colitis History of skin cancer History of diabetes mellitus Type 2 diabetes mellitus without complication, without long-term current use of insulin (12/29/16) Surgical History History of shoulder replacement History of cholecystectomy Status post cholecystectomy History of knee replacement History of hip replacement Family History Sister Age: 81 Heart disease Father No problems noted. Mother Myocardial infarction Brother No problems noted. Brother No problems noted. Social History marital status: household members: spouse and children Tobacco & Substance Use Smoking Status: Former smoker alcohol intake: former substance use type: does not use Assessment & Plan Assessment & Plan narrative: 82-year-old woman PMH peptic ulcer disease, atrial fibrillation on chronic anticoagulation admitted with GI bleed hemodynamically stable presumably upper source. Recommended we proceed with diagnostic esophagoduodenoscopy. If examination negative will prep for colonoscopy. Overview of the procedure discussed. Procedural risks including hemorrhage, intestinal injury were described and she provides her written and verbal consent to proceed.
[2023-05-19] MEDS: LACTATED RINGERS 1,000 ML 42 ML IV (09:01)
--- NOTE | 2023-05-19 09:07 | PM.OP.EGD ---
Operative Date/Time/Diagnoses Date of procedure: 05/19/23 Time of procedure: 09:07 Pre-op diagnosis: GI bleed Post-op diagnosis: other (Gastritis) Procedure & Clinicians Study performed: Esophagogastroduodenoscopy Same procedure as scheduled: Yes Indications: 82-year-old woman PMH DVT on chronic anticoagulation admitted with GI bleed hemodynamically stable Surgeon: David Johnson Procedure Notes Procedure in detail: The history and physical was performed/updated and the patient is ASA class is 2. The procedure was discussed in detail with the patient. Potential risks complications including infection, bleeding, missed diagnosis, perforation, need for surgery, and were explained. Their questions were answered and informed consent was obtained. Patient was placed in supine position. Time out was performed. Procedural sedation was administered by Anesthesia. A bite block was placed. the scope was inserted into the mouth and advanced through the esophagus and into the stomach. The pylorus was intubated and the duodenum was examined to the 2nd portion. The scope was then withdrawn into the stomach and was retroflexed. The stomach was decompressed and scope was withdrawn slowly through the esophagus. Diffuse gastritis no active hemorrhage Flecks of clot within the body of the stomach Biopsy of stomach performed with forceps No duodenal ulcer The patient tolerated the procedure well and will be discharged when they meet criteria. Specimen(s): other (Gastric) Complications: none Impression: Gastritis Post-procedure Plan for aftercare: Reasonable for discharge home on PPI Disposition: Acute Care
--- NOTE | 2023-05-19 14:07 | CM.DANOTE ---
Initial DCP Assessment Visit Reviewed EMR and team rounds for pt's medical status and initial anticipated d/c needs. Met only briefly w/pt as she required nursing assistance at this time of this visit. Pt resides independently in her own home with her in [place]. D/C likely tomorrow, will transport. Payor: Medicare PCP: Ana Smithbonnie Pt is a 82 year-old F who presented to the ED last evening at the encouragement of her PCP for concerns of low hemoglobin. She reports to have had an episode of bloody stool in mid-April while she was travelling, but has not had any more since. She did have one dose of iron infusion ordered by her PCP, but only with short-lived benefit, and has felt worsening fatigue and weakness since then. ED eval found her to be acutely anemic, she was given 2-units of blood, surgery was consulted, and she was admitted to the floor for further eval/tx. EGD was completed today, biopsies were taken, and pathology is pending. No further inpt workup is indicated at this time. Plan is for her to d/c home with OP f/u with PCP. No DCP needs are identified at this time. DCP will continue to monitor for any further evolving resource/support needs. Discharge Planning/Care Management Advanced directive, confirm from FAMILY Start: 05/18/23 15:54 Freq: Q24H Status: Active Protocol: Document 05/18/23 16:28 BT (Rec: 05/18/23 16:30 BT [id number]) Co-signed By Hayde Fajardo RN Advance Directive, confirm on record Time 16:29 Person contacted Pt Copy received No CM Discharge Assessment Start: 05/19/23 14:05 Freq: Status: Active Protocol: Document 05/19/23 14:06 DPL (Rec: 05/19/23 14:07 DPL [id number]) Discharge Planning Assessment Assigned Utility P[employer] JALEN Yip Advance Directives? Yes: states full code Advance Directives on File No History Provided By Patient,Medical Record Has Patient been admitted in last 30 No days? Prior Living Arrangements House Household Members spouse,children Type of transporation used prior to Relies on Others admit Independent with ADL's Yes Is patient alert and oriented? Yes Comment N/A Comment No identified d/c needs identified at this time. Barriers to Discharge No Discharge Plan Home Referrals Initiated None needed Review Status In Process Please Provide Date Initial DC 05/19/23 Assessment Was Performed
--- NOTE | 2023-05-19 15:03 | PM.DS.1 ---
History of Present Illness History of Present Illness Date Patient Seen: 05/19/23 Time Patient Seen: 15:03 Date of Onset of Symptoms: 05/01/23 Chief complaint: HEMOGLOBIN WAS LOW DR ZELAYA Narrative: Patient is a pleasant 82 yo F with myasthenia gravis, post polio syndrome, chronic UTIs, CKD, hypothyroidism, hypertension, and hx of pulmonary emboli and DVT requiring anticoagulation therapy who presented to me in clinic May 11 with increased weakness. She returned from a trip to [place] in which she had large volume bright red blood per rectum on one occasion (05/01/2023). She reports stools have returned to normal. She continues to have weakness despite iron transfusions. She was scheduled to see GI doctor on day of admission who recommended upper and lower scopes based on decreased hemoglobin. Patient presented to the ED for evaluation and admission. Discharge Providers Provider Date of admission: 05/18/23 14:59 Discharge Date: 05/19/23 Primary care physician: Ana Ortiz MD Consults: 05/18/23 14:50 Consult to General Surgery Stat Comment: Consulting Provider: David Johnson Reason for consultation: gi bleed Has provider been notified: Yes 05/18/23 15:53 Consult to Pastoral Services Routine Comment: pt request Discharge provider: Gilbert Stack MD Summary Hospital Course Discharge Diagnosis: Upper GI bleed Gastritis Acute on chronic anemia Rectal bleeding Weakness H/o DVT Chronic anticoagulation Hospital Course: Admitted due to rectal hemorrhage with persistent anemia. Received 2 units PRBC which improved her energy level significantly. EGD performed by Dr. Johnson revealed diffuse gastritis no active hemorrhage, flecks of clot within the body of the stomach, biopsy of stomach performed with forceps, no duodenal ulcer. Bleeding episode likely upper GI in nature in his opinion and it was decided that colonoscopy was not indicated at this time. Recommends discharge home on PPI while stopping anticoagulation given recent bleeding. Status at Discharge Cognitive/behavioral status at discharge: oriented Functional status at discharge: independent ambulation Overall status at discharge: patient is back to baseline Time Spent with Patient Time spent: Greater than 30 minutes Exam Vital Signs (past 8 hours): - 05/19/23 08:37 05/19/23 08:47 05/19/23 09:32 Temperature 98.2 F 97.0 F L 98.3 F Pulse Rate 63 66 64 Respiratory Rate 16 16 21 Blood Pressure 121/52 L 118/67 125/55 L Pulse Oximetry 99 96 96 Oxygen Delivery Method Room Air Room Air 05/19/23 09:37 05/19/23 09:42 05/19/23 09:47 Temperature 98.2 F Pulse Rate 63 62 63 Respiratory Rate 24 12 14 Blood Pressure 121/54 L 123/55 L 134/56 L Pulse Oximetry 94 99 99 Oxygen Delivery Method Room Air Room Air Room Air 05/19/23 10:00 Temperature 97.9 F Pulse Rate 69 Respiratory Rate 18 Blood Pressure 139/46 L Pulse Oximetry 98 Oxygen Delivery Method Oxygen Delivery Method Room Air Oxygen Flow Rate 0 Narrative Exam Narrative: General: Pleasant, well nourished, no distress HEENT: Normocephalic, EOMI, external ears and nose normal-appearing, moist mucous membranes Neck: Supple, full range of motion CV: Regular rate and rhythm, normal S1-S2, no murmur auscultated Resp: Clear to auscultation bilaterally, comfortable work of breathing, able to speak in complete sentences Abdomen: Soft, nontender in all quadrants, nondistended, bowel sounds present Extremities: Normal-appearing, no cyanosis or edema Neuro: Alert, normal cognition, moves all extremities, normal tone, no focal sensory or motor deficit Psych: Appropriate mood and affect Objective Labs 05/19/23 04:40 05/19/23 04:40 Labs: Laboratory Results - last 24 hr 05/18/23 05/19/23 13:16 04:40 WBC 8.7 RBC 3.33 L Hgb 9.6 L Hct 29.3 L MCV 87.9 MCH 29.0 MCHC 32.9 RDW 15.1 H Plt Count 215 Neut % (Auto) 67.6 Lymph % (Auto) 17.4 L [place] % (Auto) 8.1 Eos % (Auto) 6.2 H Baso % (Auto) 0.7 Neut # (Auto) 5900 Lymph # (Auto) 1500 [place] # (Auto) 700 Eos # (Auto) 500 H Baso # (Auto) 100 Sodium 141 Potassium 5.0 Chloride 119 H Carbon Dioxide 15 L BUN 25 H Creatinine 1.25 H Estimated GFR 43 L BUN/Creatinine Ratio 20.0 Glucose 96 Calcium 8.7 Blood Type A Positive Antibody Screen Negative Crossmatch See Detail [facility] Medical History Herpes zoster CKD (chronic kidney disease) stage 3, GFR 30-59 ml/min Arthritis, multiple joint involvement Frequent urinary tract infections Chicken pox (~194) Hyperthyroidism (~1992) History of [place] fever Shoulder pain History of eczema Polio History of chickenpox History of urinary incontinence History of ulcerative colitis History of gastric ulcer History of diverticulitis History of colitis History of skin cancer History of diabetes mellitus Type 2 diabetes mellitus without complication, without long-term current use of insulin (12/29/16) Surgical History History of shoulder replacement History of cholecystectomy Status post cholecystectomy History of knee replacement History of hip replacement Family History Sister Age: 81 Heart disease Father No problems noted. Mother Myocardial infarction Brother No problems noted. Brother No problems noted. 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 Plan of Treatment: GI Bleed Acute on chronic anemia H/o DVT Chronic anticoagulation Patient reported large volume of bright red blood per rectum 05/01 with transition back to normal stool and no further episodes. She does have chronic anemia normally with hemoglobin around 10, decreased to 7.9. Iron panel consistent with iron deficiency anemia. She was started on outpatient infusion therapy with repeat labs showing Hgb 7.1. She was admitted 05/18 with consultation from surgery who performed EGD 05/19 and noted gastritis. It was determined that colonoscopy was not indicated and patient stable for discharge. Anticoagulation stopped for now with PPI b.i.d. for gastritis per surgery recommendations. Patient to follow up with her primary physician next week to discuss further steps regarding risks/benefits of continuing or stopping anticoagulation given history of DVT x2 with the 1st episode leading to massive pulmonary embolus. -S/p 2 units PRBC -Omeprazole 20 mg b.i.d. Hyperkalemia CKD, stage 3 Slowly rising during admission, improved to 5.0 at discharge. Patient asymptomatic, ECG without changes. -Monitor outpatient Hypertension -HCTZ 25 mg daily Chronic UTIs -Cephalexin 250 mg daily Hypothyroidism -Levothyroxine 100 mcg daily Discharge Plan Discharge Plan Patient Disposition: Home Discharge orders & Medications Prescriptions: New omeprazole 20 mg capsule,delayed release(DR/EC) 20 mg PO BID Qty: 60 2RF Continued levothyroxine 100 mcg tablet 100 mcg PO QDAY Qty: 90 3RF cephalexin 250 mg tablet 250 mg PO DAILY Qty: 30 0RF Centrum for Women w/D3 1 tab PO DAILY acetaminophen [Acetaminophen Extra Strength] 500 mg Tablet 1,000 mg PO BID PRN (Reason: Pain (Scale Score 4-6)) hydrochlorothiazide 25 mg tablet 25 mg PO Q OTHER DAY Discontinued famotidine [Pepcid AC] 20 mg tablet 20 mg PO BID Qty: 180 3RF Xarelto 20 mg tablet 20 mg PO DAILY Qty: 90 3RF Rx Instructions: must administer with evening meal Follow up/Referrals: Ana Ortiz MD [Primary Care Provider] - Diet/Activity/Treatments Diet: Regular Visit Report/Discharge Packet Instructions: DI for Gastritis Stand Alone Forms: Patient Portal/API, Stroke Signs & Symptoms, EGD Result: [facility] Surg Discharge Data Primary Care Provider: Ana Ortiz Discharges patient from system. Discharge Date/Time: 05/19/23 16:05 Quality VTE Deep Vein Thrombosis/Pulmonary Embolism Present on Admission: No
== END 2023-05-19 16:05 | disposition home or self-care (01) | DRG 378 ==
LOC: ED 14:52 → AC 14:59
PROVIDERS: Surgery; Admitting Provider Student in an Organized Health Care Education/Training Program; Emergency Provider Emergency Medicine; PCP Student in an Organized Health Care Education/Training Program; Referring Provider Emergency Medicine; Visit Provider Student in an Organized Health Care Education/Training Program
PROC: 0DJ08ZZ Inspection of Upper Intestinal Tract, Via Natural or Artificial Opening Endoscopic (ICD-10-PCS; CPT 43235; principal; 2023-05-19 15:15)
DX: K29.71 Gastritis, unspecified, with bleeding (principal); D68.32 Hemorrhagic disorder due to extrinsic circulating anticoagulants; N39.0 Urinary tract infection, site not specified; G14 Postpolio syndrome; D50.0 Iron deficiency anemia secondary to blood loss (chronic); I12.9 Hypertensive chronic kidney disease with stage 1 through stage 4 chronic kidney disease, or unspecified chronic kidney disease; N18.30 Chronic kidney disease, stage 3 unspecified; D64.9 Anemia, unspecified; E03.9 Hypothyroidism, unspecified; Z87.891 Personal history of nicotine dependence; Z86.718 Personal history of other venous thrombosis and embolism; Z86.711 Personal history of pulmonary embolism; Z79.01 Long term (current) use of anticoagulants; K62.5 Hemorrhage of anus and rectum; R79.89 Other specified abnormal findings of blood chemistry; R53.83 Other fatigue
CPT/HCPCS: 36415; 36430; 43239; 80048; 80053; 81001; 81003; 85025; 85610; 85730; 86850; 86900; 86901; 93005; 96374; 99222; 99232; 99238; 99284; 99285; P9016; C9113; J2704

== ENCOUNTER → 2023-05-25 11:29 | Outpatient (CLI) | payer MEDICARE, OTHER, SELFPAY ==
[2023-05-18 15:05] VITALS: BMI 25.7
[2023-05-25 12:04] LABS: Add Manual Diff / Slide Review NO; Basophils Absolute Auto 100 /uL (0-100); Basophils Percent Auto 0.7 % (0-2); Eosinophils Absolute Auto 200 /uL (0-450); Eosinophils Percent Auto 2.4 % (2-4); Hemoglobin 11.1 g/dL (12.0-16.0); Lymphocytes Absolute Auto 1300 /uL (1100-4500); Lymphocytes Percent Auto 18.5 % (25-40); Mean Corpuscular HGB Conc 32.6 % (30-36); Mean Corpuscular Hemoglobin 29.5 PG (26-34); Mean Corpuscular Volume 90.5 fL (80-100); Monocytes Absolute Auto 300 /uL (0-900); Monocytes Percent Auto 4.3 % (3-14); Neutrophils Absolute Auto 5300 /uL (1500-7000); Neutrophils Percent Auto 74.1 % (50-75); Platelet Count 202 X10^3/uL (150-400); Red Blood Cell Count 3.76 X10^6/uL (4.0-5.2); Red Cell Distribution Width 17.7 % (11.6-14.8); White Blood Cell Count 7.2 X10^3/uL (4.5-11.0)
[2023-05-25 12:58] LABS: Alanine Aminotransferase 17 IU/L (<35); Albumin 3.6 g/dL (3.5-5.0); Alkaline Phosphatase 61 U/L (38-126); Aspartate Aminotransferase 35 IU/L (14-36); BUN Creatinine Ratio 20.6 (6-22); Bilirubin Total 0.4 mg/dL (0.2-1.3); Blood Urea Nitrogen 27 mg/dL (7-17); Carbon Dioxide 21 mmol/L (22-32); Chloride 111 mmol/L (98-107); Estimated Glomerular Filt Rate 40 mL/min (>60); Globulin 3.5 g/dL (1.7-4.1); Glucose 174 mg/dL (80-110); HEMOLYSIS < 15 (0-50); Potassium 4.2 mmol/L (3.4-5.1); Sodium 139 mmol/L (137-145); Total Protein 7.1 g/dL (6.3-8.2)
== END ==
PROVIDERS: PCP Student in an Organized Health Care Education/Training Program; Referring Provider Student in an Organized Health Care Education/Training Program; Visit Provider Student in an Organized Health Care Education/Training Program
DX: E87.5 Hyperkalemia (principal); K92.2 Gastrointestinal hemorrhage, unspecified; D50.0 Iron deficiency anemia secondary to blood loss (chronic)
CPT/HCPCS: 36415; 80053; 85025

== ENCOUNTER → 2023-06-17 11:22 | Outpatient (CLI) | payer MEDICARE, OTHER, SELFPAY ==
[2023-05-18 15:05] VITALS: BMI 25.7
[2023-06-17 12:37] LABS: Add Manual Diff / Slide Review NO; Basophils Absolute Auto 100 /uL (0-100); Basophils Percent Auto 0.7 % (0-2); Eosinophils Absolute Auto 100 /uL (0-450); Eosinophils Percent Auto 0.9 % (2-4); Hematocrit 35.2 % (36-46); Hemoglobin 11.5 g/dL (12.0-16.0); Lymphocytes Absolute Auto 1400 /uL (1100-4500); Lymphocytes Percent Auto 19.3 % (25-40); Mean Corpuscular HGB Conc 32.7 % (30-36); Mean Corpuscular Hemoglobin 29.4 PG (26-34); Mean Corpuscular Volume 89.9 fL (80-100); Monocytes Absolute Auto 400 /uL (0-900); Monocytes Percent Auto 4.8 % (3-14); Neutrophils Absolute Auto 5500 /uL (1500-7000); Neutrophils Percent Auto 74.3 % (50-75); Platelet Count 228 X10^3/uL (150-400); Red Blood Cell Count 3.92 X10^6/uL (4.0-5.2); Red Cell Distribution Width 18.8 % (11.6-14.8); White Blood Cell Count 7.4 X10^3/uL (4.5-11.0)
[2023-06-17 13:33] LABS: Ferritin 275 ng/mL (11-264)
[2023-06-17 13:47] LABS: Vitamin B12 883 pg/mL (239-931)
[2023-06-17 16:14] LABS: Microalbumin Urine Random 3.3 mg/dL (0-1.6)
[2023-06-17 16:16] LABS: Creatinine Urine Random 159.6 mg/dL; Microalbumi Creatinin Ratio Ur 20.6 ug/mg CR (<30)
[2023-06-17 16:25] LABS: Vitamin D 25 Hydroxy (D3) 33.6 ng/mL (30.0-100.0)
== END ==
PROVIDERS: PCP Student in an Organized Health Care Education/Training Program; Referring Provider Family Medicine; Visit Provider Family Medicine
DX: N39.0 Urinary tract infection, site not specified (principal); D64.9 Anemia, unspecified; R53.1 Weakness; R53.83 Other fatigue; R35.0 Frequency of micturition; E03.9 Hypothyroidism, unspecified; I10 Essential (primary) hypertension
CPT/HCPCS: 36415; 82043; 82306; 82570; 82607; 82728; 85025

== ENCOUNTER 2023-07-18 17:10 | Observation (INO) | payer MEDICARE, OTHER, SELFPAY ==
[2023-05-18 15:05] VITALS: BMI 25.7
[2023-07-18] VITALS (9 sets, daily range): BP systolic 102–143; BP diastolic 57–69; PULSE 70–82; RESP 17–20; TEMP 35.9–36.7; O2SAT 98–100; BMI 22.8
--- NOTE | 2023-07-18 17:24 | DI.US.S_ITS ---
PROCEDURE: US PERIP VENOUS LOW EXTREM RT INDICATIONS: right leg swelling, h/o DVT TECHNIQUE: Real-time imaging, as well as color and pulse Doppler interrogation, were performed of the lower extremity deep veins from the inguinal ligament to the popliteal fossa, with documentation of the visualized calf veins. COMPARISON: [facility], [facility] VENOUS LOW EXTREM LT, 10/20/2019, 15:36. FINDINGS: Occlusive thrombosis of the common femoral vein, profunda femoral vein, superficial femoral vein and popliteal vein. Veins of the calf are not seen secondary to edema. IMPRESSION: Extensive occlusive thrombosis of the right lower extremity veins. This is similar to prior exam from 2019. Dictated by: Travis Knight M.D. on 07/18/2023 at 18:10 Approved by: Travis Knight M.D. on 07/18/2023 at 18:12
[2023-07-18 18:19] LABS: Add Manual Diff / Slide Review NO; Basophils Absolute Auto 100 /uL (0-100); Basophils Percent Auto 0.7 % (0-2); Eosinophils Absolute Auto 200 /uL (0-450); Eosinophils Percent Auto 2.3 % (2-4); Hematocrit 30.7 % (36-46); Hemoglobin 10.1 g/dL (12.0-16.0); Lymphocytes Absolute Auto 2100 /uL (1100-4500); Lymphocytes Percent Auto 20.6 % (25-40); Mean Corpuscular Hemoglobin 30.1 PG (26-34); Mean Corpuscular Volume 91.1 fL (80-100); Monocytes Absolute Auto 800 /uL (0-900); Monocytes Percent Auto 7.9 % (3-14); Neutrophils Absolute Auto 7000 /uL (1500-7000); Neutrophils Percent Auto 68.5 % (50-75); Platelet Count 194 X10^3/uL (150-400); Red Blood Cell Count 3.37 X10^6/uL (4.0-5.2); Red Cell Distribution Width 17.4 % (11.6-14.8); White Blood Cell Count 10.2 X10^3/uL (4.5-11.0)
[2023-07-18 18:22] LABS: INR 2.4 (0.9-1.3)
[2023-07-18 18:25] LABS: PTT Partial Thromboplastin Tim 49 SECONDS (25.1-36.5)
[2023-07-18 18:26] LABS: Alanine Aminotransferase 20 IU/L (<35); Albumin 2.6 g/dL (3.5-5.0); Albumin Globulin Ratio 0.8 (1.0-2.8); Alkaline Phosphatase 73 U/L (38-126); Aspartate Aminotransferase 32 IU/L (14-36); BUN Creatinine Ratio 19.5 (6-22); Bilirubin Total 0.3 mg/dL (0.2-1.3); Blood Urea Nitrogen 25 mg/dL (7-17); Calcium 7.7 mg/dL (8.4-10.2); Carbon Dioxide 24 mmol/L (22-32); Chloride 114 mmol/L (98-107); Creatine Kinase 87 U/L (30-135); Estimated Glomerular Filt Rate 42 mL/min (>60); Globulin 3.4 g/dL (1.7-4.1); Glucose 107 mg/dL (80-110); HEMOLYSIS < 15 (0-50); Lipase 18 U/L (23-300); Magnesium 1.1 mg/dL (1.6-2.3); Potassium 4.2 mmol/L (3.4-5.1); Sodium 142 mmol/L (137-145)
[2023-07-18 18:35] LABS: NT-proBNP (BNP-Adult 18+) 408 pg/mL (<450)
[2023-07-18 18:37] LABS: Troponin I < 0.012 ng/mL (0.01-0.034)
--- NOTE | 2023-07-18 18:40 | ED.EXTPRO ---
HPI - Extremity Problem General Chief complaint: Extremity Problem,Nontraumatic Stated complaint: rt leg swelling/Hx blood clots Time Seen by Provider: 07/18/23 18:39 Source: patient Mode of arrival: Wheelchair History of Present Illness HPI Narrative: 82-year-old female with history of hypertension, tobacco use, history of post-polio syndrome, prior blood clots in her legs as well as pulmonary who then developed a GI bleed and has since been off of her Xarelto. Patient states she and her noted her right leg has been more swollen for the past week. It has always been a little bit larger than her left leg secondary to polio but the thigh and knee and calf all became more swollen over the past week and significantly more swollen yesterday and into today. She states it has not painful there have not been any color changes. She denies fevers or chills. Denies any chest pain or shortness of breath no lightheadedness or passing out. No nausea or vomiting she has had some orange bowel movements which she states she ate something that would cause it to be that color but no other GI symptoms or black or bloody stools. She states they have never discussed an IVC filter. They had stopped her Xarelto secondary to a single GI bleed in April. She states she was never told why she developed blood clots in that leg. She did take 40 mg total of Xarelto at 4:00 p.m. she has had prior cholecystectomy, partial vaginal hysterectomy, left leg surgery for polio syndrome and 5 prior colonoscopies. Patient primary care physician is Dr. Landa. Related Data Home Medications Medication Instructions Recorded Confirmed Centrum for Women w/D3 1 tab PO DAILY 11/30/19 07/18/23 acetaminophen 500 mg tablet 1,000 mg PO BID PRN Pain (Scale 05/18/23 07/18/23 (Acetaminophen Extra Strength) Score 4-6) Adult Low Dose Aspirin 81 mg BEDTIME 07/18/23 07/18/23 cephalexin 250 mg tablet 250 mg PO BEDTIME 07/18/23 07/18/23 Previous Rx's Medication Instructions Recorded amlodipine 5 mg tablet 5 mg PO DAILY #90 tabs 05/25/23 hydrochlorothiazide 25 mg tablet 25 mg PO DAILY swelling #90 tabs 05/25/23 levothyroxine 100 mcg tablet 100 mcg PO QDAY #90 tabs 05/25/23 lisinopril 20 mg tablet 20 mg PO DAILY #90 tabs 05/25/23 omeprazole 20 mg capsule,delayed 20 mg PO BID #60 caps 05/25/23 release Allergies Allergy/AdvReac Type Severity Reaction Status Date / Time Sulfa (Sulfonamide Allergy Severe HIVES FROM Verified 07/18/23 18:41 Antibiotics) SULFA CREAM [SULFA (SULFONAMIDE ANTIBIOTICS)] Review of Systems Review of Systems ROS Unobtainable: All systems reviewed & are unremarkable except as noted in HPI and below Patient History Medical History Herpes zoster CKD (chronic kidney disease) stage 3, GFR 30-59 ml/min Arthritis, multiple joint involvement Frequent urinary tract infections Chicken pox (~1946) Hyperthyroidism (~1992) History of [facility] fever Shoulder pain History of eczema Polio History of chickenpox History of urinary incontinence History of ulcerative colitis History of gastric ulcer History of diverticulitis History of colitis History of skin cancer History of diabetes mellitus Type 2 diabetes mellitus without complication, without long-term current use of insulin (12/29/16) Surgical History History of shoulder replacement History of cholecystectomy Status post cholecystectomy History of knee replacement History of hip replacement Family History Sister Age: 81 Heart disease Father No problems noted. Mother Myocardial infarction Brother No problems noted. Brother No problems noted. Social History marital status: household members: spouse and children Smoking Status: Former smoker alcohol intake: former substance use type: does not use Smoking Status: Former smoker alcohol intake frequency: 0-2 drinks per day Substance Use Type: does not use Exam Narrative Exam Narrative: GENERAL: Alert and oriented x three, well-appearing elderly female in mild distress HEENT: Head normocephalic, atraumatic, EOMI, pupils reactive, face symmetric, moist mucous membranes NECK: Supple, full range of motion CARDIOVASCULAR: Regular rate and rhythm without murmurs, rubs or gallops. No JVD. Patient has right lower extremity swelling greater than the left. No warmth, erythema or other skin changes. No pallor or cyanosis. 2+ pulses bilateral lower extremities. RESPIRATORY: Breath sounds equal bilaterally, no wheezes rales or rhonchi. No tachypnea. No accessory muscle use. ABDOMEN: Soft, nontender. Normoactive bowel sounds all 4 quadrants. No guarding or rebound, rigidity, no mass : No CVA tenderness EXTREMITIES: Normal range of motion, no clubbing or edema. Neurovascularly intact NEUROLOGICAL: Cranial nerves II through XII grossly intact. Moving all extremities SKIN: Warm, dry, no petechiae, no rashes or lesions. Initial Vital Signs Initial Vital Signs: Vital Signs Temperature 98.1 F 07/18/23 17:13 Pulse Rate 82 07/18/23 17:13 Respiratory Rate 20 07/18/23 17:13 Blood Pressure 123/58 L 07/18/23 17:13 Pulse Oximetry 99 07/18/23 17:13 Oxygen Delivery Method Room Air 07/18/23 17:13 Course Orders Ordered: ED Orders 07/18/23 17:24 US periph venous low extrem rt Stat EKG-12 Lead Stat 07/18/23 17:57 BNP [NT-proBNP (BNP-Adult 18+)] Stat Complete Blood Count AUTO DIFF Stat Comprehensive Metabolic Panel Stat Lipase Stat Magnesium Stat PTT Partial Thromboplastin [place] Stat Prothrombin Time INR Stat Troponin & CK Cardiac Panel Stat Acetaminophen (Acetaminophen 325 Mg Tablet) 975 mg PO BID PRN PRN Reason: Pain (Scale Score 4-6) Acetaminophen (Acetaminophen 325 Mg Tablet) 650 mg PO Q6H PRN PRN Reason: Fever/Mild Pain (1-3) Albuterol (Albuterol 2.5 Mg/3 Ml Neb (Adult)) 2.5 mg INH [id number] PRN PRN Reason: Dyspnea Amlodipine Besylate (Amlodipine 5 Mg Tablet) 5 mg PO DAILY [facility] Calcium Carbonate (Calcium Carbonate 500 Mg Tab) 1,000 mg PO Q4HR PRN PRN Reason: Dyspepsia Docusate Sodium (Docusate 100 Mg Capsule) 100 mg PO BID [facility] Last Admin: 07/18/23 21:06 Dose: Not Given Documented By: AT Heparin Sodium (Porcine) (Heparin 5,000 Unit/Ml Vial) 5,000 unit SUBCUT BID [facility] Hydrochlorothiazide (Hydrochlorothiazide 25 Mg Tablet) 25 mg PO DAILY [facility] Hydromorphone HCl (Hydromorphone 0.5 Mg Inj) 0.5 mg IV Q2H PRN PRN Reason: Pain, Severe (7-10) Magnesium Sulfate (Magnesium Sulfate) 2 gm in 50 mls @ 25 mls/hr IV NOW ONE Stop: 07/18/23 23:23 Levothyroxine Sodium (Levothyroxine 100 Mcg Tablet) 100 mcg PO QACBREAK [facility] Lisinopril (Lisinopril 20 Mg Tablet) 20 mg PO DAILY [facility] Melatonin (Melatonin 3 Mg Tablet) 9 mg PO BEDTIME PRN PRN Reason: insomnia Naloxone HCl (Naloxone 0.4 Mg/Ml Vial) 0.2 mg IV Q2MIN PRN PRN Reason: Opiate Reversal Ondansetron HCl (Ondansetron 4 Mg/2 Ml Inj) 4 mg IV Q8HR PRN PRN Reason: Nausea And Vomiting Oxycodone HCl (Oxycodone Ir 5 Mg Tablet) 2.5 mg PO BEDTIME PRN PRN Reason: pain Oxycodone HCl (Oxycodone Ir 5 Mg Tablet) 5 mg PO Q3H PRN PRN Reason: Pain, Moderate (4-6) Pantoprazole Sodium (Pantoprazole Dr 20 Mg Tablet) 20 mg PO BID [facility] Last Admin: 07/18/23 21:12 Dose: 20 mg Documented By: AT Vital Signs Vital signs: Vital Signs - 8 hr 07/18/23 17:13 07/18/23 17:46 07/18/23 17:48 Temperature 98.1 F Pulse Rate 82 75 78 Respiratory Rate 20 Blood Pressure 123/58 L Pulse Oximetry 99 98 99 Oxygen Delivery Method Room Air 07/18/23 17:48 07/18/23 18:00 07/18/23 18:00 Temperature Pulse Rate 76 Respiratory Rate Blood Pressure 102/57 L 117/58 L Pulse Oximetry 100 Oxygen Delivery Method 07/18/23 18:30 07/18/23 18:30 07/18/23 19:00 Temperature Pulse Rate 70 71 Respiratory Rate Blood Pressure 124/58 L Pulse Oximetry 100 99 Oxygen Delivery Method Room Air Room Air 07/18/23 19:00 Temperature Pulse Rate Respiratory Rate Blood Pressure 126/57 L Pulse Oximetry Oxygen Delivery Method MDM - Extremity (Nontraumatic) Lab Data 07/18/23 17:57 07/18/23 17:57 Labs: Lab Results 07/18/23 07/18/23 Range/Units 17:50 17:57 WBC 10.2 (4.5-11.0) X10^3/uL RBC 3.37 L (4.0-5.2) X10^6/uL Hgb 10.1 L (12.0-16.0) g/dL Hct 30.7 L (36-46) % MCV 91.1 (80-100) fL MCH 30.1 (26-34) PG MCHC 33.0 (30-36) % RDW 17.4 H (11.6-14.8) % Plt Count 194 (150-400) X10^3/uL Neut % (Auto) 68.5 (50-75) % Lymph % (Auto) 20.6 L (25-40) % [place] % (Auto) 7.9 (3-14) % Eos % (Auto) 2.3 (2-4) % Baso % (Auto) 0.7 (0-2) % Neut # (Auto) 7000 (6996-2980) /uL Lymph # (Auto) 2100 (9854-7623) /uL [place] # (Auto) 800 (0-900) /uL Eos # (Auto) 200 (0-450) /uL Baso # (Auto) 100 (0-100) /uL PT 28.0 H (9.4-12.5) SECONDS INR 2.4 H (0.9-1.3) APTT 49 H (25.1-36.5) SECONDS Sodium 142 (137-145) mmol/L Potassium 4.2 (3.4-5.1) mmol/L Chloride 114 H (98-107) mmol/L Carbon Dioxide 24 (22-32) mmol/L BUN 25 H (7-17) mg/dL Creatinine 1.28 H (0.52-1.04) mg/dL Estimated GFR 42 L (>60) mL/min BUN/Creatinine Ratio 19.5 (6-22) Glucose 107 (80-110) mg/dL Calcium 7.7 L (8.4-10.2) mg/dL Magnesium 1.1 L (1.6-2.3) mg/dL Total Bilirubin 0.3 (0.2-1.3) mg/dL AST 32 (14-36) IU/L ALT 20 (<35) IU/L Alkaline Phosphatase 73 (38-126) U/L Total Creatine Kinase 87 (30-135) U/L Troponin I < 0.012 (0.01-0.034) ng/mL NT-Pro-B Natriuret Pep 408 (<450) pg/mL Total Protein 6.0 L (6.3-8.2) g/dL Albumin 2.6 L (3.5-5.0) g/dL Globulin 3.4 (1.7-4.1) g/dL Albumin/Globulin Ratio 0.8 L (1.0-2.8) Triglycerides 75 (35-150) mg/dL Cholesterol 113 L (140-199) mg/dL LDL Cholesterol, Calc 47 (<100) mg/dL HDL Cholesterol 51 (40-60) mg/dL Lipase 18 L (23-300) U/L TSH 2.31 (0.47-4.68) uIU/mL MDM Narrative Medical decision making narrative: This is an 82-year-old female with history of prior DVTs and pulmonary emboli who presents with increased swelling of her right lower extremity. Patient states it has been going on for the past week. She has known history has been off her Xarelto after having a GI bleed in April, approximately 2 months ago. She was transfused 2 units packed red cells at that time. She has not had any bleeding since. Labs show a white count of 10, hemoglobin of 10.1 was 11 on last check no other significant downward trend. Platelets are 194. Patient's INR is 2.4 today elevated but she did take 40 mg of Xarelto prior to arrival which may play a role. Creatinine is 1.28 today which appears similar to patient's baseline from May, glucose is 107 sodium is 142 potassium is 4.2 chloride 114 CO2 is 24 with a BUN 25. Calcium low at 7.7 with a Mag of 1.1- LFTs, negative troponin. DVT ultrasound shows occlusive thrombus of the common femoral vein, profunda femoral vein and superficial femoral popliteal vein extensive occlusive thrombosis similar to prior from 2019. Patient has not any ultrasounds in between see if she had resolution of her DVTs at any point but with her new swelling I suspect she has some new clot burden. Ct angio for pulmonary emboli was deferred patient has been hemodynamically stable, no hypoxia, no hypotension, no chest pain or shortness of breath, negative troponin. Hestia score is 1 for prior bleeding. Patient was not started on any additional anticoagulation in the emergency department as she took 40 mg of Xarelto today at 1600. Discussed with patient would like to keep for observation while restarting her Xarelto she is tolerating well would potentially discharged home in the next 24 hours. If she was not or developed GI bleeding would potentially require IVC filter in the future. Spoke with Dr. Alvarez, tele-hospitalist: Discussed keeping for observation patient 40 mg of her Xarelto to watch for any bleeding if no bleeding could potentially discharge home on anticoagulants and if recurrence potential transfer for IVC filter. Agrees with plan for observation. Reviewed patient's troponin was negative, no chest pain or shortness of breath so I did not scan her for pulmonary emboli at time. Discharge Plan Departure Patient Disposition: Admitted as Observation Clinical Impression: DVT (deep venous thrombosis), History of GI bleed Admit Date/Time: 07/18/23 19:26 Admit Provider: David Alvarez
[2023-07-18 20:30] LABS: Cholesterol 113 mg/dL (140-199); HDL Cholesterol 51 mg/dL (40-60); LDL Cholesterol Calculated 47 mg/dL (<100); Triglycerides 75 mg/dL (35-150)
[2023-07-18 21:02] LABS: Thyroid Stimulating Hormone 2.31 uIU/mL (0.47-4.68)
[2023-07-18] MEDS: PANTOPRAZOLE DR 20 MG TABLET PO (21:12)
--- NOTE | 2023-07-18 21:18 | PM.HP.1 ---
History of Present Illness History of Present Illness Chief complaint: rt leg swelling/Hx blood clots Narrative: 82 years old female with history of hypertension, hypothyroidism, GERD, recurrent DVTs, history of GI bleed in April 2023 presented to the ER with right leg swelling and tenderness since Wednesday. The patient denies any shortness of breath, cough, fever, chest pain or palpitations. 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 The patient had DVT in 2019 and was on Xarelto 20 mg daily when she developed GI bleed in April 2023 requiring blood transfusions. Since then she was off Xarelto. In the ER Doppler ultrasound of the lower extremity shows occlusive thrombus of the common femoral vein, profound femoral vein and superficial femoral popliteal vessel extensive occlusive thrombus similar to prior from 2019. Laboratory shows H&H 10.1/30.7, platelets 194, creatinine of 1.28, INR 2.4, calcium 7.7. [facility] Medical History Herpes zoster CKD (chronic kidney disease) stage 3, GFR 30-59 ml/min Arthritis, multiple joint involvement Frequent urinary tract infections Chicken pox (~1946) Hyperthyroidism (~1992) History of [place] fever Shoulder pain History of eczema Polio History of chickenpox History of urinary incontinence History of ulcerative colitis History of gastric ulcer History of diverticulitis History of colitis History of skin cancer History of diabetes mellitus Type 2 diabetes mellitus without complication, without long-term current use of insulin (12/29/16) Surgical History History of shoulder replacement History of cholecystectomy Status post cholecystectomy History of knee replacement History of hip replacement Family History Sister Age: 81 Heart disease Father No problems noted. Mother Myocardial infarction Brother No problems noted. Brother No problems noted. Social History marital status: household members: spouse and children Smoking Status: Former smoker alcohol intake: former substance use type: does not use Meds Home Medications and Allergies Home Medications Medication Instructions Recorded Confirmed Type Centrum for Women w/D3 1 tab PO DAILY 11/30/19 07/18/23 History acetaminophen 500 mg tablet 1,000 mg PO BID PRN Pain (Scale 05/18/23 07/18/23 History (Acetaminophen Extra Strength) Score 4-6) amlodipine 5 mg tablet 5 mg PO DAILY #90 tabs 05/25/23 07/18/23 Rx hydrochlorothiazide 25 mg tablet 25 mg PO DAILY swelling #90 tabs 05/25/23 07/18/23 Rx levothyroxine 100 mcg tablet 100 mcg PO QDAY #90 tabs 05/25/23 07/18/23 Rx lisinopril 20 mg tablet 20 mg PO DAILY #90 tabs 05/25/23 07/18/23 Rx omeprazole 20 mg capsule,delayed 20 mg PO BID #60 caps 05/25/23 07/18/23 Rx release Adult Low Dose Aspirin 81 mg BEDTIME 07/18/23 07/18/23 History cephalexin 250 mg tablet 250 mg PO BEDTIME 07/18/23 07/18/23 History Allergies Allergy/AdvReac Type Severity Reaction Status Date / Time Sulfa (Sulfonamide Allergy Severe HIVES FROM Verified 07/18/23 18:41 Antibiotics) SULFA CREAM [SULFA (SULFONAMIDE ANTIBIOTICS)] Review of Systems Review of Systems ROS: Yes All systems reviewed with the patient and are negative except as otherwise documented Constitutional Constitutional: Reports as per HPI and Reports system reviewed and no additional complaints, except as documented Eyes Eyes: Reports as per HPI and Reports system reviewed and no additional complaints, except as documented ENT Ears, Nose, Mouth, and Throat: Yes as per HPI and Yes system reviewed and no additional complaints, except as documented Cardiovascular Cardiovascular: Reports system reviewed and no additional complaints, except as documented Respiratory Respiratory: Reports system reviewed and no additional complaints, except as documented Gastrointestinal Gastrointestinal: Reports system reviewed and no additional complaints, except as documented Genitourinary Genitourinary: Reports system reviewed and no additional complaints, except as documented Musculoskeletal Musculoskeletal: Reports system reviewed and no additional complaints, except as documented, Reports abnormal gait and Reports numbness Neurologic Neurologic: Reports system reviewed and no additional complaints, except as documented, Reports abnormal gait, Reports confusion and Reports numbness Psychiatric Psychiatric: Reports system reviewed and no additional complaints, except as documented and Reports confusion Exam Vital Signs (past 8 hours): - 07/18/23 17:13 07/18/23 17:46 07/18/23 17:48 Temperature 98.1 F Pulse Rate 82 75 78 Respiratory Rate 20 Blood Pressure 123/58 L Pulse Oximetry 99 98 99 Oxygen Delivery Method Room Air Oxygen Flow Rate 07/18/23 17:48 07/18/23 18:00 07/18/23 18:00 Temperature Pulse Rate 76 Respiratory Rate Blood Pressure 102/57 L 117/58 L Pulse Oximetry 100 Oxygen Delivery Method Oxygen Flow Rate 07/18/23 18:30 07/18/23 18:30 07/18/23 19:00 Temperature Pulse Rate 70 71 Respiratory Rate Blood Pressure 124/58 L Pulse Oximetry 100 99 Oxygen Delivery Method Room Air Room Air Oxygen Flow Rate 07/18/23 19:00 07/18/23 19:30 07/18/23 19:30 Temperature Pulse Rate 71 Respiratory Rate 18 Blood Pressure 126/57 L 137/60 Pulse Oximetry 99 Oxygen Delivery Method Oxygen Flow Rate 07/18/23 20:00 07/18/23 20:00 07/18/23 20:59 Temperature 96.7 F L Pulse Rate 82 75 Respiratory Rate 17 Blood Pressure 143/65 H 137/69 Pulse Oximetry 99 98 Oxygen Delivery Method Room Air Oxygen Flow Rate 0 Oxygen Delivery Method Room Air Oxygen Flow Rate 0 Const General: cooperative, comfortable and well developed Orientation: alert and oriented x3 HENMT Head: normal to inspection, normocephalic and atraumatic Face and sinus: normal facial exam Mouth: oral mucosae normal and moist mucous membranes Throat: posterior oropharynx normal Eyes General: appearance normal, both eyes and all related structures Pupils: PERRL EOM: EOM intact bilaterally Neck Neck: normal visual inspection and full ROM Chest Chest: normal inspection of the chest Resp Effort & Inspection: normal respiratory effort and able to speak in complete sentences Auscultation: clear to auscultation bilaterally Cardio Palpation: normal PMI Rate: regular rate Rhythm: regular rhythm Heart Sounds: S1 normal and S2 normal GI Inspection: normal to inspection Palpation: soft and no hepatosplenomegaly Auscultation: normal bowel sounds Skin General: no rashes or lesions noted Lesions: no lesions Rashes: no rashes Trauma: no lacerations or abrasions Neuro General: patient alert, patient awake, patient oriented x3 and no focal motor deficits Cranial Nerves: CN's II-XI intact bilaterally Cognition: normal cognition Speech: speech normal Gait: normal gait Motor: muscle tone normal throughout Sensory Exam: no sensory deficits noted Extrem General: full ROM and no calf tenderness Psych Appearance: grossly normal Mental Status: mental status grossly normal Speech and Movement: speech and movement normal Objective Labs 07/18/23 17:57 07/18/23 17:57 Labs: Laboratory Results - last 24 hr 07/18/23 07/18/23 17:50 17:57 WBC 10.2 RBC 3.37 L Hgb 10.1 L Hct 30.7 L MCV 91.1 MCH 30.1 MCHC 33.0 RDW 17.4 H Plt Count 194 Neut % (Auto) 68.5 Lymph % (Auto) 20.6 L [place] % (Auto) 7.9 Eos % (Auto) 2.3 Baso % (Auto) 0.7 Neut # (Auto) 7000 Lymph # (Auto) 2100 [place] # (Auto) 800 Eos # (Auto) 200 Baso # (Auto) 100 PT 28.0 H INR 2.4 H APTT 49 H Sodium 142 Potassium 4.2 Chloride 114 H Carbon Dioxide 24 BUN 25 H Creatinine 1.28 H Estimated GFR 42 L BUN/Creatinine Ratio 19.5 Glucose 107 Calcium 7.7 L Magnesium 1.1 L Total Bilirubin 0.3 AST 32 ALT 20 Alkaline Phosphatase 73 Total Creatine Kinase 87 Troponin I < 0.012 NT-Pro-B Natriuret Pep 408 Total Protein 6.0 L Albumin 2.6 L Globulin 3.4 Albumin/Globulin Ratio 0.8 L Triglycerides 75 Cholesterol 113 L LDL Cholesterol, Calc 47 HDL Cholesterol 51 Lipase 18 L TSH 2.31 Assessment & Plan Assessment & Plan narrative: Extensive DVT right lower extremity. Suspect might be chronic. INR is 2.4. -Supplemental oxygen, ABG if significant hypoxia -Telemetry -Hold anticoagulation therapy till a.m. The patient took Xarelto 40 mg few hours prior. -start on oral anticoagulation therapy a.m. Recheck an INR in the morning -evaluate the patient for bleeding risk -Vascular surgery consult as outpatient for considering IVC filter placement Electrolyte derangement including hypomagnesemia. Replace and monitor. Calculated calcium is 8.8 Hypertension. Restart hydrochlorothiazide and lisinopril and amlodipine GERD. Restart omeprazole CAD. Restart aspirin Hypothyroidism. Restart levothyroxine. Check TSH. Time Spent With Patient Time with patient: 50 to 69 minutes with 50% spent counseling/coordinating care Quality VTE Deep Vein Thrombosis/Pulmonary Embolism Present on Admission: No MIPS - Admit I confirm the patient?s Advance Care Plan is present, Code status is documented, Surrogate decision maker is in patient?s record [If Yes, STOP here]: Yes MIPS - Meds 'Current medications' to include all prescriptions, [id number] products, herbals, cannabis/cannabidiol products, and vitamin/mineral/dietary (nutritional) supplements. I have utilized all available resources to obtain, update, or review the patient?s current medications. [If Yes, STOP here]: Yes
[2023-07-18] MEDS: MAGNESIUM SULFATE 2 GM/50 ML PIGGYBACK IV (22:05)
--- NOTE | 2023-07-18 23:26 | PC.ADMIT ---
[email or web address] [address] Admission Note: Patient admitted to AC unit from ED at 20:30. Alert and oriented x 4, pleasant. Denies pain. Oriented to room and call light, bed in low and locked position, call light within reach. The patient,Kayleigh Holliday,82 y/o, was given written information regarding hospital policies, unit procedures and contact persons. Patient's smoking status: Former smoker. Vital Signs - 8 hr 07/18/23 17:13 07/18/23 17:46 07/18/23 17:48 Temperature 98.1 F Pulse Rate 82 75 78 Respiratory Rate 20 Blood Pressure 123/58 L Pulse Oximetry 99 98 99 Oxygen Delivery Method Room Air Oxygen Flow Rate 07/18/23 17:48 07/18/23 18:00 07/18/23 18:00 Temperature Pulse Rate 76 Respiratory Rate Blood Pressure 102/57 L 117/58 L Pulse Oximetry 100 Oxygen Delivery Method Oxygen Flow Rate 07/18/23 18:30 07/18/23 18:30 07/18/23 19:00 Temperature Pulse Rate 70 71 Respiratory Rate Blood Pressure 124/58 L Pulse Oximetry 100 99 Oxygen Delivery Method Room Air Room Air Oxygen Flow Rate 07/18/23 19:00 07/18/23 19:30 07/18/23 19:30 Temperature Pulse Rate 71 Respiratory Rate 18 Blood Pressure 126/57 L 137/60 Pulse Oximetry 99 Oxygen Delivery Method Oxygen Flow Rate 07/18/23 20:00 07/18/23 20:00 07/18/23 20:59 Temperature 96.7 F L Pulse Rate 82 75 Respiratory Rate 17 Blood Pressure 143/65 H 137/69 Pulse Oximetry 99 98 Oxygen Delivery Method Room Air Oxygen Flow Rate 0
[2023-07-19 06:00] VITALS: BP 124/61; PULSE 79; RESP 19; TEMP 35.9; O2SAT 96
[2023-07-19] MEDS: HEPARIN 5,000 UNIT/ML VIAL 5000 UNIT SUBCUT (06:40)
[2023-07-19] MEDS: LEVOTHYROXINE 100 MCG TABLET PO (06:40)
[2023-07-19 07:23] LABS: Add Manual Diff / Slide Review NO; Basophils Absolute Auto 100 /uL (0-100); Basophils Percent Auto 1.3 % (0-2); Eosinophils Absolute Auto 300 /uL (0-450); Eosinophils Percent Auto 2.8 % (2-4); Hematocrit 31.3 % (36-46); Hemoglobin 10.4 g/dL (12.0-16.0); Lymphocytes Absolute Auto 1800 /uL (1100-4500); Lymphocytes Percent Auto 16.6 % (25-40); Mean Corpuscular HGB Conc 33.1 % (30-36); Mean Corpuscular Hemoglobin 30.1 PG (26-34); Mean Corpuscular Volume 91.1 fL (80-100); Monocytes Absolute Auto 500 /uL (0-900); Monocytes Percent Auto 4.8 % (3-14); Neutrophils Absolute Auto 8100 /uL (1500-7000); Neutrophils Percent Auto 74.5 % (50-75); Platelet Count 190 X10^3/uL (150-400); Red Blood Cell Count 3.44 X10^6/uL (4.0-5.2); Red Cell Distribution Width 17.5 % (11.6-14.8); White Blood Cell Count 10.8 X10^3/uL (4.5-11.0)
[2023-07-19 07:29] LABS: INR 3.3 (0.9-1.3); Prothrombin Time 38.8 SECONDS (9.4-12.5)
[2023-07-19 08:00] VITALS: BP 118/58; PULSE 78; RESP 16; TEMP 36.2; O2SAT 98
--- NOTE | 2023-07-19 09:01 | CM.DANOTE ---
Brief DCP Assessment note Pt is a 82yo F here following rt leg swelling/with a PMH of blood clots PCP [facility] Payer Medicare and [employer] [employer]O reviewed EMR. Per chart review, pt resides indep in her home with spouse in [place]. per chart review, pt was admitted Apr 2023 for low H&H. Pt discharged home with spouse support no additional CM needs. Per chart review, per this admission pt has been off her Xarelto for her DVTs since bleed in Apr. Per RN, new plan is for pt to resume Xarelto when dc from here. Per RN, no obvious CM needs. Anticipate home with spouse today. Plan: anticipate home with spouse today. No obvious CM needs. CM team will follow as needed. JALEN Ritter Discharge Planning/Care Management Advanced directive, confirm from FAMILY Start: 07/18/23 20:42 Freq: Q24H Status: Active Protocol: Document 07/18/23 20:42 AT (Rec: 07/18/23 20:50 AT [id number]) Advance Directive, confirm on record Time 20:50 Person contacted self Copy received No CM Discharge Assessment Start: 07/19/23 08:59 Freq: Status: Active Protocol: Document 07/19/23 08:59 SL (Rec: 07/19/23 09:01 SL [id number]) Discharge Planning Assessment Assigned Reclamation Furnace Operator JALEN Rahman DPOA/Assigned Designee Name evan Sotelo Contact Information [phone] Advance Directives? Yes: states full code Advance Directives on File No History Provided By Patient,Medical Record Prior Living Arrangements House Household Members spouse,children Type of transporation used prior to Relies on Others admit Independent with ADL's Yes Is patient alert and oriented? Yes Comment no d/c needs identified at this time Barriers to Discharge No Discharge Plan Home Referrals Initiated None needed Whiteboard Updated in Patient Room with No name and ext. # of Reclamation Furnace Operator Review Status In Process Please Provide Date Initial DC 07/19/23 Assessment Was Performed Next Review Type Continued Stay Review
--- NOTE | 2023-07-19 11:04 | P.DS_ITS ---
History of Present Illness History of Present Illness Date Patient Seen: 07/19/23 Time Patient Seen: 11:05 Chief complaint: rt leg swelling/Hx blood clots Narrative: Per admitting provider, 82 years old female with history of hypertension, hypothyroidism, GERD, recurrent DVTs, history of GI bleed in April 2023 presented to the ER with right leg swelling and tenderness since Wednesday. The patient denies any shortness of breath, cough, fever, chest pain or palpitations. 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 The patient had DVT in 2019 and was on Xarelto 20 mg daily when she developed GI bleed in April 2023 requiring blood transfusions. Since then she was off Xarelto. In the ER Doppler ultrasound of the lower extremity shows occlusive thrombus of the common femoral vein, profound femoral vein and superficial femoral popliteal vessel extensive occlusive thrombus similar to prior from 2019. Laboratory shows H&H 10.1/30.7, platelets 194, creatinine of 1.28, INR 2.4, calcium 7.7. Discharge Providers Provider Date of admission: 07/18/23 19:26 Discharge Date: 07/19/23 Primary care physician: Ana Ortiz MD Consults: 07/18/23 20:41 Consult to Dietitian, Adult Routine Comment: Reason For Exam: weight loss Discharge provider: Rodolfo Soni DO Summary Hospital Course Discharge Diagnosis: DVT right lower extremity. hypomagnesemia. Hypertension. GERD. CAD. Hypothyroidism. Hospital Course: 82 years old female with history of hypertension, hypothyroidism, GERD, recurrent DVTs, history of GI bleed in April 2023 presented to the ER with right leg swelling and tenderness since Wednesday. The patient denied any shortness of breath, cough, fever, chest pain or palpitations. She took 40 mg of Xarelto at around 4pm. The patient had DVT in 2019 and was on Xarelto 20 mg daily when she developed GI bleed in April 2023 requiring blood transfusions. Since then she was off Xarelto. Her h/h remained stable after admission. She had no evidence of active bleeding. Her leg swelling she felt was improved. Patient was discharged home with instructions on bleeding precautions, which are presumed to be improved after treatment of gastritis. She is to take 3 weeks of rivaroxaban 15 mg BID followed by 20 mg daily after. She was sent a starter pack, recommended to follow up with primary care for ongoing management. Her INR was elevated, though these are not reliable on DOACs. I did order for an outpatient h/h and repeat INR for a couple of days from now. Time Spent with Patient Time spent: Greater than 30 minutes Exam Vital Signs (past 8 hours): - 07/19/23 06:00 07/19/23 08:00 Temperature 96.7 F L 97.2 F L Pulse Rate 79 78 Respiratory Rate 19 16 Blood Pressure 124/61 118/58 L Pulse Oximetry 96 98 Oxygen Flow Rate 0 0 Oxygen Delivery Method Room Air Oxygen Flow Rate 0 Narrative Exam Narrative: General: Pleasant, well nourished, no distress HEENT: Normocephalic, EOMI, external ears and nose normal-appearing, moist mucous membranes Neck: Supple, full range of motion CV: Regular rate and rhythm, normal S1-S2, no murmur auscultated Resp: Clear to auscultation bilaterally, comfortable work of breathing, able to speak in complete sentences Abdomen: Soft, nontender in all quadrants, nondistended, bowel sounds present Extremities: Normal-appearing, no cyanosiss. RLE edema is present, patient reports improvement. Neuro: Alert, normal cognition, moves all extremities, normal tone, no focal sensory or motor deficit Psych: Appropriate mood and affect Objective Labs 07/19/23 07:15 07/18/23 17:57 Labs: Laboratory Results - last 24 hr 07/18/23 07/18/23 07/19/23 17:50 17:57 07:15 WBC 10.2 10.8 RBC 3.37 L 3.44 L Hgb 10.1 L 10.4 L Hct 30.7 L 31.3 L MCV 91.1 91.1 MCH 30.1 30.1 MCHC 33.0 33.1 RDW 17.4 H 17.5 H Plt Count 194 190 Neut % (Auto) 68.5 74.5 Lymph % (Auto) 20.6 L 16.6 L [place] % (Auto) 7.9 4.8 Eos % (Auto) 2.3 2.8 Baso % (Auto) 0.7 1.3 Neut # (Auto) 7000 8100 H Lymph # (Auto) 2100 1800 [place] # (Auto) 800 500 Eos # (Auto) 200 300 Baso # (Auto) 100 100 PT 28.0 H 38.8 H D INR 2.4 H 3.3 H APTT 49 H Sodium 142 Potassium 4.2 Chloride 114 H Carbon Dioxide 24 BUN 25 H Creatinine 1.28 H Estimated GFR 42 L BUN/Creatinine Ratio 19.5 Glucose 107 Calcium 7.7 L Magnesium 1.1 L Total Bilirubin 0.3 AST 32 ALT 20 Alkaline Phosphatase 73 Total Creatine Kinase 87 Troponin I < 0.012 NT-Pro-B Natriuret Pep 408 Total Protein 6.0 L Albumin 2.6 L Globulin 3.4 Albumin/Globulin Ratio 0.8 L Triglycerides 75 Cholesterol 113 L LDL Cholesterol, Calc 47 HDL Cholesterol 51 Lipase 18 L TSH 2.31 PFSH Medical History (Updated 07/19/23 @ 09:15 by Rodolfo Soni DO) Elevated INR Herpes zoster CKD (chronic kidney disease) stage 3, GFR 30-59 ml/min Arthritis, multiple joint involvement Frequent urinary tract infections Chicken pox (~194) Hyperthyroidism (~1992) History of [place] fever Shoulder pain History of eczema Polio History of chickenpox History of urinary incontinence History of ulcerative colitis History of gastric ulcer History of diverticulitis History of colitis History of skin cancer History of diabetes mellitus Type 2 diabetes mellitus without complication, without long-term current use of insulin (12/29/16) Surgical History History of shoulder replacement History of cholecystectomy Status post cholecystectomy History of knee replacement History of hip replacement Family History Sister Age: 81 Heart disease Father No problems noted. Mother Myocardial infarction Brother No problems noted. Brother No problems noted. Social History marital status: household members: spouse and children Smoking Status: Former smoker alcohol intake: former substance use type: does not use Discharge Plan Discharge Plan Patient Disposition: Home Provider Discharge Comment: You have a DVT. Please monitor for bleeding at home. Another blood test was ordered for a couple of days from now to recheck blood counts after starting back on rivaroxaban. Discharge orders & Medications Prescriptions: New oxycodone 5 mg Tablet 5 mg PO BEDTIME PRN (Reason: pain) 14 Days Qty: 14 0RF rivaroxaban 15 mg (42)- 20 mg (9) tablets,dose pack See Rx Instructions .ROUTE .COMPLEX Qty: 51 0RF Rx Instructions: take one-15 mg tablet twice daily for 21 days, then one-20 mg tablet once daily; must take with meal/food Continued levothyroxine 100 mcg tablet 100 mcg PO QDAY Qty: 90 3RF omeprazole 20 mg capsule,delayed release(DR/EC) 20 mg PO BID Qty: 60 2RF hydrochlorothiazide 25 mg tablet 25 mg PO DAILY Qty: 90 3RF amlodipine 5 mg tablet 5 mg PO DAILY Qty: 90 3RF lisinopril 20 mg tablet 20 mg PO DAILY Qty: 90 3RF Centrum for Women w/D3 1 tab PO DAILY cephalexin 250 mg tablet 250 mg PO BEDTIME acetaminophen [Acetaminophen Extra Strength] 500 mg Tablet 1,000 mg PO BID PRN (Reason: Pain (Scale Score 4-6)) Discontinued Adult Low Dose Aspirin 81 mg BEDTIME Follow up/Referrals: Ana Ortiz MD [Primary Care Provider] - Other Ambulatory Orders: Hemoglobin and Hematocrit (Routine) Timeframe: 3 Days Facility: [facility] - Location: Laboratory Ordered By: Rodolfo Soni Prothrombin Time INR (Routine) Timeframe: 3 Days Facility: [facility] - Location: Laboratory Ordered By: Rodolfo Soni Diet/Activity/Treatments Diet: Diet as Tolerated and Regular Activity: As tolerated, no restrictions Visit Report/Discharge Packet Stand Alone Forms: Patient Portal/API, Stroke Signs & Symptoms Discharge Data Primary Care Provider: Ana Ortiz Attending Provider: David Alvarez Admit Date/Time: 07/18/23 19:26 Quality VTE Deep Vein Thrombosis/Pulmonary Embolism Present on Admission: No
== END 2023-07-19 11:18 | disposition home or self-care (01) ==
LOC: ED 19:20 → AC 19:26
PROVIDERS: Emergency Medicine; Admitting Provider Internal Medicine; Emergency Provider Emergency Medicine; PCP Student in an Organized Health Care Education/Training Program; Referring Provider Emergency Medicine; Visit Provider Internal Medicine
DX: I82.411 Acute embolism and thrombosis of right femoral vein (principal); Z86.718 Personal history of other venous thrombosis and embolism; Z79.01 Long term (current) use of anticoagulants; E83.42 Hypomagnesemia
CPT/HCPCS: 36415; 80053; 80061; 82550; 83690; 83735; 83880; 84443; 84484; 85025; 85610; 85730; 93005; 93010; 93971; 96365; 96366; 96372; 99284; G0378; J1644; J3475

== ENCOUNTER → 2023-07-21 11:17 | Outpatient (CLI) | payer MEDICARE, OTHER, SELFPAY ==
[2023-07-18 20:06] VITALS: BMI 22.8
[2023-07-21 12:43] LABS: Hematocrit 35.9 % (36-46); Hemoglobin 11.9 g/dL (12.0-16.0)
[2023-07-21 12:55] LABS: INR 3.9 (0.9-1.3)
== END ==
PROVIDERS: PCP Student in an Organized Health Care Education/Training Program; Referring Provider Internal Medicine; Visit Provider Internal Medicine
DX: R79.1 Abnormal coagulation profile (principal); Z87.19 Personal history of other diseases of the digestive system; I82.409 Acute embolism and thrombosis of unspecified deep veins of unspecified lower extremity
CPT/HCPCS: 36415; 85014; 85018; 85610

== ENCOUNTER 2023-07-30 10:05 | Emergency (ER) | payer MEDICARE, OTHER, SELFPAY ==
[2023-07-18 20:06] VITALS: BMI 22.8
[2023-07-30] VITALS (18 sets, daily range): BP systolic 97–137; BP diastolic 51–64; PULSE 65–99; RESP 10–29; TEMP 36.6; O2SAT 92–100; BMI 22.4
--- NOTE | 2023-07-30 10:29 | ED.WEAKNESS ---
HPI - Weakness General Chief complaint: Weakness Stated complaint: Legs are weak Time Seen by Provider: 07/30/23 10:29 Source: patient Mode of arrival: Wheelchair History of Present Illness HPI Narrative: Patient is a 82-year-old female history of hypertension hypothyroid GERD recurrent DVTs history of GI bleed in 2023 was recently diagnosed with recurrent DVT on July 17 stayed overnight for monitoring was sent home on Xarelto presents today with increasing weakness. She reports that she has had increasing weakness since April when she required a blood transfusion however weakness progressed yesterday and this morning. She had an appointment with her PCP this morning at 11:30 a.m. but decided that she could not wait. She has not fallen. She just feels like it is really hard to move and get around. It usually takes her 15 minutes to get dressed however this morning it took her 45 minutes. She feels like her right leg with a DVT swelling has improved pain has improved. She has been taking her Xarelto without any bleeding. She denies any chest pain palpitations or shortness of breath. Related Data Home Medications Medication Instructions Recorded Confirmed Centrum for Women w/D3 1 tab PO DAILY 11/30/19 07/18/23 acetaminophen 500 mg tablet 1,000 mg PO BID PRN Pain (Scale 05/18/23 07/18/23 (Acetaminophen Extra Strength) Score 4-6) cephalexin 250 mg tablet 250 mg PO BEDTIME 07/18/23 07/18/23 Previous Rx's Medication Instructions Recorded amlodipine 5 mg tablet 5 mg PO DAILY #90 tabs 05/25/23 hydrochlorothiazide 25 mg tablet 25 mg PO DAILY swelling #90 tabs 05/25/23 levothyroxine 100 mcg tablet 100 mcg PO QDAY #90 tabs 05/25/23 lisinopril 20 mg tablet 20 mg PO DAILY #90 tabs 05/25/23 omeprazole 20 mg capsule,delayed 20 mg PO BID #60 caps 05/25/23 release oxycodone 5 mg tablet 5 mg PO BEDTIME PRN pain 2 weeks 07/19/23 #14 tabs rivaroxaban 15 mg (42)-20 mg (9) See Rx Instructions PO .COMPLEX 07/19/23 tablets in a starter pack #51 ea Allergies Allergy/AdvReac Type Severity Reaction Status Date / Time Sulfa (Sulfonamide Allergy Severe HIVES FROM Verified 07/30/23 10:21 Antibiotics) SULFA CREAM [SULFA (SULFONAMIDE ANTIBIOTICS)] Patient History Medical History Elevated INR Herpes zoster CKD (chronic kidney disease) stage 3, GFR 30-59 ml/min Arthritis, multiple joint involvement Frequent urinary tract infections Chicken pox (~1947) Hyperthyroidism (~1992) History of [place] fever Shoulder pain History of eczema Polio History of chickenpox History of urinary incontinence History of ulcerative colitis History of gastric ulcer History of diverticulitis History of colitis History of skin cancer History of diabetes mellitus Type 2 diabetes mellitus without complication, without long-term current use of insulin (12/29/16) Surgical History History of shoulder replacement History of cholecystectomy Status post cholecystectomy History of knee replacement History of hip replacement Family History Sister Age: 81 Heart disease Father No problems noted. Mother Myocardial infarction Brother No problems noted. Brother No problems noted. Social History marital status: household members: spouse and children Smoking Status: Former smoker alcohol intake: former substance use type: does not use Smoking Status: Former smoker alcohol intake frequency: holidays/special occasions only Substance Use Type: does not use Exam Initial Vital Signs Initial Vital Signs: Vital Signs Temperature 97.9 F 07/30/23 10:15 Pulse Rate 89 07/30/23 10:15 Respiratory Rate 14 07/30/23 10:15 Blood Pressure 130/64 07/30/23 10:15 Pulse Oximetry 99 07/30/23 10:15 Oxygen Delivery Method Room Air 07/30/23 10:15 GENERAL: Alert very well-appearing 82-year-old female HEENT: Head atraumatic,EOMI, pupils reactive, face symmetric, [moist] mucous membranes CARDIOVASCULAR: Regular rate and rhythm without murmurs, rubs or gallops. RESPIRATORY: Breath sounds equal bilaterally, no wheezes rales or rhonchi. ABDOMEN: Soft, nontender. Normoactive bowel sounds all 4 quadrants. No guarding or rebound. EXTREMITIES: Normal range of motion, no clubbing or edema. Neurovascularly intact NEUROLOGICAL: Alert and oriented x4.Normal gait and speech. Cranial nerves II through XII grossly intact. Both legs are weak able to lift up off gurney but very minimally. SKIN: Warm, dry, no laceration, no petechiae, no rashes or lesions. Course Orders Ordered: ED Orders 07/30/23 10:30 XR chest 1V Stat 07/30/23 10:35 Complete Blood Count AUTO DIFF Stat Comprehensive Metabolic Panel Stat Lipase Stat Procalcitonin Stat Troponin & CK Cardiac Panel Stat 07/30/23 10:53 Lactate (Lactic Acid) Stat PTT Partial Thromboplastin Garett Stat Prothrombin Time INR Stat 07/30/23 11:06 CT head/brain wo con Stat 07/30/23 11:10 EKG-12 Lead Stat 07/30/23 11:50 Covid-19 + FLU A/B + RSV - PCR Stat 07/30/23 12:05 Urinalysis and Microscopic Stat 07/30/23 13:42 Consult to [employer] - [employer] Stat 07/30/23 14:29 Consult to Home Health Stat Discontinued Medications Sodium Chloride (Normal Saline 0.9%) 1,000 mls @ 150 mls/hr IV CONT EBONI Last Infusion: 07/30/23 15:00 Dose: Infused Documented By: Admin: 07/30/23 11:00 Dose: 150 mls/hr Documented By: ALTHEA Vital Signs Vital signs: Vital Signs - 8 hr 07/30/23 10:15 07/30/23 10:20 07/30/23 10:30 Temperature 97.9 F Pulse Rate 89 82 76 Pulse Rate [Orthostatic Sitting] Pulse Rate [Orthostatic Standing] Respiratory Rate 14 Blood Pressure 130/64 Blood Pressure [Orthostatic Sitting] Blood Pressure [Orthostatic Standing] Pulse Oximetry 99 98 100 Oxygen Delivery Method Room Air 07/30/23 10:57 07/30/23 10:57 07/30/23 11:00 Temperature Pulse Rate 76 74 Pulse Rate [Orthostatic Sitting] Pulse Rate [Orthostatic Standing] Respiratory Rate 10 L Blood Pressure 97/56 L Blood Pressure [Orthostatic Sitting] Blood Pressure [Orthostatic Standing] Pulse Oximetry 99 99 Oxygen Delivery Method 07/30/23 11:00 07/30/23 11:29 07/30/23 11:29 Temperature Pulse Rate 75 Pulse Rate [Orthostatic Sitting] Pulse Rate [Orthostatic Standing] Respiratory Rate 21 Blood Pressure 107/57 L 119/58 L Blood Pressure [Orthostatic Sitting] Blood Pressure [Orthostatic Standing] Pulse Oximetry 92 Oxygen Delivery Method 07/30/23 11:30 07/30/23 11:30 07/30/23 12:05 Temperature Pulse Rate 70 87 Pulse Rate [Orthostatic Sitting] Pulse Rate [Orthostatic Standing] Respiratory Rate 21 Blood Pressure 104/51 L Blood Pressure [Orthostatic Sitting] Blood Pressure [Orthostatic Standing] Pulse Oximetry 98 Oxygen Delivery Method 07/30/23 12:07 07/30/23 12:07 07/30/23 12:30 Temperature Pulse Rate 77 67 Pulse Rate [Orthostatic Sitting] Pulse Rate [Orthostatic Standing] Respiratory Rate 22 21 Blood Pressure 137/63 Blood Pressure [Orthostatic Sitting] Blood Pressure [Orthostatic Standing] Pulse Oximetry 97 98 Oxygen Delivery Method 07/30/23 12:31 07/30/23 12:31 07/30/23 13:00 Temperature Pulse Rate 65 67 Pulse Rate [Orthostatic Sitting] Pulse Rate [Orthostatic Standing] Respiratory Rate 16 20 Blood Pressure 116/54 L Blood Pressure [Orthostatic Sitting] Blood Pressure [Orthostatic Standing] Pulse Oximetry 99 97 Oxygen Delivery Method 07/30/23 13:00 07/30/23 13:13 07/30/23 13:13 Temperature Pulse Rate 70 Pulse Rate [Orthostatic Sitting] Pulse Rate [Orthostatic Standing] Respiratory Rate Blood Pressure 114/56 L 124/60 Blood Pressure [Orthostatic Sitting] Blood Pressure [Orthostatic Standing] Pulse Oximetry 100 Oxygen Delivery Method 07/30/23 13:16 07/30/23 13:16 07/30/23 13:25 Temperature Pulse Rate 99 H Pulse Rate [Orthostatic Sitting] 70 Pulse Rate [Orthostatic Standing] 99 H Respiratory Rate Blood Pressure 122/60 Blood Pressure [Orthostatic Sitting] 124/60 Blood Pressure [Orthostatic Standing] 122/60 Pulse Oximetry 99 Oxygen Delivery Method 07/30/23 13:46 07/30/23 13:46 07/30/23 14:00 Temperature Pulse Rate 75 66 Pulse Rate [Orthostatic Sitting] Pulse Rate [Orthostatic Standing] Respiratory Rate 29 H 17 Blood Pressure 128/60 Blood Pressure [Orthostatic Sitting] Blood Pressure [Orthostatic Standing] Pulse Oximetry 100 100 Oxygen Delivery Method 07/30/23 14:00 07/30/23 14:30 07/30/23 14:30 Temperature Pulse Rate 68 Pulse Rate [Orthostatic Sitting] Pulse Rate [Orthostatic Standing] Respiratory Rate 15 Blood Pressure 114/58 L 115/57 L Blood Pressure [Orthostatic Sitting] Blood Pressure [Orthostatic Standing] Pulse Oximetry 100 Oxygen Delivery Method MDM - Weakness Lab Data 07/30/23 10:35 07/30/23 10:35 Labs: Lab Results 07/30/23 07/30/23 07/30/23 Range/Units 10:35 10:53 11:50 WBC 9.3 (4.5-11.0) X10^3/uL RBC 3.78 L (4.0-5.2) X10^6/uL Hgb 11.6 L (12.0-16.0) g/dL Hct 35.8 L (36-46) % MCV 94.8 (80-100) fL MCH 30.6 (26-34) PG MCHC 32.3 (30-36) % RDW 17.4 H (11.6-14.8) % Plt Count 271 (150-400) X10^3/uL Neut % (Auto) 77.0 H (50-75) % Lymph % (Auto) 16.8 L (25-40) % [place] % (Auto) 4.0 (3-14) % Eos % (Auto) 1.8 L (2-4) % Baso % (Auto) 0.4 (0-2) % Neut # (Auto) 7100 H (0904-3959) /uL Lymph # (Auto) 1600 (4816-2280) /uL [place] # (Auto) 400 (0-900) /uL Eos # (Auto) 200 (0-450) /uL Baso # (Auto) 0 (0-100) /uL PT 30.8 H D (9.4-12.5) SECONDS INR 2.7 H (0.9-1.3) APTT 50 H (25.1-36.5) SECONDS Sodium 139 (137-145) mmol/L Potassium 4.7 (3.4-5.1) mmol/L Chloride 114 H (98-107) mmol/L Carbon Dioxide 19 L (22-32) mmol/L BUN 26 H (7-17) mg/dL Creatinine 1.24 H (0.52-1.04) mg/dL Estimated GFR 43 L (>60) mL/min BUN/Creatinine Ratio 21.0 (6-22) Glucose 157 H (80-110) mg/dL Lactate 3.1 H (0.7-2.1) mmol/L Calcium 8.0 L (8.4-10.2) mg/dL Total Bilirubin 0.7 (0.2-1.3) mg/dL AST 43 H (14-36) IU/L ALT 23 (<35) IU/L Alkaline Phosphatase 65 (38-126) U/L Total Creatine Kinase 52 (30-135) U/L Troponin I 0.032 (0.01-0.034) ng/mL Total Protein 6.3 (6.3-8.2) g/dL Albumin 2.6 L (3.5-5.0) g/dL Globulin 3.7 (1.7-4.1) g/dL Albumin/Globulin Ratio 0.7 L (1.0-2.8) Lipase 14 L (23-300) U/L Procalcitonin 0.08 (<0.5) ng/mL Urine Color Urine Appearance Urine pH (4.5-8.0) Ur Specific [place] (1.000-1.035) Urine Protein (Negative) Urine Glucose (UA) (Negative) g/dL Urine Ketones (NEGATIVE) Urine Occult Blood (Negative) Urine Nitrate (Negative) Urine Bilirubin (NEGATIVE) Urine Urobilinogen (0.2) E.U./dL Ur Leukocyte Esterase (NEGATIVE) Urine RBC (0-5/HPF) Urine WBC (0-5/HPF) Ur Squamous Epith Cells (0-5/HPF) Ur Transition Epith Cell Ur Renal Epithelial Cell Calcium Oxalate Crystal Uric Acid Crystals Triple Phos Crystals Other Crystals Amorphous Sediment Urine Bacteria (None) Hyaline Casts Granular Casts RBC Casts WBC Casts Other Casts Urine Mucus Urine Trichomonas Urine Yeast Urine Sperm Ur Culture Indicated? Micro UA Comment Vol Urine Centrifuged SARS-CoV-2 (PCR) Negative (Negative) Influenza A (RT-PCR) Flu a negative (NEGATIVE) Influenza B (RT-PCR) Flu b negative (NEGATIVE) RSV (PCR) Negative (Negative) 07/30/23 07/30/23 07/30/23 Range/Units 12:05 12:05 12:05 WBC (4.5-11.0) X10^3/uL RBC (4.0-5.2) X10^6/uL Hgb (12.0-16.0) g/dL Hct (36-46) % MCV (80-100) fL MCH (26-34) PG MCHC (30-36) % RDW (11.6-14.8) % Plt Count (150-400) X10^3/uL Neut % (Auto) (50-75) % Lymph % (Auto) (25-40) % [place] % (Auto) (3-14) % Eos % (Auto) (2-4) % Baso % (Auto) (0-2) % Neut # (Auto) (9409-7778) /uL Lymph # (Auto) (5694-0508) /uL [place] # (Auto) (0-900) /uL Eos # (Auto) (0-450) /uL Baso # (Auto) (0-100) /uL PT (9.4-12.5) SECONDS INR (0.9-1.3) APTT (25.1-36.5) SECONDS Sodium (137-145) mmol/L Potassium (3.4-5.1) mmol/L Chloride (98-107) mmol/L Carbon Dioxide (22-32) mmol/L BUN (7-17) mg/dL Creatinine (0.52-1.04) mg/dL Estimated GFR (>60) mL/min BUN/Creatinine Ratio (6-22) Glucose (80-110) mg/dL Lactate (0.7-2.1) mmol/L Calcium (8.4-10.2) mg/dL Total Bilirubin (0.2-1.3) mg/dL AST (14-36) IU/L ALT (<35) IU/L Alkaline Phosphatase (38-126) U/L Total Creatine Kinase (30-135) U/L Troponin I (0.01-0.034) ng/mL Total Protein (6.3-8.2) g/dL Albumin (3.5-5.0) g/dL Globulin (1.7-4.1) g/dL Albumin/Globulin Ratio (1.0-2.8) Lipase (23-300) U/L Procalcitonin (<0.5) ng/mL Urine Color Yellow Cancelled Urine Appearance Clear Cancelled Urine pH 5.0 (4.5-8.0) Ur Specific [place] (1.000-1.035) Urine Protein (Negative) Urine Glucose (UA) (Negative) g/dL Urine Ketones (NEGATIVE) Urine Occult Blood (Negative) Urine Nitrate (Negative) Urine Bilirubin (NEGATIVE) Urine Urobilinogen (0.2) E.U./dL Ur Leukocyte Esterase (NEGATIVE) Urine RBC (0-5/HPF) Urine WBC (0-5/HPF) Ur Squamous Epith Cells (0-5/HPF) Ur Transition Epith Cell Ur Renal Epithelial Cell Calcium Oxalate Crystal Uric Acid Crystals Triple Phos Crystals Other Crystals Amorphous Sediment Urine Bacteria (None) Hyaline Casts Granular Casts RBC Casts WBC Casts Other Casts Urine Mucus Urine Trichomonas Urine Yeast Urine Sperm Ur Culture Indicated? Micro UA Comment Vol Urine Centrifuged SARS-CoV-2 (PCR) (Negative) Influenza A (RT-PCR) (NEGATIVE) Influenza B (RT-PCR) (NEGATIVE) RSV (PCR) (Negative) 07/30/23 07/30/23 07/30/23 Range/Units 12:05 12:05 12:05 WBC (4.5-11.0) X10^3/uL RBC (4.0-5.2) X10^6/uL Hgb (12.0-16.0) g/dL Hct (36-46) % MCV (80-100) fL MCH (26-34) PG MCHC (30-36) % RDW (11.6-14.8) % Plt Count (150-400) X10^3/uL Neut % (Auto) (50-75) % Lymph % (Auto) (25-40) % [place] % (Auto) (3-14) % Eos % (Auto) (2-4) % Baso % (Auto) (0-2) % Neut # (Auto) (9408-7014) /uL Lymph # (Auto) (6257-9430) /uL [place] # (Auto) (0-900) /uL Eos # (Auto) (0-450) /uL Baso # (Auto) (0-100) /uL PT (9.4-12.5) SECONDS INR (0.9-1.3) APTT (25.1-36.5) SECONDS Sodium (137-145) mmol/L Potassium (3.4-5.1) mmol/L Chloride (98-107) mmol/L Carbon Dioxide (22-32) mmol/L BUN (7-17) mg/dL Creatinine (0.52-1.04) mg/dL Estimated GFR (>60) mL/min BUN/Creatinine Ratio (6-22) Glucose (80-110) mg/dL Lactate (0.7-2.1) mmol/L Calcium (8.4-10.2) mg/dL Total Bilirubin (0.2-1.3) mg/dL AST (14-36) IU/L ALT (<35) IU/L Alkaline Phosphatase (38-126) U/L Total Creatine Kinase (30-135) U/L Troponin I (0.01-0.034) ng/mL Total Protein (6.3-8.2) g/dL Albumin (3.5-5.0) g/dL Globulin (1.7-4.1) g/dL Albumin/Globulin Ratio (1.0-2.8) Lipase (23-300) U/L Procalcitonin (<0.5) ng/mL Urine Color Urine Appearance Urine pH Cancelled (4.5-8.0) Ur Specific [place] 1.025 Cancelled (1.000-1.035) Urine Protein Negative Cancelled (Negative) Urine Glucose (UA) Negative (Negative) g/dL Urine Ketones (NEGATIVE) Urine Occult Blood (Negative) Urine Nitrate (Negative) Urine Bilirubin (NEGATIVE) Urine Urobilinogen (0.2) E.U./dL Ur Leukocyte Esterase (NEGATIVE) Urine RBC (0-5/HPF) Urine WBC (0-5/HPF) Ur Squamous Epith Cells (0-5/HPF) Ur Transition Epith Cell Ur Renal Epithelial Cell Calcium Oxalate Crystal Uric Acid Crystals Triple Phos Crystals Other Crystals Amorphous Sediment Urine Bacteria (None) Hyaline Casts Granular Casts RBC Casts WBC Casts Other Casts Urine Mucus Urine Trichomonas Urine Yeast Urine Sperm Ur Culture Indicated? Micro UA Comment Vol Urine Centrifuged SARS-CoV-2 (PCR) (Negative) Influenza A (RT-PCR) (NEGATIVE) Influenza B (RT-PCR) (NEGATIVE) RSV (PCR) (Negative) 07/30/23 07/30/23 07/30/23 Range/Units 12:05 12:05 12:05 WBC (4.5-11.0) X10^3/uL RBC (4.0-5.2) X10^6/uL Hgb (12.0-16.0) g/dL Hct (36-46) % MCV (80-100) fL MCH (26-34) PG MCHC (30-36) % RDW (11.6-14.8) % Plt Count (150-400) X10^3/uL Neut % (Auto) (50-75) % Lymph % (Auto) (25-40) % [place] % (Auto) (3-14) % Eos % (Auto) (2-4) % Baso % (Auto) (0-2) % Neut # (Auto) (5182-4061) /uL Lymph # (Auto) (1860-8322) /uL [place] # (Auto) (0-900) /uL Eos # (Auto) (0-450) /uL Baso # (Auto) (0-100) /uL PT (9.4-12.5) SECONDS INR (0.9-1.3) APTT (25.1-36.5) SECONDS Sodium (137-145) mmol/L Potassium (3.4-5.1) mmol/L Chloride (98-107) mmol/L Carbon Dioxide (22-32) mmol/L BUN (7-17) mg/dL Creatinine (0.52-1.04) mg/dL Estimated GFR (>60) mL/min BUN/Creatinine Ratio (6-22) Glucose (80-110) mg/dL Lactate (0.7-2.1) mmol/L Calcium (8.4-10.2) mg/dL Total Bilirubin (0.2-1.3) mg/dL AST (14-36) IU/L ALT (<35) IU/L Alkaline Phosphatase (38-126) U/L Total Creatine Kinase (30-135) U/L Troponin I (0.01-0.034) ng/mL Total Protein (6.3-8.2) g/dL Albumin (3.5-5.0) g/dL Globulin (1.7-4.1) g/dL Albumin/Globulin Ratio (1.0-2.8) Lipase (23-300) U/L Procalcitonin (<0.5) ng/mL Urine Color Urine Appearance Urine pH (4.5-8.0) Ur Specific [place] (1.000-1.035) Urine Protein (Negative) Urine Glucose (UA) Cancelled (Negative) g/dL Urine Ketones Negative Cancelled (NEGATIVE) Urine Occult Blood Negative Cancelled (Negative) Urine Nitrate Negative (Negative) Urine Bilirubin (NEGATIVE) Urine Urobilinogen (0.2) E.U./dL Ur Leukocyte Esterase (NEGATIVE) Urine RBC (0-5/HPF) Urine WBC (0-5/HPF) Ur Squamous Epith Cells (0-5/HPF) Ur Transition Epith Cell Ur Renal Epithelial Cell Calcium Oxalate Crystal Uric Acid Crystals Triple Phos Crystals Other Crystals Amorphous Sediment Urine Bacteria (None) Hyaline Casts Granular Casts RBC Casts WBC Casts Other Casts Urine Mucus Urine Trichomonas Urine Yeast Urine Sperm Ur Culture Indicated? Micro UA Comment Vol Urine Centrifuged SARS-CoV-2 (PCR) (Negative) Influenza A (RT-PCR) (NEGATIVE) Influenza B (RT-PCR) (NEGATIVE) RSV (PCR) (Negative) 07/30/23 07/30/23 07/30/23 Range/Units 12:05 12:05 12:05 WBC (4.5-11.0) X10^3/uL RBC (4.0-5.2) X10^6/uL Hgb (12.0-16.0) g/dL Hct (36-46) % MCV (80-100) fL MCH (26-34) PG MCHC (30-36) % RDW (11.6-14.8) % Plt Count (150-400) X10^3/uL Neut % (Auto) (50-75) % Lymph % (Auto) (25-40) % [place] % (Auto) (3-14) % Eos % (Auto) (2-4) % Baso % (Auto) (0-2) % Neut # (Auto) (4952-3916) /uL Lymph # (Auto) (7632-2187) /uL [place] # (Auto) (0-900) /uL Eos # (Auto) (0-450) /uL Baso # (Auto) (0-100) /uL PT (9.4-12.5) SECONDS INR (0.9-1.3) APTT (25.1-36.5) SECONDS Sodium (137-145) mmol/L Potassium (3.4-5.1) mmol/L Chloride (98-107) mmol/L Carbon Dioxide (22-32) mmol/L BUN (7-17) mg/dL Creatinine (0.52-1.04) mg/dL Estimated GFR (>60) mL/min BUN/Creatinine Ratio (6-22) Glucose (80-110) mg/dL Lactate (0.7-2.1) mmol/L Calcium (8.4-10.2) mg/dL Total Bilirubin (0.2-1.3) mg/dL AST (14-36) IU/L ALT (<35) IU/L Alkaline Phosphatase (38-126) U/L Total Creatine Kinase (30-135) U/L Troponin I (0.01-0.034) ng/mL Total Protein (6.3-8.2) g/dL Albumin (3.5-5.0) g/dL Globulin (1.7-4.1) g/dL Albumin/Globulin Ratio (1.0-2.8) Lipase (23-300) U/L Procalcitonin (<0.5) ng/mL Urine Color Urine Appearance Urine pH (4.5-8.0) Ur Specific [place] (1.000-1.035) Urine Protein (Negative) Urine Glucose (UA) (Negative) g/dL Urine Ketones (NEGATIVE) Urine Occult Blood (Negative) Urine Nitrate Cancelled (Negative) Urine Bilirubin Negative Cancelled (NEGATIVE) Urine Urobilinogen 0.2 Cancelled (0.2) E.U./dL Ur Leukocyte Esterase Negative (NEGATIVE) Urine RBC (0-5/HPF) Urine WBC (0-5/HPF) Ur Squamous Epith Cells (0-5/HPF) Ur Transition Epith Cell Ur Renal Epithelial Cell Calcium Oxalate Crystal Uric Acid Crystals Triple Phos Crystals Other Crystals Amorphous Sediment Urine Bacteria (None) Hyaline Casts Granular Casts RBC Casts WBC Casts Other Casts Urine Mucus Urine Trichomonas Urine Yeast Urine Sperm Ur Culture Indicated? Micro UA Comment Vol Urine Centrifuged SARS-CoV-2 (PCR) (Negative) Influenza A (RT-PCR) (NEGATIVE) Influenza B (RT-PCR) (NEGATIVE) RSV (PCR) (Negative) 07/30/23 07/30/23 07/30/23 Range/Units 12:05 12:05 12:05 WBC (4.5-11.0) X10^3/uL RBC (4.0-5.2) X10^6/uL Hgb (12.0-16.0) g/dL Hct (36-46) % MCV (80-100) fL MCH (26-34) PG MCHC (30-36) % RDW (11.6-14.8) % Plt Count (150-400) X10^3/uL Neut % (Auto) (50-75) % Lymph % (Auto) (25-40) % [place] % (Auto) (3-14) % Eos % (Auto) (2-4) % Baso % (Auto) (0-2) % Neut # (Auto) (7678-0425) /uL Lymph # (Auto) (4286-5912) /uL [place] # (Auto) (0-900) /uL Eos # (Auto) (0-450) /uL Baso # (Auto) (0-100) /uL PT (9.4-12.5) SECONDS INR (0.9-1.3) APTT (25.1-36.5) SECONDS Sodium (137-145) mmol/L Potassium (3.4-5.1) mmol/L Chloride (98-107) mmol/L Carbon Dioxide (22-32) mmol/L BUN (7-17) mg/dL Creatinine (0.52-1.04) mg/dL Estimated GFR (>60) mL/min BUN/Creatinine Ratio (6-22) Glucose (80-110) mg/dL Lactate (0.7-2.1) mmol/L Calcium (8.4-10.2) mg/dL Total Bilirubin (0.2-1.3) mg/dL AST (14-36) IU/L ALT (<35) IU/L Alkaline Phosphatase (38-126) U/L Total Creatine Kinase (30-135) U/L Troponin I (0.01-0.034) ng/mL Total Protein (6.3-8.2) g/dL Albumin (3.5-5.0) g/dL Globulin (1.7-4.1) g/dL Albumin/Globulin Ratio (1.0-2.8) Lipase (23-300) U/L Procalcitonin (<0.5) ng/mL Urine Color Urine Appearance Urine pH (4.5-8.0) Ur Specific [place] (1.000-1.035) Urine Protein (Negative) Urine Glucose (UA) (Negative) g/dL Urine Ketones (NEGATIVE) Urine Occult Blood (Negative) Urine Nitrate (Negative) Urine Bilirubin (NEGATIVE) Urine Urobilinogen (0.2) E.U./dL Ur Leukocyte Esterase Cancelled (NEGATIVE) Urine RBC 0-1/hpf Cancelled (0-5/HPF) Urine WBC 0-1/hpf Cancelled (0-5/HPF) Ur Squamous Epith Cells 5-10 /hpf H (0-5/HPF) Ur Transition Epith Cell Ur Renal Epithelial Cell Calcium Oxalate Crystal Uric Acid Crystals Triple Phos Crystals Other Crystals Amorphous Sediment Urine Bacteria (None) Hyaline Casts Granular Casts RBC Casts WBC Casts Other Casts Urine Mucus Urine Trichomonas Urine Yeast Urine Sperm Ur Culture Indicated? Micro UA Comment Vol Urine Centrifuged SARS-CoV-2 (PCR) (Negative) Influenza A (RT-PCR) (NEGATIVE) Influenza B (RT-PCR) (NEGATIVE) RSV (PCR) (Negative) 07/30/23 07/30/23 07/30/23 Range/Units 12:05 12:05 12:05 WBC (4.5-11.0) X10^3/uL RBC (4.0-5.2) X10^6/uL Hgb (12.0-16.0) g/dL Hct (36-46) % MCV (80-100) fL MCH (26-34) PG MCHC (30-36) % RDW (11.6-14.8) % Plt Count (150-400) X10^3/uL Neut % (Auto) (50-75) % Lymph % (Auto) (25-40) % [place] % (Auto) (3-14) % Eos % (Auto) (2-4) % Baso % (Auto) (0-2) % Neut # (Auto) (1420-6717) /uL Lymph # (Auto) (7614-8999) /uL [place] # (Auto) (0-900) /uL Eos # (Auto) (0-450) /uL Baso # (Auto) (0-100) /uL PT (9.4-12.5) SECONDS INR (0.9-1.3) APTT (25.1-36.5) SECONDS Sodium (137-145) mmol/L Potassium (3.4-5.1) mmol/L Chloride (98-107) mmol/L Carbon Dioxide (22-32) mmol/L BUN (7-17) mg/dL Creatinine (0.52-1.04) mg/dL Estimated GFR (>60) mL/min BUN/Creatinine Ratio (6-22) Glucose (80-110) mg/dL Lactate (0.7-2.1) mmol/L Calcium (8.4-10.2) mg/dL Total Bilirubin (0.2-1.3) mg/dL AST (14-36) IU/L ALT (<35) IU/L Alkaline Phosphatase (38-126) U/L Total Creatine Kinase (30-135) U/L Troponin I (0.01-0.034) ng/mL Total Protein (6.3-8.2) g/dL Albumin (3.5-5.0) g/dL Globulin (1.7-4.1) g/dL Albumin/Globulin Ratio (1.0-2.8) Lipase (23-300) U/L Procalcitonin (<0.5) ng/mL Urine Color Urine Appearance Urine pH (4.5-8.0) Ur Specific [place] (1.000-1.035) Urine Protein (Negative) Urine Glucose (UA) (Negative) g/dL Urine Ketones (NEGATIVE) Urine Occult Blood (Negative) Urine Nitrate (Negative) Urine Bilirubin (NEGATIVE) Urine Urobilinogen (0.2) E.U./dL Ur Leukocyte Esterase (NEGATIVE) Urine RBC (0-5/HPF) Urine WBC (0-5/HPF) Ur Squamous Epith Cells Cancelled (0-5/HPF) Ur Transition Epith Cell Cancelled Ur Renal Epithelial Cell Cancelled Calcium Oxalate Crystal Cancelled Uric Acid Crystals Cancelled Triple Phos Crystals Cancelled Other Crystals Cancelled Amorphous Sediment Cancelled Urine Bacteria None seen Cancelled (None) Hyaline Casts Cancelled Granular Casts Cancelled RBC Casts Cancelled WBC Casts Cancelled Other Casts Cancelled Urine Mucus Cancelled Urine Trichomonas Cancelled Urine Yeast Cancelled Urine Sperm Cancelled Ur Culture Indicated? Cult not indicated Cancelled Micro UA Comment Cancelled Vol Urine Centrifuged 10ml (spun) SARS-CoV-2 (PCR) (Negative) Influenza A (RT-PCR) (NEGATIVE) Influenza B (RT-PCR) (NEGATIVE) RSV (PCR) (Negative) 07/30/23 07/30/23 Range/Units 12:05 12:38 WBC (4.5-11.0) X10^3/uL RBC (4.0-5.2) X10^6/uL Hgb (12.0-16.0) g/dL Hct (36-46) % MCV (80-100) fL MCH (26-34) PG MCHC (30-36) % RDW (11.6-14.8) % Plt Count (150-400) X10^3/uL Neut % (Auto) (50-75) % Lymph % (Auto) (25-40) % [place] % (Auto) (3-14) % Eos % (Auto) (2-4) % Baso % (Auto) (0-2) % Neut # (Auto) (9739-7878) /uL Lymph # (Auto) (8747-8469) /uL [place] # (Auto) (0-900) /uL Eos # (Auto) (0-450) /uL Baso # (Auto) (0-100) /uL PT (9.4-12.5) SECONDS INR (0.9-1.3) APTT (25.1-36.5) SECONDS Sodium (137-145) mmol/L Potassium (3.4-5.1) mmol/L Chloride (98-107) mmol/L Carbon Dioxide (22-32) mmol/L BUN (7-17) mg/dL Creatinine (0.52-1.04) mg/dL Estimated GFR (>60) mL/min BUN/Creatinine Ratio (6-22) Glucose (80-110) mg/dL Lactate 2.8 H (0.7-2.1) mmol/L Calcium (8.4-10.2) mg/dL Total Bilirubin (0.2-1.3) mg/dL AST (14-36) IU/L ALT (<35) IU/L Alkaline Phosphatase (38-126) U/L Total Creatine Kinase (30-135) U/L Troponin I (0.01-0.034) ng/mL Total Protein (6.3-8.2) g/dL Albumin (3.5-5.0) g/dL Globulin (1.7-4.1) g/dL Albumin/Globulin Ratio (1.0-2.8) Lipase (23-300) U/L Procalcitonin (<0.5) ng/mL Urine Color Urine Appearance Urine pH (4.5-8.0) Ur Specific [place] (1.000-1.035) Urine Protein (Negative) Urine Glucose (UA) (Negative) g/dL Urine Ketones (NEGATIVE) Urine Occult Blood (Negative) Urine Nitrate (Negative) Urine Bilirubin (NEGATIVE) Urine Urobilinogen (0.2) E.U./dL Ur Leukocyte Esterase (NEGATIVE) Urine RBC (0-5/HPF) Urine WBC (0-5/HPF) Ur Squamous Epith Cells (0-5/HPF) Ur Transition Epith Cell Ur Renal Epithelial Cell Calcium Oxalate Crystal Uric Acid Crystals Triple Phos Crystals Other Crystals Amorphous Sediment Urine Bacteria (None) Hyaline Casts Granular Casts RBC Casts WBC Casts Other Casts Urine Mucus Urine Trichomonas Urine Yeast Urine Sperm Ur Culture Indicated? Micro UA Comment Vol Urine Centrifuged Cancelled SARS-CoV-2 (PCR) (Negative) Influenza A (RT-PCR) (NEGATIVE) Influenza B (RT-PCR) (NEGATIVE) RSV (PCR) (Negative) Imaging Data Chest x-ray: Radiologist Impression: PROCEDURE: XR CHEST 1V INDICATIONS: chest pain TECHNIQUE: One view of the chest was acquired. COMPARISON: [facility], , XR CHEST 2V, 12/06/2019, 15:57. FINDINGS: Surgical changes and devices: Right shoulder arthroplasty. Lungs and pleura: Minimal bilateral costophrenic angle blunting. Mediastinum: Mediastinal contours appear normal. Heart size is normal. Bones and chest wall: No suspicious bony lesions. Overlying soft tissues appear unremarkable. IMPRESSION: Minimal costophrenic angle blunting suggestive scarring versus trace effusions. Dictated by: Saranya Romero M.D. on 07/30/2023 at 10:49 Approved by: Saranya Romero M.D. on 07/30/2023 at 10:51 CT scan - head: Radiologist Impression: PROCEDURE: CT HEAD/BRAIN WO CON INDICATIONS: weakness on Xarelto TECHNIQUE: Noncontrast 4.5 mm thick angled axial sections acquired from the foramen magnum to the vertex, with coronal and sagittal reformats. For radiation dose reduction, the following was used: automated exposure control, adjustment of mA and/or kV according to patient size. COMPARISON: [facility], CT, HEAD WITHOUT CONTRAST, 07/05/2017, 20:15. FINDINGS: Image quality: Diagnostic. CSF spaces: Basal cisterns are patent. No extra-axial fluid collections. The ventricles are symmetric in size and shape. Brain: No intracranial bleeds or masses. There is cerebral volume loss for age, with resultant ventricular and sulcal prominence. There are periventricular and deep white matter chronic small vessel ischemic changes. There is intracranial internal carotid artery atherosclerosis. Skull and face: Calvarium and visualized facial bones appear intact, without suspicious lesions. Sinuses: Visualized sinuses and mastoids are clear. IMPRESSION: No acute intracranial pathology. Dictated by: Moo Fitzpatrick M.D. on 07/30/2023 at 11:45 ECG Data Attestation: I personally reviewed and interpreted this ECG as follows: Prior ECG tracings: available for review Interpretation: Sinus rhythm rate 70 [place] interval 148 QRS [address] changes no T-wave inversion MDM Narrative Medical decision making narrative: MDM CC: Weakness Complicating co-morbidities: DVT, history GI bleed, GERD, hypertension hyperlipidemia Corroborating data: Chart and Data collected from: [ ] Medical records reviewed: Yes Differential considered: Anemia, infection, intracranial hemorrhage, Exam documented above, pertinent findings include: Generalized bilateral lower extremity weakness right leg more dementia since last however patient reports this is improved Lab Test results independently reviewed as above. Pertinent findings: WBC 9.3, hemoglobin 11.6, hematocrit 35.8, platelet 271, sodium 139, potassium 4.7, chloride 114, carbon dioxide 19, BUN 26, creatinine 1.24 which is baseline, lactate 3.1, procalcitonin negative, bilirubin 0.7, troponin negative Independently reviewed EKG as above Imaging studies independently reviewed: Head CT no acute intracranial abnormality chest x-ray does show scarring versus trace effusions Consultations: Dr. Soni hospitalist familiar with the patient updated on symptoms test results agrees no need for admission criteria despite elevated lactate [employer] evaluation for home health with progressive weakness since April Treatments: IV fluids Re-evaluations: Patient was able to ambulate with a walker she needed some assistance getting up. Discussion: Patient presents with progressive ongoing weakness worse over last 24 hours. She is found have an elevated lactate with an unclear source. Urinalysis is negative chest x-ray negative viral panel is negative. She has not anemic no significant leukocytosis or fever. 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 Patient evaluated by [employer] [employer] for home health. Discharge Plan Departure Patient Disposition: Home Clinical Impression: Weakness Instructions: DI for Muscle Weakness Activity Restrictions/Additional Instructions: *You have been diagnosed with weakness *What to do: At this time it is unclear cause of what is making or weakness worse. Blood levels are stable no active bleeding. set up worker is helping set up home health *Continue to take medications as directed *Follow up with your primary care provider in 2-3 days or call [phone] *Return to ER if you should have increasing weakness falls confusion or any new, worsening or concerning symptoms Prescriptions: No Action levothyroxine 100 mcg tablet 100 mcg PO QDAY Qty: 90 3RF omeprazole 20 mg capsule,delayed release(DR/EC) 20 mg PO BID Qty: 60 2RF hydrochlorothiazide 25 mg tablet 25 mg PO DAILY Qty: 90 3RF amlodipine 5 mg tablet 5 mg PO DAILY Qty: 90 3RF lisinopril 20 mg tablet 20 mg PO DAILY Qty: 90 3RF Centrum for Women w/D3 1 tab PO DAILY cephalexin 250 mg tablet 250 mg PO BEDTIME oxycodone 5 mg Tablet 5 mg PO BEDTIME PRN (Reason: pain) 14 Days Qty: 14 0RF rivaroxaban 15 mg (42)- 20 mg (9) tablets,dose pack See Rx Instructions .ROUTE .COMPLEX Qty: 51 0RF Rx Instructions: take one-15 mg tablet twice daily for 21 days, then one-20 mg tablet once daily; must take with meal/food acetaminophen [Acetaminophen Extra Strength] 500 mg Tablet 1,000 mg PO BID PRN (Reason: Pain (Scale Score 4-6)) Referrals: Ana Ortiz MD [Primary Care Provider] - Stand Alone Forms: Patient Portal/API
[2023-07-30 10:46] LABS: Add Manual Diff / Slide Review NO; Basophils Absolute Auto 0 /uL (0-100); Basophils Percent Auto 0.4 % (0-2); Eosinophils Absolute Auto 200 /uL (0-450); Eosinophils Percent Auto 1.8 % (2-4); Hematocrit 35.8 % (36-46); Hemoglobin 11.6 g/dL (12.0-16.0); Lymphocytes Absolute Auto 1600 /uL (1100-4500); Lymphocytes Percent Auto 16.8 % (25-40); Mean Corpuscular HGB Conc 32.3 % (30-36); Mean Corpuscular Hemoglobin 30.6 PG (26-34); Mean Corpuscular Volume 94.8 fL (80-100); Monocytes Absolute Auto 400 /uL (0-900); Neutrophils Absolute Auto 7100 /uL (1500-7000); Platelet Count 271 X10^3/uL (150-400); Red Blood Cell Count 3.78 X10^6/uL (4.0-5.2); Red Cell Distribution Width 17.4 % (11.6-14.8); White Blood Cell Count 9.3 X10^3/uL (4.5-11.0)
[2023-07-30] MEDS: SODIUM CHLORIDE 0.9% 1,000 ML 150 ML IV (11:00)
--- NOTE | 2023-07-30 11:06 | DI.CT.S_ITS ---
PROCEDURE: CT HEAD/BRAIN WO CON INDICATIONS: weakness on Xarelto TECHNIQUE: Noncontrast 4.5 mm thick angled axial sections acquired from the foramen magnum to the vertex, with coronal and sagittal reformats. For radiation dose reduction, the following was used: automated exposure control, adjustment of mA and/or kV according to patient size. COMPARISON: [facility], CT, HEAD WITHOUT CONTRAST, 07/05/2017, 20:15. FINDINGS: Image quality: Diagnostic. CSF spaces: Basal cisterns are patent. No extra-axial fluid collections. The ventricles are symmetric in size and shape. Brain: No intracranial bleeds or masses. There is cerebral volume loss for age, with resultant ventricular and sulcal prominence. There are periventricular and deep white matter chronic small vessel ischemic changes. There is intracranial internal carotid artery atherosclerosis. Skull and face: Calvarium and visualized facial bones appear intact, without suspicious lesions. Sinuses: Visualized sinuses and mastoids are clear. IMPRESSION: No acute intracranial pathology. Dictated by: Moo Fitzpatrick M.D. on 07/30/2023 at 11:45 Approved by: Moo Fitzpatrick M.D. on 07/30/2023 at 11:46
[2023-07-30 11:15] LABS: Alanine Aminotransferase 23 IU/L (<35); Albumin 2.6 g/dL (3.5-5.0); Albumin Globulin Ratio 0.7 (1.0-2.8); Alkaline Phosphatase 65 U/L (38-126); Bilirubin Total 0.7 mg/dL (0.2-1.3); Blood Urea Nitrogen 26 mg/dL (7-17); Carbon Dioxide 19 mmol/L (22-32); Creatine Kinase 52 U/L (30-135); Estimated Glomerular Filt Rate 43 mL/min (>60); Globulin 3.7 g/dL (1.7-4.1); Glucose 157 mg/dL (80-110); Lipase 14 U/L (23-300); Potassium 4.7 mmol/L (3.4-5.1); Sodium 139 mmol/L (137-145); Total Protein 6.3 g/dL (6.3-8.2)
[2023-07-30 11:18] LABS: INR 2.7 (0.9-1.3); Prothrombin Time 30.8 SECONDS (9.4-12.5)
[2023-07-30 11:19] LABS: HEMOLYSIS 107 (0-50)
--- NOTE | 2023-07-30 11:19 | PC.NURSE ---
Patient left department with certified neurodiagnostic technologist.
[2023-07-30 11:20] LABS: Aspartate Aminotransferase 43 IU/L (14-36); Chloride 114 mmol/L (98-107)
[2023-07-30 11:20] LABS: PTT Partial Thromboplastin Tim 50 SECONDS (25.1-36.5)
[2023-07-30 11:25] LABS: Lactate (Lactic Acid) 3.1 mmol/L (0.7-2.1)
[2023-07-30 11:26] LABS: Troponin I 0.032 ng/mL (0.01-0.034)
[2023-07-30 11:31] LABS: Procalcitonin 0.08 ng/mL (<0.5)
[2023-07-30 12:13] LABS: Appearance Urine UA CLEAR; Bilirubin Urine UA NEGATIVE (NEGATIVE); Color Urine UA YELLOW; Glucose Urine UA NEGATIVE (Negative); Ketones Urine UA NEGATIVE (NEGATIVE); Leukocyte Esterase Urine UA NEGATIVE (NEGATIVE); Nitrite Urine UA NEGATIVE (Negative); Occult Blood Urine UA NEGATIVE (Negative); Protein Urine UA NEGATIVE (Negative); Specific Gravity Urine UA 1.025 (1.000-1.035); Urobilinogen Urine UA 0.2 E.U./dL (0.2)
[2023-07-30 12:19] LABS: RBC Urine 0-1/HPF (0-5/HPF); Urine Volume 10mL (spun); WBC Urine 0-1/HPF (0-5/HPF)
[2023-07-30 12:20] LABS: Bacteria Urine None Seen; Culture Indicated Urine Cult Not Indicated; Squamous Epithelial Cell Urine 5-10 /HPF (0-5/HPF)
[2023-07-30 12:38] LABS: Reflexed Lactate in 2 Hours Y
[2023-07-30 12:59] LABS: Lactate 2HR (Lactic Acid Rflx) 2.8 mmol/L (0.7-2.1)
[2023-07-30 13:09] LABS: Influenza A - CEPHEID Flu A NEGATIVE (NEGATIVE); Influenza B - CEPHEID Flu B NEGATIVE (NEGATIVE); Respiratory Syncytial Virus Negative (Negative)
[2023-07-30 13:11] LABS: COVID-19 CEPHEID 4-PLEX PCR Negative (Negative)
--- NOTE | 2023-07-30 14:48 | CM.SWNOTE ---
ED WAISTBAND SETTER LOCKSTITCH Note WAISTBAND SETTER LOCKSTITCH receives consult from ED provider for HH referral. Patient is 82 y/o female who presents to ED due to concern for increase weakness, states it is taking her much longer to get dressed and walk with FWW. 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 Patient endorses she has noticed increased weakness since April 2023. Patient's PCP is Dr. Ana Ortiz. Patient has Medicare and [email or web address] insurance. Patient states she had a PCP appt scheduled with Dr. Stack for this morning and she decided she needed to go to the ED instead. Patient has hx of DVT, recent admission on 07/18/23, and admitted in April 2023 requiring a blood transfusion. 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 Patient endorses she has been on and off of Xarelto rx due to blood clotting and stated she was feeling better when she was off of the medication, but has been taking it since last admission to . It is reported that patient was able to ambulate with FWW in ED. WAISTBAND SETTER LOCKSTITCH enters room to meet with patient. Patient presents as A/Ox4, patient is on the phone with daughter Lyly who resides with patient and spouse in [place]. It is reported that daughter cooks, cleans, does laundry, helps patient get dressed and supports both patient as needed. It is reported that patient's spouse assists patient with showers as well. Patient endorses she has used a FWW at baseline since 2003 and noticed she has been moving much slower. WAISTBAND SETTER LOCKSTITCH discusses HH, patient endorses agreement for PT, OT and RN, patient denies preference for HH agency. Due to availability and location, WAISTBAND SETTER LOCKSTITCH calls [facility] who reports they can review patient and likely accept with soon availability. Ana at [facility] emails and confirms acceptance and can start care for patient on Wednesday. WAISTBAND SETTER LOCKSTITCH faxes F2F, order and clinical packet for review to [facility] . WAISTBAND SETTER LOCKSTITCH provides patient with [facility] brochure and senior resource guide. Plan: Patient to d/c to home upon medical clearance with spouse, [facility] to f/u with patient for PT, OT and RN early next week. Gely Rosas, ORDER MAKE UP CLERK
== END 2023-07-30 15:05 | disposition home or self-care (01) ==
PROVIDERS: Emergency Provider Emergency Medicine; PCP Student in an Organized Health Care Education/Training Program
DX: M62.81 Muscle weakness (generalized) (principal); R07.9 Chest pain, unspecified; Z79.01 Long term (current) use of anticoagulants; Z79.899 Other long term (current) drug therapy; Z20.822 Contact with and (suspected) exposure to COVID-19
CPT/HCPCS: 0241U; 36415; 70450; 71045; 80053; 81001; 82550; 83605; 83690; 84145; 84484; 85025; 85610; 85730; 93005; 93010; 99284

== ENCOUNTER 2023-08-16 12:58 | Inpatient (IN) | payer MEDICARE, OTHER, SELFPAY ==
[2023-07-18 20:06] VITALS: BMI 22.8
[2023-08-16] VITALS (25 sets, daily range): BP systolic 88–128; BP diastolic 45–60; PULSE 66–87; RESP 13–26; TEMP 36.3–36.8; O2SAT 94–100; BMI 22.1
--- NOTE | 2023-08-16 13:31 | DI.RAD.S_ITS ---
PROCEDURE: XR CHEST 1V INDICATIONS: weakness TECHNIQUE: One view of the chest was acquired. COMPARISON: [facility], CR, XR CHEST 1V, 07/30/2023, 10:34. [facility], CR, XR CHEST 2V, 12/06/2019, 15:57. FINDINGS: Surgical changes and devices: Partially seen left shoulder arthroplasty Lungs and pleura: No dense airspace disease. Small right pleural effusion versus thickening as before Mediastinum: Normal heart size Bones and chest wall: Degenerative changes. IMPRESSION: Similar small right pleural effusion versus thickening. No new airspace disease or enlarging effusion. Dictated by: Josh Maynard M.D. on 08/16/2023 at 14:11 Approved by: Josh Maynard M.D. on 08/16/2023 at 14:12
--- NOTE | 2023-08-16 13:33 | ED_ITS ---
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 This has been an ongoing issue for a number of months when she required a blood transfusion secondary to GI bleeding in April of this year. She was seen July 29 in the emergency department for similar findings with extensive and unrevealing workup done. She does have Neurology follow up to discuss possibility of worsening post-polio syndrome. She was diagnosed with myasthenia gravis but has been remission for the last 5 years and describes this weakness as decidedly different. She has not had any vomiting no black or red stools she notes that she has definitely had a decreased appetite and over the last year has lost around 80 lb. She is wondering if her blood pressure medications may need to be lowered or discontinued with all that weight loss. She continues to use a walker and has done so for the last number of years. She does not report fevers, cough, chills. No nausea or vomiting. Global weakness to the point that it is taking her almost an hour to get dressed for seems to be progressive. Related Data Home Medications Medication Instructions Recorded Confirmed Centrum for Women w/D3 1 tab PO DAILY 11/30/19 07/18/23 acetaminophen 500 mg tablet 1,000 mg PO BID PRN Pain (Scale 05/18/23 07/18/23 (Acetaminophen Extra Strength) Score 4-6) cephalexin 250 mg tablet 250 mg PO BEDTIME 07/18/23 07/18/23 Previous Rx's Medication Instructions Recorded amlodipine 5 mg tablet 5 mg PO DAILY #90 tabs 05/25/23 hydrochlorothiazide 25 mg tablet 25 mg PO DAILY swelling #90 tabs 05/25/23 levothyroxine 100 mcg tablet 100 mcg PO QDAY #90 tabs 05/25/23 lisinopril 20 mg tablet 20 mg PO DAILY #90 tabs 05/25/23 omeprazole 20 mg capsule,delayed 20 mg PO BID #60 caps 05/25/23 release rivaroxaban 15 mg (42)-20 mg (9) See Rx Instructions PO .COMPLEX 07/19/23 tablets in a starter pack #51 ea Allergies Allergy/AdvReac Type Severity Reaction Status Date / Time Sulfa (Sulfonamide Allergy Severe HIVES FROM Verified 08/16/23 13:23 Antibiotics) SULFA CREAM [SULFA (SULFONAMIDE ANTIBIOTICS)] Review of Systems Review of Systems Narrative: Pertinent positive and negative findings as per HPI Patient History Medical History Elevated INR Herpes zoster CKD (chronic kidney disease) stage 3, GFR 30-59 ml/min Arthritis, multiple joint involvement Frequent urinary tract infections Chicken pox (~194) Hyperthyroidism (~1992) [facility] Shoulder pain History of eczema Polio History of chickenpox History of urinary incontinence History of ulcerative colitis History of gastric ulcer History of diverticulitis History of colitis History of skin cancer History of diabetes mellitus Type 2 diabetes mellitus without complication, without long-term current use of insulin (12/29/16) Surgical History History of shoulder replacement History of cholecystectomy Status post cholecystectomy History of knee replacement History of hip replacement Family History Sister Age: 81 Heart disease Father No problems noted. Mother Myocardial infarction Brother No problems noted. Brother No problems noted. Social History marital status: household members: spouse and children Smoking Status: Former smoker alcohol intake: former substance use type: does not use Smoking Status: Former smoker alcohol intake frequency: holidays/special occasions only Substance Use Type: does not use Exam Initial Vital Signs Initial Vital Signs: Vital Signs Temperature 98.3 F 08/16/23 13:00 Pulse Rate 84 08/16/23 13:00 Respiratory Rate 16 08/16/23 13:00 Blood Pressure 125/57 L 08/16/23 13:00 Pulse Oximetry 98 08/16/23 13:00 Oxygen Delivery Method Room Air 08/16/23 13:00 General: Older appearing, quite thin, in no acute distress. Able to give a complete and coherent history. HEENT: Moist mucous membranes, normal sclera with reactive pupils, Neck: No JVD, prominent right sternoclavicular joint without tenderness Respiratory: Lungs are clear to auscultation, no wheezing no rales no rhonchi. Full and symmetrical air movement Cardiac: Regular rate and rhythm no murmurs no bruits Abdomen: Soft, nontender, good bowel tones, no flank pain Skin: Warm and dry, no rashes Neurologic: Left-sided weakness on post-polio syndrome patient's feels is at her baseline. No new focal neurologic findings, global weakness is noted Extremities: No trauma, compression socks to the thighs are in place Psych: Cooperative, appropriate insight and affect Course Orders Ordered: ED Orders 08/16/23 13:31 XR chest 1V Stat 08/16/23 13:32 EKG-12 Lead Stat 08/16/23 13:50 Respiratory Panel (Film Array) Stat 08/16/23 14:35 Urinalysis and Microscopic Stat Urine Culture Stat 08/16/23 14:45 Complete Blood Count AUTO DIFF Stat Comprehensive Metabolic Panel Stat Lactate (Lactic Acid) Stat Lipase Stat Magnesium Stat Troponin I Stat 08/16/23 15:15 Blood Culture Stat 08/16/23 16:11 Potassium Stat Type and Screen Stat EKG-12 Lead Stat 08/16/23 16:16 Hemoglobin and Hematocrit Stat Sodium Chloride (Sodium Chloride 0.9% Flush) 10 ml IV BID EBONI Last Admin: 08/16/23 15:09 Dose: 10 ml Documented By: ROBERT Sodium Chloride (Sodium Chloride 0.9% Flush) 10 ml IV PRN PRN PRN Reason: Flush Discontinued Medications Sodium Chloride (Normal Saline 0.9%) 1,000 mls @ 1,000 mls/hr IV BOLUS ONE Stop: 08/16/23 14:30 Last Admin: 08/16/23 15:08 Dose: 1,000 mls/hr Documented By: ROBERT Magnesium Sulfate (Magnesium Sulfate) 2 gm in 50 mls @ 150 mls/hr IV NOW ONE Stop: 08/16/23 16:30 Last Infusion: 08/16/23 16:29 Dose: 50 mls/hr Vital Signs Vital signs: Vital Signs - 8 hr 08/16/23 13:00 08/16/23 13:09 08/16/23 13:23 Temperature 98.3 F Pulse Rate 84 77 75 Respiratory Rate 16 Blood Pressure 125/57 L Pulse Oximetry 98 98 100 Oxygen Delivery Method Room Air 08/16/23 13:23 08/16/23 13:24 08/16/23 13:24 Temperature Pulse Rate 75 Respiratory Rate Blood Pressure 88/53 L 93/52 L Pulse Oximetry 100 Oxygen Delivery Method 08/16/23 13:30 08/16/23 13:30 08/16/23 13:45 Temperature Pulse Rate 72 Respiratory Rate 13 Blood Pressure 96/54 L 108/55 L Pulse Oximetry 96 Oxygen Delivery Method 08/16/23 13:45 08/16/23 14:00 08/16/23 14:01 Temperature Pulse Rate 71 72 Respiratory Rate 26 H 23 Blood Pressure 115/45 L Pulse Oximetry 99 99 Oxygen Delivery Method 08/16/23 14:01 08/16/23 14:15 08/16/23 14:15 Temperature Pulse Rate 76 70 Respiratory Rate 25 H 22 Blood Pressure 97/53 L Pulse Oximetry 100 97 Oxygen Delivery Method 08/16/23 14:33 08/16/23 14:36 08/16/23 14:36 Temperature Pulse Rate 80 66 Respiratory Rate 17 Blood Pressure 111/53 L Pulse Oximetry 94 Oxygen Delivery Method 08/16/23 14:45 08/16/23 14:45 08/16/23 15:00 Temperature Pulse Rate 66 72 Respiratory Rate 14 24 Blood Pressure 105/51 L Pulse Oximetry 100 100 Oxygen Delivery Method Room Air 08/16/23 15:00 08/16/23 15:15 08/16/23 15:15 Temperature Pulse Rate 66 Respiratory Rate 22 Blood Pressure 120/58 L 108/58 L Pulse Oximetry 96 Oxygen Delivery Method 08/16/23 15:30 08/16/23 15:30 08/16/23 15:45 Temperature Pulse Rate 67 Respiratory Rate 15 Blood Pressure 117/54 L 111/56 L Pulse Oximetry 95 Oxygen Delivery Method 08/16/23 15:45 08/16/23 16:00 08/16/23 16:00 Temperature Pulse Rate 87 72 Respiratory Rate 17 18 Blood Pressure 114/58 L Pulse Oximetry 95 100 Oxygen Delivery Method 08/16/23 16:15 08/16/23 16:15 08/16/23 16:30 Temperature Pulse Rate 74 Respiratory Rate 19 Blood Pressure 124/56 L 128/58 L Pulse Oximetry 100 Oxygen Delivery Method 08/16/23 16:30 08/16/23 16:45 08/16/23 16:45 Temperature Pulse Rate 79 78 Respiratory Rate 21 18 Blood Pressure 125/60 Pulse Oximetry 99 Oxygen Delivery Method 08/16/23 17:00 08/16/23 17:00 Temperature Pulse Rate 69 Respiratory Rate 19 Blood Pressure 121/58 L Pulse Oximetry 100 Oxygen Delivery Method Medical Decision Making Lab Data 08/16/23 16:16 08/16/23 16:16 Labs: Lab Results 08/16/23 08/16/23 08/16/23 Range/Units 13:50 14:35 14:45 WBC 6.0 (4.5-11.0) X10^3/uL RBC 2.80 L (4.0-5.2) X10^6/uL Hgb 9.0 L (12.0-16.0) g/dL Hct 26.9 L (36-46) % MCV 96.1 (80-100) fL MCH 32.1 (26-34) PG MCHC 33.4 (30-36) % RDW 15.1 H (11.6-14.8) % Plt Count 171 (150-400) X10^3/uL Neut % (Auto) 64.1 (50-75) % Lymph % (Auto) 27.2 (25-40) % [place] % (Auto) 5.6 (3-14) % Eos % (Auto) 1.7 L (2-4) % Baso % (Auto) 1.4 (0-2) % Neut # (Auto) 3800 (4780-4473) /uL Lymph # (Auto) 1600 (1614-5632) /uL [place] # (Auto) 300 (0-900) /uL Eos # (Auto) 100 (0-450) /uL Baso # (Auto) 100 (0-100) /uL Sodium 138 (137-145) mmol/L Potassium 6.2 H (3.4-5.1) mmol/L Chloride 115 H (98-107) mmol/L Carbon Dioxide 20 L (22-32) mmol/L BUN 24 H (7-17) mg/dL Creatinine 1.30 H (0.52-1.04) mg/dL Estimated GFR 41 L (>60) mL/min BUN/Creatinine Ratio 18.5 (6-22) Glucose 96 (80-110) mg/dL Lactate 1.7 (0.7-2.1) mmol/L Calcium 7.6 L (8.4-10.2) mg/dL Magnesium 1.2 L (1.6-2.3) mg/dL Total Bilirubin 0.4 (0.2-1.3) mg/dL AST 35 (14-36) IU/L ALT 23 (<35) IU/L Alkaline Phosphatase 67 (38-126) U/L Troponin I < 0.012 (0.01-0.034) ng/mL Total Protein 5.6 L (6.3-8.2) g/dL Albumin 2.4 L (3.5-5.0) g/dL Globulin 3.2 (1.7-4.1) g/dL Albumin/Globulin Ratio 0.8 L (1.0-2.8) Lipase 12 L (23-300) U/L Urine Color Yellow Urine Appearance Clear Urine pH 5.5 (4.5-8.0) Ur Specific [place] 1.020 (1.000-1.035) Urine Protein Negative (Negative) Urine Glucose (UA) Negative (Negative) g/dL Urine Ketones Trace H (NEGATIVE) Urine Occult Blood Negative (Negative) Urine Nitrate Negative (Negative) Urine Bilirubin Negative (NEGATIVE) Urine Urobilinogen 0.2 (0.2) E.U./dL Ur Leukocyte Esterase Trace H (NEGATIVE) Urine RBC None seen (0-5/HPF) Urine WBC 5-10/hpf H (0-5/HPF) Ur Squamous Epith Cells 10-30 /hpf H (0-5/HPF) Ur Transition Epith Cell 1-5/hpf (0-5/HPF) Ur Renal Epithelial Cell None seen (0-1/HPF) Urine Bacteria Occasional (0-1) (None) Ur Culture Indicated? Specimen cultured Vol Urine Centrifuged 10ml (spun) Chlamy pneumoniae PCR Not detected (Not Detect) Adenovirus (PCR) Not detected (Not Detect) B.parapertussis DNA PCR Not detected (Not Detecte) Coronavirus OC43 (PCR) Not detected (Not Detect) Coronavirus HKU1 (PCR) Not detected (Not Detect) Coronavirus 229E (PCR) Not detected (Not Detect) SARS-CoV-2 (PCR) Not detected (Not Detecte) Coronavirus NL63 (PCR) Not detected (Not Detect) Human Metapneumovir PCR Not detected (Not Detect) Influenza Type A (PCR) Not detected (Not Detect) Influenza Type B (PCR) Not detected (Not Detect) M. pneumoniae (PCR) Not detected (Not Detect) Parainfluenza 1 (PCR) Not detected (Not Detect) Parainfluenza 2 (PCR) Not detected (Not Detect) Parainfluenza 3 (PCR) Not detected (Not Detect) Parainfluenza 4 (PCR) Not detected (Not Detect) RSV (PCR) Not detected (Not Detect) Entero/Rhino (PCR) Not detected (Not Detect) Blood Type A Positive Antibody Screen Negative 08/16/23 Range/Units 16:16 WBC (4.5-11.0) X10^3/uL RBC (4.0-5.2) X10^6/uL Hgb 8.1 L (12.0-16.0) g/dL Hct 24.5 L (36-46) % MCV (80-100) fL MCH (26-34) PG MCHC (30-36) % RDW (11.6-14.8) % Plt Count (150-400) X10^3/uL Neut % (Auto) (50-75) % Lymph % (Auto) (25-40) % [place] % (Auto) (3-14) % Eos % (Auto) (2-4) % Baso % (Auto) (0-2) % Neut # (Auto) (9410-4218) /uL Lymph # (Auto) (2726-6917) /uL [place] # (Auto) (0-900) /uL Eos # (Auto) (0-450) /uL Baso # (Auto) (0-100) /uL Sodium (137-145) mmol/L Potassium 5.7 H (3.4-5.1) mmol/L Chloride (98-107) mmol/L Carbon Dioxide (22-32) mmol/L BUN (7-17) mg/dL Creatinine (0.52-1.04) mg/dL Estimated GFR (>60) mL/min BUN/Creatinine Ratio (6-22) Glucose (80-110) mg/dL Lactate (0.7-2.1) mmol/L Calcium (8.4-10.2) mg/dL Magnesium (1.6-2.3) mg/dL Total Bilirubin (0.2-1.3) mg/dL AST (14-36) IU/L ALT (<35) IU/L Alkaline Phosphatase (38-126) U/L Troponin I (0.01-0.034) ng/mL Total Protein (6.3-8.2) g/dL Albumin (3.5-5.0) g/dL Globulin (1.7-4.1) g/dL Albumin/Globulin Ratio (1.0-2.8) Lipase (23-300) U/L Urine Color Urine Appearance Urine pH (4.5-8.0) Ur Specific [place] (1.000-1.035) Urine Protein (Negative) Urine Glucose (UA) (Negative) g/dL Urine Ketones (NEGATIVE) Urine Occult Blood (Negative) Urine Nitrate (Negative) Urine Bilirubin (NEGATIVE) Urine Urobilinogen (0.2) E.U./dL Ur Leukocyte Esterase (NEGATIVE) Urine RBC (0-5/HPF) Urine WBC (0-5/HPF) Ur Squamous Epith Cells (0-5/HPF) Ur Transition Epith Cell (0-5/HPF) Ur Renal Epithelial Cell (0-1/HPF) Urine Bacteria (None) Ur Culture Indicated? Vol Urine Centrifuged Chlamy pneumoniae PCR (Not Detect) Adenovirus (PCR) (Not Detect) B.parapertussis DNA PCR (Not Detecte) Coronavirus OC43 (PCR) (Not Detect) Coronavirus HKU1 (PCR) (Not Detect) Coronavirus 229E (PCR) (Not Detect) SARS-CoV-2 (PCR) (Not Detecte) Coronavirus NL63 (PCR) (Not Detect) Human Metapneumovir PCR (Not Detect) Influenza Type A (PCR) (Not Detect) Influenza Type B (PCR) (Not Detect) M. pneumoniae (PCR) (Not Detect) Parainfluenza 1 (PCR) (Not Detect) Parainfluenza 2 (PCR) (Not Detect) Parainfluenza 3 (PCR) (Not Detect) Parainfluenza 4 (PCR) (Not Detect) RSV (PCR) (Not Detect) Entero/Rhino (PCR) (Not Detect) Blood Type Antibody Screen Urine Dip Bedside Urine Glucose Negative Bedside Urine Bilirubin - Negative Bedside Urine Ketone - Negative Urine Specific [place] 1.020 Bedside Urine Occult Blood - Negative Bedside Urine pH 5.0 Bedside Urine Protein - Negative Bedside Urine Urobilinogen - Negative Bedside Urine Nitrite - Negative Bedside Urine Leukocytes - Negative Esterase Point of care testing: Urine Dip Bedside Urine Glucose Negative Bedside Urine Bilirubin - Negative Bedside Urine Ketone - Negative Urine Specific [place] 1.020 Bedside Urine Occult Blood - Negative Bedside Urine pH 5.0 Bedside Urine Protein - Negative Bedside Urine Urobilinogen - Negative Bedside Urine Nitrite - Negative Bedside Urine Leukocytes - Negative Esterase MDM Narrative Medical decision making narrative: CC: Progressive global weakness Complicating co-morbidities: Hypothyroidism, recent GI bleed, anticoagulated for prior DVT, history of myasthenia gravis in remission for the last 5 years, post-polio syndrome Data collected from: patient, Medical records reviewed: Extensive workup for similar complaint done on July 29 is reviewed including labs and imaging studies Upper endoscopy done for GI bleeding on May 19 with gastritis, no active hemorrhage, small clots within the body of the stomach, no duodenal ulcer Differential considered: Anemia, viral syndrome, neoplastic process, sepsis, recurrent GI bleeding Exam documented above, pertinent findings include: Patient is cognitively entirely appropriate, pale, generally weak, left-sided weakness from her post- polio syndrome Lab Test results independently reviewed as above. Pertinent findings: -CBC does not show leukocytosis however her H&H has dropped fairly significantly from July 29. Had been at 11.6 and 35.8 and today is at 9 and 26.9. Comparison is low of 7 and 22.2 with the large GI bleed appreciated in April -Chemistries show potassium elevated at 6.2 with decreased renal function at creatinine of 1.3 which is close to her baseline. -Magnesium low at 1.2 -Lactic acid is within normal limits no evidence of sepsis -Liver enzymes are unremarkable -Initial troponin is undetectable -Lipase is appropriate no suggestion of pancreatitis -Urine has trace leukocyte esterase trace ketones 5-10 white blood cells multiple squamous epithelial cells occasional bacteria. Specimen has been cultured but in the absence of dysuria or fever I do not think this is a urinary tract infection. Antibiotics were held until culture returns suggesting otherwise Independently reviewed EKG: Sinus rhythm at a rate of 85. Normal intervals, normal axis. No evidence of widened QRS or peaked T-waves to suggest symptomatic hyperkalemia Imaging studies independently reviewed: CT scan of the head was done on July 29 and was unremarkable. This was done for similar indications and not indicated for repeat today Treatments: Fluids, magnesium, potassium is rechecked confirm that it truly is elevated Discussion: 82-year-old woman presents with recurrent complaints of significant weakness. She has had admission in April for an upper GI bleed with endoscopy that showed mild gastritis. She is stopped her Naprosyn and is currently on a proton pump inhibitor, she remains on Xarelto. She was admitted again the end of June with DVT which is were the Xarelto was restarted. She was seen on July 29 with complaints of weakness with no obvious identifier. Today she is significantly more anemic than she was 2 weeks ago. Hemoglobin has dropped from 11.6-9.0. She has not describing black or dark stools. No obvious bleeding source has been identified. Repeat H&H after a L of fluid shows hemoglobin dropping to 8.1. She is noted to be significantly hyperkalemic with mild chronic kidney disease. Potassium after a L of fluid and on re-evaluation remains elevated at 5.6. There are no acute EKG changes Magnesium is low and being replaced this certainly could contribute to her overall weakness. There was no evidence of sepsis. She currently is on Keflex at bedtime to prevent urinary tract infection. Sample today has quite a few squamous cells she is asymptomatic otherwise. We will wait for culture prior to adding any additional antibiotics. There was no evidence of acute coronary syndrome. TSH was checked in the end of June and was appropriate. I do not suspect dramatic hypothyroidism. With her continued progressive weakness the noted anemia and electrolyte abnormalities without obvious etiology will talk to our hospitalist service and suggest admission for further evaluation. Discharge Plan Departure Patient Disposition: Admitted as Observation Clinical Impression: Acute anemia, Weakness, Acute hyperkalemia, Hypomagnesemia Admit Date/Time: 08/16/23 17:05 Admit Provider: Ariel Wyman
[2023-08-16 14:49] LABS: Appearance Urine UA CLEAR; Bilirubin Urine UA NEGATIVE (NEGATIVE); Color Urine UA YELLOW; Glucose Urine UA NEGATIVE (Negative); Ketones Urine UA TRACE (NEGATIVE); Leukocyte Esterase Urine UA TRACE (NEGATIVE); Nitrite Urine UA NEGATIVE (Negative); Occult Blood Urine UA NEGATIVE (Negative); Protein Urine UA NEGATIVE (Negative); Urobilinogen Urine UA 0.2 E.U./dL (0.2)
[2023-08-16 14:53] LABS: pH Urine UA 5.5 (4.5-8.0)
[2023-08-16 14:57] LABS: Bacteria Urine Occasional (0-1); Culture Indicated Urine Specimen Cultured; RBC Urine None Seen (0-5/HPF); Renal Epithelial Cells Urine None Seen (0-1/HPF); Squamous Epithelial Cell Urine 10-30 /HPF (0-5/HPF); Transitional Epi Cells Urine 1-5/HPF (0-5/HPF); Urine Volume 10mL (spun); WBC Urine 5-10/HPF (0-5/HPF)
[2023-08-16 15:05] LABS: Adenovirus Not Detected (Not Detect); B. parapertussis Not Detected (Not Detecte); Bordetella pertussis Not Detected (Not Detect); Chlamydophila pneumoniae Not Detected (Not Detect); Coronavirus 229E Not Detected (Not Detect); Coronavirus HKU1 Not Detected (Not Detect); Coronavirus NL 63 Not Detected (Not Detect); Coronavirus OC43 Not Detected (Not Detect); Human Metapneumovirus Not Detected (Not Detect); Human Rhinovirus/Enterovirus Not Detected (Not Detect); Influenza A Not Detected (Not Detect); Influenza B Not Detected (Not Detect); Mycoplasma pneumoniae Not Detected (Not Detect); Parainfluenza Virus 1 Not Detected (Not Detect); Parainfluenza Virus 2 Not Detected (Not Detect); Parainfluenza Virus 3 Not Detected (Not Detect); Parainfluenza Virus 4 Not Detected (Not Detect); Respiratory Syncytial Virus Not Detected (Not Detect); SARS- CoV-2 Not Detected (Not Detecte)
[2023-08-16 15:08] LABS: Add Manual Diff / Slide Review NO; Basophils Absolute Auto 100 /uL (0-100); Basophils Percent Auto 1.4 % (0-2); Eosinophils Absolute Auto 100 /uL (0-450); Eosinophils Percent Auto 1.7 % (2-4); Hematocrit 26.9 % (36-46); Lymphocytes Absolute Auto 1600 /uL (1100-4500); Lymphocytes Percent Auto 27.2 % (25-40); Mean Corpuscular HGB Conc 33.4 % (30-36); Mean Corpuscular Hemoglobin 32.1 PG (26-34); Mean Corpuscular Volume 96.1 fL (80-100); Monocytes Absolute Auto 300 /uL (0-900); Monocytes Percent Auto 5.6 % (3-14); Neutrophils Absolute Auto 3800 /uL (1500-7000); Neutrophils Percent Auto 64.1 % (50-75); Platelet Count 171 X10^3/uL (150-400); Red Cell Distribution Width 15.1 % (11.6-14.8)
[2023-08-16] MEDS: SODIUM CHLORIDE 0.9% 1,000 ML 1000 ML IV (15:08)
[2023-08-16] MEDS: SODIUM CHLORIDE 0.9% FLUSH 10 ML IV ×2 (15:09→20:47)
[2023-08-16 15:19] LABS: Lactate (Lactic Acid) 1.7 mmol/L (0.7-2.1)
[2023-08-16 15:20] LABS: Alanine Aminotransferase 23 IU/L (<35); Albumin 2.4 g/dL (3.5-5.0); Albumin Globulin Ratio 0.8 (1.0-2.8); Alkaline Phosphatase 67 U/L (38-126); Aspartate Aminotransferase 35 IU/L (14-36); BUN Creatinine Ratio 18.5 (6-22); Bilirubin Total 0.4 mg/dL (0.2-1.3); Blood Urea Nitrogen 24 mg/dL (7-17); Calcium 7.6 mg/dL (8.4-10.2); Carbon Dioxide 20 mmol/L (22-32); Chloride 115 mmol/L (98-107); Estimated Glomerular Filt Rate 41 mL/min (>60); Globulin 3.2 g/dL (1.7-4.1); Glucose 96 mg/dL (80-110); HEMOLYSIS < 15 (0-50); Lipase 12 U/L (23-300); Magnesium 1.2 mg/dL (1.6-2.3); Sodium 138 mmol/L (137-145); Total Protein 5.6 g/dL (6.3-8.2)
[2023-08-16 15:25] LABS: Potassium 6.2 mmol/L (3.4-5.1)
[2023-08-16 15:32] LABS: Troponin I < 0.012 ng/mL (0.01-0.034)
[2023-08-16 16:27] LABS: Hematocrit 24.5 % (36-46); Hemoglobin 8.1 g/dL (12.0-16.0)
[2023-08-16] MEDS: MAGNESIUM SULFATE 2 GM/50 ML PIGGYBACK IV (16:29)
[2023-08-16 16:40] LABS: HEMOLYSIS 28 (0-50)
[2023-08-16 16:41] LABS: Potassium 5.7 mmol/L (3.4-5.1)
--- NOTE | 2023-08-16 17:58 | PM.HP.1 ---
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 This has been an ongoing issue for a number of months when she required a blood transfusion secondary to GI bleeding in April of this year. She was seen July 29 in the emergency department for similar findings with extensive and unrevealing workup done. She does have Neurology follow up to discuss possibility of worsening post-polio syndrome. She was diagnosed with myasthenia gravis but has been remission for the last 5 years and describes this weakness as decidedly different. She has not had any vomiting no black or red stools she notes that she has definitely had a decreased appetite and over the last year has lost around 80 lb. She is wondering if her blood pressure medications may need to be lowered or discontinued with all that weight loss. She continues to use a walker and has done so for the last number of years. She does not report fevers, cough, chills. No nausea or vomiting. Global weakness to the point that it is taking her almost an hour to get dressed for seems to be progressive. Additional info: She has a very interesting history of post-polio syndrome. She sees a neurologist at [facility] for this. This primarily as affected her from the waist down. She notes primarily that her left leg is typically the most weak and she is limited movement of her left foot especially her toes. Recently however she has had increased weakness of her right leg. This is primarily been proximal weakness of her right hip greater than her left hip. She still has relatively good muscle strength at her knees and ankles of both feet. She has had great difficulty using her walker recently because it is hard for her to get out of a chair. She denies any back pain or radicular symptoms. No fevers or chills. She did have myasthenia gravis diagnosed in 2001 and was on medications including CellCept and Mestinon until she went into remission about 6 years ago. Mg effects her with eyelid weakness and diplopia and she has had none of the symptoms. She was seen by Dr. Barker [facility] for her myasthenia and is sure that that is not the current problem. Her hyper kalemia and abnormal magnesium are new. Her creatinine is stable at 1.3. She denies any gross rectal bleeding. She has had rectal bleeding several times and did have endoscopy relatively recently revealing gastritis. Most recently she has had brown stool and no evidence of bleeding even though her hemoglobin is slightly lower today. She takes Xarelto and does not like this drug for numerous reasons including a multitude of side effects that include abdominal cramping and abnormally colored stool. She was open to switching anticoagulants if she was able to resume but has a very specific pharmacy to use if this is the case. She notes that she came off from Xarelto for 2 months and had a recurrent DVT. She had been on Xarelto for several years for previous DVT. She has no weakness from the waist up. [facility] Medical History Elevated INR Herpes zoster CKD (chronic kidney disease) stage 3, GFR 30-59 ml/min Arthritis, multiple joint involvement Frequent urinary tract infections Chicken pox (~1946) Hyperthyroidism (~1992) History of [place] fever Shoulder pain History of eczema Polio History of chickenpox History of urinary incontinence History of ulcerative colitis History of gastric ulcer History of diverticulitis History of colitis History of skin cancer History of diabetes mellitus Type 2 diabetes mellitus without complication, without long-term current use of insulin (12/29/16) Surgical History History of shoulder replacement History of cholecystectomy Status post cholecystectomy History of knee replacement History of hip replacement Family History Sister Age: 81 Heart disease Father No problems noted. Mother Myocardial infarction Brother No problems noted. Brother No problems noted. Social History marital status: household members: spouse and children Smoking Status: Former smoker alcohol intake: former substance use type: does not use Meds Home Medications and Allergies Home Medications Medication Instructions Recorded Confirmed Type Centrum for Women w/D3 1 tab PO DAILY 11/30/19 07/18/23 History acetaminophen 500 mg tablet 1,000 mg PO BID PRN Pain (Scale 05/18/23 07/18/23 History (Acetaminophen Extra Strength) Score 4-6) amlodipine 5 mg tablet 5 mg PO DAILY #90 tabs 05/25/23 07/18/23 Rx hydrochlorothiazide 25 mg tablet 25 mg PO DAILY swelling #90 tabs 05/25/23 07/18/23 Rx levothyroxine 100 mcg tablet 100 mcg PO QDAY #90 tabs 05/25/23 07/18/23 Rx lisinopril 20 mg tablet 20 mg PO DAILY #90 tabs 05/25/23 07/18/23 Rx omeprazole 20 mg capsule,delayed 20 mg PO BID #60 caps 05/25/23 07/18/23 Rx release cephalexin 250 mg tablet 250 mg PO BEDTIME 07/18/23 07/18/23 History rivaroxaban 15 mg (42)-20 mg (9) See Rx Instructions PO .COMPLEX 07/19/23 Rx tablets in a starter pack #51 ea Allergies Allergy/AdvReac Type Severity Reaction Status Date / Time Sulfa (Sulfonamide Allergy Severe HIVES FROM Verified 08/16/23 13:23 Antibiotics) SULFA CREAM [SULFA (SULFONAMIDE ANTIBIOTICS)] Review of Systems Review of Systems Narrative: All else reviewed and otherwise unremarkable except as noted in the history and physical. Exam Vital Signs (past 8 hours): - 08/16/23 13:00 08/16/23 13:09 08/16/23 13:23 Temperature 98.3 F Pulse Rate 84 77 75 Respiratory Rate 16 Blood Pressure 125/57 L Pulse Oximetry 98 98 100 Oxygen Delivery Method Room Air 08/16/23 13:23 08/16/23 13:24 08/16/23 13:24 Temperature Pulse Rate 75 Respiratory Rate Blood Pressure 88/53 L 93/52 L Pulse Oximetry 100 Oxygen Delivery Method 08/16/23 13:30 08/16/23 13:30 08/16/23 13:45 Temperature Pulse Rate 72 Respiratory Rate 13 Blood Pressure 96/54 L 108/55 L Pulse Oximetry 96 Oxygen Delivery Method 08/16/23 13:45 08/16/23 14:00 08/16/23 14:01 Temperature Pulse Rate 71 72 Respiratory Rate 26 H 23 Blood Pressure 115/45 L Pulse Oximetry 99 99 Oxygen Delivery Method 08/16/23 14:01 08/16/23 14:15 08/16/23 14:15 Temperature Pulse Rate 76 70 Respiratory Rate 25 H 22 Blood Pressure 97/53 L Pulse Oximetry 100 97 Oxygen Delivery Method 08/16/23 14:33 08/16/23 14:36 08/16/23 14:36 Temperature Pulse Rate 80 66 Respiratory Rate 17 Blood Pressure 111/53 L Pulse Oximetry 94 Oxygen Delivery Method 08/16/23 14:45 08/16/23 14:45 08/16/23 15:00 Temperature Pulse Rate 66 72 Respiratory Rate 14 24 Blood Pressure 105/51 L Pulse Oximetry 100 100 Oxygen Delivery Method Room Air 08/16/23 15:00 08/16/23 15:15 08/16/23 15:15 Temperature Pulse Rate 66 Respiratory Rate 22 Blood Pressure 120/58 L 108/58 L Pulse Oximetry 96 Oxygen Delivery Method 08/16/23 15:30 08/16/23 15:30 08/16/23 15:45 Temperature Pulse Rate 67 Respiratory Rate 15 Blood Pressure 117/54 L 111/56 L Pulse Oximetry 95 Oxygen Delivery Method 08/16/23 15:45 08/16/23 16:00 08/16/23 16:00 Temperature Pulse Rate 87 72 Respiratory Rate 17 18 Blood Pressure 114/58 L Pulse Oximetry 95 100 Oxygen Delivery Method 08/16/23 16:15 08/16/23 16:15 08/16/23 16:30 Temperature Pulse Rate 74 Respiratory Rate 19 Blood Pressure 124/56 L 128/58 L Pulse Oximetry 100 Oxygen Delivery Method 08/16/23 16:30 08/16/23 16:45 08/16/23 16:45 Temperature Pulse Rate 79 78 Respiratory Rate 21 18 Blood Pressure 125/60 Pulse Oximetry 99 Oxygen Delivery Method 08/16/23 17:00 08/16/23 17:00 08/16/23 17:15 Temperature Pulse Rate 69 78 Respiratory Rate 19 13 Blood Pressure 121/58 L Pulse Oximetry 100 100 Oxygen Delivery Method 08/16/23 17:15 08/16/23 17:30 08/16/23 17:30 Temperature Pulse Rate 77 Respiratory Rate 21 Blood Pressure 113/55 L 115/57 L Pulse Oximetry 100 Oxygen Delivery Method Room Air Oxygen Delivery Method Room Air Narrative Exam Narrative: NAD, alert and oriented, fluent speech, calm. Normocephalic skull, EOMI, anicteric sclera, symmetric pupils. Oropharynx unremarkable, no droop. Neck supple, midline trachea, no adenopathy. Lungs clear, normal rate and effort. Heart regular, no murmur gallop or rub. Abdomen is soft, non distended and non tender. Extremities are free of edema. Skin is free of rash or lesions. Joints are not swollen or deformed. Judgment appears to be normal. No diplopia or ptosis. She can not lift her right leg up in the gurney at the hip or her left leg. She can extend both legs at the knees. She is good plantar and dorsiflexion of the right foot and less so of the left foot. She can not move the toes on the left foot which is chronic from her post-polio syndrome. Objective Imaging Chest x-ray: Radiologist's impression: Similar small right pleural effusion versus thickening. No new airspace disease or enlarging effusion. Labs 08/16/23 16:16 08/16/23 16:16 Labs: Laboratory Results - last 24 hr 08/16/23 08/16/23 08/16/23 13:50 14:35 14:45 WBC 6.0 RBC 2.80 L Hgb 9.0 L Hct 26.9 L MCV 96.1 MCH 32.1 MCHC 33.4 RDW 15.1 H Plt Count 171 Neut % (Auto) 64.1 Lymph % (Auto) 27.2 [place] % (Auto) 5.6 Eos % (Auto) 1.7 L Baso % (Auto) 1.4 Neut # (Auto) 3800 Lymph # (Auto) 1600 [place] # (Auto) 300 Eos # (Auto) 100 Baso # (Auto) 100 Sodium 138 Potassium 6.2 H Chloride 115 H Carbon Dioxide 20 L BUN 24 H Creatinine 1.30 H Estimated GFR 41 L BUN/Creatinine Ratio 18.5 Glucose 96 Lactate 1.7 Calcium 7.6 L Magnesium 1.2 L Total Bilirubin 0.4 AST 35 ALT 23 Alkaline Phosphatase 67 Troponin I < 0.012 Total Protein 5.6 L Albumin 2.4 L Globulin 3.2 Albumin/Globulin Ratio 0.8 L Lipase 12 L Urine Color Yellow Urine Appearance Clear Urine pH 5.5 Ur Specific [facility] 1.020 Urine Protein Negative Urine Glucose (UA) Negative Urine Ketones Trace H Urine Occult Blood Negative Urine Nitrate Negative Urine Bilirubin Negative Urine Urobilinogen 0.2 Ur Leukocyte Esterase Trace H Urine RBC None seen Urine WBC 5-10/hpf H Ur Squamous Epith Cells 10-30 /hpf H Ur Transition Epith Cell 1-5/hpf Ur Renal Epithelial Cell None seen Urine Bacteria Occasional (0-1) Ur Culture Indicated? Specimen cultured Vol Urine Centrifuged 10ml (spun) Chlamy pneumoniae PCR Not detected Adenovirus (PCR) Not detected B.parapertussis DNA PCR Not detected Coronavirus OC43 (PCR) Not detected Coronavirus HKU1 (PCR) Not detected Coronavirus 229E (PCR) Not detected SARS-CoV-2 (PCR) Not detected Coronavirus NL63 (PCR) Not detected Human Metapneumovir PCR Not detected Influenza Type A (PCR) Not detected Influenza Type B (PCR) Not detected M. pneumoniae (PCR) Not detected Parainfluenza 1 (PCR) Not detected Parainfluenza 2 (PCR) Not detected Parainfluenza 3 (PCR) Not detected Parainfluenza 4 (PCR) Not detected RSV (PCR) Not detected Entero/Rhino (PCR) Not detected Blood Type A Positive Antibody Screen Negative 08/16/23 16:16 WBC RBC Hgb 8.1 L Hct 24.5 L MCV MCH MCHC RDW Plt Count Neut % (Auto) Lymph % (Auto) [place] % (Auto) Eos % (Auto) Baso % (Auto) Neut # (Auto) Lymph # (Auto) [place] # (Auto) Eos # (Auto) Baso # (Auto) Sodium Potassium 5.7 H Chloride Carbon Dioxide BUN Creatinine Estimated GFR BUN/Creatinine Ratio Glucose Lactate Calcium Magnesium Total Bilirubin AST ALT Alkaline Phosphatase Troponin I Total Protein Albumin Globulin Albumin/Globulin Ratio Lipase Urine Color Urine Appearance Urine pH Ur Specific [facility] Urine Protein Urine Glucose (UA) Urine Ketones Urine Occult Blood Urine Nitrate Urine Bilirubin Urine Urobilinogen Ur Leukocyte Esterase Urine RBC Urine WBC Ur Squamous Epith Cells Ur Transition Epith Cell Ur Renal Epithelial Cell Urine Bacteria Ur Culture Indicated? Vol Urine Centrifuged Chlamy pneumoniae PCR Adenovirus (PCR) B.parapertussis DNA PCR Coronavirus OC43 (PCR) Coronavirus HKU1 (PCR) Coronavirus 229E (PCR) SARS-CoV-2 (PCR) Coronavirus NL63 (PCR) Human Metapneumovir PCR Influenza Type A (PCR) Influenza Type B (PCR) M. pneumoniae (PCR) Parainfluenza 1 (PCR) Parainfluenza 2 (PCR) Parainfluenza 3 (PCR) Parainfluenza 4 (PCR) RSV (PCR) Entero/Rhino (PCR) Blood Type Antibody Screen Assessment & Plan Assessment & Plan narrative: 1. Hyperkalemia, present on admission and active. 2. Chronic kidney disease stage 3 with a creatinine of 1.3 or so at baseline. Present on admission and stable. 3. Probable subacute blood loss anemia, present on admission and active. 4. Known gastritis on recent endoscopy, present on admission and likely active. 5. Recent diagnosis of DVT on anticoagulation, present on admission and active. 6. Hypothyroidism, present on admission and active. 7. Post-polio syndrome, present on admission and active. 8. Myasthenia gravis, said to be in remission for several years. Present on admission and stable. 9. Anorexia, present on admission and active. 10. Hypomagnesemia, present on admission and active. Plan: - We will hold anticoagulation for tonight and trend hemoglobin. - IV fluids and closely monitor potassium with Q4hr BMPs. May need Kayexalate. Doubt that she would need a bicarbonate drip. - Protonix 40 mg IV b.i.d.. - Consider repeat endoscopy, this will depend on her clinical course. - Resume anticoagulation within the next 24 hours if her hemoglobin remained stable. - Monitor for any evidence of myasthenia gravis. - Replace magnesium and ready evaluated in the morning. - She has no back pain, she still may require imaging of the spine at some point. She is full resuscitation. Time Spent With Patient Time with patient: 30 to 49 minutes with 50% spent counseling/coordinating care Quality MIPS - Admit I confirm the patient?s Advance Care Plan is present, Code status is documented, Surrogate decision maker is in patient?s record [If Yes, STOP here]: Yes [facility] - Meds 'Current medications' to include all prescriptions, [id number] products, herbals, cannabis/cannabidiol products, and vitamin/mineral/dietary (nutritional) supplements. I have utilized all available resources to obtain, update, or review the patient?s current medications. [If Yes, STOP here]: Yes
[2023-08-16] MEDS: DEXTROSE 5%-0.9% NS 1,000 ML 100 ML IV (18:43)
--- NOTE | 2023-08-16 18:58 | PC.NURSE ---
Patient is A&OX4, on RA. She arrives from ED on [facility] at approximately 1800 stating she is unable to ambulate but she is able to stand and use the commode. She feel her BLE's are very weak and she looses balance. No noted orthostatic BP or dizziness. She is settled in to room 214, and oriented to the room and unit routine. She is able to tolerate her liquid diet. D5NS IVF at 100ml/hr, bed alarm on, call light in reach, frequent rounding. MD at bedside discussing plan with patient. She is in aggreement.
[2023-08-16 19:40] LABS: TSH w/ Reflex to FT4 2.05 uIU/mL (0.47-4.68)
[2023-08-16] MEDS: PANTOPRAZOLE 40 MG VIAL IV (20:47)
[2023-08-16 23:17] LABS: Hematocrit 25.7 % (36-46); Hemoglobin 8.5 g/dL (12.0-16.0)
[2023-08-16 23:47] LABS: BUN Creatinine Ratio 16.9 (6-22); Blood Urea Nitrogen 23 mg/dL (7-17); Calcium 7.4 mg/dL (8.4-10.2); Carbon Dioxide 20 mmol/L (22-32); Chloride 119 mmol/L (98-107); Estimated Glomerular Filt Rate 39 mL/min (>60); Glucose 123 mg/dL (80-110); HEMOLYSIS < 15 (0-50); Sodium 141 mmol/L (137-145)
[2023-08-16 23:51] LABS: Potassium 6.5 mmol/L (3.4-5.1)
[2023-08-17] MEDS: SODIUM POLYSTYRENE SULFON/SORB 15 GM/60 ML CUP PO (02:19)
[2023-08-17 03:33] LABS: Add Manual Diff / Slide Review NO; Basophils Absolute Auto 0 /uL (0-100); Basophils Percent Auto 0.8 % (0-2); Eosinophils Absolute Auto 300 /uL (0-450); Eosinophils Percent Auto 5.1 % (2-4); Hematocrit 25.6 % (36-46); Hemoglobin 8.6 g/dL (12.0-16.0); Lymphocytes Absolute Auto 1800 /uL (1100-4500); Lymphocytes Percent Auto 31.3 % (25-40); Mean Corpuscular HGB Conc 33.6 % (30-36); Mean Corpuscular Hemoglobin 32.1 PG (26-34); Mean Corpuscular Volume 95.6 fL (80-100); Monocytes Absolute Auto 500 /uL (0-900); Monocytes Percent Auto 8.4 % (3-14); Neutrophils Absolute Auto 3100 /uL (1500-7000); Neutrophils Percent Auto 54.4 % (50-75); Platelet Count 166 X10^3/uL (150-400); Red Blood Cell Count 2.68 X10^6/uL (4.0-5.2); Red Cell Distribution Width 15.3 % (11.6-14.8); White Blood Cell Count 5.7 X10^3/uL (4.5-11.0)
[2023-08-17 03:47] LABS: Blood Urea Nitrogen 22 mg/dL (7-17); Calcium 7.4 mg/dL (8.4-10.2); Carbon Dioxide 18 mmol/L (22-32); Chloride 119 mmol/L (98-107); Estimated Glomerular Filt Rate 44 mL/min (>60); Glucose 115 mg/dL (80-110); HEMOLYSIS < 15 (0-50); Magnesium 1.5 mg/dL (1.6-2.3); Potassium 4.8 mmol/L (3.4-5.1); Sodium 139 mmol/L (137-145)
[2023-08-17] MEDS: DEXTROSE 5%-0.9% NS 1,000 ML 100 ML IV (04:30)
[2023-08-17] MEDS: LEVOTHYROXINE 100 MCG TABLET PO (05:37)
[2023-08-17 06:46] VITALS: BP 110/49; PULSE 77; RESP 16; TEMP 36.4; O2SAT 96
[2023-08-17 07:46] VITALS: BP 108/53; PULSE 71; RESP 16; TEMP 36.5; O2SAT 98
[2023-08-17] MEDS: MAGNESIUM SULFATE 2 GM/50 ML PIGGYBACK IV (08:33)
[2023-08-17] MEDS: SODIUM CHLORIDE 0.9% FLUSH 10 ML IV ×2 (10:00→21:52)
--- NOTE | 2023-08-17 11:05 | PT.IIE ---
Surgical History (Last Reviewed 08/16/23 @ 18:02 by Ariel Wyman MD) History of cholecystectomy History of hip replacement History of knee replacement History of shoulder replacement Status post cholecystectomy Medical History (Last Reviewed 08/16/23 @ 18:02 by Ariel Wyman MD) Arthritis, multiple joint involvement Chicken pox (~1947) CKD (chronic kidney disease) stage 3, GFR 30-59 ml/min Elevated INR Frequent urinary tract infections Herpes zoster History of chickenpox History of colitis History of diabetes mellitus History of diverticulitis History of eczema History of gastric ulcer [facility] History of skin cancer History of ulcerative colitis History of urinary incontinence Hyperthyroidism (~1992) Polio Shoulder pain Type 2 diabetes mellitus without complication, without long-term current use of insulin (12/29/16) Physical Therapy Inpatient Evaluation/Re-Eval M1 PT/OT-IP Prior Functional Status Start: 08/17/23 13:05 Freq: NEEDED Status: Active Protocol: Document 08/17/23 11:05 AB (Rec: 08/17/23 13:19 AB [id number]) Medical Review Prior Functional Status Medical History Reviewed Yes Communication able to make needs known Mobility and Gait pt stated that she was modified independent with all mobilities and ambulation using a 4WW but has declined with mobility since April of this year and needing assist and for the last 2 weeks or more, was not able to ambulate Social History Household Members spouse,children Living Arrangements House Number of Floors (Floors) One Floor Number of Stairs To Enter/Railing? ramp to enter Home Environment Standard Height Toilet,Walk in Shower,Ramp Home Equipment Four Wheel Walker,Raised Toilet Seat w/Armrests,Shower Seat with Backrest,Hand Held Shower,Grab Bars Near Toilet, Grab Bars In Shower Additional Social History Comment pt lives with his spouse and daughter; daughter just had bunion sx and will not be able to assist pt pt has a high bed and steps up a step stool to get into the bed. M2 PT-IP Current Condition Start: 08/17/23 13:05 Freq: NEEDED Status: Active Protocol: Document 08/17/23 11:05 AB (Rec: 08/17/23 13:19 AB [id number]) Physical Therapy Current Condition Current Condition Evaluation Date 08/17/23 Treatment Diagnosis anemia; difficulty in walking Onset Date 08/16/23 M3 PT-IP Subjective Start: 08/17/23 13:05 Freq: NEEDED Status: Active Protocol: Document 08/17/23 11:05 AB (Rec: 08/17/23 13:19 AB [id number]) Subjective Physical Therapy Visit Type Type Initial Evaluation Visit Start Time 11:05 Visit Stop Time 11:55 Notes pt seen for split visits: 1105 to 1118 and 1131 to 1155 Number of [employer] Visits 0 Physical Therapy Visit Comments Patient Comments initially refusing PT but agreed afterwards. M4 PT-IP Mobility and Gait Start: 08/17/23 13:05 Freq: NEEDED Status: Active Protocol: Document 08/17/23 11:05 AB (Rec: 08/17/23 13:19 AB [id number]) PT-Bed Mobility Assessment Supine to Sit Supine to Sit Minimal Assistance,Head of Bed Elevated PT-Transfer Assessment Sit to and From Stand Sit to and from Stand Maximum Assistance,1 Person Assistance,Use of Upper Extremities Equipment Transfer Assistive Device Gait Belt,Front Wheeled Walker Orthotic/Prosthetic Devices or Brace: No Transfers Transfer Destination Bedside Commode Transfer Technique Stand Step Pivot Transfer Ability Level of Assist Moderate Assistance,Maximum Assistance,1 Person Assistance Comments Mobility Comments pt supine in bed and initially refusing PT. stated that had HHPT prior to going to the hospital and she was not able to walk due to weakness. educated pt on PT eval order and pt agreed to do PT. obtained PLOF and home set up from pt. hospitalist came in to talk to pt. left pt with the hospitalist. checked back on pt after a few minutes. pt agreed to do PT. pt completed supine to sit min A and cues and HOB elevated. pt was able to sit on EOB SBA. pt stated that she needs to use the bedside commode for BM. positioned bedside commode next to pt. pt completed sit to stand max A and cues and step transfer to bedside commode mod to max A and max cues using fWW. pt needing a few minute to use the toilet. call light next to pt. Left pt with nurse. PT-Balance Assessment Sitting Balance and Reactions Static Sitting Balance Ability Good Dynamic Sitting Balance Ability Fair Standing Balance and Reactions Static Standing Balance Ability Poor Dynamic Standing Balance Ability Poor Device Used FWW M5 PT-IP Objective Assessments Start: 08/17/23 13:05 Freq: NEEDED Status: Active Protocol: Document 08/17/23 11:05 AB (Rec: 08/17/23 13:19 AB [id number]) Orientation Orientation/Cognition Level of Alertness Alert Orientation Name,Place,Situation Language Function Ability No Deficits Noted Safety Awareness Decreased Safety Awareness Memory Description No Deficits Noted Gross Range of Motion Lower Extremity ROM Impairments L ankle tightness in DF Strength Lower Extremity Strength Assessment Bilaterally Impaired Comments Strength Comments RLE: 3+/5 LLE: 4-/5; L foot drop M6 PT-IP Treatment Start: 08/17/23 13:05 Freq: NEEDED Status: Active Protocol: Document 08/17/23 11:05 AB (Rec: 08/17/23 13:19 AB [id number]) Physical Therapy Treatment Education Education Provided Safety M7 PT-IP Assessment and Plan Start: 08/17/23 13:05 Freq: NEEDED Status: Active Protocol: Document 08/17/23 11:05 AB (Rec: 08/17/23 13:19 AB [id number]) PT Summary Assessment and Plan Potential Rehabilitation Potential Fair Status of Condition at Evaluation Evolving Summary Impairments Pain,ROM,Strength,Balance, Coordination,Sensation,Tone, Cognition,Bed Mobility, Transfers,Gait,Activity Tolerance Assessment Summary pt is an 82 y/o F who presented to the ED for weakness. pt admitted for anemia, hyperkalemia and hypomagnesemia. pt requiring mod to max A for transfers using fWW and presents with weakness and decrease activity tolerance. pt will benefit from SNF rehab to improve overall strength and mobility. will continue to assess progress. Goals Bed Mobility Goal Independent Transfer Goal Standby Assistance,Front Wheeled Walker Gait Goal Standby Assistance,Front Wheel Walker Gait Distance 50 Other Goals improve transfers and ambulation using 4WW ~ 150 ft SBA Days to Meet Goals 10 Frequency of Treatment Frequency Of Treatment Once a Day Treatment Plan Physical Therapy Treatment Plan Bed Mobility Training,Transfer Training,Gait Training, Therapeutic Exercise,Balance Retraining,Discharge Planning, Hot or Cold Pack,Neuromuscular Re-ed,Coordination Retraining Recommendations To Nursing Amount of Assist Needed 2 Person Assist Discharge Recommendations PT Discharge Recommendations SNF Rehab Transportation Needs at Discharge Wheelchair/Cabulance
--- NOTE | 2023-08-17 14:23 | OT.IP.EVAL ---
Past Medical History (Last Reviewed 08/16/23 @ 18:02 by Ariel Wyman MD) Arthritis, multiple joint involvement Chicken pox (~1947) CKD (chronic kidney disease) stage 3, GFR 30-59 ml/min Elevated INR Frequent urinary tract infections Herpes zoster History of chickenpox History of colitis History of diabetes mellitus History of diverticulitis History of eczema History of gastric ulcer History of [place] fever History of skin cancer History of ulcerative colitis History of urinary incontinence Hyperthyroidism (~1992) Polio Shoulder pain Type 2 diabetes mellitus without complication, without long-term current use of insulin (12/29/16) Surgical History (Last Reviewed 08/16/23 @ 18:02 by Ariel Wyman MD) History of cholecystectomy History of hip replacement History of knee replacement History of shoulder replacement Status post cholecystectomy Occupational Therapy Inpatient Evaluation/Re-Eval M1 PT/OT-IP Prior Functional Status Start: 08/17/23 13:13 Freq: NEEDED Status: Active Protocol: Document 08/17/23 14:24 [facility] (Rec: 08/17/23 14:39 [facility] [id number]) Medical Review Prior Functional Status Medical History Reviewed Yes Communication able to make needs known Mobility and Gait pt stated that she was modified independent with all mobilities and ambulation using a 4WW but has declined with mobility since April of this year and needing assist and for the last 2 weeks or more, was not able to ambulate Activities of Daily Living and IADL's Pt states at times needing assist from her or daughter for ADL needs and for bed mobility and to stand up. Prior Functional Level (Other details) Pt states recently needing more help to stand up and get out of bed due to her BLE weakness. Social History Household Members spouse,children Living Arrangements House Number of Floors (Floors) One Floor Number of Stairs To Enter/Railing? ramp to enter Home Environment Standard Height Toilet,Walk in Shower,Ramp Home Equipment Four Wheel Walker,Raised Toilet Seat w/Armrests,Shower Seat with Backrest,Hand Held Shower,Grab Bars Near Toilet, Grab Bars In Shower Additional Social History Comment pt lives with his spouse and daughter; daughter just had bunion sx and will not be able to assist pt pt has a high bed and steps up a step stool to get into the bed. M2 OT-IP Current Condition Start: 08/17/23 13:13 Freq: Status: Active Protocol: Document 08/17/23 14:24 [facility] (Rec: 08/17/23 14:39 [facility] [id number]) Occupational Therapy Current Condition Current Condition Evaluation Date 08/17/23 Treatment Diagnosis Acute hyperkalemia and Magnesium, generalized weakness Diagnosis Onset Date 08/16/23 M3 OT- IP Subjective and Pain Start: 08/17/23 13:13 Freq: Status: Active Protocol: Document 08/17/23 14:24 [facility] (Rec: 08/17/23 14:39 [facility] [id number]) OT- Subjective Occupational Therapy Visit Type Type Initial Evaluation Visit Start Time 13:25 Visit Stop Time 14:23 Occupational Therapy Visit Comments Patient Comments Pt wanting to get back to bed and use the BSC. Patient/Caregiver Goals To go to skilled rehab. OT Pain Assessment Pain When Pain Assessed At Rest Pain Present Pain Present Denied Pain M4 OT- IP ADL's Start: 08/17/23 13:13 Freq: Status: Active Protocol: Document 08/17/23 14:24 [facility] (Rec: 08/17/23 14:39 [facility] [id number]) OT [id number] Comments OT Self-Feeding Comments Set-up assist. OT ADL-Grooming Comments OT Grooming Comments Pt states did prior. OT ADL-Oral Care Comments Oral Care Comments Pt states did prior. OT ADL-Dressing General Eval Lower Body Dressing Ability Maximum Assistance Areas Needing Assistance Underpants/Brief,Socks Comments OT Dressing Comments Assist for brief and socks. Pt states prior able to doff her compression stocking on her own and needing assist to doff by her . OT ADL-Toileting General Evaluation Toileting Ability Maximum Assistance Areas Needing Assistance Manage Clothing,Perform Perineal Hygiene Comments OT Toileting Comments Able to stand with FWW with CGA and assist to do hygiene and clothing needs. OT ADL-Bathing Comments OT Bathing Comments Not performed. M5 OT- IP IADL's Start: 08/17/23 13:13 Freq: Status: Active Protocol: Document 08/17/23 14:24 [facility] (Rec: 08/17/23 14:39 [facility] [id number]) OT-Instrumental Activities of Daily Living Deficits IADL Deficits Identified Deficits Home Safety Awareness Awareness of Need for Assistance at Home Decreased Awareness Medication Management Medication Management No Deficits Identified Medication Management Comments Pt states does her own. Money Management Money Management No Deficits Identified Money Management Comments Pt states does her own. Meal Preparation Meal Preparation Caregiver Provides Assist Linux Unix Engineer Linux Unix Engineer Caregiver Provides Assist M6 OT- IP Functional Cognition Start: 08/17/23 13:13 Freq: Status: Active Protocol: Document 08/17/23 14:24 [facility] (Rec: 08/17/23 14:39 [facility] [id number]) Cognitive Factors Limiting Selfcare Function Cognitive Ability Level of Alertness Alert Patient Orientation Name,Age,Birthday,Month,Date, Year,Day of Week,Place, Situation Attention Span Ability Capable of Focused Attention, Capable of Sustained Attention Ability to Follow Commands Able to Follow One Step Commands Cognitive Comments Cognitive Assessment Comments Pt able to follow commands for ADL and mobility needs. OT- Vision and Hearing OT- Hearing Assessment OT- Hearing Assessment WFL OT- Vision Assessment Visual Acuity Glasses For Reading M7 OT- IP Mobility and Balance Start: 08/17/23 13:13 Freq: Status: Active Protocol: Document 08/17/23 14:24 [facility] (Rec: 08/17/23 14:39 [facility] [id number]) OT- Bed Mobility Assessment Sit to Supine Sit to Supine Assist Maximum Assistance Scooting Scooting to Edge of Bed Minimal Assistance OT-Transfer Assessment Sit to and From Stand Sit to and from Stand Maximum Assistance Transfers Transfer Ability Minimal Assistance Technique Transfer Destination Bed,Bedside Commode,Chair Transfer Technique Stand Step Pivot Devices Transfer Assistive Devices Gait Belt,Front Wheeled Walker Comments Mobility Comments MAX AX 1 to help get her legs back into bed and also able to let pt practice use of leg sign writer hand to help get her legs back into bed. MAX A X1 to help come to stand to the FWW. Once up on her feet CGA/ALEXI for the transfer. OT- Balance Assessment Sitting Balance and Reactions Static Sitting Balance Ability Good Dynamic Sitting Balance Ability Good Standing Balance and Reactions Static Standing Balance Ability Poor Dynamic Standing Balance Ability Poor M8 OT- IP Objective Assessments Start: 08/17/23 13:13 Freq: Status: Active Protocol: Document 08/17/23 14:24 [facility] (Rec: 08/17/23 14:39 [facility] [id number]) OT Gross Range of Motion Upper Extremity Range of Motion Assessment Within Functional Limits OT Strength Upper Extremity Strength Assessment Within Functional Limits OT- Coordination Assessment Upper Extremity Finger to Nose Test Within Functional Limits M9 OT- IP Assessment and Plan Start: 08/17/23 13:13 Freq: Status: Active Protocol: Document 08/17/23 14:24 [facility] (Rec: 08/17/23 14:39 [facility] [id number]) OT Summary Assessment and Plan Potential Rehabilitation Potential Good Analytic Complexity at Evaluation Moderate Summary OT Impairments Strength,Balance,Functional Mobility,Grooming,Dressing, Toileting,Bathing,Toilet Transfers,Shower Transfers, Activity Tolerance Progress Towards Goals Slow Progress due to Medical Issues,Slow Progress due to Activity Tolerance Assessment Summary Pt MOD complexity and main barriers are decreased strength, activity tolerance and now needing extensive assist for ADL and mobility needs. Pt will benefit from skilled rehab when medically stable. Goals Self-Feeding Goal Independent Grooming Goal Independent Dressing Goal Minimal Assistance Toileting Goal Standby Assistance Bathing Goal Minimal Assistance Toilet Transfer Goal Independent Shower Transfer Goal Standby Assistance Days to Meet Goals 20 Treatment Plan OT Treatment Plan ADL Training,Functional Mobility,Patient/Family Education,Discharge Planning Other Treatment Recommendations and Next Standing ADL's Treatment Focus Discharge Recommendations OT Discharge Recommendations SNF Rehab Transportation Needs at Discharge Wheelchair/Cabulance
[2023-08-17 15:27] LABS: HEMOLYSIS < 15 (0-50); Iron 89 ug/dL (37-170)
--- NOTE | 2023-08-17 15:27 | CM.DANOTE ---
DCP Assessment note Pt is a 82yo F here following hypomagnesemia, hyperkalemia, weakness, and acute anemia. PMH of post-polio/myasthenia gravis/Hx of working with neurologist and [facility] that was in remission. Lab work pending if this has returned. PCP [facility] Payer Medicare and [facility] [employer] MA[employer]GER reviewed EMR. Pt is currently here under OBS. Per chart review, pt was in the ED 07/29/13 and dc'd with [facility] with PT/OT/RN. Per chart review, PT/OT rec SNF. Per UR RN, with pending labs pt may be able to be switched to INPT status, pending their results. Will rereview in morning. STORAGE CENTER MANAGER met with pt in room. Pt is pleasant and chatty. Lives with spouse Chance ([phone]) and dtr Lyly ([phone]) and al Montoyay. Pt uses a walker at baseline and has been getting weaker over time since Apr 2023, but mostly over this past month. Pt dtr assists with cooking/cleaning/laundry. Spouse assists as able but is 91years old. Hx of [facility] a few years ago. STORAGE CENTER MANAGER explained OBS vs INPT status and the benefits associated with each, and that due to her being OBS Medicare would not pay for SNF placement. Pt reports preference at this point is SNF placement, even if has to be PP. Wants to see how she feels in the morning to decide. If home, preference is to resume [facility]. Per Ana at [facility] , able to resume with pt at mo. IRMA Velasco emailed referral information. CM team will update [facility] if pt dc's to [facility]. STORAGE CENTER MANAGER spoke with Marcela at [facility]- two semi private beds available. likely able to take pt back. CM team will send clinicals for her to review in am. Plan: UR team will rereview in morning if there is any criteria to make pt INPT. 1) [facility] with Medicare benefit vs PP, official referral needed. 2) home with spouse/dtr and [facility]. f2f/order needed. CM team will continue to follow closely. JALEN Ritter Discharge Planning/Care Management Advanced directive, confirm from FAMILY Start: 08/16/23 18:22 Freq: Q24H Status: Active Protocol: Document 08/16/23 18:22 AGW (Rec: 08/17/23 00:57 AGW [id number]) Advance Directive, confirm on record Time 20:30 Person contacted patient Copy received No CM Discharge Assessment Start: 08/17/23 15:24 Freq: Status: Active Protocol: Document 08/17/23 15:24 SL (Rec: 08/17/23 15:27 SL [id number]) Discharge Planning Assessment Assigned Strainer Cleaner JALEN Rahman DPOA/Assigned Designee Name marquez Desouza Contact Information [phone] Advance Directives? Yes: states full code Advance Directives on File No History Provided By Patient,Medical Record Prior Living Arrangements House Household Members spouse,children Needs Assistance With Bathing,Meal Prep,Home Chores / Shopping Comment dtr helps with cooking, cleaning, laundry, and dressing DME Already Rented / Owned FWW / Walker Patient/Family Preference Custodial Facility Discharge Plan Home Referrals Initiated None needed SNF/HH Preference Preference is either [facility] or [facility], pending on official DCP Has Agency SNF been contacted Yes Whiteboard Updated in Patient Room with Yes name and ext. # of Strainer Cleaner Review Status In Process Please Provide Date Initial DC 08/17/23 Assessment Was Performed Next Review Type Continued Stay Review
[2023-08-17 15:37] LABS: Total Iron Binding Capacity 76 ug/dL (265-497)
[2023-08-17 15:40] LABS: Percent Iron Saturation 117 % (15-50); Transferrin < 80 mg/dL (206-381)
[2023-08-17 16:00] VITALS: BP 111/51; PULSE 61; RESP 12; TEMP 36.4; O2SAT 97
[2023-08-17 16:03] LABS: Ferritin 321 ng/mL (11-264)
--- NOTE | 2023-08-17 19:44 | P.PN_ITS ---
Subjective Subjective Date Patient Seen: 08/17/23 Interval history: Pt feels extremely weak, has been gradually progressive over months. Today she has noticed voice hoarseness. Denies diplopia or eyelid droop and hasn't had hoarseness with past MG, thought to be in remission x 5 years now. Hb 8.6 stable. Acute hyperkalemia resolved. Low Mg still present. Exam Vital Signs (past 8 hours): - 08/17/23 16:00 Temperature 97.6 F Pulse Rate 61 Respiratory Rate 12 Blood Pressure 111/51 L Pulse Oximetry 97 Oxygen Flow Rate 0 Oxygen Delivery Method Room Air Oxygen Flow Rate 0 Narrative Exam Narrative: Gen: alert, NAD HEENT: mild hoarseness, no oral thrush Neck: no mass Lungs: clear CV: regular Ext: no ptosis, 0/5 prox strength in LEs bilaterally Objective Labs 08/17/23 03:15 08/17/23 03:15 Labs: Laboratory Results - last 24 hr 08/16/23 08/17/23 08/17/23 22:55 03:15 15:03 WBC 5.7 RBC 2.68 L Hgb 8.5 L 8.6 L Hct 25.7 L 25.6 L MCV 95.6 MCH 32.1 MCHC 33.6 RDW 15.3 H Plt Count 166 Neut % (Auto) 54.4 Lymph % (Auto) 31.3 [place] % (Auto) 8.4 Eos % (Auto) 5.1 H Baso % (Auto) 0.8 Neut # (Auto) 3100 Lymph # (Auto) 1800 [place] # (Auto) 500 Eos # (Auto) 300 Baso # (Auto) 0 Sodium 141 139 Potassium 6.5 H* 4.8 D Chloride 119 H 119 H Carbon Dioxide 20 L 18 L BUN 23 H 22 H Creatinine 1.36 H 1.22 H Estimated GFR 39 L 44 L BUN/Creatinine Ratio 16.9 18.0 Glucose 123 H 115 H Calcium 7.4 L 7.4 L Magnesium 1.5 L Iron 89 D TIBC 76 L % Saturation 117 H Transferrin < 80 L Ferritin 321 H PFSH Medical History Elevated INR Herpes zoster CKD (chronic kidney disease) stage 3, GFR 30-59 ml/min Arthritis, multiple joint involvement Frequent urinary tract infections Chicken pox (~194) Hyperthyroidism (~1992) History of [place] fever Shoulder pain History of eczema Polio History of chickenpox History of urinary incontinence History of ulcerative colitis History of gastric ulcer History of diverticulitis History of colitis History of skin cancer History of diabetes mellitus Type 2 diabetes mellitus without complication, without long-term current use of insulin (12/29/16) Surgical History History of shoulder replacement History of cholecystectomy Status post cholecystectomy History of knee replacement History of hip replacement Family History Sister Age: 81 Heart disease Father No problems noted. Mother Myocardial infarction Brother No problems noted. Brother No problems noted. Social History marital status: household members: spouse and children Smoking Status: Former smoker alcohol intake: former substance use type: does not use Assessment & Plan Assessment & Plan narrative: 1. Hyperkalemia, present on admission, resolved 2. Chronic kidney disease stage 3 with a creatinine of 1.3 or so at baseline. Present on admission and stable. 3. Probable subacute blood loss anemia, present on admission and active. 4. Known gastritis on recent endoscopy, present on admission and likely active. 5. Recent diagnosis of DVT on anticoagulation, present on admission and active. 6. Hypothyroidism, present on admission and active. 7. Post-polio syndrome, present on admission and active. 8. Myasthenia gravis, said to be in remission for several years. Present on admission and stable. 9. Sev protein calorie malnutrition with anorexia, present on admission and active. 10. Hypomagnesemia, present on admission and active. 11. Hypertension PLAN: Monitor H/H Cont PPI - discharge on high dose PPI Cont Eliquis 2.5 mg bid (wasn't held on admit) since H/H is stable Discussed bleed with Dr Johnson who performed her EGD in April this year. Does not rec repeat EGD at this time, as this is likely bleed due to chronic gastritis Pt had c-scope 3 years ago Check iron studies - consider IV Fe if iron deficient Mg 2 gm IV - may need to discharge on oral Mg D/c BP pills (amlodipine, HCTZ, lisinopril), due to recent severe weight loss pt probably does not need these meds anymore Acetylcholine receptor binding Ab - titers don't always correlate with MG flare but may be helpful Monitor for MG symptoms - unclear if hoarseness without diplopia or ptosis is repressenting MG Has appt at for post-polio syndrome evaluation PT/OT likely SNF rehab Quality VTE Deep Vein Thrombosis/Pulmonary Embolism Present on Admission: Yes
[2023-08-17 20:20] VITALS: BP 120/64; PULSE 68; RESP 16; TEMP 37.1; O2SAT 96
[2023-08-17] MEDS: PANTOPRAZOLE DR 40 MG TABLET PO (21:52)
[2023-08-17] MEDS: APIXABAN 5 MG TABLET 2.5 MG PO (22:08)
[2023-08-17] MEDS: diphenhydrAMINE 25 MG TABLET PO (22:08)
[2023-08-18] MEDS: LEVOTHYROXINE 100 MCG TABLET PO (05:19)
[2023-08-18] MEDS: PANTOPRAZOLE DR 40 MG TABLET PO ×2 (05:50→22:00)
[2023-08-18 06:22] VITALS: BP 122/80; PULSE 72; RESP 17; TEMP 36.7; O2SAT 96
[2023-08-18 06:43] LABS: Add Manual Diff / Slide Review NO; Basophils Absolute Auto 0 /uL (0-100); Basophils Percent Auto 0.8 % (0-2); Eosinophils Absolute Auto 200 /uL (0-450); Eosinophils Percent Auto 3.9 % (2-4); Hematocrit 24.9 % (36-46); Hemoglobin 8.4 g/dL (12.0-16.0); Lymphocytes Absolute Auto 1600 /uL (1100-4500); Lymphocytes Percent Auto 25.9 % (25-40); Mean Corpuscular HGB Conc 33.9 % (30-36); Mean Corpuscular Hemoglobin 32.3 PG (26-34); Mean Corpuscular Volume 95.2 fL (80-100); Monocytes Absolute Auto 400 /uL (0-900); Monocytes Percent Auto 6.1 % (3-14); Neutrophils Absolute Auto 3900 /uL (1500-7000); Neutrophils Percent Auto 63.3 % (50-75); Platelet Count 162 X10^3/uL (150-400); Red Blood Cell Count 2.62 X10^6/uL (4.0-5.2); Red Cell Distribution Width 15.2 % (11.6-14.8); White Blood Cell Count 6.2 X10^3/uL (4.5-11.0)
[2023-08-18 06:59] LABS: BUN Creatinine Ratio 17.2 (6-22); Blood Urea Nitrogen 20 mg/dL (7-17); Calcium 7.8 mg/dL (8.4-10.2); Carbon Dioxide 21 mmol/L (22-32); Chloride 117 mmol/L (98-107); Estimated Glomerular Filt Rate 47 mL/min (>60); Glucose 91 mg/dL (80-110); HEMOLYSIS < 15 (0-50); Magnesium 1.8 mg/dL (1.6-2.3); Potassium 3.9 mmol/L (3.4-5.1); Sodium 140 mmol/L (137-145)
--- NOTE | 2023-08-18 07:27 | P.PN_ITS ---
Subjective Subjective Interval history: Her proximal leg strength is improving. She did better with therapy today. She was voice hoarseness and describes several months of hoarse voice as well as dysphagia with weight loss of up to 20 lb. She did not have these types of symptoms with mg initially. Her weakness as described yesterday is primarily proximal at the hips. This is improved today. She feels like correcting her electrolytes may have had something to do with this. She has been in remission since 2005 with regard to her mg. Exam Vital Signs (past 8 hours): - 08/18/23 06:22 Temperature 98.0 F Pulse Rate 72 Respiratory Rate 17 Blood Pressure 122/80 Pulse Oximetry 96 Oxygen Flow Rate 0 Oxygen Delivery Method Room Air Oxygen Flow Rate 0 Narrative Exam Narrative: Gen: alert, NAD HEENT: mild hoarseness, no oral thrush Neck: no mass Lungs: clear CV: regular Ext: no ptosis, 4/5 prox strength in LEs bilaterally (improving) Objective Labs 08/18/23 05:50 08/18/23 05:50 Labs: Laboratory Results - last 24 hr 08/17/23 08/18/23 15:03 05:50 WBC 6.2 RBC 2.62 L Hgb 8.4 L Hct 24.9 L MCV 95.2 MCH 32.3 MCHC 33.9 RDW 15.2 H Plt Count 162 Neut % (Auto) 63.3 Lymph % (Auto) 25.9 [place] % (Auto) 6.1 Eos % (Auto) 3.9 Baso % (Auto) 0.8 Neut # (Auto) 3900 Lymph # (Auto) 1600 [place] # (Auto) 400 Eos # (Auto) 200 Baso # (Auto) 0 Sodium 140 Potassium 3.9 Chloride 117 H Carbon Dioxide 21 L BUN 20 H Creatinine 1.16 H Estimated GFR 47 L BUN/Creatinine Ratio 17.2 Glucose 91 Calcium 7.8 L Magnesium 1.8 Iron 89 D TIBC 76 L % Saturation 117 H Transferrin < 80 L Ferritin 321 H PFS Medical History Elevated INR Herpes zoster CKD (chronic kidney disease) stage 3, GFR 30-59 ml/min Arthritis, multiple joint involvement Frequent urinary tract infections Chicken pox (~1947) Hyperthyroidism (~1992) History of [place] fever Shoulder pain History of eczema Polio History of chickenpox History of urinary incontinence History of ulcerative colitis History of gastric ulcer History of diverticulitis History of colitis History of skin cancer History of diabetes mellitus Type 2 diabetes mellitus without complication, without long-term current use of insulin (12/29/16) Surgical History History of shoulder replacement History of cholecystectomy Status post cholecystectomy History of knee replacement History of hip replacement Family History Sister Age: 81 Heart disease Father No problems noted. Mother Myocardial infarction Brother No problems noted. Brother No problems noted. Social History marital status: household members: spouse and children Smoking Status: Former smoker alcohol intake: former substance use type: does not use Assessment & Plan Assessment & Plan narrative: 1. Hyperkalemia, present on admission, resolved 2. Chronic kidney disease stage 3 with a creatinine of 1.3 or so at baseline. Present on admission and stable. 3. Probable subacute blood loss anemia, present on admission and active/stable. 4. Known gastritis on recent endoscopy, present on admission and likely active. 5. Recent diagnosis of DVT on anticoagulation, present on admission and active. 6. Hypothyroidism, present on admission and active. 7. Post-polio syndrome, present on admission and active. 8. Myasthenia gravis, said to be in remission for several years. Present on admission and stable. 9. Severe protein calorie malnutrition with anorexia, present on admission and active. Possible MG symptoms. 10. Hypomagnesemia, present on admission and improved. 11. Hypertension, stable. PLAN: Monitor H/H (stable) Continue PPI - discharge on high dose PPI (BID) Cont Eliquis 2.5 mg bid (wasn't held on admit) since H/H is stable Discussed bleed with Dr Johnson who performed her EGD in April this year. Does not recommend repeat EGD at this time, as this is likely bleed due to chronic gastritis Patient had c-scope 3 years ago Check iron studies - consider IV Fe if iron deficient Mg 2 gm IV - may need to discharge on oral Mg D/c'd BP pills (amlodipine, HCTZ, lisinopril), due to recent severe weight loss pt probably does not need these meds anymore Acetylcholine receptor binding Ab - titers don't always correlate with MG flare but may be helpful Monitor for MG symptoms - unclear if hoarseness without diplopia or ptosis is repressenting MG Has appt at for post-polio syndrome evaluation PT/OT Still assessing her response to lytes repletion andprogress with therapies. Possible home with Home Health on 08/18/2023. Quality VTE Deep Vein Thrombosis/Pulmonary Embolism Present on Admission: Yes
[2023-08-18] MEDS: APIXABAN 5 MG TABLET 2.5 MG PO ×2 (08:52→22:01)
[2023-08-18] MEDS: SODIUM CHLORIDE 0.9% FLUSH 10 ML IV ×2 (08:52→22:01)
--- NOTE | 2023-08-18 11:00 | PT.IPTN ---
Physical Therapy Treatment Note M2 PT-IP Current Condition Start: 08/17/23 13:05 Freq: NEEDED Status: Active Protocol: Document 08/17/23 11:05 AB (Rec: 08/17/23 13:19 AB [id number]) Physical Therapy Current Condition Current Condition Evaluation Date 08/17/23 Treatment Diagnosis anemia; difficulty in walking Onset Date 08/16/23 M3 PT-IP Subjective Start: 08/17/23 13:05 Freq: NEEDED Status: Active Protocol: Document 08/18/23 11:00 AB (Rec: 08/18/23 12:07 AB [id number]) Subjective Physical Therapy Visit Type Type Treatment Note Visit Start Time 11:00 Visit Stop Time 11:30 Number of POURER BULL LADLE Visits 0 Physical Therapy Visit Comments Patient Comments agreeable to do PT M4 PT-IP Mobility and Gait Start: 08/17/23 13:05 Freq: NEEDED Status: Active Protocol: Document 08/18/23 11:00 AB (Rec: 08/18/23 12:07 AB [id number]) PT-Transfer Assessment Sit to and From Stand Sit to and from Stand Moderate Assistance,Maximum Assistance,1 Person Assistance ,Use of Upper Extremities Equipment Transfer Assistive Device Gait Belt,Front Wheeled Walker Orthotic/Prosthetic Devices or Brace: No Comments Mobility Comments pt sitting on the chair and agreeable to do PT. completed sit to stand mod to max A and max cues with 2 attempts needed to complete task. pt ambulated in room using FWW ~ 20 ft min A and cues. pt with increase unsteadiness towards end of ambulation with pt c/o fatigue. pt sat on the chair and rested. agreed to do seated LE exercises: LAQx and seated marches. positioned pt on the chair. call light and table placed within reach. Gait Assessment Gait Gait Assistance Required: Minimum Assistance,1 Person Assist Distance (Feet) 20 Able to Maintain Weight Bearing Status Yes During Gait Assistive Devices Assistive Device Gait Belt,Front Wheeled Walker Orthotic/Prosthetic Devices or Brace: No Gait Deviations General Gait Pattern Decreased Stride Length, Decreased Feet Clearance Factors Limiting Gait Function Factors Limiting Gait Function Decreased Activity Tolerance, Decreased Strength,Limited Range of Motion,Poor Balance, Poor Safety Awareness M5 PT-IP Objective Assessments Start: 08/17/23 13:05 Freq: NEEDED Status: Active Protocol: Document 08/17/23 11:05 AB (Rec: 08/17/23 13:19 AB [id number]) Orientation Orientation/Cognition Level of Alertness Alert Orientation Name,Place,Situation Language Function Ability No Deficits Noted Safety Awareness Decreased Safety Awareness Memory Description No Deficits Noted Gross Range of Motion Lower Extremity ROM Impairments L ankle tightness in DF Strength Lower Extremity Strength Assessment Bilaterally Impaired Comments Strength Comments RLE: 3+/5 LLE: 4-/5; L foot drop M6 PT-IP Treatment Start: 08/17/23 13:05 Freq: NEEDED Status: Active Protocol: Document 08/18/23 11:00 AB (Rec: 08/18/23 12:07 AB [id number]) Physical Therapy Treatment Education Education Provided Safety M7 PT-IP Assessment and Plan Start: 08/17/23 13:05 Freq: NEEDED Status: Active Protocol: Document 08/18/23 11:00 AB (Rec: 08/18/23 12:07 AB [id number]) PT Summary Assessment and Plan Potential Rehabilitation Potential Good Summary Impairments Pain,ROM,Strength,Balance, Coordination,Sensation,Tone, Cognition,Bed Mobility, Transfers,Gait,Activity Tolerance Progress Towards Goals Slow Progress due to Medical Issues,Slow Progress due to Activity Tolerance Assessment Summary pt progressing slowly with mobility. pt able to ambulate ~ 20 ft using FWW min A and cues. pt stated that spouse will be able to assist her at home. will conduct caregiver training when appropriate. will continue to assess progress. Goals Bed Mobility Goal Independent Transfer Goal Standby Assistance,Front Wheeled Walker Gait Goal Standby Assistance,Front Wheel Walker Gait Distance 50 Other Goals improve transfers and ambulation using 4WW ~ 150 ft SBA Days to Meet Goals 10 Frequency of Treatment Frequency Of Treatment Once a Day Treatment Plan Physical Therapy Treatment Plan Bed Mobility Training,Transfer Training,Gait Training, Therapeutic Exercise,Balance Retraining,Discharge Planning, Hot or Cold Pack,Neuromuscular Re-ed,Coordination Retraining Recommendations To Nursing Amount of Assist Needed 1 Person Assist Discharge Recommendations PT Discharge Recommendations Home with 09/11 Assist Available,Home Health,SNF Rehab,Home vs SNF Transportation Needs at Discharge Private Vehicle,Wheelchair/ Cabulance
--- NOTE | 2023-08-18 12:43 | OT.IPNOTE ---
Pt states too tired from mobilizing this morning and wanting to rest. To check on the pt as appropriate. Pt states does not want to shower at this time.
--- NOTE | 2023-08-18 13:39 | DIET.CONS ---
Dietary Consultation Note Admission Date: 08/16/2023 17:05 Assessment: 82 y F presenting with weakness, hyperkalemia, hypomagnesemia. PMH of myasthenia gravis, post-polio syndrome, CKD 3, gastritis. Nutrition screened for low MNA. Met with pt at bedside, reports notable weight loss over past year of 15-20 lb. Daughter prepares meals for her and and has been working to make meal more nutrient/energy dense for added calorie and protein content. Reports doing well and gain of 4 lb recently (no gains noted in chart weights). Pt prefers soft foods due to feeling of food being stuck. Points to chest-upper stomach area when indicating where food feels stuck. Per hospitalist note, pt reported several months of dysphagia and voice hoarseness. Diet recall: B: 2 servings of oatmeal prepared with half and half, brown sugar, and dried fruit L- Cooked meal (spaghetti, meatloaf, etc) D- yogurts/cottage cheese, fruits 500 kcal protein drink daily Nutrition focused physical exam: Muscle wasting: -Severe loss in temporalis muscle -Moderate loss in clavicle region (deltoid, trapezius, pectoralis major) -Severe loss interosseous Subcutaneous fat loss: -Severe loss in buccal and orbital fat pads -Moderate loss in triceps Ht: 167.64 cm Wt: 62.414 kg BMI: 22.1 UBW: : 67.73 kg end of Mar 2023 per pt (-14.8% weight loss in 5 months, severe) Last BM: 08/18/23 (08/18/23 12:24) MNA: 7 Jarrett Score: 19 Diet: 08/17/23 Lunch General (Regular) Diet Diet Modifications: Food Texture: Level 7 - Regular Liquid Consistency: Level 0 - Thin Nutrition Percent Meal Consumed 100% 08/18/23 11:39 Percent Meal Consumed 75% 08/17/23 18:54 Percent Meal Consumed 50% 08/17/23 13:39 Percent Meal Consumed 100% 08/17/23 10:55 Percent Meal Consumed 50% 08/16/23 18:00 Labs: RBC 2.62 X10^6/uL (4.0-5.2) L 08/18/23 05:50 Hgb 8.4 g/dL (12.0-16.0) L 08/18/23 05:50 Hct 24.9 % (36-46) L 08/18/23 05:50 Creatinine 1.16 mg/dL (0.52-1.04) H 08/18/23 05:50 Lactate 1.7 mmol/L (0.7-2.1) 08/16/23 14:45 Iron 89 ug/dL (37-170) D 08/17/23 15:03 % Saturation 117 % (15-50) H 08/17/23 15:03 Ferritin 321 ng/mL (11-264) H 08/17/23 15:03 Nutrition Diagnosis: Severe Chronic Protein Calorie Malnutrition r/t decreased ability to consume adequate energy intake as evidenced by 15% weight loss in 5 months, severe, moderate to severe muscle mass loss (temporalis, deltoid, trapezius, pectoralis major, interosseous), moderate to severe subcutaneous fat loss (buccal, orbital, triceps) and BMI 22.1 (underweight for age). The patient is at much higher risk for medical and surgical complications because of their malnutrition. This increases the difficulty and complexity of medical and surgical interventions and increases the chances of poor outcomes such as morbidity and mortality. Interventions: 1. Ensure BID 2. MNT for malnutrition provided EER: [id number] (25-28 kcals/kg per BMI) 45-55 g protein (.6-.8 g protein/kg per CKD3, malnutrition) Monitoring/Evaluations: ONS tolerance, po intakes Electronically Signed by: Karen Vergara 08/18/23 13:39 Clinical Dietitian [address] [id number]
[2023-08-18 13:55] VITALS: BP 93/51; PULSE 93; RESP 16; TEMP 36.5; O2SAT 96
--- NOTE | 2023-08-18 14:18 | OT.IPNOTE ---
Pt asleep,to check on the pt tomorrow. Able to talk to pt's earlier and insistent that they will be fine at home and that he is use to helping her. No charge.
--- NOTE | 2023-08-18 14:44 | CM.DPNOTE ---
DCP Cont Chart reviewed. Patient has been changed to INPT as of today 5.05.12. Met w/patient to review discharge plan. Patient reports feeling better and thinks she has improved functionally. Reviewed discharge plan options. Patient does not want to pay privately to go to SNF but would consider if [facility] will cover. Patient prefers [facility] if SNF continues to be recommended over the next day or two. MICHELLE Velasco, kindly agreed to send this referral to Marcela at [facility] for review. Patient will need an additional 3 nights before she has her MCR benefit to cover SNF. At this time, Dr Wyman and therapies recommending SNF. CM team will plan to follow closely. PASRR needed if SNF. LILLIANA
[2023-08-18 20:00] VITALS: BP 107/48; PULSE 72; RESP 16; TEMP 35.8; O2SAT 98
[2023-08-18] MEDS: diphenhydrAMINE 25 MG TABLET PO (22:00)
[2023-08-19 05:09] VITALS: BP 112/60; PULSE 72; RESP 16; TEMP 37; O2SAT 96
[2023-08-19] MEDS: PANTOPRAZOLE DR 40 MG TABLET PO ×2 (05:17→22:19)
[2023-08-19] MEDS: LEVOTHYROXINE 100 MCG TABLET PO (05:17)
[2023-08-19] MEDS: APIXABAN 5 MG TABLET 2.5 MG PO ×2 (09:29→22:20)
[2023-08-19] MEDS: SODIUM CHLORIDE 0.9% FLUSH 10 ML IV ×2 (09:30→22:21)
[2023-08-19 10:45] VITALS: BP 112/42; PULSE 71; RESP 16; TEMP 36.5; O2SAT 99
--- NOTE | 2023-08-19 10:56 | PM.DS.1 ---
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 This has been an ongoing issue for a number of months when she required a blood transfusion secondary to GI bleeding in April of this year. She was seen July 29 in the emergency department for similar findings with extensive and unrevealing workup done. She does have Neurology follow up to discuss possibility of worsening post-polio syndrome. She was diagnosed with myasthenia gravis but has been remission for the last 5 years and describes this weakness as decidedly different. She has not had any vomiting no black or red stools she notes that she has definitely had a decreased appetite and over the last year has lost around 80 lb. She is wondering if her blood pressure medications may need to be lowered or discontinued with all that weight loss. She continues to use a walker and has done so for the last number of years. She does not report fevers, cough, chills. No nausea or vomiting. Global weakness to the point that it is taking her almost an hour to get dressed for seems to be progressive. Additional info: She has a very interesting history of post-polio syndrome. She sees a neurologist at [facility] for this. This primarily as affected her from the waist down. She notes primarily that her left leg is typically the most weak and she is limited movement of her left foot especially her toes. Recently however she has had increased weakness of her right leg. This is primarily been proximal weakness of her right hip greater than her left hip. She still has relatively good muscle strength at her knees and ankles of both feet. She has had great difficulty using her walker recently because it is hard for her to get out of a chair. She denies any back pain or radicular symptoms. No fevers or chills. She did have myasthenia gravis diagnosed in 2001 and was on medications including CellCept and Mestinon until she went into remission about 6 years ago. Mg effects her with eyelid weakness and diplopia and she has had none of the symptoms. She was seen by Dr. Barker [facility] for her myasthenia and is sure that that is not the current problem. Her hyper kalemia and abnormal magnesium are new. Her creatinine is stable at 1.3. She denies any gross rectal bleeding. She has had rectal bleeding several times and did have endoscopy relatively recently revealing gastritis. Most recently she has had brown stool and no evidence of bleeding even though her hemoglobin is slightly lower today. She takes Xarelto and does not like this drug for numerous reasons including a multitude of side effects that include abdominal cramping and abnormally colored stool. She was open to switching anticoagulants if she was able to resume but has a very specific pharmacy to use if this is the case. She notes that she came off from Xarelto for 2 months and had a recurrent DVT. She had been on Xarelto for several years for previous DVT. She has no weakness from the waist up. Discharge Providers Provider Date of admission: 08/18/23 12:28 Primary care physician: Ana Ortiz MD Consults: 08/16/23 17:56 Consult to Physical Therapy Evaluate & Treat Comment: Physician Instructions: Evaluate and Treat 08/16/23 18:22 Consult to Pastoral Services Routine Comment: per pt request it might be nice 08/17/23 10:28 Consult to Occupational Therapy Evaluate & Treat Comment: Physician Instructions: Evaluate and treat 08/19/23 10:49 Consult to Home Health Routine Comment: Reason For Exam: home health services upon discharge Discharge provider: Ariel Wyman MD Exam Vital Signs (past 8 hours): - 08/19/23 05:09 08/19/23 10:45 Temperature 98.6 F 97.7 F Pulse Rate 72 71 Respiratory Rate 16 16 Blood Pressure 112/60 112/42 L Pulse Oximetry 96 99 Oxygen Flow Rate 0 Oxygen Delivery Method Room Air Oxygen Flow Rate 0 Objective Labs 08/18/23 05:50 08/18/23 05:50 [facility] Medical History Elevated INR Herpes zoster CKD (chronic kidney disease) stage 3, GFR 30-59 ml/min Arthritis, multiple joint involvement Frequent urinary tract infections Chicken pox (~1947) Hyperthyroidism (~1992) History of [place] fever Shoulder pain History of eczema Polio History of chickenpox History of urinary incontinence History of ulcerative colitis History of gastric ulcer History of diverticulitis History of colitis History of skin cancer History of diabetes mellitus Type 2 diabetes mellitus without complication, without long-term current use of insulin (12/29/16) Surgical History History of shoulder replacement History of cholecystectomy Status post cholecystectomy History of knee replacement History of hip replacement Family History Sister Age: 81 Heart disease Father No problems noted. Mother Myocardial infarction Brother No problems noted. Brother No problems noted. Social History marital status: household members: spouse and children Smoking Status: Former smoker alcohol intake: former substance use type: does not use Discharge Plan Discharge Plan Patient Disposition: Home Provider Discharge Comment: Stable for discharge with close follow up as scheduled on September 07 with [facility] neurology for post-polio syndrome and distant myasthenia gravis[facility] Discharge orders & Medications Prescriptions: New Eliquis 5 mg tablet 5 mg PO BID Qty: 60 0RF pantoprazole [Protonix] 40 mg tablet,delayed release (DR/EC) 40 mg PO BID Qty: 60 2RF Continued levothyroxine 100 mcg tablet 100 mcg PO QDAY Qty: 90 3RF Centrum for Women w/D3 1 tab PO DAILY acetaminophen [Acetaminophen Extra Strength] 500 mg Tablet 1,000 mg PO BID PRN (Reason: Pain (Scale Score 4-6)) Discontinued omeprazole 20 mg capsule,delayed release(DR/EC) 20 mg PO BID Qty: 60 2RF hydrochlorothiazide 25 mg tablet 25 mg PO DAILY Qty: 90 3RF lisinopril 20 mg tablet 20 mg PO DAILY Qty: 90 3RF cephalexin 250 mg tablet 250 mg PO BEDTIME rivaroxaban 20 mg Tablet 20 mg PO DAILY Rx Instructions: must administer with evening meal Medication counseling provided by Pharmacist: No Follow up/Referrals: Ana Ortiz MD [Primary Care Provider] - Discharge Health Status Multidrug resistant organism: No MDRO Diet/Activity/Treatments Diet: Regular Activity: As tolerated, use walker at all time. Visit Report/Discharge Packet Stand Alone Forms: Patient Portal/API Discharge Data Primary Care Provider: Ana Ortiz Quality VTE Deep Vein Thrombosis/Pulmonary Embolism Present on Admission: Yes
[2023-08-19 11:05] LABS: Hematocrit 27.3 % (36-46); Mean Corpuscular HGB Conc 32.9 % (30-36); Mean Corpuscular Hemoglobin 32.1 PG (26-34); Mean Corpuscular Volume 97.7 fL (80-100); Platelet Count 140 X10^3/uL (150-400); Red Blood Cell Count 2.79 X10^6/uL (4.0-5.2); Red Cell Distribution Width 15.2 % (11.6-14.8); White Blood Cell Count 8.8 X10^3/uL (4.5-11.0)
--- NOTE | 2023-08-19 11:07 | CM.DPNOTE ---
Addendum entered by JALEN Rahman 08/19/23 15:47: ADD: Please update [facility] that patient has not discharged home. Addendum entered by JALEN Rahman 08/19/23 15:42: ADD: According to therapies SNF is being recommended and patient agreeable, patient and family feel it is a good idea, and patient INPT status as of 08/17 Updated Marcela at [facility] that there has been another change of plan, Marcela responds at 1545 reporting patient has been accepted although she has no bed availability except for one female bed on their LTC unit with a noisy roommate. Marcela will plan to chk in with CM team Wednesday. SNF search will need to be broadened. Unable to get back into patient's room to discuss other SNF preferences. Level 1 PASRR completed in anticipation of SNF at discharge. JW Original Note: DC Note Patient cleared by DR Wyman for return home today. Met w/patient to review discharge plan. Patient eager to return home and reports her spouse will transport, family available to assist patient once home. Discussed home health services, patient requests referral to [facility] , states she welcomes their help. F2F and HH order completed. MICHELLE Velasco, kindly agreed to send this referral to [facility]. Marcela at [facility] updated that patient will be returning home today. Plan: Discharge home w/family, [facility], family to transport, close outpatient follow up. LILLIANA
[2023-08-19 11:41] LABS: BUN Creatinine Ratio 18.8 (6-22); Blood Urea Nitrogen 21 mg/dL (7-17); Calcium 7.6 mg/dL (8.4-10.2); Carbon Dioxide 19 mmol/L (22-32); Chloride 115 mmol/L (98-107); Estimated Glomerular Filt Rate 49 mL/min (>60); Glucose 162 mg/dL (80-110); HEMOLYSIS 40 (0-50); Potassium 4.3 mmol/L (3.4-5.1); Sodium 137 mmol/L (137-145)
[2023-08-19 11:42] LABS: Alanine Aminotransferase 22 IU/L (<35); Albumin 2.3 g/dL (3.5-5.0); Albumin Globulin Ratio 0.7 (1.0-2.8); Alkaline Phosphatase 57 U/L (38-126); Aspartate Aminotransferase 36 IU/L (14-36); Bilirubin Total 0.5 mg/dL (0.2-1.3); Globulin 3.1 g/dL (1.7-4.1); Magnesium 1.5 mg/dL (1.6-2.3); Total Protein 5.4 g/dL (6.3-8.2)
--- NOTE | 2023-08-19 13:20 | PT.IPTN ---
Current Diagnoses Hyperkalemia (08/18/23) Physical Therapy Treatment Note M2 PT-IP Current Condition Start: 08/17/23 13:05 Freq: NEEDED Status: Active Protocol: Document 08/17/23 11:05 AB (Rec: 08/17/23 13:19 AB [id number]) Physical Therapy Current Condition Current Condition Evaluation Date 08/17/23 Treatment Diagnosis anemia; difficulty in walking Onset Date 08/16/23 M3 PT-IP Subjective Start: 08/17/23 13:05 Freq: NEEDED Status: Active Protocol: Document 08/19/23 15:05 TS (Rec: 08/19/23 15:18 TS [id number]) Subjective Physical Therapy Visit Type Type Treatment Note Visit Start Time 13:20 Visit Stop Time 13:50 Number of CLINICAL DOCUMENTATION IMPROVEMENT SPECIALIST Visits 1 Physical Therapy Visit Comments Patient Comments Pt found resting in chair, reports long medical history and that she feels weaker today. She believes she over did it with PT yesterday and that she couldn't stand from toilet with nursing afterwards . Spouse is present in room and reports he can't physiccally help her at home due to his own medical issues. Pt is agreeable to PT. M4 PT-IP Mobility and Gait Start: 08/17/23 13:05 Freq: NEEDED Status: Active Protocol: Document 08/19/23 15:05 TS (Rec: 08/19/23 15:18 TS [id number]) PT-Transfer Assessment Sit to and From Stand Sit to and from Stand Contact Guard Assistance,1 Person Assistance,Use of Upper Extremities Equipment Transfer Assistive Device Gait Belt,Front Wheeled Walker Orthotic/Prosthetic Devices or Brace: No Comments Mobility Comments STS from chair CGA with FWW, pt is slow to stand and has very flexed posture. She ambulated ~10'SBA with FWW, pt states she does not want to walk too much today because she is worried of being too fatigue. Pt sat in chair for rest break. Pt agreed to stand again, STS CGA with FWW and cues for sequencing. Pt was left back in chair, all needs met. Gait Assessment Gait Gait Assistance Required: Standby Assistance Distance (Feet) 10 Able to Maintain Weight Bearing Status Yes During Gait Assistive Devices Assistive Device Gait Belt,Front Wheeled Walker Orthotic/Prosthetic Devices or Brace: No Gait Deviations General Gait Pattern Decreased Stride Length, Decreased Feet Clearance Factors Limiting Gait Function Factors Limiting Gait Function Decreased Activity Tolerance, Decreased Strength,Limited Range of Motion,Poor Balance, Poor Safety Awareness Comments Gait Comments See mobility comments PT-Balance Assessment Sitting Balance and Reactions Static Sitting Balance Ability Good Dynamic Sitting Balance Ability Good Standing Balance and Reactions Static Standing Balance Ability Fair Dynamic Standing Balance Ability Fair Device Used FWW M5 PT-IP Objective Assessments Start: 08/17/23 13:05 Freq: NEEDED Status: Active Protocol: Document 08/17/23 11:05 AB (Rec: 08/17/23 13:19 AB [id number]) Orientation Orientation/Cognition Level of Alertness Alert Orientation Name,Place,Situation Language Function Ability No Deficits Noted Safety Awareness Decreased Safety Awareness Memory Description No Deficits Noted Gross Range of Motion Lower Extremity ROM Impairments L ankle tightness in DF Strength Lower Extremity Strength Assessment Bilaterally Impaired Comments Strength Comments RLE: 3+/5 LLE: 4-/5; L foot drop M6 PT-IP Treatment Start: 08/17/23 13:05 Freq: NEEDED Status: Active Protocol: Document 08/19/23 15:05 TS (Rec: 08/19/23 15:18 TS [id number]) Physical Therapy Treatment Education Education Provided Safety M7 PT-IP Assessment and Plan Start: 08/17/23 13:05 Freq: NEEDED Status: Active Protocol: Document 08/19/23 15:05 TS (Rec: 08/19/23 15:18 TS [id number]) PT Summary Assessment and Plan Potential Rehabilitation Potential Good Summary Impairments Pain,ROM,Strength,Balance, Coordination,Sensation,Tone, Cognition,Bed Mobility, Transfers,Gait,Activity Tolerance Progress Towards Goals Slow Progress due to Medical Issues,Slow Progress due to Activity Tolerance Assessment Summary Kayleigh is making some progress with her mobility this session. She is CGA for STS x2 with FWW. She is slightly unsteady coming into standing and requires extra time to complete. She ambulated ~10'SBA with FWW, she declined further gait due to worry of being too fatigued . PT is recommending home with 24/7 assist vs SNF at this time. Pt would like to attend rehab in hopes of getting stronger before returning home . Goals Bed Mobility Goal Independent Transfer Goal Standby Assistance,Front Wheeled Walker Gait Goal Standby Assistance,Front Wheel Walker Gait Distance 50 Other Goals improve transfers and ambulation using 4WW ~ 150 ft SBA Days to Meet Goals 10 Frequency of Treatment Frequency Of Treatment Once a Day Treatment Plan Physical Therapy Treatment Plan Bed Mobility Training,Transfer Training,Gait Training, Therapeutic Exercise,Balance Retraining,Discharge Planning, Hot or Cold Pack,Neuromuscular Re-ed,Coordination Retraining Recommendations To Nursing Amount of Assist Needed 1 Person Assist Discharge Recommendations PT Discharge Recommendations Home with 09/11 Assist Available,Home Health,SNF Rehab,Home vs SNF Transportation Needs at Discharge Private Vehicle,Wheelchair/ Cabulance
--- NOTE | 2023-08-19 13:38 | OT.IPNOTE ---
Pt and her have decided at this time that going home would be too much. Their daughter just had sx and her still on the mend from sx as well, and best to go to skilled rehab. Pt still having difficulty with activity tolerance and coming up to stand. Able to talk to case management. NO charge, SPINDRAW OPERATOR is the room working with the pt.
[2023-08-19] MEDS: MAGNESIUM SULFATE 2 GM/50 ML PIGGYBACK IV (13:58)
--- NOTE | 2023-08-19 16:06 | P.PN_ITS ---
Subjective Subjective Interval history: She was going to go home today but feels a little weaker. She is primarily weak in the proximal hip. Her magnesium was a little low again today and will be repleted. Therapies have recommended penitentiary facility after re-evaluating today. Exam Vital Signs (past 8 hours): - 08/19/23 10:45 Temperature 97.7 F Pulse Rate 71 Respiratory Rate 16 Blood Pressure 112/42 L Pulse Oximetry 99 Oxygen Delivery Method Room Air Oxygen Flow Rate 0 Narrative Exam Narrative: NAD, normal speech. Lungs are clear, normal effort. Heart is regular, no murmur. Abdomen is nondistended. Legs are free of edema, good pedal pulses. No arm weakness or facial droop. No ocular symptoms. Objective Labs 08/19/23 10:40 08/19/23 10:40 Labs: Laboratory Results - last 24 hr 08/19/23 10:40 WBC 8.8 RBC 2.79 L Hgb 9.0 L Hct 27.3 L MCV 97.7 MCH 32.1 MCHC 32.9 RDW 15.2 H Plt Count 140 L Sodium 137 Potassium 4.3 Chloride 115 H Carbon Dioxide 19 L BUN 21 H Creatinine 1.12 H Estimated GFR 49 L BUN/Creatinine Ratio 18.8 Glucose 162 H Calcium 7.6 L Magnesium 1.5 L Total Bilirubin 0.5 AST 36 ALT 22 Alkaline Phosphatase 57 Total Protein 5.4 L Albumin 2.3 L Globulin 3.1 Albumin/Globulin Ratio 0.7 L [facility] Medical History Elevated INR Herpes zoster CKD (chronic kidney disease) stage 3, GFR 30-59 ml/min Arthritis, multiple joint involvement Frequent urinary tract infections Chicken pox (~1947) Hyperthyroidism (~1992) History of [place] fever Shoulder pain History of eczema Polio History of chickenpox History of urinary incontinence History of ulcerative colitis History of gastric ulcer History of diverticulitis History of colitis History of skin cancer History of diabetes mellitus Type 2 diabetes mellitus without complication, without long-term current use of insulin (12/29/16) Surgical History History of shoulder replacement History of cholecystectomy Status post cholecystectomy History of knee replacement History of hip replacement Family History Sister Age: 81 Heart disease Father No problems noted. Mother Myocardial infarction Brother No problems noted. Brother No problems noted. Social History marital status: household members: spouse and children Smoking Status: Former smoker alcohol intake: former substance use type: does not use Assessment & Plan Assessment & Plan narrative: 1. Hyperkalemia, present on admission, resolved 2. Chronic kidney disease stage 3 with a creatinine of 1.3 or so at baseline. Present on admission and stable. 3. Probable subacute blood loss anemia, present on admission and active/stable. 4. Known gastritis on recent endoscopy, present on admission and likely active. 5. Recent diagnosis of DVT on anticoagulation, present on admission and active. 6. Hypothyroidism, present on admission and active. 7. Post-polio syndrome, present on admission and active. 8. Myasthenia gravis, said to be in remission for several years. Present on admission and stable. 9. Severe protein calorie malnutrition with anorexia, present on admission and active. Possible MG symptoms. 10. Hypomagnesemia, present on admission and improved. 11. Hypertension, stable. PLAN: -cancel discharge today. -arrange for penitentiary facility, it sounds like she will be able to be accepted on Wednesday. -continue current medications and monitor potassium and magnesium. Replete as needed. -had discussed with Dr. Fox Neurology at [facility]. No concern for MG crisis. Quality VTE Deep Vein Thrombosis/Pulmonary Embolism Present on Admission: Yes
[2023-08-19 20:00] VITALS: BP 110/60; PULSE 80; RESP 16; TEMP 37; O2SAT 96
[2023-08-19] MEDS: diphenhydrAMINE 25 MG TABLET PO (22:22)
[2023-08-20] MEDS: PANTOPRAZOLE DR 40 MG TABLET PO ×2 (06:27→19:51)
[2023-08-20] MEDS: LEVOTHYROXINE 100 MCG TABLET PO (06:27)
[2023-08-20 06:52] VITALS: BP 140/76; PULSE 74; RESP 16; TEMP 36.4; O2SAT 97
--- NOTE | 2023-08-20 08:06 | P.PN_ITS ---
Subjective Subjective Interval history: Patient feeling well today. Awaiting SNF in [place] which can accept her tomorrow. Awaiting acetylcholine receptor Ab labs. Exam Vital Signs (past 8 hours): - 08/20/23 06:52 Temperature 97.6 F Pulse Rate 74 Respiratory Rate 16 Blood Pressure 140/76 Pulse Oximetry 97 Oxygen Flow Rate 0 Oxygen Delivery Method Room Air Oxygen Flow Rate 0 Narrative Exam Narrative: NAD, normal speech. Lungs are clear, normal effort. Heart is regular, no murmur. Abdomen is nondistended. Legs are free of edema, good pedal pulses. No arm weakness or facial droop. No ocular symptoms. Objective Labs 08/20/23 16:05 08/20/23 16:05 Labs: Laboratory Results - last 24 hr 08/19/23 10:40 WBC 8.8 RBC 2.79 L Hgb 9.0 L Hct 27.3 L MCV 97.7 MCH 32.1 MCHC 32.9 RDW 15.2 H Plt Count 140 L Sodium 137 Potassium 4.3 Chloride 115 H Carbon Dioxide 19 L BUN 21 H Creatinine 1.12 H Estimated GFR 49 L BUN/Creatinine Ratio 18.8 Glucose 162 H Calcium 7.6 L Magnesium 1.5 L Total Bilirubin 0.5 AST 36 ALT 22 Alkaline Phosphatase 57 Total Protein 5.4 L Albumin 2.3 L Globulin 3.1 Albumin/Globulin Ratio 0.7 L [facility] Medical History Elevated INR Herpes zoster CKD (chronic kidney disease) stage 3, GFR 30-59 ml/min Arthritis, multiple joint involvement Frequent urinary tract infections Chicken pox (~1947) Hyperthyroidism (~1992) History of [place] fever Shoulder pain History of eczema Polio History of chickenpox History of urinary incontinence History of ulcerative colitis History of gastric ulcer History of diverticulitis History of colitis History of skin cancer History of diabetes mellitus Type 2 diabetes mellitus without complication, without long-term current use of insulin (12/29/16) Surgical History History of shoulder replacement History of cholecystectomy Status post cholecystectomy History of knee replacement History of hip replacement Family History Sister Age: 81 Heart disease Father No problems noted. Mother Myocardial infarction Brother No problems noted. Brother No problems noted. Social History marital status: household members: spouse and children Smoking Status: Former smoker alcohol intake: former substance use type: does not use Assessment & Plan Assessment & Plan narrative: 1. Hyperkalemia, present on admission, resolved 2. Chronic kidney disease stage 3 with a creatinine of 1.3 or so at baseline. Present on admission and stable. 3. Probable subacute blood loss anemia, present on admission and active/stable. 4. Known gastritis on recent endoscopy, present on admission and likely active. 5. Recent diagnosis of DVT on anticoagulation, present on admission and active. 6. Hypothyroidism, present on admission and active. 7. Post-polio syndrome, present on admission and active. 8. Myasthenia gravis, said to be in remission for several years. Present on admission and stable. 9. Severe protein calorie malnutrition with anorexia, present on admission and active. Possible MG symptoms. 10. Hypomagnesemia, present on admission and improved. 11. Hypertension, stable. PLAN: -MG titers elevated. spoke with neurology who recoomended trial IVIG to see if improvement -continue current medications and monitor potassium and magnesium. Replete as needed. -had discussed with Dr. Fox Neurology at [facility]. Quality VTE Deep Vein Thrombosis/Pulmonary Embolism Present on Admission: Yes
[2023-08-20] MEDS: SODIUM CHLORIDE 0.9% FLUSH 10 ML IV ×2 (09:58→19:52)
[2023-08-20] MEDS: APIXABAN 5 MG TABLET 2.5 MG PO ×2 (09:58→19:51)
[2023-08-20 10:33] VITALS: BP 114/56; PULSE 91; O2SAT 100
--- NOTE | 2023-08-20 11:10 | PT.IPTN ---
Current Diagnoses Hyperkalemia (08/18/23) Physical Therapy Treatment Note M2 PT-IP Current Condition Start: 08/17/23 13:05 Freq: NEEDED Status: Active Protocol: Document 08/17/23 11:05 AB (Rec: 08/17/23 13:19 AB [id number]) Physical Therapy Current Condition Current Condition Evaluation Date 08/17/23 Treatment Diagnosis anemia; difficulty in walking Onset Date 08/16/23 M3 PT-IP Subjective Start: 08/17/23 13:05 Freq: NEEDED Status: Active Protocol: Document 08/20/23 11:57 TS (Rec: 08/20/23 12:02 TS [id number]) Subjective Physical Therapy Visit Type Type Treatment Note Visit Start Time 11:10 Visit Stop Time 11:33 Number of SECURITY COMPLIANCE ENGINEER Visits 2 Physical Therapy Visit Comments Patient Comments Pt found resting in chair, is agreeable to PT. M4 PT-IP Mobility and Gait Start: 08/17/23 13:05 Freq: NEEDED Status: Active Protocol: Document 08/20/23 11:57 TS (Rec: 08/20/23 12:02 TS [id number]) PT-Transfer Assessment Sit to and From Stand Sit to and from Stand Contact Guard Assistance,1 Person Assistance,Use of Upper Extremities Equipment Transfer Assistive Device Gait Belt,Front Wheeled Walker Orthotic/Prosthetic Devices or Brace: No Comments Mobility Comments STS from chair CGA with FWW, pt is slow to stand and has flexed posture. She ambulated in room ~15'SBA with FWW, had no buckling or LOB. Pt requested to sit back in chair . Attempted to get pt to ambulate more, she refused due to worry of being too fatigued. Pt was left in chair , all needs met. Gait Assessment Gait Gait Assistance Required: Standby Assistance Distance (Feet) 15 Able to Maintain Weight Bearing Status Yes During Gait Assistive Devices Assistive Device Gait Belt,Front Wheeled Walker Orthotic/Prosthetic Devices or Brace: No Gait Deviations General Gait Pattern Decreased Stride Length, Decreased Feet Clearance Factors Limiting Gait Function Factors Limiting Gait Function Decreased Activity Tolerance, Decreased Strength,Limited Range of Motion,Poor Balance, Poor Safety Awareness Comments Gait Comments See mobility comments PT-Balance Assessment Sitting Balance and Reactions Static Sitting Balance Ability Good Dynamic Sitting Balance Ability Good Standing Balance and Reactions Static Standing Balance Ability Fair Dynamic Standing Balance Ability Fair Device Used FWW M5 PT-IP Objective Assessments Start: 08/17/23 13:05 Freq: NEEDED Status: Active Protocol: Document 08/17/23 11:05 AB (Rec: 08/17/23 13:19 AB [id number]) Orientation Orientation/Cognition Level of Alertness Alert Orientation Name,Place,Situation Language Function Ability No Deficits Noted Safety Awareness Decreased Safety Awareness Memory Description No Deficits Noted Gross Range of Motion Lower Extremity ROM Impairments L ankle tightness in DF Strength Lower Extremity Strength Assessment Bilaterally Impaired Comments Strength Comments RLE: 3+/5 LLE: 4-/5; L foot drop M6 PT-IP Treatment Start: 08/17/23 13:05 Freq: NEEDED Status: Active Protocol: Document 08/20/23 11:57 TS (Rec: 08/20/23 12:02 TS [id number]) Physical Therapy Treatment Education Education Provided Safety M7 PT-IP Assessment and Plan Start: 08/17/23 13:05 Freq: NEEDED Status: Active Protocol: Document 08/20/23 11:57 TS (Rec: 08/20/23 12:02 TS [id number]) PT Summary Assessment and Plan Potential Rehabilitation Potential Good Summary Impairments Pain,ROM,Strength,Balance, Coordination,Sensation,Tone, Cognition,Bed Mobility, Transfers,Gait,Activity Tolerance Progress Towards Goals Slow Progress due to Medical Issues,Slow Progress due to Activity Tolerance Assessment Summary Kayleigh continues to be limited by poor activity tolerance. She is slow to stand with FWW from chair. She ambulated in room ~15'SBA, she refused to amulate further to worry of being too fatigued. PT is recommending Home 24/ vs SNF. Goals Bed Mobility Goal Independent Transfer Goal Standby Assistance,Front Wheeled Walker Gait Goal Standby Assistance,Front Wheel Walker Gait Distance 50 Other Goals improve transfers and ambulation using 4WW ~ 150 ft SBA Days to Meet Goals 10 Frequency of Treatment Frequency Of Treatment Once a Day Treatment Plan Physical Therapy Treatment Plan Bed Mobility Training,Transfer Training,Gait Training, Therapeutic Exercise,Balance Retraining,Discharge Planning, Hot or Cold Pack,Neuromuscular Re-ed,Coordination Retraining Recommendations To Nursing Amount of Assist Needed 1 Person Assist Discharge Recommendations PT Discharge Recommendations Home with 24/7 Assist Available,Home Health,SNF Rehab,Home vs SNF Transportation Needs at Discharge Private Vehicle,Wheelchair/ Cabulance
--- NOTE | 2023-08-20 11:20 | CM.DPNOTE ---
Called [facility] and spoke to Leonie Sotomayor for 1:30-2 PM transport to [facility]. I told Leonie to please tr [place] and I gave her Marcela's number. Krista Doyle, [place] Mental Health Professional.
--- NOTE | 2023-08-20 11:49 | CM.DPC ---
DCP SNF Planning: PAYAM spoke to Marcela at [facility] and confirmed if pt stable for discharge tomorrow Sat 5/4 they could accept and would be willing to use [facility] transport billed to them and pt would be in a shared room with a roommate that can be louder. PAYAM met bedside with pt and explained role and pt very pleasant and talkative and discussed above and provided SNF Choice list and pt states her preference would still probably be [place] as her elderly and Dtr live in [place] or [facility] as backup. PAYAM called [facility] admissions and they do not have any female beds available through the weekend. IRMA Velasco kindly called [facility] transport and scheduled wheelchair van (to bring a w/c) for Sat between [phone] per Marcela at [facility] request billed to them. Marcela at [facility] states her Family Practitioner will have the admissions cell phone tomorrow but will not have the best radiology receptionist but will be checking messages and aware of new admit tomorrow. PASRR previously done. ADRIANE Hogue kindly updated pt bedside about plan for tomorrow. PAYAM called and updated and confirmed plan and time with Marcela at [facility]. Plan: SW to follow for plan of discharge tomorrow Sat 5/4 to [facility] SNF via [facility] between [phone] billed to [facility]. JALEN Alonzo
--- NOTE | 2023-08-20 12:21 | OT.IPNOTE ---
Attempted to see pt for OT and pt states already able to do sponge bath on herself earlier. Pt looking to go to skilled rehab tomorrow.
[2023-08-20 12:45] LABS: Acetylcholine Receptor Bind AB 2.17 nmol/L (0.00-0.24)
[2023-08-20 16:14] LABS: Add Manual Diff / Slide Review NO; Basophils Absolute Auto 100 /uL (0-100); Basophils Percent Auto 0.8 % (0-2); Eosinophils Absolute Auto 100 /uL (0-450); Eosinophils Percent Auto 1.2 % (2-4); Hematocrit 25.1 % (36-46); Hemoglobin 8.2 g/dL (12.0-16.0); Lymphocytes Absolute Auto 1200 /uL (1100-4500); Lymphocytes Percent Auto 14.3 % (25-40); Mean Corpuscular HGB Conc 32.8 % (30-36); Mean Corpuscular Hemoglobin 32.1 PG (26-34); Mean Corpuscular Volume 97.8 fL (80-100); Monocytes Absolute Auto 500 /uL (0-900); Monocytes Percent Auto 5.9 % (3-14); Neutrophils Absolute Auto 6400 /uL (1500-7000); Neutrophils Percent Auto 77.8 % (50-75); Platelet Count 160 X10^3/uL (150-400); Red Blood Cell Count 2.57 X10^6/uL (4.0-5.2); White Blood Cell Count 8.2 X10^3/uL (4.5-11.0)
[2023-08-20 16:29] LABS: BUN Creatinine Ratio 17.1 (6-22); Blood Urea Nitrogen 21 mg/dL (7-17); Calcium 7.8 mg/dL (8.4-10.2); Carbon Dioxide 19 mmol/L (22-32); Chloride 117 mmol/L (98-107); Estimated Glomerular Filt Rate 44 mL/min (>60); Glucose 122 mg/dL (80-110); HEMOLYSIS 27 (0-50); Magnesium 1.7 mg/dL (1.6-2.3); Potassium 4.9 mmol/L (3.4-5.1); Sodium 139 mmol/L (137-145)
[2023-08-20] MEDS: MAGNESIUM SULFATE 2 GM/50 ML PIGGYBACK IV (17:40)
[2023-08-20 20:00] VITALS: BP 117/67; PULSE 83; RESP 16; TEMP 36.3; O2SAT 95
[2023-08-21] MEDS: LEVOTHYROXINE 100 MCG TABLET PO (05:36)
[2023-08-21] MEDS: PANTOPRAZOLE DR 40 MG TABLET PO ×2 (05:36→21:11)
[2023-08-21 06:00] VITALS: BP 122/66; PULSE 74; RESP 17; TEMP 37; O2SAT 94
[2023-08-21 07:18] LABS: BUN Creatinine Ratio 18.5 (6-22); Blood Urea Nitrogen 20 mg/dL (7-17); Calcium 8.1 mg/dL (8.4-10.2); Carbon Dioxide 20 mmol/L (22-32); Chloride 117 mmol/L (98-107); Estimated Glomerular Filt Rate 51 mL/min (>60); Glucose 91 mg/dL (80-110); HEMOLYSIS < 15 (0-50); Magnesium 1.9 mg/dL (1.6-2.3); Potassium 4.6 mmol/L (3.4-5.1); Sodium 140 mmol/L (137-145)
[2023-08-21 08:00] VITALS: BP 100/60; PULSE 95; RESP 17; TEMP 36.8; O2SAT 99
[2023-08-21] MEDS: ACETAMINOPHEN 325 MG TABLET 975 MG PO (08:05)
[2023-08-21] MEDS: diphenhydrAMINE 25 MG TABLET PO (08:06)
[2023-08-21] MEDS: IGA OV50 IV (08:44)
[2023-08-21] MEDS: GLY IV (08:44)
[2023-08-21] MEDS: ISOOSMOTIC VEHICLE IV (08:44)
[2023-08-21] MEDS: IMMUN GLOB IV (08:44)
[2023-08-21] MEDS: APIXABAN 5 MG TABLET PO ×2 (08:52→21:11)
[2023-08-21] MEDS: MAGNESIUM OXIDE 400 MG TABLET PO (08:52)
[2023-08-21] MEDS: SODIUM CHLORIDE 0.9% FLUSH 10 ML IV ×2 (08:53→21:11)
--- NOTE | 2023-08-21 11:48 | CM.DPC ---
DCP Continued Reviewed EMR and team rounds for pt?s medical status. Per hospitalist, pt's plan of care has changed and will need to cancel transfer to [facility]. Pt plan has now changed to 5-day treatment of Intravenous immunoglobulin (IVIG) ad reassess if pt is feeling more stable with dc home. Per hospitalist, pt is enthusiastic with IVIG and is hopeful to dc home vs. SNF. PROCESS CONTROL TECHNICIAN called and left a voice message with [facility] (ph#[phone]) with updated plan. PROCESS CONTROL TECHNICIAN called [facility] (ph#[phone]) and cancelled transport plans for [phone] with dispatcher motor vehicle. Plan: CM Team to follow for dc plans after five-day IVIG treatment. Pt was previously referred to [facility], might need to follow up with referral after IV treatment if necessary. ELIZABETH Cameron
[2023-08-21 12:00] VITALS: BP 108/48; PULSE 75; RESP 19; TEMP 37.4; O2SAT 100
--- NOTE | 2023-08-21 13:58 | PT.IPTN ---
Current Diagnoses Hyperkalemia (08/18/23) Physical Therapy Treatment Note M2 PT-IP Current Condition Start: 08/17/23 13:05 Freq: NEEDED Status: Active Protocol: Document 08/17/23 11:05 AB (Rec: 08/17/23 13:19 AB [id number]) Physical Therapy Current Condition Current Condition Evaluation Date 08/17/23 Treatment Diagnosis anemia; difficulty in walking Onset Date 08/16/23 M3 PT-IP Subjective Start: 08/17/23 13:05 Freq: NEEDED Status: Active Protocol: Document 08/21/23 14:23 TS (Rec: 08/21/23 14:29 TS [id number]) Subjective Physical Therapy Visit Type Type Treatment Note Visit Start Time 13:58 Visit Stop Time 14:21 Number of TUBE SKIVER Visits 3 Physical Therapy Visit Comments Patient Comments Pt found resting in bed, is agreeable to PT. M4 PT-IP Mobility and Gait Start: 08/17/23 13:05 Freq: NEEDED Status: Active Protocol: Document 08/21/23 14:23 TS (Rec: 08/21/23 14:29 TS [id number]) PT-Bed Mobility Assessment Supine to Sit Supine to Sit Minimal Assistance,Head of Bed Elevated Scooting Scooting to Edge of Bed Standby Assistance PT-Transfer Assessment Sit to and From Stand Sit to and from Stand Contact Guard Assistance,1 Person Assistance,Use of Upper Extremities Equipment Transfer Assistive Device Gait Belt,Front Wheeled Walker Orthotic/Prosthetic Devices or Brace: No Comments Mobility Comments Pt performed heel slides prior to mobility. Supine to sit Lily for uprighting trunk. Pt used UE's to assist LE's off EOB. STS from bed CGA with FWW , pt is slow to stand. She ambulatd ~15'SBA with FWW. She declined fruther ambulation and activity due to fear of becoming too fatigued. Pt was left in chair, all needs met. Gait Assessment Gait Gait Assistance Required: Standby Assistance Distance (Feet) 15 Able to Maintain Weight Bearing Status Yes During Gait Assistive Devices Assistive Device Gait Belt,Front Wheeled Walker Orthotic/Prosthetic Devices or Brace: No Gait Deviations General Gait Pattern Decreased Stride Length, Decreased Feet Clearance Factors Limiting Gait Function Factors Limiting Gait Function Decreased Activity Tolerance, Decreased Strength,Limited Range of Motion,Poor Balance, Poor Safety Awareness Comments Gait Comments See mobility comments PT-Balance Assessment Sitting Balance and Reactions Static Sitting Balance Ability Good Dynamic Sitting Balance Ability Good Standing Balance and Reactions Static Standing Balance Ability Fair Dynamic Standing Balance Ability Fair Device Used FWW M5 PT-IP Objective Assessments Start: 08/17/23 13:05 Freq: NEEDED Status: Active Protocol: Document 08/17/23 11:05 AB (Rec: 08/17/23 13:19 AB [id number]) Orientation Orientation/Cognition Level of Alertness Alert Orientation Name,Place,Situation Language Function Ability No Deficits Noted Safety Awareness Decreased Safety Awareness Memory Description No Deficits Noted Gross Range of Motion Lower Extremity ROM Impairments L ankle tightness in DF Strength Lower Extremity Strength Assessment Bilaterally Impaired Comments Strength Comments RLE: 3+/5 LLE: 4-/5; L foot drop M6 PT-IP Treatment Start: 08/17/23 13:05 Freq: NEEDED Status: Active Protocol: Document 08/21/23 14:23 TS (Rec: 08/21/23 14:29 TS [id number]) Physical Therapy Treatment Education Education Provided Safety M7 PT-IP Assessment and Plan Start: 08/17/23 13:05 Freq: NEEDED Status: Active Protocol: Document 08/21/23 14:23 TS (Rec: 08/21/23 14:29 TS [id number]) PT Summary Assessment and Plan Summary Impairments Pain,ROM,Strength,Balance, Coordination,Sensation,Tone, Cognition,Bed Mobility, Transfers,Gait,Activity Tolerance Progress Towards Goals Slow Progress due to Medical Issues,Slow Progress due to Activity Tolerance Assessment Summary Kayleigh continues to make slow progress with her mobility. She is Lily for supine to sit with SALES SERVICE EXECUTIVE. She cotninues to be CGA for STS with FWW and continues to ambulate short distances in room with FWW. She does not show signs of fatigue when working with therapy but pt is fearful of doing too much activity. PT continues to recommend SNF rehab. Goals Bed Mobility Goal Independent Transfer Goal Standby Assistance,Front Wheeled Walker Gait Goal Standby Assistance,Front Wheel Walker Gait Distance 50 Other Goals improve transfers and ambulation using 4WW ~ 150 ft SBA Days to Meet Goals 10 Frequency of Treatment Frequency Of Treatment Once a Day Treatment Plan Physical Therapy Treatment Plan Bed Mobility Training,Transfer Training,Gait Training, Therapeutic Exercise,Balance Retraining,Discharge Planning, Hot or Cold Pack,Neuromuscular Re-ed,Coordination Retraining Recommendations To Nursing Amount of Assist Needed 1 Person Assist Discharge Recommendations PT Discharge Recommendations SNF Rehab Transportation Needs at Discharge Wheelchair/Cabulance
--- NOTE | 2023-08-21 15:26 | P.PN_ITS ---
Subjective Subjective Interval history: Patient excited to start IVIG today. She has no other complaints. Exam Vital Signs (past 8 hours): - 08/21/23 08:00 08/21/23 09:45 08/21/23 12:00 Temperature 98.2 F 99.3 F Pulse Rate 95 H 75 Respiratory Rate 17 19 Blood Pressure 100/60 108/48 L Pulse Oximetry 99 100 Oxygen Delivery Method Room Air Oxygen Delivery Method Room Air Oxygen Flow Rate 0 Narrative Exam Narrative: NAD, normal speech. Lungs are clear, normal effort. Heart is regular, no murmur. Abdomen is nondistended. Legs are free of edema, good pedal pulses. No arm weakness or facial droop. No ocular symptoms. Neuro: 4/5 in LLE with L foot drop, and 3/5 in RLE Objective Labs 08/20/23 16:05 08/21/23 06:46 Labs: Laboratory Results - last 24 hr 08/20/23 08/21/23 16:05 06:46 WBC 8.2 RBC 2.57 L Hgb 8.2 L Hct 25.1 L MCV 97.8 MCH 32.1 MCHC 32.8 RDW 15.0 H Plt Count 160 Neut % (Auto) 77.8 H Lymph % (Auto) 14.3 L [place] % (Auto) 5.9 Eos % (Auto) 1.2 L Baso % (Auto) 0.8 Neut # (Auto) 6400 Lymph # (Auto) 1200 [place] # (Auto) 500 Eos # (Auto) 100 Baso # (Auto) 100 Sodium 139 140 Potassium 4.9 4.6 Chloride 117 H 117 H Carbon Dioxide 19 L 20 L BUN 21 H 20 H Creatinine 1.23 H 1.08 H Estimated GFR 44 L 51 L BUN/Creatinine Ratio 17.1 18.5 Glucose 122 H 91 Calcium 7.8 L 8.1 L Magnesium 1.7 1.9 [facility] Medical History Elevated INR Herpes zoster CKD (chronic kidney disease) stage 3, GFR 30-59 ml/min Arthritis, multiple joint involvement Frequent urinary tract infections Chicken pox (~1947) Hyperthyroidism (~1992) History of [place] fever Shoulder pain History of eczema Polio History of chickenpox History of urinary incontinence History of ulcerative colitis History of gastric ulcer History of diverticulitis History of colitis History of skin cancer History of diabetes mellitus Type 2 diabetes mellitus without complication, without long-term current use of insulin (12/29/16) Surgical History History of shoulder replacement History of cholecystectomy Status post cholecystectomy History of knee replacement History of hip replacement Family History Sister Age: 81 Heart disease Father No problems noted. Mother Myocardial infarction Brother No problems noted. Brother No problems noted. Social History marital status: household members: spouse and children Smoking Status: Former smoker alcohol intake: former substance use type: does not use Assessment & Plan Assessment & Plan narrative: 1. Hyperkalemia, present on admission, resolved 2. Chronic kidney disease stage 3 with a creatinine of 1.3 or so at baseline. Present on admission and stable. 3. Probable subacute blood loss anemia, present on admission and active/stable. 4. Known gastritis on recent endoscopy, present on admission and likely active. 5. Recent diagnosis of DVT on anticoagulation, present on admission and active. 6. Hypothyroidism, present on admission and active. 7. Post-polio syndrome, present on admission and active. 8. Myasthenia gravis, said to be in remission for several years. Present on admission and stable. 9. Severe protein calorie malnutrition with anorexia, present on admission and active. Possible MG symptoms. 10. Hypomagnesemia, present on admission and improved. 11. Hypertension, stable. PLAN: -MG titers elevated. spoke with neurology who recommended trial IVIG to see if improvement -start IVIG x5 day trial -continue current medications and monitor potassium and magnesium. Replete as needed. -had discussed with Dr. Fox Neurology at [facility]. -continue PT/OT Dispo: SNF vs once IVIG finished on 08/24 Quality VTE Deep Vein Thrombosis/Pulmonary Embolism Present on Admission: Yes
[2023-08-21 16:00] VITALS: BP 112/51; PULSE 85; RESP 17; TEMP 36.8; O2SAT 98
[2023-08-21 20:00] VITALS: BP 107/63; PULSE 75; RESP 17; TEMP 36.3; O2SAT 96
[2023-08-21] MEDS: ACETAMINOPHEN 325 MG TABLET 650 MG PO (21:14)
[2023-08-22] VITALS (8 sets, daily range): BP systolic 106–130; BP diastolic 44–74; PULSE 65–88; RESP 16–20; TEMP 35.7–37.1; O2SAT 91–100
[2023-08-22] MEDS: LEVOTHYROXINE 100 MCG TABLET PO (06:44)
[2023-08-22] MEDS: PANTOPRAZOLE DR 40 MG TABLET PO ×2 (06:44→21:07)
--- NOTE | 2023-08-22 08:48 | PC.NURSE ---
Patient is alert and oriented x4, she is pleasant and states that she needs to be repositioned after breakfast. She will be getting her IvIg around 0900.
[2023-08-22] MEDS: MAGNESIUM OXIDE 400 MG TABLET PO (09:06)
[2023-08-22] MEDS: ACETAMINOPHEN 325 MG TABLET 975 MG PO (09:06)
[2023-08-22] MEDS: APIXABAN 5 MG TABLET PO ×2 (09:06→21:07)
[2023-08-22] MEDS: diphenhydrAMINE 25 MG TABLET PO ×2 (09:06→21:07)
[2023-08-22] MEDS: ISOOSMOTIC VEHICLE IV (09:09)
[2023-08-22] MEDS: IMMUN GLOB IV (09:09)
[2023-08-22] MEDS: GLY IV (09:09)
[2023-08-22] MEDS: IGA OV50 IV (09:09)
--- NOTE | 2023-08-22 18:17 | P.PN_ITS ---
Subjective Subjective Interval history: Patient notes perhaps some improved LE weakness. On day 2 of IVIG. She thinks she will want to go to SNF regardless following her hospital stay. Exam Vital Signs (past 8 hours): - 08/22/23 12:00 08/22/23 13:00 Temperature 98.0 F 98.0 F Pulse Rate 66 66 Respiratory Rate 17 17 Blood Pressure 119/46 L 119/45 L Pulse Oximetry 98 98 Oxygen Flow Rate 0 0 Oxygen Delivery Method Room Air Oxygen Flow Rate 0 Narrative Exam Narrative: NAD, normal speech. Lungs are clear, normal effort. Heart is regular, no murmur. Abdomen is nondistended. Legs are free of edema, good pedal pulses. No arm weakness or facial droop. No ocular symptoms. Neuro: 4/5 in LLE with L foot drop, and 3/5 in RLE Objective Labs 08/20/23 16:05 08/21/23 06:46 [facility] Medical History Elevated INR Herpes zoster CKD (chronic kidney disease) stage 3, GFR 30-59 ml/min Arthritis, multiple joint involvement Frequent urinary tract infections Chicken pox (~194) Hyperthyroidism (~1992) History of [place] fever Shoulder pain History of eczema Polio History of chickenpox History of urinary incontinence History of ulcerative colitis History of gastric ulcer History of diverticulitis History of colitis History of skin cancer History of diabetes mellitus Type 2 diabetes mellitus without complication, without long-term current use of insulin (12/29/16) Surgical History History of shoulder replacement History of cholecystectomy Status post cholecystectomy History of knee replacement History of hip replacement Family History Sister Age: 81 Heart disease Father No problems noted. Mother Myocardial infarction Brother No problems noted. Brother No problems noted. Social History marital status: household members: spouse and children Smoking Status: Former smoker alcohol intake: former substance use type: does not use Assessment & Plan Assessment & Plan narrative: 1. Hyperkalemia, present on admission, resolved 2. Chronic kidney disease stage 3 with a creatinine of 1.3 or so at baseline. Present on admission and stable. 3. Probable subacute blood loss anemia, present on admission and active/stable. 4. Known gastritis on recent endoscopy, present on admission and likely active. 5. Recent diagnosis of DVT on anticoagulation, present on admission and active. 6. Hypothyroidism, present on admission and active. 7. Post-polio syndrome, present on admission and active. 8. Myasthenia gravis, said to be in remission for several years. Present on admission and stable. 9. Severe protein calorie malnutrition with anorexia, present on admission and active. Possible MG symptoms. 10. Hypomagnesemia, present on admission and improved. 11. Hypertension, stable. PLAN: -MG titers elevated. spoke with neurology who recommended trial IVIG to see if improvement -start IVIG x5 day trial -continue current medications and monitor potassium and magnesium. Replete as needed. -had discussed with Dr. Fox Neurology at [facility]. -continue PT/OT Dispo: SNF vs once IVIG finished on 08/24. Quality VTE Deep Vein Thrombosis/Pulmonary Embolism Present on Admission: Yes
[2023-08-22] MEDS: LOPERAMIDE 2 MG CAPSULE PO (21:06)
[2023-08-22] MEDS: ACETAMINOPHEN 325 MG TABLET 650 MG PO (21:07)
[2023-08-22] MEDS: SODIUM CHLORIDE 0.9% FLUSH 10 ML IV (21:08)
[2023-08-23 05:28] VITALS: BP 116/56; PULSE 83; RESP 18; TEMP 36.4; O2SAT 98
[2023-08-23 05:53] VITALS: BP 116/56; PULSE 83; RESP 20; TEMP 36.4; O2SAT 98
--- NOTE | 2023-08-23 05:56 | PC.NURSE ---
Pt had an uneventful shift. ambulated from the bed to the commode 2x assist w/ walker. Pt had a large bm. sitting comfortably in chair. pt alert & oriented x 4. call light within reach.
[2023-08-23] MEDS: PANTOPRAZOLE DR 40 MG TABLET PO (06:01)
[2023-08-23] MEDS: LEVOTHYROXINE 100 MCG TABLET PO (06:01)
--- NOTE | 2023-08-23 07:50 | PM.PN.1 ---
Subjective Subjective Interval history: She is feeling better and feels that her legs are improving in terms of strength. This is primarily movement at the hips. She is able to flex at the hips against gravity today which is improved trend the time of admission. Day 3/ IVIG for possible MG exacerbation. Exam Vital Signs (past 8 hours): - 08/23/23 05:28 08/23/23 05:53 Temperature 97.6 F 97.6 F Pulse Rate 83 83 Respiratory Rate 18 20 Blood Pressure 116/56 L 116/56 L Pulse Oximetry 98 98 Oxygen Flow Rate 0 0 Oxygen Delivery Method Room Air Oxygen Flow Rate 0 Narrative Exam Narrative: NAD, alert and oriented. Fluent speech. Lungs are clear, normal rate and effort. Heart is regular, no murmur gallop or rub. Abdomen is soft, non distended. Extremities are free of edema. She can flex her hips against gravity today. Objective Labs 08/20/23 16:05 08/21/23 06:46 [facility] Medical History Elevated INR Herpes zoster CKD (chronic kidney disease) stage 3, GFR 30-59 ml/min Arthritis, multiple joint involvement Frequent urinary tract infections Chicken pox (~194) Hyperthyroidism (~1992) History of [place] fever Shoulder pain History of eczema Polio History of chickenpox History of urinary incontinence History of ulcerative colitis History of gastric ulcer History of diverticulitis History of colitis History of skin cancer History of diabetes mellitus Type 2 diabetes mellitus without complication, without long-term current use of insulin (12/29/16) Surgical History History of shoulder replacement History of cholecystectomy Status post cholecystectomy History of knee replacement History of hip replacement Family History Sister Age: 81 Heart disease Father No problems noted. Mother Myocardial infarction Brother No problems noted. Brother No problems noted. Social History marital status: household members: spouse and children Smoking Status: Former smoker alcohol intake: former substance use type: does not use Assessment & Plan Assessment & Plan narrative: 1. Hyperkalemia, present on admission, resolved 2. Chronic kidney disease stage 3 with a creatinine of 1.3 or so at baseline. Present on admission and stable. 3. Probable subacute blood loss anemia, present on admission and active/stable. 4. Known gastritis on recent endoscopy, present on admission and likely active. 5. Recent diagnosis of DVT on anticoagulation, present on admission and active. 6. Hypothyroidism, present on admission and active. 7. Post-polio syndrome, present on admission and active. 8. Myasthenia gravis with possible exacerbation, said to be in remission for several years. Present on admission and improving. 9. Severe protein calorie malnutrition with anorexia, present on admission and active. Possible MG symptoms. 10. Hypomagnesemia, present on admission and improved. 11. Hypertension, stable. PLAN: -MG titers elevated. spoke with neurology (Latoya @ [facility]) who recommended trial IVIG to see if improvement -start IVIG x5 day trial, ends Wednesday. -continue current medications and monitor potassium and magnesium. Replete as needed. -had discussed with Dr. Fox Neurology at [facility] before titers resulted. He did not think this was an mg crisis. He then went on vacation after the results were available and she also sees Dr. Anaya @ [facility], and has an appointment on September 07 -continue PT/OT Dispo: SNF 08/24. She lives in [place] with her . She prefers [facility] in [place] because of a 5 star rating, and he prefers [facility] in [place]. Quality VTE Deep Vein Thrombosis/Pulmonary Embolism Present on Admission: Yes
[2023-08-23] MEDS: GLY IV (10:03)
[2023-08-23] MEDS: APIXABAN 5 MG TABLET PO ×2 (10:03→20:04)
[2023-08-23] MEDS: MAGNESIUM OXIDE 400 MG TABLET PO (10:03)
[2023-08-23] MEDS: IGA OV50 IV (10:03)
[2023-08-23] MEDS: diphenhydrAMINE 25 MG TABLET PO ×2 (10:03→20:04)
[2023-08-23] MEDS: ISOOSMOTIC VEHICLE IV (10:03)
[2023-08-23] MEDS: IMMUN GLOB IV (10:03)
[2023-08-23] MEDS: ACETAMINOPHEN 325 MG TABLET 975 MG PO (10:03)
[2023-08-23] MEDS: SODIUM CHLORIDE 0.9% FLUSH 10 ML IV ×2 (10:05→20:05)
[2023-08-23 12:00] VITALS: BP 103/46; PULSE 76; RESP 16; TEMP 36.8; O2SAT 96
--- NOTE | 2023-08-23 12:08 | PT.IPTN ---
Current Diagnoses Hyperkalemia (08/18/23) Physical Therapy Treatment Note M2 PT-IP Current Condition Start: 08/17/23 13:05 Freq: NEEDED Status: Active Protocol: Document 08/17/23 11:05 AB (Rec: 08/17/23 13:19 AB [id number]) Physical Therapy Current Condition Current Condition Evaluation Date 08/17/23 Treatment Diagnosis anemia; difficulty in walking Onset Date 08/16/23 M3 PT-IP Subjective Start: 08/17/23 13:05 Freq: NEEDED Status: Active Protocol: Document 08/23/23 11:32 MB (Rec: 08/23/23 12:08 MB [id number]) Subjective Physical Therapy Visit Type Type Treatment Note Visit Start Time 11:32 Visit Stop Time 12:02 Number of SUPERVISOR PAINT ROLLER COVERS Visits 0 Physical Therapy Visit Comments Patient Comments Pt reports concern about her right IV and wishes therapist to be careful with it. M4 PT-IP Mobility and Gait Start: 08/17/23 13:05 Freq: NEEDED Status: Active Protocol: Document 08/23/23 11:32 MB (Rec: 08/23/23 12:08 MB [id number]) PT-Bed Mobility Assessment Supine to Sit Supine to Sit Minimal Assistance,1 Person Assistance,Head of Bed Elevated,Bedrails Sit to Supine Sit to Supine Minimal Assistance,1 Person Assistance,Head of Bed Elevated,Bedrails Scooting Scooting to Edge of Bed Minimal Assistance Gait Assessment Comments Gait Comments Use of B side rails to help scoot in the bed and she uses hands to move legs to the side once she is sitting upright. Pt c/o severe light-headedness /dizziness and stops moving. Waiting several minutes and she states she will be unable to get to EOB and standing d/t dizziness at this time. PT assist to lift the left leg back into the bed. HGB 8.2 today M5 PT-IP Objective Assessments Start: 08/17/23 13:05 Freq: NEEDED Status: Active Protocol: Document 08/17/23 11:05 AB (Rec: 08/17/23 13:19 AB [id number]) Orientation Orientation/Cognition Level of Alertness Alert Orientation Name,Place,Situation Language Function Ability No Deficits Noted Safety Awareness Decreased Safety Awareness Memory Description No Deficits Noted Gross Range of Motion Lower Extremity ROM Impairments L ankle tightness in DF Strength Lower Extremity Strength Assessment Bilaterally Impaired Comments Strength Comments RLE: 3+/5 LLE: 4-/5; L foot drop M6 PT-IP Treatment Start: 08/17/23 13:05 Freq: NEEDED Status: Active Protocol: Document 08/23/23 11:32 MB (Rec: 08/23/23 12:08 MB [id number]) Physical Therapy Treatment Education Education Provided Safety Other Treatments Other Treatment Performed Encouragement to range legs in the bed: APs, HS as able M7 PT-IP Assessment and Plan Start: 08/17/23 13:05 Freq: NEEDED Status: Active Protocol: Document 08/23/23 11:32 MB (Rec: 08/23/23 12:08 MB [id number]) PT Summary Assessment and Plan Potential Rehabilitation Potential Good Summary Impairments Pain,ROM,Strength,Balance, Coordination,Sensation,Tone, Bed Mobility,Transfers,Gait, Activity Tolerance Progress Towards Goals Slow Progress due to Medical Issues,Slow Progress due to Activity Tolerance Assessment Summary Kayleigh is very light-headeded and dizzy when moving from partial hook lying to sitting more upright today and she states she cannot do more activity. Pt is very conversant about her situation with her who has dementia and adds quite a bit of stress to her life. Her daughter lives with them and recently had foot surgery. Pt is agreeable to SNF at d/c. Goals Bed Mobility Goal Independent Transfer Goal Standby Assistance,Front Wheeled Walker Gait Goal Standby Assistance,Front Wheel Walker Gait Distance 50 Other Goals improve transfers and ambulation using 4WW ~ 150 ft SBA Days to Meet Goals 10 Frequency of Treatment Frequency Of Treatment Once a Day Treatment Plan Physical Therapy Treatment Plan Bed Mobility Training,Transfer Training,Gait Training, Therapeutic Exercise,Balance Retraining,Discharge Planning, Hot or Cold Pack,Neuromuscular Re-ed,Coordination Retraining Recommendations To Nursing Amount of Assist Needed 1 Person Assist Discharge Recommendations PT Discharge Recommendations SNF Rehab Transportation Needs at Discharge Private Vehicle,Wheelchair/ Cabulance
--- NOTE | 2023-08-23 12:44 | CM.DPNOTE ---
Addendum entered by JALEN Ritter 08/23/23 14:31: From Marcela at [facility]- can take pt when stable. PROOF SORTER updated her that per CM notes, pt may have changed her mind about her first placement choice. From Reina at per [place], pt's spouse stopped by and pt talked with Reina over the phone. Per Reina, pt and spouse appeared to change mind and have preference be [facility]. PROOF SORTER attempted to speak with pt to clarify. Pt sleeping soundly allowed to rest. [facility] vs [facility] at dc when stable pending new PT/OT evals after finalizing IVIG treatment. SL Original Note: DCP Note PROOF SORTER reviewed EMR. Per hospitalist in morning multidisciplinary rounds, anticipate stable for dc 08/25/23. per previous CM notes, PT/OT will reassess for dc recs after treatment. Per previous DCP notes, spouse/pt preference is [facility] vs [facility]. [facility] and [facility] both limited on bed availability at this time. Plan: CM Team to follow for dc plans after five-day IVIG treatment. Pt was previously referred to [facility], might need to follow up with referral after IV treatment if necessary. CM team will follow closely JALEN Ritter
--- NOTE | 2023-08-23 14:52 | OT.IPNOTE ---
Attempted to see pt for OT services. Pt is sleeping soundly. Will continue to follow.
[2023-08-23 16:00] VITALS: BP 128/67; PULSE 96; RESP 18; TEMP 36.6; O2SAT 99
[2023-08-23 20:03] VITALS: BP 106/44; PULSE 85; RESP 19; TEMP 36.2; O2SAT 99
[2023-08-23] MEDS: ACETAMINOPHEN 325 MG TABLET 650 MG PO (20:04)
[2023-08-23] MEDS: LOPERAMIDE 2 MG CAPSULE PO (20:04)
[2023-08-24] VITALS (7 sets, daily range): BP systolic 97–121; BP diastolic 42–64; PULSE 71–83; RESP 16–19; TEMP 36.1–36.7; O2SAT 94–100
[2023-08-24] MEDS: LEVOTHYROXINE 100 MCG TABLET PO (06:05)
[2023-08-24] MEDS: PANTOPRAZOLE DR 40 MG TABLET PO ×2 (06:05→20:54)
[2023-08-24] MEDS: ACETAMINOPHEN 325 MG TABLET 975 MG PO (09:39)
[2023-08-24] MEDS: diphenhydrAMINE 25 MG TABLET PO (09:40)
[2023-08-24] MEDS: APIXABAN 5 MG TABLET PO ×2 (09:40→20:54)
[2023-08-24] MEDS: MAGNESIUM OXIDE 400 MG TABLET PO (09:44)
--- NOTE | 2023-08-24 10:16 | DIET.CONS2 ---
Dietary Inpatient Consultation Note Admission Date: 08/18/2023 12:28 Nutrition f/u. Pt reported to unit host that she is eating her 3 meals per day and is not drinking Ensures. 50-100% of recorded po intakes consumed. Removed Ensures. Will continue to monitor intakes. F/u prn. Diet: 08/17/23 Lunch General (Regular) Diet Diet Modifications: Food Texture: Level 7 - Regular Liquid Consistency: Level 0 - Thin Nutrition Percent Meal Consumed 50% 08/22/23 16:00 Percent Meal Consumed 50% 08/22/23 13:10 Electronically Signed by: Karen Vergara 08/24/23 10:16 Clinical Dietitian [address] [address]
--- NOTE | 2023-08-24 11:26 | CM.DPNOTE ---
Addendum entered by JALEN Ritter 08/24/23 16:03: From Reina at [facility], transport only able to p/u at 11:30am tomorrow. INFORMATION SERVICES ASSISTANT checked in with RN/pharmacist, report pt should be able to get her last dose of IVIG starting at 8am to finish by 11am. INFORMATION SERVICES ASSISTANT updated provider. INFORMATION SERVICES ASSISTANT told Reina at [facility] 11:30am transport should be okay. Will follow closely tomorrow celestino. LIZBETH Original Note: DCP Note INFORMATION SERVICES ASSISTANT review EMR. Per hospitalist in morning rounds, pt likely cleared to dc to SNF tomorrow after last IVIG dose. INFORMATION SERVICES ASSISTANT spoke with Reina from , able to accept tomorrow, transport between 1-1:30pm pending. INFORMATION SERVICES ASSISTANT met with pt in room. Agreeable to plan. Deny other CM needs at this time. Report dtr will bring her some clothes/necessities. INFORMATION SERVICES ASSISTANT lvm with Marcela at [facility] about canceled referral. PASRR completed by previous INFORMATION SERVICES ASSISTANT. Plan: anticipate dc tomorrow to [facility] around 1-130pm. CM team will continue to follow closely. JALEN Ritter
--- NOTE | 2023-08-24 11:43 | PT-IP ANOTE ---
checked on pt x 2 attempts but pt refused PT. stated that she wants to rest and has been up on the chair since 530am. wants PT in the afternoon. will f/u.
--- NOTE | 2023-08-24 13:30 | PT.IPTN ---
Current Diagnoses Hyperkalemia (08/18/23) Physical Therapy Treatment Note M2 PT-IP Current Condition Start: 08/17/23 13:05 Freq: NEEDED Status: Active Protocol: Document 08/17/23 11:05 AB (Rec: 08/17/23 13:19 AB [id number]) Physical Therapy Current Condition Current Condition Evaluation Date 08/17/23 Treatment Diagnosis anemia; difficulty in walking Onset Date 08/16/23 M3 PT-IP Subjective Start: 08/17/23 13:05 Freq: NEEDED Status: Active Protocol: Document 08/24/23 13:42 TS (Rec: 08/24/23 13:48 TS [id number]) Subjective Physical Therapy Visit Type Type Treatment Note Visit Start Time 13:30 Visit Stop Time 13:42 Number of GLASS WASHER Visits 1 Physical Therapy Visit Comments Patient Comments Pt reports hurt tailbone hurts , would like to get up to use toilet. Pt is agreeable to PT. M4 PT-IP Mobility and Gait Start: 08/17/23 13:05 Freq: NEEDED Status: Active Protocol: Document 08/24/23 13:42 TS (Rec: 08/24/23 13:48 TS [id number]) PT-Bed Mobility Assessment Supine to Sit Supine to Sit Standby Assistance,Head of Bed Elevated,Bedrails Sit to Supine Sit to Supine Standby Assistance,1 Person Assistance,Head of Bed Elevated,Bedrails Scooting Scooting to Edge of Bed Standby Assistance PT-Transfer Assessment Sit to and From Stand Sit to and from Stand Contact Guard Assistance,1 Person Assistance,Use of Upper Extremities Equipment Transfer Assistive Device Gait Belt,Front Wheeled Walker Orthotic/Prosthetic Devices or Brace: No Comments Mobility Comments Supine to sit SBA with HOB elevated. STS from bed CGA with FWW. Pt ambulated to toilet ~15'SBA with FWW. Pt was left with nursing. Gait Assessment Gait Gait Assistance Required: Standby Assistance Distance (Feet) 15 Able to Maintain Weight Bearing Status Yes During Gait Assistive Devices Assistive Device Gait Belt,Front Wheeled Walker Orthotic/Prosthetic Devices or Brace: No Gait Deviations General Gait Pattern Decreased Stride Length, Decreased Feet Clearance Factors Limiting Gait Function Factors Limiting Gait Function Decreased Activity Tolerance, Decreased Strength,Limited Range of Motion,Poor Balance PT-Balance Assessment Sitting Balance and Reactions Static Sitting Balance Ability Good Dynamic Sitting Balance Ability Good Standing Balance and Reactions Static Standing Balance Ability Fair Dynamic Standing Balance Ability Fair Device Used FWW M5 PT-IP Objective Assessments Start: 08/17/23 13:05 Freq: NEEDED Status: Active Protocol: Document 08/17/23 11:05 AB (Rec: 08/17/23 13:19 AB [id number]) Orientation Orientation/Cognition Level of Alertness Alert Orientation Name,Place,Situation Language Function Ability No Deficits Noted Safety Awareness Decreased Safety Awareness Memory Description No Deficits Noted Gross Range of Motion Lower Extremity ROM Impairments L ankle tightness in DF Strength Lower Extremity Strength Assessment Bilaterally Impaired Comments Strength Comments RLE: 3+/5 LLE: 4-/5; L foot drop M6 PT-IP Treatment Start: 08/17/23 13:05 Freq: NEEDED Status: Active Protocol: Document 08/24/23 13:42 TS (Rec: 08/24/23 13:48 TS [id number]) Physical Therapy Treatment Education Education Provided Safety M7 PT-IP Assessment and Plan Start: 08/17/23 13:05 Freq: NEEDED Status: Active Protocol: Document 08/24/23 13:42 TS (Rec: 08/24/23 13:48 TS [id number]) PT Summary Assessment and Plan Potential Rehabilitation Potential Good Summary Impairments Pain,ROM,Strength,Balance, Coordination,Sensation,Tone, Bed Mobility,Transfers,Gait, Activity Tolerance Progress Towards Goals Slow Progress due to Medical Issues,Slow Progress due to Activity Tolerance Assessment Summary Kayleigh is maing some progress with her mobility but continues to be limited by poor activity tolerance. She is SBA for all bed with HOB elevated this session. She is CGA for STS with use of FWW. She continues to ambulate short distances in the room SBA with FWW. PT continues to recommend SNF to improve strength and activity tolerance. Goals Bed Mobility Goal Independent Transfer Goal Standby Assistance,Front Wheeled Walker Gait Goal Standby Assistance,Front Wheel Walker Gait Distance 50 Other Goals improve transfers and ambulation using 4WW ~ 150 ft SBA Days to Meet Goals 10 Frequency of Treatment Frequency Of Treatment Once a Day Treatment Plan Physical Therapy Treatment Plan Bed Mobility Training,Transfer Training,Gait Training, Therapeutic Exercise,Balance Retraining,Discharge Planning, Hot or Cold Pack,Neuromuscular Re-ed,Coordination Retraining Recommendations To Nursing Amount of Assist Needed 1 Person Assist Discharge Recommendations PT Discharge Recommendations SNF Rehab Transportation Needs at Discharge Private Vehicle,Wheelchair/ Cabulance
[2023-08-24] MEDS: ISOOSMOTIC VEHICLE IV (13:31)
[2023-08-24] MEDS: GLY IV (13:31)
[2023-08-24] MEDS: IGA OV50 IV (13:31)
[2023-08-24] MEDS: IMMUN GLOB IV (13:31)
[2023-08-24] MEDS: SODIUM CHLORIDE 0.9% FLUSH 10 ML IV ×2 (13:31→20:55)
--- NOTE | 2023-08-24 13:45 | PM.PN.1 ---
Subjective Subjective Interval history: She is feeling better and feels that her legs are improving in terms of strength. This is primarily movement at the hips. She is able to raise her legs off the bed this morning, continues to improve. Day 4/5 IVIG for possible MG exacerbation. Though delayed administration awaiting delivery of medication today. Exam Vital Signs (past 8 hours): - 08/24/23 08:37 08/24/23 11:44 Temperature 98.0 F 98.1 F Pulse Rate 82 83 Respiratory Rate 18 17 Blood Pressure 106/55 L 97/49 L Pulse Oximetry 99 96 Oxygen Flow Rate 0 0 Oxygen Delivery Method Room Air Oxygen Flow Rate 0 Narrative Exam Narrative: NAD, alert and oriented. Fluent speech. Lungs are clear, normal rate and effort. Heart is regular, no murmur gallop or rub. Abdomen is soft, non distended. Extremities are free of edema. She can flex her hips against gravity today. Objective Labs 08/20/23 16:05 08/21/23 06:46 [facility] Medical History Elevated INR Herpes zoster CKD (chronic kidney disease) stage 3, GFR 30-59 ml/min Arthritis, multiple joint involvement Frequent urinary tract infections Chicken pox (~194) Hyperthyroidism (~1992) History of [place] fever Shoulder pain History of eczema Polio History of chickenpox History of urinary incontinence History of ulcerative colitis History of gastric ulcer History of diverticulitis History of colitis History of skin cancer History of diabetes mellitus Type 2 diabetes mellitus without complication, without long-term current use of insulin (12/29/16) Surgical History History of shoulder replacement History of cholecystectomy Status post cholecystectomy History of knee replacement History of hip replacement Family History Sister Age: 81 Heart disease Father No problems noted. Mother Myocardial infarction Brother No problems noted. Brother No problems noted. Social History marital status: household members: spouse and children Smoking Status: Former smoker alcohol intake: former substance use type: does not use Assessment & Plan Assessment & Plan narrative: 1. Hyperkalemia, present on admission, resolved 2. Chronic kidney disease stage 3 with a creatinine of 1.3 or so at baseline. Present on admission and stable. 3. Probable subacute blood loss anemia, present on admission and active/stable. 4. Known gastritis on recent endoscopy, present on admission and likely active. 5. Recent diagnosis of DVT on anticoagulation, present on admission and active. 6. Hypothyroidism, present on admission and active. 7. Post-polio syndrome, present on admission and active. 8. Myasthenia gravis with possible exacerbation, said to be in remission for several years. Present on admission and improving. 9. Severe protein calorie malnutrition with anorexia, present on admission and active. Possible MG symptoms. 10. Hypomagnesemia, present on admission and improved. 11. Hypertension, stable. PLAN: -MG titers elevated. spoke with neurology (aLtoya @ [facility]) who recommended trial IVIG to see if improvement -start IVIG x5 day trial, ends Wednesday unless any missed dosing of IVIG. -continue current medications and monitor potassium and magnesium. Replete as needed. -had discussed with Dr. Fox Neurology at [facility] before titers resulted. He did not think this was an mg crisis. He then went on vacation after the results were available and she also sees Dr. Anaya @ [facility], and has an appointment on September 07 -continue PT/OT Dispo: SNF 08/24. She lives in [place] with her . She prefers [facility] in [place] because of a 5 star rating, and he prefers [facility] in [place]. Quality VTE Deep Vein Thrombosis/Pulmonary Embolism Present on Admission: Yes
--- NOTE | 2023-08-24 14:44 | OT.IPNOTE ---
Attempt to see pt and pt states having medications running now in her IV and tired from getting up earlier with PT. To check on the pt tomorrow. Pt did say that she has been able to get her compression stocking on her own for the left side and needing assist for the right side. NO charge.
[2023-08-24] MEDS: LOPERAMIDE 2 MG CAPSULE 4 MG PO (21:23)
[2023-08-24] MEDS: HYDROCODONE/ACET 5/325 TABLET 1 TAB PO (21:24)
[2023-08-25] MEDS: ACETAMINOPHEN 325 MG TABLET 650 MG PO (00:21)
[2023-08-25 05:00] VITALS: BP 111/48; PULSE 85; RESP 19; TEMP 36.3; O2SAT 97
[2023-08-25] MEDS: LEVOTHYROXINE 100 MCG TABLET PO (05:29)
[2023-08-25] MEDS: HYDROCODONE/ACET 5/325 TABLET 1 TAB PO (05:29)
[2023-08-25 08:00] VITALS: BP 118/70; PULSE 100; RESP 16; TEMP 36.5; O2SAT 100
[2023-08-25] MEDS: diphenhydrAMINE 25 MG TABLET PO (08:16)
[2023-08-25] MEDS: ACETAMINOPHEN 325 MG TABLET 975 MG PO (08:16)
[2023-08-25] MEDS: MAGNESIUM OXIDE 400 MG TABLET PO (08:16)
[2023-08-25] MEDS: APIXABAN 5 MG TABLET PO (08:16)
[2023-08-25] MEDS: PANTOPRAZOLE DR 40 MG TABLET PO (08:18)
[2023-08-25] MEDS: IMMUN GLOB IV (08:19)
[2023-08-25] MEDS: ISOOSMOTIC VEHICLE IV (08:19)
[2023-08-25] MEDS: IGA OV50 IV (08:19)
[2023-08-25] MEDS: GLY IV (08:19)
[2023-08-25 08:24] VITALS: BP 118/70; PULSE 100
[2023-08-25] MEDS: SODIUM CHLORIDE 0.9% FLUSH 10 ML IV (08:45)
--- NOTE | 2023-08-25 08:55 | P.DS_ITS ---
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 This has been an ongoing issue for a number of months when she required a blood transfusion secondary to GI bleeding in April of this year. She was seen July 29 in the emergency department for similar findings with extensive and unrevealing workup done. She does have Neurology follow up to discuss possibility of worsening post-polio syndrome. She was diagnosed with myasthenia gravis but has been remission for the last 5 years and describes this weakness as decidedly different. She has not had any vomiting no black or red stools she notes that she has definitely had a decreased appetite and over the last year has lost around 80 lb. She is wondering if her blood pressure medications may need to be lowered or discontinued with all that weight loss. She continues to use a walker and has done so for the last number of years. She does not report fevers, cough, chills. No nausea or vomiting. Global weakness to the point that it is taking her almost an hour to get dressed for seems to be progressive. Additional info: She has a very interesting history of post-polio syndrome. She sees a neurologist at [facility] for this. This primarily as affected her from the waist down. She notes primarily that her left leg is typically the most weak and she is limited movement of her left foot especially her toes. Recently however she has had increased weakness of her right leg. This is primarily been proximal weakness of her right hip greater than her left hip. She still has relatively good muscle strength at her knees and ankles of both feet. She has had great difficulty using her walker recently because it is hard for her to get out of a chair. She denies any back pain or radicular symptoms. No fevers or chills. She did have myasthenia gravis diagnosed in 2001 and was on medications including CellCept and Mestinon until she went into remission about 6 years ago. Mg effects her with eyelid weakness and diplopia and she has had none of the symptoms. She was seen by Dr. Barker [facility] for her myasthenia and is sure that that is not the current problem. Her hyper kalemia and abnormal magnesium are new. Her creatinine is stable at 1.3. She denies any gross rectal bleeding. She has had rectal bleeding several times and did have endoscopy relatively recently revealing gastritis. Most recently she has had brown stool and no evidence of bleeding even though her hemoglobin is slightly lower today. She takes Xarelto and does not like this drug for numerous reasons including a multitude of side effects that include abdominal cramping and abnormally colored stool. She was open to switching anticoagulants if she was able to resume but has a very specific pharmacy to use if this is the case. She notes that she came off from Xarelto for 2 months and had a recurrent DVT. She had been on Xarelto for several years for previous DVT. She has no weakness from the waist up. Discharge Providers Provider Date of admission: 08/18/23 12:28 Discharge Date: 09/22/23 Primary care physician: Ana Ortiz MD Consults: 08/16/23 17:56 Consult to Physical Therapy Evaluate & Treat Comment: Physician Instructions: Evaluate and Treat 08/16/23 18:22 Consult to Pastoral Services Routine Comment: per pt request it might be nice 08/17/23 10:28 Consult to Occupational Therapy Evaluate & Treat Comment: Physician Instructions: Evaluate and treat 08/19/23 10:49 Consult to Home Health Routine Comment: Reason For Exam: home health services upon discharge Discharge provider: Rodolfo Soni DO Summary Hospital Course Discharge Diagnosis: 1. Hyperkalemia, present on admission, resolved 2. Chronic kidney disease stage 3 with a creatinine of 1.3 or so at baseline. Present on admission and stable. 3. Probable subacute blood loss anemia, present on admission and active/stable. 4. Known gastritis on recent endoscopy, present on admission and likely active. 5. Recent diagnosis of DVT on anticoagulation, present on admission and active. 6. Hypothyroidism, present on admission and active. 7. Post-polio syndrome, present on admission and active. 8. Myasthenia gravis with possible exacerbation, said to be in remission for several years. Present on admission and improving. 9. Severe protein calorie malnutrition with anorexia, present on admission and active. Possible MG symptoms. 10. Hypomagnesemia, present on admission and improved. 11. Hypertension, stable. 12. Recent DVT on anticoagulation Hospital Course: This is an 82 year old female with PMH of CKD, post-polio syndrome, myasthenia graivs, HTN who was admitted with persistent weakness. Discussed with multiple neurologists over the phone, including her [facility] and [facility] neurology with differing opinions on if this represented a myasthenic exacerbation. She was trialed on IVIG for 5 days with gradual improvement and markedly improved weakness. She was recommended for SNF for ongoing therapies after completion of her 5th dose of IVIG. No additional medications were changed on discharge. She has follow up with neurology on 09/07 scheduled per previous discussions with admitting provider and further discussion with regards to ongoing management is recommended at that time. Time Spent with Patient Time spent: Greater than 30 minutes Exam Vital Signs (past 8 hours): - 08/25/23 05:00 08/25/23 08:00 08/25/23 08:24 Temperature 97.4 F L 97.7 F Pulse Rate 85 100 H 100 H Respiratory Rate 19 16 Blood Pressure 111/48 L 118/70 118/70 Pulse Oximetry 97 100 Oxygen Flow Rate 0 0 Oxygen Delivery Method Room Air Oxygen Flow Rate 0 Narrative Exam Narrative: NAD, alert and oriented. Fluent speech. Lungs are clear, normal rate and effort. Heart is regular, no murmur gallop or rub. Abdomen is soft, non distended. Extremities are free of edema. She can flex her hips against gravity today. Objective Labs 08/20/23 16:05 08/21/23 06:46 [facility] Medical History Elevated INR Herpes zoster CKD (chronic kidney disease) stage 3, GFR 30-59 ml/min Arthritis, multiple joint involvement Frequent urinary tract infections Chicken pox (~1947) Hyperthyroidism (~1992) History of [place] fever Shoulder pain History of eczema Polio History of chickenpox History of urinary incontinence History of ulcerative colitis History of gastric ulcer History of diverticulitis History of colitis History of skin cancer History of diabetes mellitus Type 2 diabetes mellitus without complication, without long-term current use of insulin (12/29/16) Surgical History History of shoulder replacement History of cholecystectomy Status post cholecystectomy History of knee replacement History of hip replacement Family History Sister Age: 81 Heart disease Father No problems noted. Mother Myocardial infarction Brother No problems noted. Brother No problems noted. Social History marital status: household members: spouse and children Smoking Status: Former smoker alcohol intake: former substance use type: does not use Discharge Plan Discharge Plan Patient Disposition: SNF Provider Discharge Comment: Stable for discharge with close follow up as scheduled on September 07 with [facility] neurology for post-polio syndrome and distant myasthenia gravis. Transferred Discharge orders & Medications Prescriptions: New Eliquis 5 mg tablet 5 mg PO BID Qty: 60 0RF pantoprazole [Protonix] 40 mg tablet,delayed release (DR/EC) 40 mg PO BID Qty: 60 2RF Continued levothyroxine 100 mcg tablet 100 mcg PO QDAY Qty: 90 3RF Centrum for Women w/D3 1 tab PO DAILY acetaminophen [Acetaminophen Extra Strength] 500 mg Tablet 1,000 mg PO BID PRN (Reason: Pain (Scale Score 4-6)) Discontinued omeprazole 20 mg capsule,delayed release(DR/EC) 20 mg PO BID Qty: 60 2RF hydrochlorothiazide 25 mg tablet 25 mg PO DAILY Qty: 90 3RF lisinopril 20 mg tablet 20 mg PO DAILY Qty: 90 3RF cephalexin 250 mg tablet 250 mg PO BEDTIME rivaroxaban 20 mg Tablet 20 mg PO DAILY Rx Instructions: must administer with evening meal Medication counseling provided by Pharmacist: No Follow up/Referrals: Ana Ortiz MD [Primary Care Provider] - Discharge Health Status Multidrug resistant organism: No MDRO Diet/Activity/Treatments Diet: Regular Liquid consistency: Normal/Thin Food texture: Regular Activity: As tolerated, use walker at all time. Special Rehabilitation Services Reason for rehabilitation: Recovery r/t decondition Rehab type: Physical therapy and Occupational therapy Visit Report/Discharge Packet Stand Alone Forms: Patient Portal/API Discharge Data Primary Care Provider: Ana Ortiz Quality VTE Deep Vein Thrombosis/Pulmonary Embolism Present on Admission: Yes
--- NOTE | 2023-08-25 10:20 | CM.DPNOTE ---
DCP Note STRIPPING SHOVEL OPERATOR reviewed EMR. Provider cleared pt for dc to SNF today. Per RN, pt getting her last dose of IVIG at 8am, should be ready for 11:30am dc. STRIPPING SHOVEL OPERATOR gave RN report number. STRIPPING SHOVEL OPERATOR updated laboratory monitor. STRIPPING SHOVEL OPERATOR confirmed with Reina at all set for dc at 11:30. CC Krista kindly agreed to email Reina order, dc sum, signed med list, and PASRR. Krista placed PASRR and signed meds in dc folder. STRIPPING SHOVEL OPERATOR met with pt briefly in room. Pt agreeable to plan, eager to dc from here. Plan: dc to [facility] today at 11:30 via facility transport. CM team will continue to follow as needed. JALEN Ritter
[2023-08-25] MEDS: LOPERAMIDE 2 MG CAPSULE 4 MG PO (11:26)
--- NOTE | 2023-08-25 11:49 | PC.NURSE ---
Patient is A&OX4, VSS, afebrile on RA. She denies any neurological changes. She calls appropriately for assistance. She receives IGG this a.m and tolerates this well and is cleared for discharge this morning. Transportation arranged for 1130 sp[address] moss picker via w/ch to [facility]. She verbalizes understanding of medications, discharge plan, and is agreeable to discharge today with follow up on 09/07 with neurology. Transporter arrives at 1130 to transport patient, she has notified her family of discharge time. She is escorted at 1142 via w/ with all of her personal belongings to [facility].
== END 2023-08-25 11:42 | DRG 56 ==
LOC: ED 16:25 → AC 17:06
PROVIDERS: Internal Medicine; Student in an Organized Health Care Education/Training Program; Admitting Provider Hospitalist; Emergency Provider Emergency Medicine; PCP Student in an Organized Health Care Education/Training Program; Referring Provider Emergency Medicine; Visit Provider Hospitalist
DX: G70.01 Myasthenia gravis with (acute) exacerbation (principal); E43 Unspecified severe protein-calorie malnutrition; E87.5 Hyperkalemia; I12.9 Hypertensive chronic kidney disease with stage 1 through stage 4 chronic kidney disease, or unspecified chronic kidney disease; N18.30 Chronic kidney disease, stage 3 unspecified; E83.42 Hypomagnesemia; G14 Postpolio syndrome; E03.9 Hypothyroidism, unspecified; R63.0 Anorexia; D50.0 Iron deficiency anemia secondary to blood loss (chronic); K29.70 Gastritis, unspecified, without bleeding; Z79.01 Long term (current) use of anticoagulants; Z86.718 Personal history of other venous thrombosis and embolism; Z68.22 Body mass index [BMI] 22.0-22.9, adult; Z87.891 Personal history of nicotine dependence
CPT/HCPCS: 36415; 71045; 80048; 80053; 81001; 81003; 82728; 83519; 83540; 83550; 83605; 83690; 83735; 84132; 84443; 84484; 85014; 85018; 85025; 85027; 86850; 86900; 86901; 87040; 87086; 87633; 93005; 96365; 97116; 97163; 97166; 97530; 97535; 99284; G0378; C9113; J1459; J3475

== ENCOUNTER 2023-11-12 10:18 | Inpatient (IN) | payer MEDICARE, OTHER, SELFPAY ==
[2023-08-16 17:39] VITALS: BMI 22.1
[2023-11-12] VITALS (15 sets, daily range): BP systolic 116–151; BP diastolic 46–67; PULSE 69–90; RESP 16–31; TEMP 36.3–36.7; O2SAT 94–98; BMI 22.4; BMI 23.1
--- NOTE | 2023-11-12 10:27 | DI.RAD.S_ITS ---
PROCEDURE: XR CHEST 1V INDICATIONS: chest pain TECHNIQUE: One view of the chest was acquired. COMPARISON: [facility], CR, XR CHEST 1V, 08/16/2023, 13:55. FINDINGS: Surgical changes and devices: Left shoulder arthroplasty. Cholecystectomy clips. Lungs and pleura: Lungs are clear. No pleural effusions or pneumothorax. Mediastinum: Mediastinal contours appear normal. Heart size is normal. Unchanged right hemidiaphragm elevation. Bones and chest wall: No suspicious bony lesions. Overlying soft tissues appear unremarkable. IMPRESSION: No acute pulmonary process. Dictated by: Saranya Romero M.D. on 11/12/2023 at 11:11 Approved by: Saranya Romero M.D. on 11/12/2023 at 11:14
--- NOTE | 2023-11-12 10:28 | DI.RAD.S_ITS ---
PROCEDURE: XR HIP W PEL IF DONE LT 2V INDICATIONS: fall,groin pain TECHNIQUE: AP pelvis with lateral view(s) of the left hip(s). COMPARISON: None. FINDINGS: Bones: No fractures or dislocations. Pelvic ring appears intact. No suspicious bony lesions. Arthritic changes are present within the right hip. Left hip arthroplasty. Hardware is intact without hardware fracture or periprosthetic lucency to suggest loosening. Alignment is stable. Soft tissues: The visualized bowel gas pattern is normal. No suspicious soft tissue calcifications. IMPRESSION: No visualized acute fracture or dislocation. However, if clinical concern and/or pain persist, short interval imaging followup in 7-10 days is recommended, as occult injury cannot be definitively excluded. Left hip arthroplasty. Dictated by: Saranya Romero M.D. on 11/12/2023 at 11:14 Approved by: Saranya Romero M.D. on 11/12/2023 at 11:19
--- NOTE | 2023-11-12 10:40 | EKG_ITS ---
[address] [address] Test Date: 2023-11-12 Pat Name: Kayleigh Holliday Department: [facility] Room: Gender: Female [employer]er: JAVIER : 1940 Requested By: Order Number: [id number] Reading MD: Ariel Wyman Measurements Intervals Gordon Rate: 75 P: 55 WY: 140 QRS: -1 QRSD: 90 T: 34 QT: 362 QTc: 404 Interpretive Statements Normal sinus rhythm Low voltage QRS Electronically Signed On 11-15-2023 8:41:37 PDT by Ariel Wyman
[2023-11-12 10:44] LABS: Add Manual Diff / Slide Review NO; Basophils Absolute Auto 0 /uL (0-100); Basophils Percent Auto 0.1 % (0-2); Eosinophils Absolute Auto 0 /uL (0-450); Hematocrit 36.6 % (36-46); Hemoglobin 11.7 g/dL (12.0-16.0); Lymphocytes Absolute Auto 700 /uL (1100-4500); Lymphocytes Percent Auto 3.4 % (25-40); Mean Corpuscular HGB Conc 31.9 % (30-36); Mean Corpuscular Hemoglobin 32.4 PG (26-34); Mean Corpuscular Volume 101.6 fL (80-100); Monocytes Absolute Auto 600 /uL (0-900); Monocytes Percent Auto 3.1 % (3-14); Neutrophils Absolute Auto 17900 /uL (1500-7000); Neutrophils Percent Auto 93.4 % (50-75); Platelet Count 228 X10^3/uL (150-400); Red Cell Distribution Width 13.6 % (11.6-14.8); White Blood Cell Count 19.2 X10^3/uL (4.5-11.0)
[2023-11-12 10:50] LABS: INR 0.9 (0.9-1.3); Prothrombin Time 10.4 SECONDS (9.4-12.5)
--- NOTE | 2023-11-12 10:51 | ED.FALL ---
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 History is limited as patient has very poor memory and isn't sure why she was here, and gives very meandering and unfocused retelling of multiple events over the last few weeks. states that patient was walking with her walker 3 days ago and had a slip and fall. At that time she did not hit her head. She was evaluated by medics but she declined transport. Over the last several days patient has had vague ?fainting? spells, where her vision will go blurry and occasionally go black. Apparently this morning after waking up the patient had difficulty moving her good leg in order to get around Related Data Home Medications Medication Instructions Recorded Confirmed Centrum for Women w/D3 1 tab PO DAILY 11/30/19 11/12/23 acetaminophen 500 mg tablet 1,000 mg PO BID PRN Pain (Scale 05/18/23 11/12/23 (Acetaminophen Extra Strength) Score 4-6) Previous Rx's Medication Instructions Recorded levothyroxine 100 mcg tablet 100 mcg PO QDAY #90 tabs 05/25/23 pantoprazole 40 mg tablet,delayed 40 mg PO BID #60 tabs 08/19/23 release (Protonix) pen needle, diabetic 29 gauge x #100 ea 11/01/23 1/2 (Ultra-Thin II Insulin Pen [place]) apixaban 5 mg tablet (Eliquis) 5 mg PO BID #60 tabs 11/09/23 Allergies Allergy/AdvReac Type Severity Reaction Status Date / Time Sulfa (Sulfonamide Allergy Severe HIVES FROM Verified 11/12/23 10:28 Antibiotics) SULFA CREAM [SULFA (SULFONAMIDE ANTIBIOTICS)] Patient History Medical History History of poliomyelitis (12/29/16) Elevated INR Herpes zoster CKD (chronic kidney disease) stage 3, GFR 30-59 ml/min Arthritis, multiple joint involvement Frequent urinary tract infections Chicken pox (~194) Hyperthyroidism (~1992) History of [place] fever Shoulder pain History of eczema Polio History of chickenpox History of urinary incontinence History of ulcerative colitis History of gastric ulcer History of diverticulitis History of colitis History of skin cancer History of diabetes mellitus Type 2 diabetes mellitus without complication, without long-term current use of insulin (12/29/16) Surgical History History of shoulder replacement History of cholecystectomy Status post cholecystectomy History of knee replacement History of hip replacement Family History Sister Age: 81 Heart disease Father No problems noted. Mother Myocardial infarction Brother No problems noted. Brother No problems noted. Social History marital status: household members: spouse and children Smoking Status: Former smoker alcohol intake: former substance use type: does not use Smoking Status: Former smoker alcohol intake frequency: holidays/special occasions only Substance Use Type: does not use Exam Initial Vital Signs Initial Vital Signs: Vital Signs Temperature 97.8 F 11/12/23 10:20 Pulse Rate 90 11/12/23 10:20 Respiratory Rate 16 11/12/23 10:20 Blood Pressure 151/65 H 11/12/23 10:20 Pulse Oximetry 98 11/12/23 10:20 Oxygen Delivery Method Room Air 11/12/23 10:20 Const: Awake, alert, no acute distress, nontoxic appearing, frail Cardiac: regular rate, regular rhythm RESP: unlabored, clear bilaterally, no wheezing GI: Soft, nontender, nondistended MSK: No deformity, no limb shortening Skin: Warm, Dry, intact, no rashes Neuro: AO x1, CN II-XII grossly intact, left lower extremity with 3/5 strength, left lower extremity 1/5 strength Course Orders Ordered: Discontinued Medications Acetaminophen (Acetaminophen 325 Mg Tablet) 650 mg PO Q6H PRN PRN Reason: Fever/Mild Pain (1-3) Last Admin: 11/14/23 05:23 Dose: 650 mg Documented By: Admin: 11/13/23 03:23 Dose: 650 mg Documented By: AT Acetaminophen (Acetaminophen 325 Mg Tablet) 975 mg PO BID PRN PRN Reason: Pain (Scale Score 4-6) Last Admin: 11/14/23 11:11 Dose: 975 mg Documented By: KIMBERLEY Al Hydrox/Mg Hydrox/Simethicone (Mag Hydrox/Alum/Simeth 30 Ml Udc) 30 ml PO Q6HR PRN PRN Reason: Dyspepsia Apixaban (Apixaban 5 Mg Tablet) 5 mg PO BID EBONI Last Admin: 11/15/23 08:41 Dose: 5 mg Documented By: Admin: 11/14/23 20:59 Dose: 5 mg Documented By: Admin: 11/14/23 08:46 Dose: 5 mg Documented By: Admin: 11/13/23 21:51 Dose: 5 mg Documented By: Admin: 11/13/23 08:40 Dose: 5 mg Documented By: Admin: 11/12/23 20:36 Dose: 5 mg Documented By: MINA Ceftriaxone Sodium 1,000 mg/ (Sodium Chloride) 100 mls @ 200 mls/hr IV NOW ONE Stop: 11/12/23 12:26 Last Infusion: 11/12/23 13:46 Dose: Infused Documented By: Admin: 11/12/23 13:01 Dose: 200 mls/hr Documented By: GEORGIANA Magnesium Sulfate (Magnesium Sulfate) 2 gm in 50 mls @ 150 mls/hr IV NOW ONE Stop: 11/12/23 13:10 Last Admin: 11/12/23 13:04 Dose: Not Given Documented By: GEORGIANA Magnesium Sulfate (Magnesium Sulfate) 2 gm in 50 mls @ 25 mls/hr IV NOW ONE Stop: 11/12/23 17:22 Last Admin: 11/12/23 16:15 Dose: 25 mls/hr Documented By: VIC Co-signed By: KYMBERLY Insulin Human Lispro (Insulin Lispro 100 Unit/Ml 3ml Vial) 0 unit SUBCUT ACHS [facility]; Protocol Last Admin: 11/15/23 12:39 Dose: 1 unit Documented By: BUSHRA Co-signed By: HILARIO Admin: 11/15/23 08:40 Dose: 2 unit Documented By: BUSHRA Co-signed By: HILARIO Admin: 11/14/23 21:00 Dose: 1 unit Documented By: Co-signed By: AT Admin: 11/14/23 16:58 Dose: 1 unit Documented By: KIMBERLEY Co-signed By: SCOT Admin: 11/14/23 12:07 Dose: 1 unit Documented By: KIMBERLEY Co-signed By: SCOT Admin: 11/14/23 07:49 Dose: 1 unit Documented By: KIMBERLEY Co-signed By: SCOT Admin: 11/13/23 21:52 Dose: Not Given Documented By: Admin: 11/13/23 17:06 Dose: 2 unit Documented By: KIMBERLEY Co-signed By: SCOT Admin: 11/13/23 11:32 Dose: 1 unit Documented By: JOSE Co-signed By: SCOT Admin: 11/13/23 08:38 Dose: 1 unit Documented By: JOSE Co-signed By: SCOT Admin: 11/12/23 20:36 Dose: 3 unit Documented By: AT Co-signed By: FRANK Levothyroxine Sodium (Levothyroxine 100 Mcg Tablet) 100 mcg PO DAILY@0600 [facility] Last Admin: 11/15/23 06:25 Dose: 100 mcg Documented By: Admin: 11/14/23 05:23 Dose: 100 mcg Documented By: Admin: 11/13/23 05:50 Dose: 100 mcg Documented By: MINA Magnesium Chloride (Magnesium Chloride 64 Mg Tablet) 128 mg PO NOW ONE Stop: 11/13/23 11:16 Last Admin: 11/13/23 11:32 Dose: 128 mg Documented By: JOSE Multivitamins (Multivitamin 1 Tablet) 1 tab PO DAILY [facility] Last Admin: 11/15/23 08:41 Dose: 1 tab Documented By: Admin: 11/14/23 08:46 Dose: 1 tab Documented By: Admin: 11/13/23 08:40 Dose: 1 tab Documented By: JOSE Naloxone HCl (Naloxone 0.4 Mg/Ml Vial) 0.2 mg IV Q2MIN PRN PRN Reason: Opiate Reversal Pantoprazole Sodium (Pantoprazole Dr 40 Mg Tablet) 40 mg PO BID [facility] Last Admin: 11/15/23 08:41 Dose: 40 mg Documented By: Admin: 11/14/23 20:59 Dose: 40 mg Documented By: Admin: 11/14/23 08:46 Dose: 40 mg Documented By: Admin: 11/13/23 21:52 Dose: 40 mg Documented By: Admin: 11/13/23 08:40 Dose: 40 mg Documented By: Admin: 11/12/23 20:36 Dose: 40 mg Documented By: AT Quetiapine Fumarate (Quetiapine 25 Mg Tablet) 12.5 mg PO BID PRN PRN Reason: Anxiety Last Admin: 11/14/23 20:59 Dose: 12.5 mg Documented By: Admin: 11/14/23 12:45 Dose: 12.5 mg Documented By: KIMBERLEY Sertraline HCl (Sertraline 50 Mg Tablet) 50 mg PO BEDTIME [facility] Last Admin: 11/14/23 20:59 Dose: 50 mg Documented By: Sodium Chloride (Sodium Chloride 0.9% Flush) 10 ml IV BID EBONI Last Admin: 11/15/23 08:41 Dose: 10 ml Documented By: Admin: 11/14/23 21:00 Dose: 10 ml Documented By: Admin: 11/14/23 08:46 Dose: 10 ml Documented By: KIMBERLEY Vital Signs Vital signs: Vital Signs - 8 hr 11/12/23 10:20 11/12/23 10:25 11/12/23 10:26 Temperature 97.8 F Pulse Rate 90 87 85 Respiratory Rate 16 Blood Pressure 151/65 H Pulse Oximetry 98 98 96 Oxygen Delivery Method Room Air 11/12/23 10:26 11/12/23 10:30 11/12/23 10:30 Temperature Pulse Rate 78 Respiratory Rate 19 Blood Pressure 151/65 H 151/67 H Pulse Oximetry 97 Oxygen Delivery Method 11/12/23 11:00 11/12/23 11:00 11/12/23 11:30 Temperature Pulse Rate 76 86 Respiratory Rate 20 31 H Blood Pressure 136/62 Pulse Oximetry 94 94 Oxygen Delivery Method 11/12/23 11:30 11/12/23 12:00 11/12/23 12:00 Temperature Pulse Rate 71 Respiratory Rate 22 Blood Pressure 138/63 130/58 L Pulse Oximetry 95 Oxygen Delivery Method 11/12/23 12:30 11/12/23 12:31 11/12/23 12:31 Temperature Pulse Rate 73 74 Respiratory Rate 22 26 H Blood Pressure 124/60 Pulse Oximetry 95 95 Oxygen Delivery Method 11/12/23 13:00 Temperature Pulse Rate 73 Respiratory Rate 20 Blood Pressure Pulse Oximetry 97 Oxygen Delivery Method MDM - Fall Lab Data 11/13/23 04:43 11/13/23 04:43 Labs: Lab Results 11/12/23 11/12/23 11/12/23 Range/Units 10:34 12:34 22:33 WBC 19.2 H (4.5-11.0) X10^3/uL RBC 3.60 L (4.0-5.2) X10^6/uL Hgb 11.7 L (12.0-16.0) g/dL Hct 36.6 (36-46) % MCV 101.6 H (80-100) fL MCH 32.4 (26-34) PG MCHC 31.9 (30-36) % RDW 13.6 (11.6-14.8) % Plt Count 228 (150-400) X10^3/uL Neut % (Auto) 93.4 H (50-75) % Lymph % (Auto) 3.4 L (25-40) % [place] % (Auto) 3.1 (3-14) % Eos % (Auto) 0.0 L (2-4) % Baso % (Auto) 0.1 (0-2) % Neut # (Auto) 82089 H (2002-3902) /uL Lymph # (Auto) 700 L (4715-8818) /uL Dillon # (Auto) 600 (0-900) /uL Eos # (Auto) 0 (0-450) /uL Baso # (Auto) 0 (0-100) /uL PT 10.4 (9.4-12.5) SECONDS INR 0.9 (0.9-1.3) APTT 25 L (25.1-36.5) SECONDS Sodium 141 (137-145) mmol/L Potassium 4.8 (3.4-5.1) mmol/L Chloride 118 H (98-107) mmol/L Carbon Dioxide 14 L (22-32) mmol/L BUN 54 H (7-17) mg/dL Creatinine 1.13 H (0.52-1.04) mg/dL Estimated GFR 48 L (>60) mL/min BUN/Creatinine Ratio 47.8 H (6-22) Glucose 294 H (80-110) mg/dL Hemoglobin A1c (4.0-6.0) % Lactate 2.3 H 1.7 (0.7-2.1) mmol/L Calcium 9.1 (8.4-10.2) mg/dL Magnesium 1.1 L (1.6-2.3) mg/dL Total Bilirubin 0.8 (0.2-1.3) mg/dL AST 25 (14-36) IU/L ALT 24 (<35) IU/L Alkaline Phosphatase 62 (38-126) U/L Total Creatine Kinase 32 (30-135) U/L Troponin I < 0.012 (0.01-0.034) ng/mL NT-Pro-B Natriuret Pep 490 H (<450) pg/mL Total Protein 7.0 (6.3-8.2) g/dL Albumin 3.7 (3.5-5.0) g/dL Globulin 3.3 (1.7-4.1) g/dL Albumin/Globulin Ratio 1.1 (1.0-2.8) Lipase 28 (23-300) U/L TSH (0.47-4.68) uIU/mL Urine Color Yellow Urine Appearance Clear Urine pH 5.5 (4.5-8.0) Ur Specific [place] 1.015 (1.000-1.035) Urine Protein Negative (Negative) Urine Glucose (UA) 3+ H (Negative) g/dL Urine Ketones Negative (NEGATIVE) Urine Occult Blood Negative (Negative) Urine Nitrate Negative (Negative) Urine Bilirubin Negative (NEGATIVE) Urine Urobilinogen 0.2 (0.2) E.U./dL Ur Leukocyte Esterase Negative (NEGATIVE) Urine RBC None seen (0-5/HPF) Urine WBC None seen (0-5/HPF) Ur Squamous Epith Cells None seen D (0-5/HPF) Urine Bacteria None seen (None) Ur Culture Indicated? Cult not indicated Vol Urine Centrifuged 10ml (spun) 11/13/23 Range/Units 04:43 WBC 14.5 H (4.5-11.0) X10^3/uL RBC 2.92 L (4.0-5.2) X10^6/uL Hgb 9.8 L (12.0-16.0) g/dL Hct 29.0 L (36-46) % MCV 99.2 (80-100) fL MCH 33.5 (26-34) PG MCHC 33.8 (30-36) % RDW 13.1 (11.6-14.8) % Plt Count 204 (150-400) X10^3/uL Neut % (Auto) 81.2 H (50-75) % Lymph % (Auto) 13.3 L (25-40) % Dillon % (Auto) 3.7 (3-14) % Eos % (Auto) 1.3 L (2-4) % Baso % (Auto) 0.5 (0-2) % Neut # (Auto) 36085 H (5726-8466) /uL Lymph # (Auto) 1900 (8719-8345) /uL Dillon # (Auto) 500 (0-900) /uL Eos # (Auto) 200 (0-450) /uL Baso # (Auto) 100 (0-100) /uL PT (9.4-12.5) SECONDS INR (0.9-1.3) APTT (25.1-36.5) SECONDS Sodium 138 (137-145) mmol/L Potassium 4.3 (3.4-5.1) mmol/L Chloride 115 H (98-107) mmol/L Carbon Dioxide 18 L (22-32) mmol/L BUN 44 H (7-17) mg/dL Creatinine 1.20 H (0.52-1.04) mg/dL Estimated GFR 45 L (>60) mL/min BUN/Creatinine Ratio 36.7 H (6-22) Glucose 126 H D (80-110) mg/dL Hemoglobin A1c 6.7 H (4.0-6.0) % Lactate (0.7-2.1) mmol/L Calcium 8.2 L (8.4-10.2) mg/dL Magnesium 1.7 (1.6-2.3) mg/dL Total Bilirubin (0.2-1.3) mg/dL AST (14-36) IU/L ALT (<35) IU/L Alkaline Phosphatase (38-126) U/L Total Creatine Kinase (30-135) U/L Troponin I (0.01-0.034) ng/mL NT-Pro-B Natriuret Pep (<450) pg/mL Total Protein (6.3-8.2) g/dL Albumin (3.5-5.0) g/dL Globulin (1.7-4.1) g/dL Albumin/Globulin Ratio (1.0-2.8) Lipase (23-300) U/L TSH 5.49 H (0.47-4.68) uIU/mL Urine Color Urine Appearance Urine pH (4.5-8.0) Ur Specific [place] (1.000-1.035) Urine Protein (Negative) Urine Glucose (UA) (Negative) g/dL Urine Ketones (NEGATIVE) Urine Occult Blood (Negative) Urine Nitrate (Negative) Urine Bilirubin (NEGATIVE) Urine Urobilinogen (0.2) E.U./dL Ur Leukocyte Esterase (NEGATIVE) Urine RBC (0-5/HPF) Urine WBC (0-5/HPF) Ur Squamous Epith Cells (0-5/HPF) Urine Bacteria (None) Ur Culture Indicated? Vol Urine Centrifuged MDM Narrative Medical decision making narrative: Weakness, possible fainting spells, R leg weakness that is reported to be new. Labs show leukocytosis of uncertain significance. Admitted to hospital for further treatment. Discharge Plan Departure Patient Disposition: Home Clinical Impression: Right leg weakness, Encephalopathy, metabolic, Hyperglycemia
[2023-11-12 10:53] LABS: PTT Partial Thromboplastin Tim 25 SECONDS (25.1-36.5)
[2023-11-12 10:57] LABS: Alanine Aminotransferase 24 IU/L (<35); Albumin 3.7 g/dL (3.5-5.0); Albumin Globulin Ratio 1.1 (1.0-2.8); Alkaline Phosphatase 62 U/L (38-126); Aspartate Aminotransferase 25 IU/L (14-36); BUN Creatinine Ratio 47.8 (6-22); Bilirubin Total 0.8 mg/dL (0.2-1.3); Blood Urea Nitrogen 54 mg/dL (7-17); Calcium 9.1 mg/dL (8.4-10.2); Carbon Dioxide 14 mmol/L (22-32); Chloride 118 mmol/L (98-107); Creatine Kinase 32 U/L (30-135); Estimated Glomerular Filt Rate 48 mL/min (>60); Globulin 3.3 g/dL (1.7-4.1); Glucose 294 mg/dL (80-110); HEMOLYSIS 53 (0-50); Lipase 28 U/L (23-300); Magnesium 1.1 mg/dL (1.6-2.3); Potassium 4.8 mmol/L (3.4-5.1); Sodium 141 mmol/L (137-145)
[2023-11-12 11:08] LABS: NT-proBNP (BNP-Adult 18+) 490 pg/mL (<450); Troponin I < 0.012 ng/mL (0.01-0.034)
--- NOTE | 2023-11-12 11:21 | DI.CT.S_ITS ---
PROCEDURE: CT ANGIO HEAD AND NECK INDICATIONS: RLE WEAKNESS ON WAKING TECHNIQUE: After the administration of intravenous contrast, 1 mm thick sections acquired from the aortic arch through the [place]. 3-dimensional vzxcysw-gkpnbytqm-ncfkrtnmek (MIP) and/or volume rendering reformats were acquired of the central intracranial vasculature and neck separately. For radiation dose reduction, the following was used: automated exposure control, adjustment of mA and/or kV according to patient size. COMPARISON: [facility], CT, CT HEAD/BRAIN WO CON, 11/12/2023, 11:47. FINDINGS: Image quality: Diagnostic. BRAIN: See separately dictated CT head report of 11/12/2023. HEAD CT ANGIOGRAPHY: Anterior circulation: Intracranial internal carotid arteries are normal in size and flow. The flow within the paired anterior cerebral arteries is normal and symmetric. The flow within the middle cerebral arteries is normal and symmetric. The anterior communicating artery is seen. No aneurysms are seen. Posterior circulation: Visualized portions of the vertebral arteries demonstrate normal caliber, and join to form a normal appearing basilar artery. Flow within the posterior cerebral arteries is normal and symmetric. No aneurysms are seen. 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 The origins of the common carotid arteries appear patent. The common carotid arteries demonstrate normal caliber and courses. The bifurcation regions are both widely patent. The internal carotid arteries demonstrate normal calibers and courses. Posterior circulation: The origins of the vertebral arteries both appear widely patent. The more superior extracranial portions of both vertebral arteries also demonstrate normal courses and calibers. They join to form a normal appearing basilar artery. Soft tissues: Enlarged heterogeneous appearance of the right thyroid gland. Bones: No suspicious bony lesions. Visualized cervical spine appears normally aligned. IMPRESSION: No significant intracranial arterial abnormality is seen. No significant abnormality is seen within the arteries of the neck. Heterogeneous thyroid. Ultrasound is recommended on a nonemergent basis. Any quantitative measurements of stenosis were performed using NASCET criteria. Dictated by: Saranya Romero M.D. on 11/12/2023 at 12:19 Approved by: Saranya Romero M.D. on 11/12/2023 at 12:24
--- NOTE | 2023-11-12 11:21 | DI.CT.S_ITS ---
PROCEDURE: CT HEAD/BRAIN WO CON INDICATIONS: RLE WEAKNESS ON WAKING TECHNIQUE: Noncontrast 4.5 mm thick angled axial sections acquired from the foramen magnum to the vertex, with coronal and sagittal reformats. For radiation dose reduction, the following was used: automated exposure control, adjustment of mA and/or kV according to patient size. COMPARISON: [facility], CT, CT HEAD/BRAIN WO CON, 07/30/2023, 11:24. [facility], CT, CT ANGIO HEAD AND NECK, 11/12/2023, 11:47. FINDINGS: Image quality: Diagnostic. CSF spaces: Basal cisterns are patent. No extra-axial fluid collections. The ventricles are symmetric in size and shape. Brain: No intracranial bleeds or masses. There is cerebral volume loss for age, with resultant ventricular and sulcal prominence. There are periventricular and deep white matter chronic small vessel ischemic changes. There is intracranial internal carotid artery atherosclerosis. Skull and face: Calvarium and visualized facial bones appear intact, without suspicious lesions. Sinuses: Visualized sinuses and mastoids are clear. IMPRESSION: 1. No acute intracranial process. 2. Moderate atrophy and chronic microvascular ischemic changes. Dictated by: Saranya Romero M.D. on 11/12/2023 at 12:24 Approved by: Saranya Romero M.D. on 11/12/2023 at 12:25
[2023-11-12] MEDS: cefTRIAXone 1,000 MG in SODIUM CHLORIDE 0.9% 100 ML 200 MG IV (13:01)
[2023-11-12 13:05] LABS: Appearance Urine UA CLEAR; Bilirubin Urine UA NEGATIVE (NEGATIVE); Color Urine UA YELLOW; Glucose Urine UA 3+ g/dL (Negative); Ketones Urine UA NEGATIVE (NEGATIVE); Leukocyte Esterase Urine UA NEGATIVE (NEGATIVE); Nitrite Urine UA NEGATIVE (Negative); Occult Blood Urine UA NEGATIVE (Negative); Protein Urine UA NEGATIVE (Negative); Specific Gravity Urine UA 1.015 (1.000-1.035); Urobilinogen Urine UA 0.2 E.U./dL (0.2)
[2023-11-12 13:10] LABS: pH Urine UA 5.5 (4.5-8.0)
[2023-11-12 13:11] LABS: Urine Volume 10mL (spun)
[2023-11-12 13:12] LABS: Bacteria Urine None Seen; Culture Indicated Urine Cult Not Indicated; RBC Urine None Seen (0-5/HPF); Squamous Epithelial Cell Urine None Seen (0-5/HPF); WBC Urine None Seen (0-5/HPF)
[2023-11-12 13:38] LABS: Lactate (Lactic Acid) 2.3 mmol/L (0.7-2.1)
--- NOTE | 2023-11-12 14:10 | P.HP_ITS ---
History of Present Illness History of Present Illness Date Patient Seen: 11/12/23 Time Patient Seen: 14:30 Date of Onset of Symptoms: 11/12/23 Chief complaint: fainting, hard fall Narrative: The patient herself is confused about why she is in the hospital but does note the left hip and buttock are very sore. She believes this is from a fall. In phone conversation with her she notes she has been more forgetful and undergone neurologic consultation without a clear cause identified, though apparently worsened by a female genital infection. He provides a meandering history relating recent events involving care in [place] with therapy and rehabilitation, as well as variable blood sugars on home testing. He reports she fell 3 days ago without loss of consciousness. He was able to help but notes she has a history of polio and chronic weakness but both legs appeared very weak. Paramedics came and assessed her and helped her up to her seated walker. The pain in her hip worsened over the next two days and appeared to have intermittent spells of becoming faint but not losing consciousness. He notes progressive memory loss. [facility] exam with 1/5 recall at 1 minute, and severe visuospatial deficit with 0/3 clock test on testing by this provider today. She has a history of DVT by ultrasound 07/18/2023 in the right leg, and is on chronic Eliquis therapy. [facility] Medical History History of poliomyelitis (12/29/16) Elevated INR Herpes zoster CKD (chronic kidney disease) stage 3, GFR 30-59 ml/min Arthritis, multiple joint involvement Frequent urinary tract infections Chicken pox (~194) Hyperthyroidism (~1992) History of [place] fever Shoulder pain History of eczema Polio History of chickenpox History of urinary incontinence History of ulcerative colitis History of gastric ulcer History of diverticulitis History of colitis History of skin cancer History of diabetes mellitus Type 2 diabetes mellitus without complication, without long-term current use of insulin (12/29/16) Surgical History History of shoulder replacement History of cholecystectomy Status post cholecystectomy History of knee replacement History of hip replacement Family History Sister Age: 81 Heart disease Father No problems noted. Mother Myocardial infarction Brother No problems noted. Brother No problems noted. Social History marital status: household members: spouse and children Smoking Status: Former smoker alcohol intake: former substance use type: does not use Meds Home Medications and Allergies Home Medications Medication Instructions Recorded Confirmed Type Centrum for Women w/D3 1 tab PO DAILY 11/30/19 11/12/23 History acetaminophen 500 mg tablet 1,000 mg PO BID PRN Pain (Scale 05/18/23 11/12/23 History (Acetaminophen Extra Strength) Score 4-6) levothyroxine 100 mcg tablet 100 mcg PO QDAY #90 tabs 05/25/23 11/12/23 Rx pantoprazole 40 mg tablet,delayed 40 mg PO BID #60 tabs 08/19/23 11/12/23 Rx release (Protonix) pen needle, diabetic 29 gauge x #100 ea 11/01/23 11/12/23 Rx 1/2 (Ultra-Thin II Insulin Pen [place]) apixaban 5 mg tablet (Eliquis) 5 mg PO BID #60 tabs 11/09/23 11/12/23 Rx Allergies Allergy/AdvReac Type Severity Reaction Status Date / Time Sulfa (Sulfonamide Allergy Severe HIVES FROM Verified 11/12/23 10:28 Antibiotics) SULFA CREAM [SULFA (SULFONAMIDE ANTIBIOTICS)] Review of Systems Review of Systems ROS: Yes All systems reviewed with the patient and are negative except as otherwise documented Exam Vital Signs (past 8 hours): - 11/12/23 10:20 11/12/23 10:25 11/12/23 10:26 Temperature 97.8 F Pulse Rate 90 87 85 Respiratory Rate 16 Blood Pressure 151/65 H Pulse Oximetry 98 98 96 Oxygen Delivery Method Room Air 11/12/23 10:26 11/12/23 10:30 11/12/23 10:30 Temperature Pulse Rate 78 Respiratory Rate 19 Blood Pressure 151/65 H 151/67 H Pulse Oximetry 97 Oxygen Delivery Method 11/12/23 11:00 11/12/23 11:00 11/12/23 11:30 Temperature Pulse Rate 76 86 Respiratory Rate 20 31 H Blood Pressure 136/62 Pulse Oximetry 94 94 Oxygen Delivery Method 11/12/23 11:30 11/12/23 12:00 11/12/23 12:00 Temperature Pulse Rate 71 Respiratory Rate 22 Blood Pressure 138/63 130/58 L Pulse Oximetry 95 Oxygen Delivery Method 11/12/23 12:30 11/12/23 12:31 11/12/23 12:31 Temperature Pulse Rate 73 74 Respiratory Rate 22 26 H Blood Pressure 124/60 Pulse Oximetry 95 95 Oxygen Delivery Method 11/12/23 13:00 11/12/23 13:30 11/12/23 13:45 Temperature 98.1 F Pulse Rate 73 69 Respiratory Rate 20 20 16 Blood Pressure 146/67 H Pulse Oximetry 97 95 Oxygen Delivery Method Oxygen Delivery Method Room Air Narrative Exam Narrative: GENERAL: This is a well-nourished, well-developed patient, mildly confused. Why am I here? HEAD: Atraumatic. Normocephalic. No temporal or scalp tenderness. EYES: Pupils equal round and reactive. Extraocular motions intact. No scleral icterus. No injection or drainage. ENT: Mucous membranes pink and moist. NECK: Trachea midline. No JVD, bruits or lymphadenopathy. Supple, nontender, no meningeal signs. CARDIOVASCULAR: Regular rate and rhythm without murmurs, gallops, or rubs. RESPIRATORY: Clear to auscultation. GASTROINTESTINAL: Abdomen soft, non-tender, nondistended. EXTREMITIES: No clubbing, cyanosis, or edema. BACK: Nontender without deformity or crepitance. No flank tenderness. MUSCULOSKELETAL: Shoulders, elbows, wrists, hands, hips, knees and ankles with FROM, no swelling, warmth, erythema or effusion. Left lateral hip with 4cm ecchymosis. NEUROLOGIC: Alert, oriented to person and place, uncertain of the day, mildly confused, speech fluent, full upper and lower motor strength, no focal deficits evident. DERMATOLOGIC: No rashes or skin lesions. Mild erythema of right gluteal fold. Objective ECG Impression: Normal sinus rhythm at 75bpm, no ischemic changes. Normal EKG. Imaging CT scan - head: Radiologist's impression: 1. No acute intracranial process. 2. Moderate atrophy and chronic microvascular ischemic changes. CTA head/neck: Radiologist's impression: No significant intracranial arterial abnormality is seen. No significant abnormality is seen within the arteries of the neck. Heterogeneous thyroid. Ultrasound is recommended on a nonemergent basis. Left hip xray: Radiologist's impression: No visualized acute fracture or dislocation. However, if clinical concern and/or pain persist, short interval imaging followup in 7-10 days is recommended, as occult injury cannot be definitively excluded. Left hip arthroplasty. Chest x-ray: Radiologist's impression: Surgical changes and devices: Left shoulder arthroplasty. Cholecystectomy clips. Lungs and pleura: Lungs are clear. No pleural effusions or pneumothorax. Mediastinum: Mediastinal contours appear normal. Heart size is normal. Unchanged right hemidiaphragm elevation. Bones and chest wall: No suspicious bony lesions. Overlying soft tissues appear unremarkable. IMPRESSION: No acute pulmonary process. Labs 11/12/23 10:34 11/12/23 10:34 Labs: Laboratory Results - last 24 hr 11/12/23 11/12/23 10:34 12:34 WBC 19.2 H RBC 3.60 L Hgb 11.7 L Hct 36.6 MCV 101.6 H MCH 32.4 MCHC 31.9 RDW 13.6 Plt Count 228 Neut % (Auto) 93.4 H Lymph % (Auto) 3.4 L [place] % (Auto) 3.1 Eos % (Auto) 0.0 L Baso % (Auto) 0.1 Neut # (Auto) 28279 H Lymph # (Auto) 700 L [place] # (Auto) 600 Eos # (Auto) 0 Baso # (Auto) 0 PT 10.4 INR 0.9 APTT 25 L Sodium 141 Potassium 4.8 Chloride 118 H Carbon Dioxide 14 L BUN 54 H Creatinine 1.13 H Estimated GFR 48 L BUN/Creatinine Ratio 47.8 H Glucose 294 H Lactate 2.3 H Calcium 9.1 Magnesium 1.1 L Total Bilirubin 0.8 AST 25 ALT 24 Alkaline Phosphatase 62 Total Creatine Kinase 32 Troponin I < 0.012 NT-Pro-B Natriuret Pep 490 H Total Protein 7.0 Albumin 3.7 Globulin 3.3 Albumin/Globulin Ratio 1.1 Lipase 28 Urine Color Yellow Urine Appearance Clear Urine pH 5.5 Ur Specific [place] 1.015 Urine Protein Negative Urine Glucose (UA) 3+ H Urine Ketones Negative Urine Occult Blood Negative Urine Nitrate Negative Urine Bilirubin Negative Urine Urobilinogen 0.2 Ur Leukocyte Esterase Negative Urine RBC None seen Urine WBC None seen Ur Squamous Epith Cells None seen D Urine Bacteria None seen Ur Culture Indicated? Cult not indicated Vol Urine Centrifuged 10ml (spun) Assessment & Plan Assessment & Plan narrative: 1. Fall with left hip and buttock contusion. No evidence of fracture. Consult physical and occupational therapy. Note prior history of myasthenia gravis. Monitor functional status with mobilization. Note also history of post-polio syndrome. 2. Confusion, acute on chronic. Possibly multifactorial. Consider post concussive syndrome from repeated falls. Monitor. Assess for possible untreated depression. 3. Leukocytosis. No overt evidence of infection. Urinalysis unremarkable. No infiltrates on chest x-ray. Ceftriaxone 1 g IV administered in the emergency department. Follow blood cultures. 4. Probable dementia. Normal B12 883 on 06/17/2023, TSH 2.05 on 08/16/2023, normal head CT on this admission without evidence of stroke. Suspect underlying Alzheimer-type dementia. 5. Type 2 diabetes mellitus medication. Uncertain control though reportedly recently elevated per . Check hemoglobin A1c. 6. Hypothyroidism. Appears appropriately dosed with normal TSH in July. Recheck to ensure compliance and continue routine 7. Hypomagnesemia. Replete intravenously. 8. Chronic kidney disease, stage IIIB. Appears stable at baseline. 9. History of myasthenia gravis. Clarify prior history. 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 11. History of gastrointestinal bleeding. Hospitalized and transfused in April. Hematocrit normal at this point. 12. History of right lower extremity DVT. Continue apixaban. 13. Code status: Full code per on admission. Clarify further in discussion with when they are together. Her raise her proxy decision maker. She is admitted for observation pending further evaluation. Quality VTE Deep Vein Thrombosis/Pulmonary Embolism Present on Admission: No MIPS - Admit I confirm the patient?s Advance Care Plan is present, Code status is documented, Surrogate decision maker is in patient?s record [If Yes, STOP here]: Yes MIPS - Meds 'Current medications' to include all prescriptions, [id number] products, herbals, cannabis/cannabidiol products, and vitamin/mineral/dietary (nutritional) supplements. I have utilized all available resources to obtain, update, or review the patient?s current medications. [If Yes, STOP here]: Yes PROFEE Charge Codes Initial inpatient/observation care: 60465
[2023-11-12 15:06] LABS: Reflexed Lactate in 2 Hours Y
[2023-11-12] MEDS: MAGNESIUM SULFATE 2 GM/50 ML PIGGYBACK IV (16:15)
[2023-11-12] MEDS: APIXABAN 5 MG TABLET PO (20:36)
[2023-11-12] MEDS: PANTOPRAZOLE DR 40 MG TABLET PO (20:36)
[2023-11-12] MEDS: INSULIN LISPRO 100 UNIT/ML 3ML VIAL SUBCUT (20:36)
[2023-11-12 22:58] LABS: Lactate 2HR (Lactic Acid Rflx) 1.7 mmol/L (0.7-2.1)
[2023-11-13 03:00] VITALS: BP 122/61; PULSE 78; RESP 20; TEMP 36.4; O2SAT 94
[2023-11-13] MEDS: ACETAMINOPHEN 325 MG TABLET 650 MG PO (03:23)
[2023-11-13 05:39] LABS: Add Manual Diff / Slide Review NO; Basophils Absolute Auto 100 /uL (0-100); Basophils Percent Auto 0.5 % (0-2); Eosinophils Absolute Auto 200 /uL (0-450); Eosinophils Percent Auto 1.3 % (2-4); Hemoglobin 9.8 g/dL (12.0-16.0); Lymphocytes Absolute Auto 1900 /uL (1100-4500); Lymphocytes Percent Auto 13.3 % (25-40); Mean Corpuscular HGB Conc 33.8 % (30-36); Mean Corpuscular Hemoglobin 33.5 PG (26-34); Mean Corpuscular Volume 99.2 fL (80-100); Monocytes Absolute Auto 500 /uL (0-900); Monocytes Percent Auto 3.7 % (3-14); Neutrophils Absolute Auto 11700 /uL (1500-7000); Neutrophils Percent Auto 81.2 % (50-75); Platelet Count 204 X10^3/uL (150-400); Red Blood Cell Count 2.92 X10^6/uL (4.0-5.2); Red Cell Distribution Width 13.1 % (11.6-14.8); White Blood Cell Count 14.5 X10^3/uL (4.5-11.0)
[2023-11-13] MEDS: LEVOTHYROXINE 100 MCG TABLET PO (05:50)
[2023-11-13 05:51] LABS: BUN Creatinine Ratio 36.7 (6-22); Blood Urea Nitrogen 44 mg/dL (7-17); Calcium 8.2 mg/dL (8.4-10.2); Carbon Dioxide 18 mmol/L (22-32); Chloride 115 mmol/L (98-107); Estimated Glomerular Filt Rate 45 mL/min (>60); Glucose 126 mg/dL (80-110); HEMOLYSIS < 15 (0-50); Magnesium 1.7 mg/dL (1.6-2.3); Potassium 4.3 mmol/L (3.4-5.1); Sodium 138 mmol/L (137-145)
[2023-11-13 06:28] LABS: Hemoglobin A1C% w Est Avg Glu 6.7 % (4.0-6.0)
[2023-11-13 06:56] LABS: Thyroid Stimulating Hormone 5.49 uIU/mL (0.47-4.68)
[2023-11-13 07:00] VITALS: BP 109/52; PULSE 74; RESP 18; TEMP 36.1; O2SAT 94
[2023-11-13] MEDS: INSULIN LISPRO 100 UNIT/ML 3ML VIAL SUBCUT ×3 (08:38→17:06)
[2023-11-13] MEDS: PANTOPRAZOLE DR 40 MG TABLET PO ×2 (08:40→21:52)
[2023-11-13] MEDS: APIXABAN 5 MG TABLET PO ×2 (08:40→21:51)
[2023-11-13] MEDS: MULTIVITAMIN 1 TABLET 1 TAB PO (08:40)
--- NOTE | 2023-11-13 10:30 | PT.IIE ---
Surgical History (Last Reviewed 11/12/23 @ 15:10 by Carmelo Jamil MD) History of cholecystectomy History of hip replacement History of knee replacement History of shoulder replacement Status post cholecystectomy Medical History (Last Reviewed 11/12/23 @ 15:10 by Carmelo Jamil MD) Arthritis, multiple joint involvement Chicken pox (~194) CKD (chronic kidney disease) stage 3, GFR 30-59 ml/min Elevated INR Frequent urinary tract infections Herpes zoster History of chickenpox History of colitis History of diabetes mellitus History of diverticulitis History of eczema History of gastric ulcer History of poliomyelitis (12/29/16) History of [place] fever History of skin cancer History of ulcerative colitis History of urinary incontinence Hyperthyroidism (~1992) Polio Shoulder pain Type 2 diabetes mellitus without complication, without long-term current use of insulin (12/29/16) Physical Therapy Inpatient Evaluation/Re-Eval M1 PT/OT-IP Prior Functional Status Start: 11/13/23 12:54 Freq: NEEDED Status: Active Protocol: Document 11/13/23 10:30 AB (Rec: 11/13/23 13:10 AB [id number]) Medical Review Prior Functional Status Medical History Reviewed Yes Communication able to make needs known; with memory issues Mobility and Gait pt stated that her spouse assists her with bed mobility, transfers and ambulation. stated that she was able to ambulate some using a 4WW but mostly spends her day sitting on her recliner. Social History Household Members spouse,children Living Arrangements House Number of Floors (Floors) One Floor Number of Stairs To Enter/Railing? ramp to enter Home Environment Standard Height Toilet,Walk in Shower Home Equipment Four Wheel Walker,Raised Toilet Seat w/Armrests,Shower Seat with Backrest,Hand Held Shower,Grab Bars Near Toilet, Grab Bars In Shower Additional Social History Comment pt lives with spouse and her daughter but her daughter is on vacation at this time and will be back in ~ 2 days pt has a recliner M2 PT-IP Current Condition Start: 11/13/23 12:54 Freq: NEEDED Status: Active Protocol: Document 11/13/23 10:30 AB (Rec: 11/13/23 13:10 AB [id number]) Physical Therapy Current Condition Current Condition Evaluation Date 11/13/23 Treatment Diagnosis s/p fall; difficulty in walking Onset Date 11/12/23 M3 PT-IP Subjective Start: 11/13/23 12:54 Freq: NEEDED Status: Active Protocol: Document 11/13/23 10:30 AB (Rec: 11/13/23 13:10 AB [id number]) Subjective Physical Therapy Visit Type Type Initial Evaluation Visit Start Time 10:30 Visit Stop Time 11:00 Number of PURCHASING SUPERVISOR Visits 0 Physical Therapy Visit Comments Patient Comments agreeable to do PT; fearful of falling M4 PT-IP Mobility and Gait Start: 11/13/23 12:54 Freq: NEEDED Status: Active Protocol: Document 11/13/23 10:30 AB (Rec: 11/13/23 13:10 AB [id number]) PT-Bed Mobility Assessment Supine to Sit Supine to Sit Maximum Assistance Sit to Supine Sit to Supine Minimal Assistance PT-Transfer Assessment Comments Mobility Comments pt supine n bed and agreeable to do PT. obtained PLOF and home set up from pt but pt has memory issues and unable to answer some questions. pt has dx dementia. BP in supine: 108/53. completed supine to sit max A and max cues. required increase time to complete activity. pt sat on EOB min A. c/o dizziness. BP checked: 128/63. pt sat for a few minutes and initially stated that dizziness is better but now is getting worse BP rechecked: 135/66. encouraged pt to sit up but stated that she feels like she is going to faint. refused to stand up and wants to lay back in bed. completed sit to supine min A and cues. positioned pt in bed. BP in supine: 123/62. call light and table placed within reach. nurse in room with PT during session and aware of pt's BP and c/o dizziness. PT-Balance Assessment Sitting Balance and Reactions Static Sitting Balance Ability Fair Dynamic Sitting Balance Ability Fair M5 PT-IP Objective Assessments Start: 11/13/23 12:54 Freq: NEEDED Status: Active Protocol: Document 11/13/23 10:30 AB (Rec: 11/13/23 13:10 AB [id number]) Orientation Orientation/Cognition Level of Alertness Confusional State Orientation Name Safety Awareness Decreased Safety Awareness Memory Description Short Term Impaired,Field Assembly Supervisor Impaired Gross Range of Motion Lower Extremity ROM Assessment Left Impaired Impairments L ankle tightness Strength Lower Extremity Strength Assessment Left Impaired Ankle 1/5 Muscle Tone Muscle Tone WNL Yes M6 PT-IP Treatment Start: 11/13/23 12:54 Freq: NEEDED Status: Active Protocol: Document 11/13/23 10:30 AB (Rec: 11/13/23 13:10 AB [id number]) Physical Therapy Treatment Education Education Provided Safety M7 PT-IP Assessment and Plan Start: 11/13/23 12:54 Freq: NEEDED Status: Active Protocol: Document 11/13/23 10:30 AB (Rec: 11/13/23 13:10 AB [id number]) PT Summary Assessment and Plan Potential Rehabilitation Potential Fair Status of Condition at Evaluation Evolving Summary Impairments Pain,ROM,Strength,Balance, Coordination,Sensation,Tone, Cognition,Bed Mobility, Transfers,Gait,Activity Tolerance Assessment Summary pt is an 83 y/o F who is admitted s/p fall. pt requiring max A for bed mobility and max cues and was only able to sit on EOB for a few minutes. pt with c/o increase dizziness and feeling faint and want to lay back in bed. pt unable to tolerate much activity at this time. will continue to assess progress. Goals Bed Mobility Goal Standby Assistance Transfer Goal Standby Assistance,Front Wheeled Walker Gait Goal Standby Assistance,Front Wheel Walker Gait Distance 25 Other Goals improve bed mobility, transfers, ambulation using 4WW ~ 50 ft mod I Days to Meet Goals 10 Frequency of Treatment Frequency Of Treatment Once a Day Treatment Plan Physical Therapy Treatment Plan Bed Mobility Training,Transfer Training,Gait Training, Therapeutic Exercise,Balance Retraining,Discharge Planning, Hot or Cold Pack,Neuromuscular Re-ed,Coordination Retraining ,Manual Therapy Precautions Other Precautions falls Recommendations To Nursing Amount of Assist Needed Mechanical Lift Discharge Recommendations PT Discharge Recommendations SNF Rehab Transportation Needs at Discharge Wheelchair/Cabulance,Stretcher /Ambulance
--- NOTE | 2023-11-13 11:22 | PM.PN.1 ---
Subjective Subjective Date Patient Seen: 11/13/23 Time Patient Seen: 08:15 Interval history: The patient states she feels weak and shaky. She has no specific complaints. She is able to stand at edge of bed for orthostatics with this provider. She would not do it with nursing staff and PT stating she felt too dizzy. Her blood pressure was 149/85 standing. She had no vertigo symptoms. During that she kept saying she felt very dizzy that she was going to pass out. However, she stood for several minutes without problems as such. No chest pain or shortness of breath. Exam Vital Signs (past 8 hours): - 11/13/23 07:00 Temperature 97.0 F L Pulse Rate 74 Respiratory Rate 18 Blood Pressure 109/52 L Pulse Oximetry 94 Oxygen Delivery Method Room Air Oxygen Flow Rate 0 Narrative Exam Narrative: GENERAL: This is a well-nourished, well-developed patient, mildly confused. EYES: Pupils equal round and reactive. Extraocular motions intact. No scleral icterus. No injection or drainage. ENT: Mucous membranes pink and moist. NECK: Supple, nontender, no meningeal signs. CARDIOVASCULAR: Regular rate and rhythm without murmurs, gallops, or rubs. RESPIRATORY: Clear to auscultation. GASTROINTESTINAL: Abdomen soft, non-tender, nondistended. EXTREMITIES: No clubbing, cyanosis, or edema. BACK: Nontender without deformity or crepitance. No flank tenderness. MUSCULOSKELETAL: Shoulders, elbows, wrists, hands, hips, knees and ankles with FROM, no swelling, warmth, erythema or effusion. Left lateral hip with 4cm ecchymosis. NEUROLOGIC: Alert, oriented to person and place, uncertain of the day, mildly confused, speech fluent, full upper and lower motor strength, no focal deficits evident. DERMATOLOGIC: No rashes or skin lesions. Mild erythema of right gluteal fold. Objective Labs 11/13/23 04:43 11/13/23 04:43 Labs: Laboratory Results - last 24 hr 11/12/23 11/12/23 11/12/23 10:34 12:34 22:33 WBC RBC Hgb Hct MCV MCH MCHC RDW Plt Count Neut % (Auto) Lymph % (Auto) [place] % (Auto) Eos % (Auto) Baso % (Auto) Neut # (Auto) Lymph # (Auto) [place] # (Auto) Eos # (Auto) Baso # (Auto) Sodium Potassium Chloride Carbon Dioxide BUN Creatinine Estimated GFR BUN/Creatinine Ratio Glucose Hemoglobin A1c Lactate 2.3 H 1.7 Calcium Magnesium TSH Urine Color Yellow Urine Appearance Clear Urine pH 5.5 Ur Specific [place] 1.015 Urine Protein Negative Urine Glucose (UA) 3+ H Urine Ketones Negative Urine Occult Blood Negative Urine Nitrate Negative Urine Bilirubin Negative Urine Urobilinogen 0.2 Ur Leukocyte Esterase Negative Urine RBC None seen Urine WBC None seen Ur Squamous Epith Cells None seen D Urine Bacteria None seen Ur Culture Indicated? Cult not indicated Vol Urine Centrifuged 10ml (spun) 11/13/23 04:43 WBC 14.5 H RBC 2.92 L Hgb 9.8 L Hct 29.0 L MCV 99.2 MCH 33.5 MCHC 33.8 RDW 13.1 Plt Count 204 Neut % (Auto) 81.2 H Lymph % (Auto) 13.3 L [place] % (Auto) 3.7 Eos % (Auto) 1.3 L Baso % (Auto) 0.5 Neut # (Auto) 32139 H Lymph # (Auto) 1900 [place] # (Auto) 500 Eos # (Auto) 200 Baso # (Auto) 100 Sodium 138 Potassium 4.3 Chloride 115 H Carbon Dioxide 18 L BUN 44 H Creatinine 1.20 H Estimated GFR 45 L BUN/Creatinine Ratio 36.7 H Glucose 126 H D Hemoglobin A1c 6.7 H Lactate Calcium 8.2 L Magnesium 1.7 TSH 5.49 H Urine Color Urine Appearance Urine pH Ur Specific [place] Urine Protein Urine Glucose (UA) Urine Ketones Urine Occult Blood Urine Nitrate Urine Bilirubin Urine Urobilinogen Ur Leukocyte Esterase Urine RBC Urine WBC Ur Squamous Epith Cells Urine Bacteria Ur Culture Indicated? Vol Urine Centrifuged [facility] Medical History History of poliomyelitis (12/29/16) Elevated INR Herpes zoster CKD (chronic kidney disease) stage 3, GFR 30-59 ml/min Arthritis, multiple joint involvement Frequent urinary tract infections Chicken pox (~1947) Hyperthyroidism (~1992) History of [place] fever Shoulder pain History of eczema Polio History of chickenpox History of urinary incontinence History of ulcerative colitis History of gastric ulcer History of diverticulitis History of colitis History of skin cancer History of diabetes mellitus Type 2 diabetes mellitus without complication, without long-term current use of insulin (12/29/16) Surgical History History of shoulder replacement History of cholecystectomy Status post cholecystectomy History of knee replacement History of hip replacement Family History Sister Age: 81 Heart disease Father No problems noted. Mother Myocardial infarction Brother No problems noted. Brother No problems noted. Social History marital status: household members: spouse and children Smoking Status: Former smoker alcohol intake: former substance use type: does not use Assessment & Plan Assessment & Plan narrative: 1. Fall with left hip and buttock contusion. No evidence of fracture. Consult physical and occupational therapy. Note prior chart history of myasthenia gravis. Monitor functional status with mobilization. Note also history of post-polio syndrome. No evidence of vertigo or other overt medical causes of dizziness. She does have significant anxiety that seems to be limiting her ability to mobilize. 2. Confusion, acute on chronic. Possibly multifactorial. Consider post concussive syndrome from repeated falls. Monitor. Assess for possible untreated depression. 3. Leukocytosis, improved overnight. No overt evidence of infection. Urinalysis unremarkable. No infiltrates on chest x-ray. Ceftriaxone 1 g IV administered in the emergency department. Follow blood cultures. No further antibiotics indicated presently. 4. Probable dementia. Normal B12 883 on 06/17/2023, TSH 2.05 on 08/16/2023, normal head CT on this admission without evidence of stroke. Suspect underlying Alzheimer-type dementia. 5. Type 2 diabetes mellitus medication. Adequately controlled with hemoglobin A1c 6.7% on 11/13/2023. Continue sliding scale coverage. 6. Hypothyroidism. Appears appropriately dosed with normal TSH in July, mildly elevated at 5.49 on this admission. Continue routine medication. 7. Hypomagnesemia. Repleted intravenously, 1.1 on admission and 1.7 on 11/13/2023.. 8. Chronic kidney disease, stage IIIB. Appears stable at baseline. 9. History of myasthenia gravis. Clarify prior history. No overt evidence of symptomatic myasthenia gravis at this point. 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 11. History of gastrointestinal bleeding. Hospitalized and transfused in April. Hematocrit normal at this point. 12. History of right lower extremity DVT. Continue apixaban. 13. Code status: Full code per on admission. Her is her proxy decision maker. She is admitted for observation pending further evaluation and progress. Time-Based Coding :: [TOTAL MINUTES] spent with patient and on the chart (including review of chart, obtaining history, exam, reviewing outside data, placing orders, documenting exam and treatment plan, and counseling patient) on [DATE]. Quality VTE Deep Vein Thrombosis/Pulmonary Embolism Present on Admission: No PROFEE Charge codes Subsequent inpatient/observation care: 36327
[2023-11-13 11:28] VITALS: BP 128/63; BP 149/84; PULSE 109; PULSE 91
[2023-11-13] MEDS: MAGNESIUM CHLORIDE 64 MG TABLET 128 MG PO (11:32)
[2023-11-13 12:00] VITALS: BP 149/84; PULSE 109; RESP 18; TEMP 36.1; O2SAT 97
--- NOTE | 2023-11-13 14:51 | CM.DANOTE ---
DCP Assessment Note Pt is an 83yo F here after a GLF at home, no fracture but is in a lot of pain/is weaker than normal. Experienced some confusion. Currently under OBS. PCP Dr. Diana Fowler Medicare and [facility] SHELL WORKER reviewed EMR. Per hospitalist, pt continues to feel weak/shaky/dizzy. Per hospitalist, continuing to investigate the potential medical reason for her fall at home. Could just be declining. SHELL WORKER spoke with Tamy from , confirmed we discharged her there in August of this year but pt only spent two days there before moving to [facility] in [place] for rehab instead. PT rec SNF placement at this time. Per chart review, pt lives with spouse Deepak and dtr Lyly in [place]. Normally uses a walker at baseline. Per RN/SUCTION DRUM DRIER OPERATOR, pt has been tearful throughout the day and wanting to talk to spouse. Attempts have been made to call him, no response. SHELL WORKER lvms with dtr Lyly ([phone]) and spouse Deepak ([phone]). SHELL WORKER met with pt briefly in room. Emotional throughout interaction. Reporting wanting to talk to spouse. Report using walker at baseline, report upset that she can't walk at this time and that she cannot go home if she cannot walk. Confirm preference is [facility] if she continues to not be able to walk. Hx of [facility], open to resuming with them as well. SHELL WORKER spoke with Marcela from [facility]. Room availability and likely can take her back. Marcela will investigate is she is able to return there under Medicare benefit even if OBS due to being less than 30 days that she discharged from there. Marcela hopeful for DC Wednesday, likely unable to accept new admit Wednesday. SHELL WORKER emailed clinicals to Marcela for review. P: DCP pending. Return to [facility] vs home with spouse and [facility] resumption (if [facility] referral needed.) PASRR needed if SNF vs f2f needed if HH. CM team will continue to follow closely. JALEN Ritter Discharge Planning/Care Management CM Discharge Assessment Start: 11/13/23 14:34 Freq: Status: Active Protocol: Document 11/13/23 14:34 LIZBETH (Rec: 11/13/23 14:44 SL [id number]) Discharge Planning Assessment Assigned Band Attacher JALEN Rahman DPOA/Assigned Designee Name Depeak, spouse Contact Information [phone] Advance Directives? Yes: states full code Advance Directives on File No History Provided By Patient,Medical Record Prior Living Arrangements House Household Members spouse,children Type of transporation used prior to Relies on Others admit Needs Assistance With Meal Prep,Managing Medications ,Home Chores / Shopping DME Already Rented / Owned Elevated Toilet Seat,FWW / Walker Comment grab bars near toilet and shower Patient/Family Preference Alf Facility,Home with Home Health Comment open to going back to [facility] or resume with [facility] Discharge Plan Home Transportation Arrangement facility vs family SNF/HH Preference [facility] vs [facility] Has Agency SNF been contacted Yes Review Status In Process Please Provide Date Initial DC 11/13/23 Assessment Was Performed Next Review Type Continued Stay Review
[2023-11-13 16:00] VITALS: BP 101/57; PULSE 91; RESP 16; TEMP 36.8; O2SAT 96
--- NOTE | 2023-11-13 18:26 | PC.NURSE ---
pt tearful throughtout the day, unable to express the reason. several attempts to contact unsucessful.
[2023-11-13 20:00] VITALS: BP 127/59; PULSE 100; RESP 18; TEMP 37.2; O2SAT 92
[2023-11-14] VITALS (8 sets, daily range): BP systolic 112–131; BP diastolic 55–68; PULSE 64–110; RESP 14–18; TEMP 36.5–37.3; O2SAT 90–95
[2023-11-14] MEDS: LEVOTHYROXINE 100 MCG TABLET PO (05:23)
[2023-11-14] MEDS: ACETAMINOPHEN 325 MG TABLET 650 MG PO (05:23)
[2023-11-14] MEDS: INSULIN LISPRO 100 UNIT/ML 3ML VIAL SUBCUT ×4 (07:49→21:00)
[2023-11-14] MEDS: APIXABAN 5 MG TABLET PO ×2 (08:46→20:59)
[2023-11-14] MEDS: PANTOPRAZOLE DR 40 MG TABLET PO ×2 (08:46→20:59)
[2023-11-14] MEDS: MULTIVITAMIN 1 TABLET 1 TAB PO (08:46)
[2023-11-14] MEDS: SODIUM CHLORIDE 0.9% FLUSH 10 ML IV ×2 (08:46→21:00)
[2023-11-14] MEDS: ACETAMINOPHEN 325 MG TABLET 975 MG PO (11:11)
--- NOTE | 2023-11-14 12:05 | PT.IPTN ---
Physical Therapy Treatment Note M2 PT-IP Current Condition Start: 11/13/23 12:54 Freq: NEEDED Status: Active Protocol: Document 11/13/23 10:30 AB (Rec: 11/13/23 13:10 AB [id number]) Physical Therapy Current Condition Current Condition Evaluation Date 11/13/23 Treatment Diagnosis s/p fall; difficulty in walking Onset Date 11/12/23 M3 PT-IP Subjective Start: 11/13/23 12:54 Freq: NEEDED Status: Active Protocol: Document 11/14/23 11:35 KS (Rec: 11/14/23 13:03 KS [id number]) Subjective Physical Therapy Visit Type Type Treatment Note Visit Start Time 11:35 Visit Stop Time 12:05 Number of JANITORIAL MANAGER Visits 1 Physical Therapy Visit Comments Patient Comments agreeable to do PT; fearful of falling M4 PT-IP Mobility and Gait Start: 11/13/23 12:54 Freq: NEEDED Status: Active Protocol: Document 11/14/23 11:35 KS (Rec: 11/14/23 13:03 KS [id number]) PT-Transfer Assessment Sit to and From Stand Sit to and from Stand Moderate Assistance,2 Person Assistance,Use of Upper Extremities Equipment Transfer Assistive Device Front Wheeled Walker Transfers Transfer Destination Chair Transfer Technique sit<>stand Transfer Ability Level of Assist Moderate Assistance,2 Person Assistance Comments Mobility Comments Pt in chair upon arrival, states it was difficult to get there. Becomes tearful thinking her will not be returning, however he did return shortly after and provided assistance w/ pt standing. 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 Pt reports that she is so dizzy even when sitting, BP 116/66. Pt stood Mod A x2 w/ fww. She was able to perform some marching in place and maintain standing in balance while being distracted but ultimately had to sit down due to pain and dizziness. Unable to maintain standing for complete BP reading, but after sitting was 135/60. Pt unable to tolerate further treatment and once again tearful. Notified nurse that pt is requesting something for anxiety. M5 PT-IP Objective Assessments Start: 11/13/23 12:54 Freq: NEEDED Status: Active Protocol: Document 11/13/23 10:30 AB (Rec: 11/13/23 13:10 AB [id number]) Orientation Orientation/Cognition Level of Alertness Confusional State Orientation Name Safety Awareness Decreased Safety Awareness Memory Description Short Term Impaired,Communications Executive Impaired Gross Range of Motion Lower Extremity ROM Assessment Left Impaired Impairments L ankle tightness Strength Lower Extremity Strength Assessment Left Impaired Ankle 1/5 Muscle Tone Muscle Tone WNL Yes M6 PT-IP Treatment Start: 11/13/23 12:54 Freq: NEEDED Status: Active Protocol: Document 11/14/23 11:35 KS (Rec: 11/14/23 13:03 KS [id number]) Physical Therapy Treatment Education Education Provided Safety M7 PT-IP Assessment and Plan Start: 11/13/23 12:54 Freq: NEEDED Status: Active Protocol: Document 11/14/23 11:35 KS (Rec: 11/14/23 13:03 KS [id number]) PT Summary Assessment and Plan Potential Rehabilitation Potential Fair Summary Impairments Pain,ROM,Strength,Balance, Coordination,Sensation,Tone, Cognition,Bed Mobility, Transfers,Gait,Activity Tolerance Progress Towards Goals Slow Progress due to Pain,Slow Progress due to Medical Issues,Slow Progress due to Activity Tolerance,Slow Progress - Other Assessment Summary Pt requiring Mod A x2 for sit< >Stand w/ FWW. Only able to tolerate standing for short period of time due to pain and dizziness. Unable to ambulate during this treatment. Will continue to assess progress, pt may benefit from SNF. Goals Bed Mobility Goal Standby Assistance Transfer Goal Standby Assistance,Front Wheeled Walker Gait Goal Standby Assistance,Front Wheel Walker Gait Distance 25 Other Goals improve bed mobility, transfers, ambulation using 4WW ~ 50 ft mod I Days to Meet Goals 10 Frequency of Treatment Frequency Of Treatment Once a Day Treatment Plan Physical Therapy Treatment Plan Bed Mobility Training,Transfer Training,Gait Training, Therapeutic Exercise,Balance Retraining,Discharge Planning, Hot or Cold Pack,Neuromuscular Re-ed,Coordination Retraining ,Manual Therapy Precautions Other Precautions falls Recommendations To Nursing Amount of Assist Needed 2 Person Assist Discharge Recommendations PT Discharge Recommendations SNF Rehab Transportation Needs at Discharge Wheelchair/Cabulance,Stretcher /Ambulance
[2023-11-14] MEDS: QUETIAPINE 25 MG TABLET 12.5 MG PO ×2 (12:45→20:59)
--- NOTE | 2023-11-14 13:30 | CM.DPC ---
DCP Cont. Reviewed EMR and team rounds for status updates. Lengthy conversation with pt and her , result was that pt was reviewed by [employer] and qualified as inpt as of today. Marcela called back from [facility], pt still has Medicare days left from her last admission, can take her tomorrow (Wednesday), she will call in the am and give us the transport time. PASSAR needs to be done.
--- NOTE | 2023-11-14 13:48 | P.PN_ITS ---
Subjective Subjective Date Patient Seen: 11/14/23 Time Patient Seen: 09:07 Interval history: Patient has no complaints. She has considerable anxiety when her leaves. She continues to have mild confusion about why she is here. She states she is very weak and has ongoing left hip pain. X-rays were negative on admission. She was able to get up with physical therapy. Exam Vital Signs (past 8 hours): - 11/14/23 07:00 11/14/23 07:45 11/14/23 11:21 Temperature 98.9 F 98.1 F Pulse Rate 64 64 Respiratory Rate 14 14 Blood Pressure 112/56 L 121/60 Pulse Oximetry 94 94 Oxygen Delivery Method Room Air Oxygen Flow Rate 0 0 Oxygen Delivery Method Room Air Oxygen Flow Rate 0 Narrative Exam Narrative: GENERAL: This is a well-nourished, well-developed patient, mildly confused. EYES: Pupils equal round and reactive. Extraocular motions intact. ENT: Mucous membranes pink and moist. NECK: Supple, nontender, no meningeal signs. CARDIOVASCULAR: Regular rate and rhythm without murmurs, gallops, or rubs. RESPIRATORY: Clear to auscultation. GASTROINTESTINAL: Abdomen soft, non-tender, nondistended. EXTREMITIES: No clubbing, cyanosis, or edema. MUSCULOSKELETAL: Shoulders, elbows, wrists, hands, hips, knees and ankles with FROM, no swelling, warmth, erythema or effusion. Left lateral hip with 4cm ecchymosis. NEUROLOGIC: Alert, oriented to person and place, uncertain of the day, mildly confused, speech fluent, full upper and lower motor strength, no focal deficits evident. DERMATOLOGIC: No rashes or skin lesions. Mild erythema of right gluteal fold. Objective Labs 11/13/23 04:43 11/13/23 04:43 [facility] Medical History History of poliomyelitis (12/29/16) Elevated INR Herpes zoster CKD (chronic kidney disease) stage 3, GFR 30-59 ml/min Arthritis, multiple joint involvement Frequent urinary tract infections Chicken pox (~1947) Hyperthyroidism (~1992) History of [place] fever Shoulder pain History of eczema Polio History of chickenpox History of urinary incontinence History of ulcerative colitis History of gastric ulcer History of diverticulitis History of colitis History of skin cancer History of diabetes mellitus Type 2 diabetes mellitus without complication, without long-term current use of insulin (12/29/16) Surgical History History of shoulder replacement History of cholecystectomy Status post cholecystectomy History of knee replacement History of hip replacement Family History Sister Age: 81 Heart disease Father No problems noted. Mother Myocardial infarction Brother No problems noted. Brother No problems noted. Social History marital status: household members: spouse and children Smoking Status: Former smoker alcohol intake: former substance use type: does not use Assessment & Plan Assessment & Plan narrative: 1. Fall with left hip and buttock contusion. No evidence of fracture. Consult physical and occupational therapy. Note prior chart history of myasthenia gravis. Monitor functional status with mobilization. Note also history of post-polio syndrome. No evidence of vertigo or other overt medical causes of dizziness. She does have significant anxiety that seems to be limiting her ability to mobilize. 2. Confusion, acute on chronic. Possibly multifactorial. Consider post concussive syndrome from repeated falls. Monitor. Assess for possible untreated depression. 3. Leukocytosis, improved overnight. No overt evidence of infection. Urinalysis unremarkable. No infiltrates on chest x-ray. Ceftriaxone 1 g IV administered in the emergency department. Follow blood cultures. No further antibiotics indicated presently. 4. Probable dementia. Normal B12 883 on 06/17/2023, TSH 2.05 on 08/16/2023, normal head CT on this admission without evidence of stroke. Suspect underlying Alzheimer-type dementia. 5. Type 2 diabetes mellitus medication. Adequately controlled with hemoglobin A1c 6.7% on 11/13/2023. Continue sliding scale coverage. 6. Depression/anxiety. Start sertraline 50 mg daily on 11/14/2023. Add low- dose quetiapine 12.5 mg twice daily as needed for dementia-associated anxiety. 7. Hypothyroidism. Appears appropriately dosed with normal TSH in July, mildly elevated at 5.49 on this admission. Continue routine medication. Advised to repeat and monitor long-term as an outpatient. 8. Hypomagnesemia. Repleted intravenously, 1.1 on admission and 1.7 on 11/13/2023. 9. Chronic kidney disease, stage IIIB. Appears stable at baseline. 10. History of myasthenia gravis. Clarify prior history. No overt evidence of symptomatic myasthenia gravis at this point. 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 12. History of gastrointestinal bleeding. Hospitalized and transfused in April. Hematocrit normal at this point. 13. History of right lower extremity DVT. Continue apixaban. 14. Code status: Full code per on admission. Her De is her proxy decision maker. She is admitted for inpatient level care on 11/14/2023. She has been accepted to return to [facility] where she previously was cared for last month, anticipated discharge 11/15/2023. Time-Based Coding :: [TOTAL MINUTES] spent with patient and on the chart (including review of chart, obtaining history, exam, reviewing outside data, placing orders, documenting exam and treatment plan, and counseling patient) on [DATE]. Quality VTE Deep Vein Thrombosis/Pulmonary Embolism Present on Admission: No PROFEE Charge codes Subsequent inpatient/observation care: 93912
[2023-11-14] MEDS: SERTRALINE 50 MG TABLET PO (20:59)
[2023-11-15 03:43] VITALS: BP 111/59; PULSE 101; RESP 16; TEMP 36.8; O2SAT 92
[2023-11-15] MEDS: LEVOTHYROXINE 100 MCG TABLET PO (06:25)
[2023-11-15] MEDS: INSULIN LISPRO 100 UNIT/ML 3ML VIAL SUBCUT ×2 (08:40→12:39)
[2023-11-15] MEDS: SODIUM CHLORIDE 0.9% FLUSH 10 ML IV (08:41)
[2023-11-15] MEDS: MULTIVITAMIN 1 TABLET 1 TAB PO (08:41)
[2023-11-15] MEDS: APIXABAN 5 MG TABLET PO (08:41)
[2023-11-15] MEDS: PANTOPRAZOLE DR 40 MG TABLET PO (08:41)
--- NOTE | 2023-11-15 08:50 | PM.DS.1 ---
History of Present Illness History of Present Illness Chief complaint: fainting, hard fall Narrative: From H&P: The patient herself is confused about why she is in the hospital but does note the left hip and buttock are very sore. She believes this is from a fall. In phone conversation with her she notes she has been more forgetful and undergone neurologic consultation without a clear cause identified, though apparently worsened by a female genital infection. He provides a meandering history relating recent events involving care in [place] with therapy and rehabilitation, as well as variable blood sugars on home testing. He reports she fell 3 days ago without loss of consciousness. He was able to help but notes she has a history of polio and chronic weakness but both legs appeared very weak. Paramedics came and assessed her and helped her up to her seated walker. The pain in her hip worsened over the next two days and appeared to have intermittent spells of becoming faint but not losing consciousness. He notes progressive memory loss. [facility] SLUMS exam with 1/5 recall at 1 minute, and severe visuospatial deficit with 0/3 clock test on testing by this provider today. She has a history of DVT by ultrasound 07/18/2023 in the right leg, and is on chronic Eliquis therapy. Discharge Providers Provider Date of admission: 11/14/23 11:27 Discharge Date: 11/15/23 Primary care physician: Ana Ortiz MD Consults: 11/12/23 15:26 Consult to Discharge Planning Routine Comment: Consult to Physical Therapy Evaluate & Treat Comment: Physician Instructions: Evaluate and Treat Discharge provider: Ariel Wyman MD Summary Hospital Course Discharge Diagnosis: 1. Fall with left hip and buttock contusion. No evidence of fracture. Consult physical and occupational therapy. Note prior chart history of myasthenia gravis. Monitor functional status with mobilization. Note also history of post-polio syndrome. No evidence of vertigo or other overt medical causes of dizziness. She does have significant anxiety that seems to be limiting her ability to mobilize. 2. Confusion, acute on chronic. Possibly multifactorial. Consider post concussive syndrome from repeated falls. Monitor. Assess for possible untreated depression. 3. Leukocytosis, improved overnight. No overt evidence of infection. Urinalysis unremarkable. No infiltrates on chest x-ray. Ceftriaxone 1 g IV administered in the emergency department. Follow blood cultures. No further antibiotics indicated presently. 4. Probable dementia. Normal B12 883 on 06/17/2023, TSH 2.05 on 08/16/2023, normal head CT on this admission without evidence of stroke. Suspect underlying Alzheimer-type dementia. 5. Type 2 diabetes mellitus medication. Adequately controlled with hemoglobin A1c 6.7% on 11/13/2023. Continue sliding scale coverage. 6. Depression/anxiety. Start sertraline 50 mg daily on 11/14/2023. Add low-dose quetiapine 12.5 mg twice daily as needed for dementia-associated anxiety. 7. Hypothyroidism. Appears appropriately dosed with normal TSH in July, mildly elevated at 5.49 on this admission. Continue routine medication. Advised to repeat and monitor long-term as an outpatient. 8. Hypomagnesemia. Repleted intravenously, 1.1 on admission and 1.7 on 11/13/2023. 9. Chronic kidney disease, stage IIIB. Appears stable at baseline. 10. History of myasthenia gravis. Clarify prior history. No overt evidence of symptomatic myasthenia gravis at this point. 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 12. History of gastrointestinal bleeding. Hospitalized and transfused in April. Hematocrit normal at this point. 13. History of right lower extremity DVT. Continue apixaban. 14. Code status: Full code per on admission. Hospital Course: She was admitted for a fall after being dizzy. She was somewhat weak and had ongoing efforts at rehabilitation while in the hospital. There was no clinical evidence of recurrent myasthenia, she does have a history of post-polio syndrome. She did have a leukocytosis without evidence of infection and this improved. She was felt appropriate for nursing facility rehabilitation efforts and was accepted at [facility] on November 14. Status at Discharge Cognitive/behavioral status at discharge: oriented Functional status at discharge: uses cane/walker Overall status at discharge: patient is progressing back to baseline Time Spent with Patient Time spent: Greater than 30 minutes Exam Vital Signs (past 8 hours): - 11/15/23 03:43 Temperature 98.2 F Pulse Rate 101 H Respiratory Rate 16 Blood Pressure 111/59 L Pulse Oximetry 92 Oxygen Delivery Method Room Air Oxygen Flow Rate 0 Narrative Exam Narrative: NAD, alert and oriented. Fluent speech. Lungs are clear, normal rate and effort. Heart is regular, no murmur gallop or rub. Abdomen is soft, non distended. Extremities are free of edema. Objective Labs 11/13/23 04:43 11/13/23 04:43 [facility] Medical History History of poliomyelitis (12/29/16) Elevated INR Herpes zoster CKD (chronic kidney disease) stage 3, GFR 30-59 ml/min Arthritis, multiple joint involvement Frequent urinary tract infections Chicken pox (~194) Hyperthyroidism (~1992) History of [place] fever Shoulder pain History of eczema Polio History of chickenpox History of urinary incontinence History of ulcerative colitis History of gastric ulcer History of diverticulitis History of colitis History of skin cancer History of diabetes mellitus Type 2 diabetes mellitus without complication, without long-term current use of insulin (12/29/16) Surgical History History of shoulder replacement History of cholecystectomy Status post cholecystectomy History of knee replacement History of hip replacement Family History Sister Age: 81 Heart disease Father No problems noted. Mother Myocardial infarction Brother No problems noted. Brother No problems noted. Social History marital status: household members: spouse and children Smoking Status: Former smoker alcohol intake: former substance use type: does not use Discharge Assessment & Plan Assessment and Plan Assessment: 1. Fall with left hip and buttock contusion. No evidence of fracture. Consult physical and occupational therapy. Note prior chart history of myasthenia gravis. Monitor functional status with mobilization. Note also history of post-polio syndrome. No evidence of vertigo or other overt medical causes of dizziness. She does have significant anxiety that seems to be limiting her ability to mobilize. 2. Confusion, acute on chronic. Possibly multifactorial. Consider post concussive syndrome from repeated falls. Monitor. Assess for possible untreated depression. 3. Leukocytosis, improved overnight. No overt evidence of infection. Urinalysis unremarkable. No infiltrates on chest x-ray. Ceftriaxone 1 g IV administered in the emergency department. Follow blood cultures. No further antibiotics indicated presently. 4. Probable dementia. Normal B12 883 on 06/17/2023, TSH 2.05 on 08/16/2023, normal head CT on this admission without evidence of stroke. Suspect underlying Alzheimer-type dementia. 5. Type 2 diabetes mellitus medication. Adequately controlled with hemoglobin A1c 6.7% on 11/13/2023. Continue sliding scale coverage. 6. Depression/anxiety. Start sertraline 50 mg daily on 11/14/2023. Add low-dose quetiapine 12.5 mg twice daily as needed for dementia-associated anxiety. 7. Hypothyroidism. Appears appropriately dosed with normal TSH in July, mildly elevated at 5.49 on this admission. Continue routine medication. Advised to repeat and monitor long-term as an outpatient. 8. Hypomagnesemia. Repleted intravenously, 1.1 on admission and 1.7 on 11/13/2023. 9. Chronic kidney disease, stage IIIB. Appears stable at baseline. 10. History of myasthenia gravis. Clarify prior history. No overt evidence of symptomatic myasthenia gravis at this point. 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 12. History of gastrointestinal bleeding. Hospitalized and transfused in April. Hematocrit normal at this point. 13. History of right lower extremity DVT. Continue apixaban. Code status: Full code per on admission. Her De is her proxy decision maker. She is admitted for inpatient level care on 11/14/2023. She has been accepted to return to [facility] Plan of Treatment: Discharge to [facility] senior living facility for ongoing rehabilitation efforts. Discharge Plan Discharge Plan Patient Disposition: SNF Transfer to: [facility] Provider Discharge Comment: Stable for discharge to [facility] senior living facility. Discharge orders & Medications Prescriptions: Continued levothyroxine 100 mcg tablet 100 mcg PO QDAY Qty: 90 3RF Centrum for Women w/D3 1 tab PO DAILY (DME) pen needle, diabetic [Ultra-Thin II Ins Pen [place]] 29 gauge x 1/2 needle See Rx Instructions .Route Qty: 100 2RF Rx Instructions: As directed Eliquis 5 mg tablet 5 mg PO BID Qty: 60 0RF pantoprazole [Protonix] 40 mg tablet,delayed release (DR/EC) 40 mg PO BID Qty: 60 2RF acetaminophen [Acetaminophen Extra Strength] 500 mg Tablet 1,000 mg PO BID PRN (Reason: Pain (Scale Score 4-6)) Follow up/Referrals: Ana Ortiz MD [Primary Care Provider] - Discharge Health Status Multidrug resistant organism: No MDRO Diet/Activity/Treatments Diet: Regular Special Rehabilitation Services Reason for rehabilitation: Recovery r/t decondition Rehab type: Physical therapy and Occupational therapy Visit Report/Discharge Packet Stand Alone Forms: Patient Portal/API Discharge Data Primary Care Provider: Ana Ortiz Quality VTE Deep Vein Thrombosis/Pulmonary Embolism Present on Admission: No MIPS - DC The patient has a history of heart transplant or Left Ventricular Assist Device (LVAD). If yes, STOP here.: No
[2023-11-15 09:00] VITALS: BP 128/60; PULSE 102; RESP 14
--- NOTE | 2023-11-15 12:03 | CM.DPNOTE ---
DCP Note Per hospitalist, cleared to dc to [facility] today. Per Marcela at [facility], able to p/u pt today at 2pm. BALE TIE MACHINE OPERATOR completed PASRR. CC Krista kindly agreed to send dc information, PASRR, and signed med list to Marcela, update RN and give RN report number, and update PLANER OPERATOR / GRADER. BALE TIE MACHINE OPERATOR met with pt in room, spoke with spouse on speaker phone in room with pt. Updated on plan. In agreement. BALE TIE MACHINE OPERATOR answered questions to best of ability. P: pt to dc to [facility] today, 2pm via facility van transport. CM team will continue to follow as needed JALEN Ritter
[2023-11-15 12:25] VITALS: BP 129/81; PULSE 110; RESP 15; TEMP 36.5; O2SAT 100
--- NOTE | 2023-11-15 14:33 | PC.NURSE ---
Discharge Note Patient A&O to baseline, VSS, RA, no complaints of pain/discomfort. Patient agreeable to discharge plan. PIV discontinued. Patient assisted with packing of belongings. This RN attempted to call facility with report, unable to reach staff and left a voicemail with name and call back number. Discharge packet given to facility driver trainee along with sticky note of this RNs name and number for report. Patient left floor via wheelchair with facility driver trainee.
== END 2023-11-15 14:30 | DRG 605 ==
LOC: ED 10:27 → AC 13:29
PROVIDERS: Admitting Provider Internal Medicine; Emergency Provider Emergency Medicine; PCP Student in an Organized Health Care Education/Training Program; Referring Provider Emergency Medicine; Visit Provider Internal Medicine
DX: S30.0XXA Contusion of lower back and pelvis, initial encounter (principal); S70.02XA Contusion of left hip, initial encounter; R29.6 Repeated falls; E03.9 Hypothyroidism, unspecified; E83.42 Hypomagnesemia; E11.22 Type 2 diabetes mellitus with diabetic chronic kidney disease; N18.32 Chronic kidney disease, stage 3b; G14 Postpolio syndrome; F32.A Depression, unspecified; F41.9 Anxiety disorder, unspecified; G30.9 Alzheimer's disease, unspecified; F02.80 Dementia in other diseases classified elsewhere, unspecified severity, without behavioral disturbance, psychotic disturbance, mood disturbance, and anxiety; F07.81 Postconcussional syndrome; W19.XXXA Unspecified fall, initial encounter; Z87.19 Personal history of other diseases of the digestive system; Z79.01 Long term (current) use of anticoagulants; Z86.718 Personal history of other venous thrombosis and embolism; Z87.891 Personal history of nicotine dependence
CPT/HCPCS: 36415; 51701; 70450; 70496; 70498; 71045; 73502; 80048; 80053; 81001; 82550; 82962; 83036; 83605; 83690; 83735; 83880; 84443; 84484; 85025; 85610; 85730; 87040; 93005; 96365; 97162; 97530; 99284; G0378; J0696; J1815; J3475; Q9967

== ENCOUNTER → 2023-12-31 15:30 | Outpatient (CLI) | payer MEDICARE, OTHER, SELFPAY ==
[2023-11-12 16:27] VITALS: BMI 23.1
== END ==
PROVIDERS: PCP Student in an Organized Health Care Education/Training Program; Visit Provider Student in an Organized Health Care Education/Training Program
DX: N39.0 Urinary tract infection, site not specified (principal)
CPT/HCPCS: 87077; 87086; 87186

== ENCOUNTER → 2024-03-22 11:35 | Outpatient (CLI) | payer MEDICARE, OTHER, SELFPAY ==
[2024-03-20 14:17] VITALS: BMI 23.1
[2024-03-22 13:05] LABS: Appearance Urine UA CLEAR; Bilirubin Urine UA NEGATIVE (NEGATIVE); Color Urine UA YELLOW; Glucose Urine UA NEGATIVE (Negative); Ketones Urine UA NEGATIVE (NEGATIVE); Leukocyte Esterase Urine UA NEGATIVE (NEGATIVE); Nitrite Urine UA NEGATIVE (Negative); Occult Blood Urine UA NEGATIVE (Negative); Protein Urine UA NEGATIVE (Negative); Urine Volume 10mL (spun); Urobilinogen Urine UA 0.2 E.U./dL (0.2); pH Urine UA 5.5 (4.5-8.0)
[2024-03-22 13:07] LABS: Bacteria Urine None Seen; Culture Indicated Urine Cult Not Indicated; RBC Urine None Seen (0-5/HPF); Squamous Epithelial Cell Urine 1-5 /HPF (0-5/HPF); WBC Urine None Seen (0-5/HPF)
== END ==
PROVIDERS: PCP Student in an Organized Health Care Education/Training Program; Referring Provider Student in an Organized Health Care Education/Training Program; Visit Provider Student in an Organized Health Care Education/Training Program
DX: N39.0 Urinary tract infection, site not specified (principal); R35.0 Frequency of micturition
CPT/HCPCS: 81001

== ENCOUNTER → 2024-04-13 13:31 | Outpatient (CLI) | payer MEDICARE, OTHER, SELFPAY ==
[2024-03-20 14:17] VITALS: BMI 23.1
[2024-04-13 14:01] LABS: Appearance Urine UA CLEAR; Bilirubin Urine UA NEGATIVE (NEGATIVE); Glucose Urine UA NEGATIVE (Negative); Ketones Urine UA NEGATIVE (NEGATIVE); Leukocyte Esterase Urine UA NEGATIVE (NEGATIVE); Nitrite Urine UA NEGATIVE (Negative); Occult Blood Urine UA NEGATIVE (Negative); Protein Urine UA NEGATIVE (Negative); Urobilinogen Urine UA 0.2 E.U./dL (0.2)
[2024-04-13 14:04] LABS: Color Urine UA Dark Yellow
[2024-04-13 14:09] LABS: Culture Indicated Urine Cult Not Indicated; Mucus Urine 1+ (Negative); RBC Urine None Seen (0-5/HPF); Squamous Epithelial Cell Urine 0-1 /HPF (0-5/HPF); Urine Volume 10mL (spun)
[2024-04-13 14:16] LABS: Specific Gravity Urine UA <=1.005 (1.000-1.035)
[2024-04-13 14:17] LABS: Bacteria Urine Many (>30); WBC Urine 0-1/HPF (0-5/HPF)
== END ==
PROVIDERS: PCP Student in an Organized Health Care Education/Training Program; Referring Provider Student in an Organized Health Care Education/Training Program; Visit Provider Student in an Organized Health Care Education/Training Program
DX: R82.90 Unspecified abnormal findings in urine (principal)
CPT/HCPCS: 81001; 87077; 87086

== ENCOUNTER 2024-04-17 17:28 | Inpatient (IN) | payer MEDICARE, OTHER, SELFPAY ==
[2024-03-20 14:17] VITALS: BMI 23.1
[2024-04-17 17:33] VITALS: BMI 24.5
[2024-04-17 18:35] VITALS: BP 106/67; PULSE 73; RESP 16; TEMP 36.4; O2SAT 100
[2024-04-17 18:58] VITALS: O2SAT 99
[2024-04-17 20:23] LABS: Add Manual Diff / Slide Review NO; Basophils Absolute Auto 100 /uL (0-100); Basophils Percent Auto 0.7 % (0-2); Eosinophils Absolute Auto 200 /uL (0-450); Eosinophils Percent Auto 1.5 % (2-4); Hematocrit 34.4 % (36-46); Hemoglobin 11.5 g/dL (12.0-16.0); Lymphocytes Absolute Auto 2000 /uL (1100-4500); Lymphocytes Percent Auto 18.2 % (25-40); Mean Corpuscular HGB Conc 33.4 % (30-36); Mean Corpuscular Hemoglobin 31.6 PG (26-34); Mean Corpuscular Volume 94.4 fL (80-100); Monocytes Absolute Auto 700 /uL (0-900); Monocytes Percent Auto 6.1 % (3-14); Neutrophils Absolute Auto 7900 /uL (1500-7000); Neutrophils Percent Auto 73.5 % (50-75); Platelet Count 185 X10^3/uL (150-400); Red Blood Cell Count 3.64 X10^6/uL (4.0-5.2); Red Cell Distribution Width 14.9 % (11.6-14.8); White Blood Cell Count 10.8 X10^3/uL (4.5-11.0)
[2024-04-17 20:40] LABS: Alanine Aminotransferase 34 IU/L (<35); Albumin 2.5 g/dL (3.5-5.0); Albumin Globulin Ratio 0.8 (1.0-2.8); Alkaline Phosphatase 71 U/L (38-126); Aspartate Aminotransferase 45 IU/L (14-36); BUN Creatinine Ratio 19.1 (6-22); Bilirubin Total 0.4 mg/dL (0.2-1.3); Blood Urea Nitrogen 30 mg/dL (7-17); Carbon Dioxide 27 mmol/L (22-32); Chloride 107 mmol/L (98-107); Estimated Glomerular Filt Rate 32 mL/min (>60); Glucose 111 mg/dL (80-110); HEMOLYSIS < 15 (0-50); Magnesium 1.1 mg/dL (1.6-2.3); Potassium 3.8 mmol/L (3.4-5.1); Sodium 137 mmol/L (137-145); Total Protein 5.5 g/dL (6.3-8.2)
[2024-04-17] MEDS: APIXABAN 5 MG TABLET PO (21:01)
[2024-04-17] MEDS: ERTAPENEM 1 GM in SODIUM CHLORIDE 0.9% 100 ML IV (21:01)
[2024-04-17 22:23] LABS: Appearance Urine UA CLEAR; Bilirubin Urine UA NEGATIVE (NEGATIVE); Color Urine UA YELLOW; Glucose Urine UA NEGATIVE (Negative); Ketones Urine UA NEGATIVE (NEGATIVE); Leukocyte Esterase Urine UA NEGATIVE (NEGATIVE); Nitrite Urine UA POSITIVE (Negative); Occult Blood Urine UA NEGATIVE (Negative); Protein Urine UA NEGATIVE (Negative); Specific Gravity Urine UA <=1.005 (1.000-1.035); Urobilinogen Urine UA 0.2 E.U./dL (0.2)
[2024-04-17 22:32] LABS: Bacteria Urine Moderate (10-30); Culture Indicated Urine Specimen Cultured; RBC Urine None Seen (0-5/HPF); Squamous Epithelial Cell Urine 0-1 /HPF (0-5/HPF); Urine Volume 10mL (spun); WBC Urine 0-1/HPF (0-5/HPF)
--- NOTE | 2024-04-17 22:56 | P.HP_ITS ---
History of Present Illness History of Present Illness Date Patient Seen: 04/17/24 Time Patient Seen: 21:00 Chief complaint: UTI Narrative: 83 y/o with PMH of recurrent UTIs in the last year, presented with ESBL Klebsiella cystitis. Referred by PCP. Not septic on admission. She was on different antibiotics with prior episodes. Most recent urine culture shows Klebsiella sensitive to carbapenems only. Patient is not a good historian and apparently has some cognitive deficits. She however denies dysuria, fever, chills, abdominal or flank pain or bloody urine. Additional PMH of DM, CKD stage 3, chronic leg DVT, arthritis, Hx of polyo with baseline lag weakness, Hx og GI bleed, hypothyroidism. [facility] Medical History History of poliomyelitis (12/29/16) Elevated INR Herpes zoster CKD (chronic kidney disease) stage 3, GFR 30-59 ml/min Arthritis, multiple joint involvement Frequent urinary tract infections Chicken pox (~194) Hyperthyroidism (~1992) History of [facility] fever Shoulder pain History of eczema Polio History of chickenpox History of urinary incontinence History of ulcerative colitis History of gastric ulcer History of diverticulitis History of colitis History of skin cancer History of diabetes mellitus Type 2 diabetes mellitus without complication, without long-term current use of insulin (12/29/16) Surgical History History of shoulder replacement History of cholecystectomy Status post cholecystectomy History of knee replacement History of hip replacement Family History Sister Age: 81 Heart disease Father No problems noted. Mother Myocardial infarction Brother No problems noted. Brother No problems noted. Social History marital status: household members: spouse and children Smoking Status: Former smoker alcohol intake: former substance use type: does not use Meds Home Medications and Allergies Home Medications Medication Instructions Recorded Confirmed Type magnesium oxide 200 mg PO DAILY #90 tabs 04/10/24 04/17/24 Rx cholecalciferol (vitamin D3) 125 125 mcg PO DAILY #30 caps 04/13/24 04/17/24 Rx mcg (5,000 unit) capsule loperamide 2 mg tablet 2 mg PO Q4H PRN loose stool #90 04/13/24 04/17/24 Rx (Anti-Diarrheal (loperamide)) tabs cephalexin 500 mg tablet 500 mg PO TID 7 days #21 tabs 04/14/24 04/17/24 Rx apixaban 5 mg tablet (Eliquis) 5 mg PO BID 04/17/24 04/17/24 History furosemide 20 mg tablet (Lasix) 20 mg PO DAILY 04/17/24 04/17/24 History levothyroxine 100 mcg tablet 100 mcg PO DAILY 04/17/24 04/17/24 History omeprazole 20 mg capsule,delayed 40 mg PO DAILY 04/17/24 04/17/24 History release Allergies Allergy/AdvReac Type Severity Reaction Status Date / Time Sulfa (Sulfonamide Allergy Severe HIVES FROM Verified 12/31/23 14:35 Antibiotics) SULFA CREAM [SULFA (SULFONAMIDE ANTIBIOTICS)] Review of Systems Constitutional Comments: without fever or chills Cardiovascular Comments: w/o chest pain or palpitations Gastrointestinal Comments: w/o abdominal pain Genitourinary Comments: w/o dysuria or hematuria, w/o suprapubic or flank pain Exam Vital Signs (past 8 hours): - 04/17/24 18:35 04/17/24 20:34 Temperature 97.5 F L 97.7 F Pulse Rate 73 76 Respiratory Rate 16 16 Blood Pressure 106/67 100/40 L Pulse Oximetry 100 99 Oxygen Flow Rate 0 0 Oxygen Flow Rate 0 Const Other: in no distress Resp Other: CTA Cardio Other: RRR GI Other: w/o distension or tenderness Skin Other: w/o rashes Objective Labs 04/18/24 05:54 04/18/24 05:54 Labs: Laboratory Results - last 24 hr 04/17/24 04/17/24 19:58 22:01 WBC 10.8 RBC 3.64 L Hgb 11.5 L Hct 34.4 L MCV 94.4 MCH 31.6 MCHC 33.4 RDW 14.9 H Plt Count 185 Neut % (Auto) 73.5 Lymph % (Auto) 18.2 L [place] % (Auto) 6.1 Eos % (Auto) 1.5 L Baso % (Auto) 0.7 Neut # (Auto) 7900 H Lymph # (Auto) 2000 [place] # (Auto) 700 Eos # (Auto) 200 Baso # (Auto) 100 Sodium 137 Potassium 3.8 Chloride 107 Carbon Dioxide 27 BUN 30 H Creatinine 1.57 H Estimated GFR 32 L BUN/Creatinine Ratio 19.1 Glucose 111 H Calcium 8.0 L Magnesium 1.1 L Total Bilirubin 0.4 AST 45 H ALT 34 Alkaline Phosphatase 71 Total Protein 5.5 L Albumin 2.5 L Globulin 3.0 Albumin/Globulin Ratio 0.8 L Urine Color Yellow Urine Appearance Clear Urine pH 6.0 Ur Specific Bailey <=1.005 Urine Protein Negative Urine Glucose (UA) Negative Urine Ketones Negative Urine Occult Blood Negative Urine Nitrate Positive H Urine Bilirubin Negative Urine Urobilinogen 0.2 Ur Leukocyte Esterase Negative Urine RBC None seen Urine WBC 0-1/hpf Ur Squamous Epith Cells 0-1 /hpf Urine Bacteria Moderate (10-30) H Ur Culture Indicated? Specimen cultured Vol Urine Centrifuged 10ml (spun) Assessment & Plan Assessment and plan (1) Urinary tract infection: Qualifiers: Hematuria presence: with hematuria Urinary tract infection type: acute cystitis Qualified Code(s): N30.01 - Acute cystitis with hematuria Status: Acute (2) Frequent urinary tract infections: Status: Acute (3) CKD (chronic kidney disease) stage 3, GFR 30-59 ml/min: Qualifiers: Chronic kidney disease stage 3 subtype: stage 3b (GFR 30-44) Qualified Code(s): N18.32 - Chronic kidney disease, stage 3b Status: Acute (4) DVT (deep venous thrombosis): Qualifiers: Affected thrombotic vein of extremity: unspecified vein of extremity C hronicity: unspecified DVT location: lower extremity Laterality: unspecified laterality Qualified Code(s): I82.409 - Acute embolism and thrombosis of unspecified deep veins of unspecified lower extremity Status: Acute (5) Hyperglycemia: Status: Acute Assessment & Plan narrative: Recurrent UTI / ESBL Klebsiella - carbapenem abx the only choice CKD - monitored renal function Chronic leg DVT - Eliquis Hx of GI bleed / GERD - PPI Hypothyroidism - levothyroxine Time-Based Coding :: [TOTAL MINUTES] spent with patient and on the chart (including review of chart, obtaining history, exam, reviewing outside data, placing orders, documenting exam and treatment plan, and counseling patient) on [DATE]. Quality VTE Deep Vein Thrombosis/Pulmonary Embolism Present on Admission: No
[2024-04-17 22:58] VITALS: O2SAT 99
[2024-04-17] MEDS: MELATONIN 3 MG TABLET 6 MG PO (22:58)
[2024-04-17 23:55] VITALS: BP 100/40; PULSE 76; RESP 16; TEMP 36.5; O2SAT 99
[2024-04-18] VITALS (11 sets, daily range): BP systolic 102–112; BP diastolic 41–58; PULSE 66–88; RESP 15–18; TEMP 35.8–36.7; O2SAT 96–100
[2024-04-18] MEDS: ERTAPENEM 1 GM in SODIUM CHLORIDE 0.9% 100 ML IV (04:00)
--- NOTE | 2024-04-18 04:06 | PC.NURSE ---
Addendum entered by Oksana Arias R.N. 04/18/24 06:25: Per MD Pak, no new orders. Will continue to monitor. Original Note: NOC: Pt had bowel movement at commode and passed formed brown stool with small amount of porfirio red blood. Pt does have hx of hemorrhoids and stated that this is not normal. Informed MD Pak, awaiting answer.
[2024-04-18 06:20] LABS: Add Manual Diff / Slide Review NO; Basophils Absolute Auto 100 /uL (0-100); Basophils Percent Auto 0.9 % (0-2); Eosinophils Absolute Auto 200 /uL (0-450); Eosinophils Percent Auto 2.8 % (2-4); Hematocrit 29.4 % (36-46); Hemoglobin 9.7 g/dL (12.0-16.0); Lymphocytes Absolute Auto 1500 /uL (1100-4500); Lymphocytes Percent Auto 16.8 % (25-40); Mean Corpuscular Hemoglobin 31.2 PG (26-34); Mean Corpuscular Volume 94.7 fL (80-100); Monocytes Absolute Auto 700 /uL (0-900); Monocytes Percent Auto 7.5 % (3-14); Neutrophils Absolute Auto 6300 /uL (1500-7000); Platelet Count 162 X10^3/uL (150-400); Red Blood Cell Count 3.11 X10^6/uL (4.0-5.2); White Blood Cell Count 8.8 X10^3/uL (4.5-11.0)
[2024-04-18 06:28] LABS: Prothrombin Time 21.9 SECONDS (9.4-12.5)
[2024-04-18 06:30] LABS: PTT Partial Thromboplastin Tim 39 SECONDS (25.1-36.5)
[2024-04-18 06:33] LABS: Hemoglobin A1C% w Est Avg Glu 7.2 % (4.0-6.0)
[2024-04-18 06:35] LABS: Alanine Aminotransferase 27 IU/L (<35); Albumin 1.9 g/dL (3.5-5.0); Albumin Globulin Ratio 0.8 (1.0-2.8); Alkaline Phosphatase 53 U/L (38-126); Aspartate Aminotransferase 36 IU/L (14-36); BUN Creatinine Ratio 23.1 (6-22); Blood Urea Nitrogen 30 mg/dL (7-17); Calcium 7.6 mg/dL (8.4-10.2); Carbon Dioxide 27 mmol/L (22-32); Chloride 110 mmol/L (98-107); Estimated Glomerular Filt Rate 41 mL/min (>60); Globulin 2.4 g/dL (1.7-4.1); Glucose 103 mg/dL (80-110); HEMOLYSIS < 15 (0-50); Potassium 3.9 mmol/L (3.4-5.1); Sodium 139 mmol/L (137-145); Total Protein 4.3 g/dL (6.3-8.2)
[2024-04-18 06:50] LABS: Procalcitonin 0.097 ng/mL (<0.5)
[2024-04-18 06:52] LABS: Bilirubin Total < 0.1 mg/dL (0.2-1.3)
[2024-04-18] MEDS: LEVOTHYROXINE 100 MCG TABLET PO (07:45)
[2024-04-18] MEDS: MAGNESIUM CHLORIDE 64 MG TABLET 128 MG PO ×2 (07:45→15:47)
[2024-04-18] MEDS: PANTOPRAZOLE DR 40 MG TABLET PO (07:45)
[2024-04-18] MEDS: FUROSEMIDE 20 MG TABLET PO (09:15)
[2024-04-18] MEDS: APIXABAN 5 MG TABLET PO ×2 (09:15→20:22)
--- NOTE | 2024-04-18 11:43 | CM.DANOTE ---
Initial DCP Assessment Visit Note Reviewed EMR and team rounds for status updates. Met with pt/spouse at bedside to introduce self and role, both pt/spouse are familiar to this staff due to multiple past hospitalizations. Pt lives modified independently with her spouse and dtr in their own home in [place]. Spouse/dtr both assist pt with ADL's and IADL's, spouse or dtr will transport pt home once she is stable for d/c, likely not for several days. Payor: Medicare PCP: Dr. Ortiz Pt is a 83 year-old F with a PMH of Myasthenia Gravis, frequent UTI's, and post-polio syndrome. She is in the care of Dr. Waldron at the for her MG, and according pt's spouse, is usually consulted on with any new medications that pt takes due to her hx of MG flares with medications. Pt is not a reliable self historian, and defers to , who is [place]. ED eval showed that she was positive for UTI again, with hematuria and acute cystitis. She has had recent UTI's with ESBL/Klebsiella, so was started on IV antibiotics further tx of presumed same bacteria. Blood cultures remain pending. Her spouse is very attentive and is at bedside, in the past he is here daily, all day, for her support. DCP will continue to monitor for any final d/c assistance needs/recommendations. She is already established with [facility], and will need resumption orders at d/c. Discharge Planning/Care Management CM Discharge Assessment Start: 04/18/24 11:38 Freq: Status: Active Protocol: Document 04/18/24 11:39 DPL (Rec: 04/18/24 11:42 DPL [id number]) Discharge Planning Assessment Assigned Child Adolescent Psychiatrist JALEN Yip Advance Directives? Yes: states full code Advance Directives on File No History Provided By Patient,Medical Record Has Patient been admitted in last 30 No days? Prior Living Arrangements House Household Members spouse,children Type of transporation used prior to Relies on Others admit Independent with ADL's No: modified independent with family assistance Is patient alert and oriented? Yes Needs Assistance With Meal Prep,Managing Medications ,Home Chores / Shopping Caregiver for Another No Community Services used prior to Physical Therapy admission: DME Already Rented / Owned Elevated Toilet Seat Comment grab bars near toilet and shower, 4WW Patient/Family Preference Home with Home Health Comment Pt is already established with [facility], will contact them at d/c to resume services. Barriers to Discharge No Discharge Plan Home Transportation Arrangement Family Referrals Initiated None needed Whiteboard Updated in Patient Room with Yes name and ext. # of Child Adolescent Psychiatrist Review Status In Process Please Provide Date Initial DC 04/18/24 Assessment Was Performed
--- NOTE | 2024-04-18 12:09 | CM.DPC ---
DCP Cont. Received call from [facility] , they had actually went out to start care today and found out that pt is in the hospital. Per Ana at [facility] pt's spouse got in an argument with the dtr Lyly who lives in their home, kicked her out last Wednesday, and is refusing to allow her back in. Jane is encouraging SNF rehab for pt to d/c to for her continued IV ABO's course rather than home, as pt's spouse will not be able to manage this. Jane did say that they could resume care after SNF. TAMIR will make a SNF referral once we know the plan for her IV antibiotic course.
--- NOTE | 2024-04-18 12:54 | P.PN_ITS ---
Subjective Subjective Interval history: 83 F with post-polio syndrome, myasthenia gravis, HTN, hypothyroidism, recurrent DVT who was admitted with an ESBL Klebsiella as a direct admit after failing to coordinate outpatient antibiotic therapy. She had mild hypotension which is improved with MAP <70 and GAGAN which is also improved today. Exam Vital Signs (past 8 hours): - 04/18/24 06:00 04/18/24 08:00 04/18/24 10:00 Temperature 97.3 F L Pulse Rate 66 Respiratory Rate 18 Blood Pressure 104/52 L Pulse Oximetry 98 98 98 Oxygen Delivery Method Room Air Room Air Oxygen Flow Rate 0 0 04/18/24 12:00 Temperature 98.1 F Pulse Rate 72 Respiratory Rate 16 Blood Pressure 106/58 L Pulse Oximetry 100 Oxygen Delivery Method Oxygen Flow Rate 0 Oxygen Delivery Method Room Air Oxygen Flow Rate 0 Narrative Exam Narrative: Gen: No acute distress Abd: S NT ND Ext: no edema. Objective Labs 04/18/24 05:54 04/18/24 05:54 Labs: Laboratory Results - last 24 hr 04/17/24 04/17/24 04/18/24 19:58 22:01 05:54 WBC 10.8 8.8 RBC 3.64 L 3.11 L Hgb 11.5 L 9.7 L Hct 34.4 L 29.4 L MCV 94.4 94.7 MCH 31.6 31.2 MCHC 33.4 33.0 RDW 14.9 H 15.0 H Plt Count 185 162 Neut % (Auto) 73.5 72.0 Lymph % (Auto) 18.2 L 16.8 L [place] % (Auto) 6.1 7.5 Eos % (Auto) 1.5 L 2.8 Baso % (Auto) 0.7 0.9 Neut # (Auto) 7900 H 6300 Lymph # (Auto) 2000 1500 [place] # (Auto) 700 700 Eos # (Auto) 200 200 Baso # (Auto) 100 100 PT 21.9 H INR 2.0 H APTT 39 H Sodium 137 139 Potassium 3.8 3.9 Chloride 107 110 H Carbon Dioxide 27 27 BUN 30 H 30 H Creatinine 1.57 H 1.30 H Estimated GFR 32 L 41 L BUN/Creatinine Ratio 19.1 23.1 H Glucose 111 H 103 Hemoglobin A1c 7.2 H Calcium 8.0 L 7.6 L Magnesium 1.1 L Total Bilirubin 0.4 < 0.1 L AST 45 H 36 ALT 34 27 Alkaline Phosphatase 71 53 Total Protein 5.5 L 4.3 L Albumin 2.5 L 1.9 L Globulin 3.0 2.4 Albumin/Globulin Ratio 0.8 L 0.8 L Procalcitonin 0.097 Urine Color Yellow Urine Appearance Clear Urine pH 6.0 Ur Specific Childs <=1.005 Urine Protein Negative Urine Glucose (UA) Negative Urine Ketones Negative Urine Occult Blood Negative Urine Nitrate Positive H Urine Bilirubin Negative Urine Urobilinogen 0.2 Ur Leukocyte Esterase Negative Urine RBC None seen Urine WBC 0-1/hpf Ur Squamous Epith Cells 0-1 /hpf Urine Bacteria Moderate (10-30) H Ur Culture Indicated? Specimen cultured Vol Urine Centrifuged 10ml (spun) [facility] Medical History History of poliomyelitis (12/29/16) Elevated INR Herpes zoster CKD (chronic kidney disease) stage 3, GFR 30-59 ml/min Arthritis, multiple joint involvement Frequent urinary tract infections Chicken pox (~1947) Hyperthyroidism (~1992) History of [place] fever Shoulder pain History of eczema Polio History of chickenpox History of urinary incontinence History of ulcerative colitis History of gastric ulcer History of diverticulitis History of colitis History of skin cancer History of diabetes mellitus Type 2 diabetes mellitus without complication, without long-term current use of insulin (12/29/16) Surgical History History of shoulder replacement History of cholecystectomy Status post cholecystectomy History of knee replacement History of hip replacement Family History Sister Age: 81 Heart disease Father No problems noted. Mother Myocardial infarction Brother No problems noted. Brother No problems noted. Social History marital status: household members: spouse and children Smoking Status: Former smoker alcohol intake: former substance use type: does not use Assessment & Plan Assessment & Plan narrative: 1. Sepsis secondary to ESBL Klebsiella acute cystitis, with GAGAN and hypotension - continue ertapenem 1g q24. SOFA score of 2 on presentation. She is improving today, leukocytosis resolved and BP improved. - midline placed - case management assisting with how to finish 7 day course (last dose on 04/24/24), options include SNF, infusion clinic, or home infusions. She reports weakness will assess with therapy evaluation may benefit from SNF if weak from sepsis. 2. Gastritis - continue home PPI 3. History of DVT on anticoagulation, present on admission and active. - continue home apixaban 4. Hypothyroidism, present on admission and active. - continue home levothyroxine 5. Post-polio syndrome, present on admission and active. 6. Myasthenia gravis, history of. - no longer on prednisone 7. HTN - will hold home furosemide for now in the setting of sepsis. Code: Full, surrogate is patient's spouse DVT: Lovenox daily I have utilized all available immediate resources to obtain, update, or review the patient's current medications. Dispo: patient admitted under inpatient status. Unclear if will be able to discharge home or possible SNF for completion of antibiotics, will have PT/OT evaluations. Additional history obtained via discussions with the patient's primary care provider, nurse case manager, and overnight provider. These discussions contributed to the creation of the above assessment and plan. I have reviewed patient's presenting documentation, labs, and imaging personally. Time-Based Coding :: [TOTAL MINUTES] spent with patient and on the chart (including review of chart, obtaining history, exam, reviewing outside data, placing orders, documenting exam and treatment plan, and counseling patient) on [DATE]. Scores SOFA PaO2/FIO2: >=400 mmHg Platelets: >= 150 Bilirubin: < 1.2 mg/dL Hypotension: MAP < 70 mmHg Maggie Coma Scale: 15 Renal: Creatinine 1.2-1.9 mg/dL SOFA Score: 2 Quality VTE Deep Vein Thrombosis/Pulmonary Embolism Present on Admission: No
--- NOTE | 2024-04-18 14:11 | PT.IIE ---
Current Diagnoses Acute embolism and thrombosis of unspecified deep veins of unspecified lower extremity (04/17/24) Chronic kidney disease, stage 3b (04/17/24) Acute cystitis with hematuria (04/17/24) Urinary tract infection, site not specified (04/17/24) Hyperglycemia, unspecified (04/17/24) Surgical History (Last Reviewed 04/18/24 @ 07:39 by Timothy Pak MD) History of cholecystectomy History of hip replacement History of knee replacement History of shoulder replacement Status post cholecystectomy Medical History (Last Reviewed 04/18/24 @ 07:39 by Timothy Pak MD) Arthritis, multiple joint involvement Chicken pox (~1946) CKD (chronic kidney disease) stage 3, GFR 30-59 ml/min Elevated INR Frequent urinary tract infections Herpes zoster History of chickenpox History of colitis History of diabetes mellitus History of diverticulitis History of eczema History of gastric ulcer History of poliomyelitis (12/29/16) History of [place] fever History of skin cancer History of ulcerative colitis History of urinary incontinence Hyperthyroidism (~1992) Polio Shoulder pain Type 2 diabetes mellitus without complication, without long-term current use of insulin (12/29/16) Physical Therapy Inpatient Evaluation/Re-Eval M1 PT/OT-IP Prior Functional Status Start: 04/18/24 15:30 Freq: NEEDED Status: Active Protocol: Document 04/18/24 14:11 AB (Rec: 04/18/24 15:43 AB [id number]) Medical Review Prior Functional Status Medical History Reviewed Yes Communication able to make needs known Mobility and Gait pt stated that her daughter assists her at home; pt stated that she needs assists to get into her bed to get her LE up in bed but able to sit up from the bed by herself. stated that she was able to ambulate using a 4WW mod I but only for short distance ambulation and mostly spends her day on her recliner Activities of Daily Living and IADL's Pt able to do her basic ADL's and askes for help from her family whenever needed. Pt states someone is always home to assist her. Social History Household Members spouse,children Living Arrangements House Number of Floors (Floors) One Floor Number of Stairs To Enter/Railing? Ramp to enter Home Environment Standard Height Toilet,Walk in Shower,Ramp Home Equipment Four Wheel Walker,Raised Toilet Seat w/Armrests,Shower Seat with Backrest,Hand Held Shower,Grab Bars Near Toilet, Grab Bars In Shower Additional Social History Comment pt has a recliner chair at home pt stated that her daughter is on vacation until Apr 23; spouse can assist but cannot assist her with her medication needs M2 PT-IP Current Condition Start: 04/18/24 15:30 Freq: NEEDED Status: Active Protocol: Document 04/18/24 14:11 AB (Rec: 04/18/24 15:43 AB [id number]) Physical Therapy Current Condition Current Condition Evaluation Date 04/18/24 Treatment Diagnosis UTI; difficulty in walking Onset Date 04/17/24 M3 PT-IP Subjective Start: 04/18/24 15:30 Freq: NEEDED Status: Active Protocol: Document 04/18/24 14:11 AB (Rec: 04/18/24 15:43 AB [id number]) Subjective Physical Therapy Visit Type Type Initial Evaluation Visit Start Time 14:11 Visit Stop Time 14:40 Number of CRESTER Visits 0 Physical Therapy Visit Comments Patient Comments agreeable to do PT M4 PT-IP Mobility and Gait Start: 04/18/24 15:30 Freq: NEEDED Status: Active Protocol: Document 04/18/24 14:11 AB (Rec: 04/18/24 15:43 AB [id number]) PT-Bed Mobility Assessment Supine to Sit Supine to Sit Maximum Assistance,1 Person Assistance,2 Person Assistance PT-Transfer Assessment Sit to and From Stand Sit to and from Stand Maximum Assistance,1 Person Assistance,2 Person Assistance ,Use of Upper Extremities Equipment Transfer Assistive Device Gait Belt,Front Wheeled Walker Orthotic/Prosthetic Devices or Brace: No Transfers Transfer Destination Chair Transfer Technique ambulated Transfer Ability Level of Assist Minimal Assistance,Moderate Assistance,1 Person Assistance ,Use of Upper Extremities Comments Mobility Comments pt supine in bed. pt needed to be cleaned up and brief change. obtained PLOF and home setup. pt completed supine to sit max A x 1-2 and max cues. HOB elevated. able to sit on EOB SBA. completed sit to stand max A x 1-s requiring 2 attempts to complete. able to maintain standing min A using FWW for support while nurse assisted pt with hygiene care and brief management. pt agreed to sit on the chair. ambulated to the chair using FWW ~ 12 ft min to mod A and max cues. positiioned pt on the chair. call ight and table placed within reach. Left pt with OT. Gait Assessment Gait Gait Assistance Required: Minimum Assistance,Moderate Assistance Distance (Feet) 12 Able to Maintain Weight Bearing Status Yes During Gait Assistive Devices Assistive Device Gait Belt,Front Wheeled Walker Orthotic/Prosthetic Devices or Brace: No Gait Deviations General Gait Pattern Decreased Stride Length, Decreased Feet Clearance,Step- to Gait Factors Limiting Gait Function Factors Limiting Gait Function Decreased Activity Tolerance, Decreased Strength,Difficulty Following Directions,Limited Range of Motion,Poor Balance, Poor Safety Awareness PT-Balance Assessment Sitting Balance and Reactions Static Sitting Balance Ability Good Dynamic Sitting Balance Ability Good Standing Balance and Reactions Static Standing Balance Ability Poor Dynamic Standing Balance Ability Poor Device Used FWW M5 PT-IP Objective Assessments Start: 04/18/24 15:30 Freq: NEEDED Status: Active Protocol: Document 04/18/24 14:11 AB (Rec: 04/18/24 15:43 AB [id number]) Orientation Orientation/Cognition Level of Alertness Alert Orientation Name,Place,Situation Language Function Ability No Deficits Noted Safety Awareness Decreased Safety Awareness Memory Description No Deficits Noted Strength Lower Extremity Strength Hip 3+/5 Knee 3+/5 Coordination Assessment Gross Coordination Gross Coordination WNL Muscle Tone Muscle Tone WNL Yes M6 PT-IP Treatment Start: 04/18/24 15:30 Freq: NEEDED Status: Active Protocol: Document 04/18/24 14:11 AB (Rec: 04/18/24 15:43 AB [id number]) Physical Therapy Treatment Education Education Provided Safety M7 PT-IP Assessment and Plan Start: 04/18/24 15:30 Freq: NEEDED Status: Active Protocol: Document 04/18/24 14:11 AB (Rec: 04/18/24 15:43 AB [id number]) PT Summary Assessment and Plan Potential Rehabilitation Potential Fair Status of Condition at Evaluation Evolving Summary Impairments Pain,ROM,Strength,Balance, Coordination,Sensation,Bed Mobility,Transfers,Gait, Activity Tolerance Assessment Summary pt is an 83 y/o F who is admitted for UTI. pt requiring max A x 1-2 for bed mobility and sit to stand; able to ambulate using fWW ~ 12 ft min to mod A. pt will benefit from SNF rehab to improve overall strength and mobility independence. Goals Bed Mobility Goal Independent Transfer Goal Independent,Front Wheeled Walker Gait Goal Independent,Front Wheel Walker Gait Distance 50 Other Goals improve transfers and ambulation using 4WW ~ 100 ft mod I Days to Meet Goals 10 Frequency of Treatment Frequency Of Treatment Once a Day Treatment Plan Physical Therapy Treatment Plan Bed Mobility Training,Transfer Training,Gait Training, Therapeutic Exercise,Balance Retraining,Discharge Planning, Hot or Cold Pack,Neuromuscular Re-ed,Coordination Retraining Recommendations To Nursing Amount of Assist Needed 2 Person Assist Discharge Recommendations PT Discharge Recommendations SNF Rehab Transportation Needs at Discharge Wheelchair/Cabulance
--- NOTE | 2024-04-18 14:47 | OT.IP.EVAL ---
Current Diagnoses Acute embolism and thrombosis of unspecified deep veins of unspecified lower extremity (04/17/24) Chronic kidney disease, stage 3b (04/17/24) Acute cystitis with hematuria (04/17/24) Urinary tract infection, site not specified (04/17/24) Hyperglycemia, unspecified (04/17/24) Past Medical History (Last Reviewed 04/18/24 @ 07:39 by Timothy Pak MD) Arthritis, multiple joint involvement Chicken pox (~194) CKD (chronic kidney disease) stage 3, GFR 30-59 ml/min Elevated INR Frequent urinary tract infections Herpes zoster History of chickenpox History of colitis History of diabetes mellitus History of diverticulitis History of eczema History of gastric ulcer History of poliomyelitis (12/29/16) History of [place] fever History of skin cancer History of ulcerative colitis History of urinary incontinence Hyperthyroidism (~1992) Polio Shoulder pain Type 2 diabetes mellitus without complication, without long-term current use of insulin (12/29/16) Surgical History (Last Reviewed 04/18/24 @ 07:39 by Timothy Pak MD) History of cholecystectomy History of hip replacement History of knee replacement History of shoulder replacement Status post cholecystectomy Occupational Therapy Inpatient Evaluation/Re-Eval M1 PT/OT-IP Prior Functional Status Start: 04/18/24 14:50 Freq: NEEDED Status: Active Protocol: Document 04/18/24 14:51 [facility] (Rec: 04/18/24 15:13 [facility] [id number]) Medical Review Prior Functional Status Communication I Mobility and Gait Use of 4ww at home. Activities of Daily Living and IADL's Pt able to do her basic ADL's and asks for help from her family whenever needed. Pt states someone is always home to assist her. Social History Household Members spouse,children Living Arrangements House Number of Floors (Floors) One Floor Number of Stairs To Enter/Railing? Ramp to enter Home Environment High Toilet,Walk in Shower, Ramp Home Equipment Four Wheel Walker,Raised Toilet Seat w/Armrests,Shower Seat with Backrest,Hand Held Shower,Grab Bars Near Toilet, Grab Bars In Shower M2 OT-IP Current Condition Start: 04/18/24 14:50 Freq: Status: Active Protocol: Document 04/18/24 14:51 [facility] (Rec: 04/18/24 15:13 [facility] [id number]) Occupational Therapy Current Condition Current Condition Evaluation Date 04/18/24 Treatment Diagnosis UTI/sepsis Diagnosis Onset Date 04/17/24 M3 OT- IP Subjective and Pain Start: 04/18/24 14:50 Freq: Status: Active Protocol: Document 04/18/24 14:51 [facility] (Rec: 04/18/24 15:13 [facility] [id number]) OT- Subjective Occupational Therapy Visit Type Type Initial Evaluation Visit Start Time 14:20 Visit Stop Time 14:47 Occupational Therapy Visit Comments Patient Comments Pt agreed to get up to the recliner. Patient/Caregiver Goals To get better. OT Pain Assessment Pain When Pain Assessed At Rest Pain Present Pain Present Denied Pain M4 OT- IP ADL's Start: 04/18/24 14:50 Freq: Status: Active Protocol: Document 04/18/24 14:51 [facility] (Rec: 04/18/24 15:13 [facility] [id number]) OT [id number] Comments OT Self-Feeding Comments NOt at meal time. OT ADL-Grooming Comments OT Grooming Comments Pt able to wash her face after set-up while seated. OT ADL-Oral Care Comments Oral Care Comments NOt performed. OT ADL-Dressing General Eval Lower Body Dressing Ability Maximum Assistance Comments OT Dressing Comments Assist for socks and brief. OT ADL-Toileting General Evaluation Toileting Ability Maximum Assistance Areas Needing Assistance Manage Clothing,Perform Perineal Hygiene OT ADL-Bathing Comments OT Bathing Comments Not performed. M5 OT- IP IADL's Start: 04/18/24 14:50 Freq: Status: Active Protocol: Document 04/18/24 14:51 [facility] (Rec: 04/18/24 15:13 [facility] [id number]) OT-Instrumental Activities of Daily Living Home Safety Awareness Awareness of Need for Assistance at Home Good Awareness Ability to Problem Solve Emergency Unable to Problem Solve Situations Home Safety Comments Pt not able to answer all questions correctly for home safety- what to do is case of running of of medications or what to do if the toilet overflows. Pt insists someone is always home to assist her. Medication Management Medication Management Caregiver Administers Money Management Money Management Caregiver Provides Assistance Meal Preparation Meal Preparation Caregiver Provides Assist Acid Maker Acid Maker Caregiver Provides Assist M6 OT- IP Functional Cognition Start: 04/18/24 14:50 Freq: Status: Active Protocol: Document 04/18/24 14:51 [facility] (Rec: 04/18/24 15:13 [facility] [id number]) Cognitive Factors Limiting Selfcare Function Cognitive Ability Level of Alertness Alert Patient Orientation Name,Place,Situation Attention Span Ability Capable of Focused Attention, Capable of Sustained Attention Ability to Follow Commands Able to Follow One Step Commands Cognitive Comments Cognitive Assessment Comments Pt able to follow commands for ADL and mobility needs. Pt scored 15/20 on the SLUMS in October of 2023. To reassess pt on the SLUMS tomorrow. OT- Vision and Hearing OT- Hearing Assessment OT- Hearing Assessment WFL OT- Vision Assessment Visual Acuity Glasses For Reading Visual Attentiveness WFL Occular Pursuits WFL M7 OT- IP Mobility and Balance Start: 04/18/24 14:50 Freq: Status: Active Protocol: Document 04/18/24 14:51 [facility] (Rec: 04/18/24 15:13 [facility] [id number]) OT- Bed Mobility Assessment Supine to Sit Supine to Sit Assist Maximum Assistance,1 Person Assistance OT-Transfer Assessment Sit to and From Stand Sit to and from Stand Maximum Assistance,1 Person Assistance Transfers Transfer Ability Maximum Assistance,1 Person Assistance Technique Transfer Destination Bed,Chair Transfer Technique Stand Step Pivot Devices Transfer Assistive Devices Gait Belt,Front Wheeled Walker Comments Mobility Comments MAXAX 1 to help get her trunk upright from the bed, to stand and for transfer with FWW MAX AX1. OT- Balance Assessment Sitting Balance and Reactions Static Sitting Balance Ability Good Dynamic Sitting Balance Ability Fair Standing Balance and Reactions Static Standing Balance Ability Poor Dynamic Standing Balance Ability Poor M8 OT- IP Objective Assessments Start: 04/18/24 14:50 Freq: Status: Active Protocol: Document 04/18/24 14:51 [facility] (Rec: 04/18/24 15:13 [facility] [id number]) OT Gross Range of Motion Upper Extremity Range of Motion Assessment Within Functional Limits OT Strength Upper Extremity Strength Assessment Within Functional Limits Comments Strength Comments RUE NT at shoulder due to IV site notedbloddy IV site- nursing aware. OT- Coordination Assessment Upper Extremity Finger Tapping Test Within Functional Limits M9 OT- IP Assessment and Plan Start: 04/18/24 14:50 Freq: Status: Active Protocol: Document 04/18/24 14:51 [facility] (Rec: 04/18/24 15:13 [facility] [id number]) OT Summary Assessment and Plan Potential Rehabilitation Potential Good Analytic Complexity at Evaluation Moderate Summary OT Impairments Strength,Balance,Functional Cognition,Functional Mobility, Self-Feeding,Grooming,Dressing ,Toileting,Bathing,Toilet Transfers,Shower Transfers, Activity Tolerance Progress Towards Goals Slow Progress due to Medical Issues,Slow Progress due to Activity Tolerance Assessment Summary Pt MOD complexity and main barriers are decreased activity tolerance, strength , and now needing one person MAXAX1 for mobility and ADL needs. Pt looking to go to skilled rehab when medically stable. Goals Self-Feeding Goal Independent Grooming Goal Independent Dressing Goal Contact Guard Assistance Toileting Goal Independent Bathing Goal Minimal Assistance Toilet Transfer Goal Standby Assistance Shower Transfer Goal Contact Guard Assistance Days to Meet Goals 20 Frequency of Treatment Other frequency 5x/week Treatment Plan OT Treatment Plan ADL Training,Functional Mobility,Patient/Family Education,Discharge Planning Other Treatment Recommendations and Next SLUMS, standing ADL's at sink Treatment Focus with FWW Discharge Recommendations OT Discharge Recommendations SNF Rehab Transportation Needs at Discharge Wheelchair/Cabulance
--- NOTE | 2024-04-18 15:41 | CM.DPNOTE ---
DCP note GYM SUPERVISOR received notice from [facility] ENCARNA[facility] that pt strongly prefers [facility] in [place] for SNF placement. OT eval rec SNF. CC Krista kindly agreed to fax initial referral information for review. GYM SUPERVISOR lvm with [facility] to alert them to new referral. Acceptance pending. See other GYM SUPERVISOR notes from today for further DCP information. P: if SNF, PASRR needed. CM team will continue to follow closely for DCP coordination needs. JALEN Ritter
[2024-04-18] MEDS: MELATONIN 3 MG TABLET 6 MG PO (20:22)
[2024-04-19 03:33] VITALS: O2SAT 95
[2024-04-19] MEDS: ERTAPENEM 1 GM in SODIUM CHLORIDE 0.9% 100 ML IV (04:05)
[2024-04-19 04:11] VITALS: BP 111/47; PULSE 61; RESP 16; TEMP 36.1; O2SAT 95
[2024-04-19] MEDS: LEVOTHYROXINE 100 MCG TABLET PO (06:33)
[2024-04-19] MEDS: PANTOPRAZOLE DR 40 MG TABLET PO (06:33)
[2024-04-19 07:05] LABS: Add Manual Diff / Slide Review NO; Basophils Absolute Auto 100 /uL (0-100); Eosinophils Absolute Auto 300 /uL (0-450); Eosinophils Percent Auto 3.3 % (2-4); Hematocrit 29.8 % (36-46); Lymphocytes Absolute Auto 1700 /uL (1100-4500); Lymphocytes Percent Auto 20.9 % (25-40); Mean Corpuscular HGB Conc 33.5 % (30-36); Mean Corpuscular Hemoglobin 31.7 PG (26-34); Mean Corpuscular Volume 94.5 fL (80-100); Monocytes Absolute Auto 500 /uL (0-900); Monocytes Percent Auto 6.3 % (3-14); Neutrophils Absolute Auto 5700 /uL (1500-7000); Neutrophils Percent Auto 68.5 % (50-75); Platelet Count 168 X10^3/uL (150-400); Red Blood Cell Count 3.15 X10^6/uL (4.0-5.2); Red Cell Distribution Width 14.9 % (11.6-14.8); White Blood Cell Count 8.3 X10^3/uL (4.5-11.0)
[2024-04-19 07:16] LABS: Alanine Aminotransferase 28 IU/L (<35); Albumin Globulin Ratio 0.8 (1.0-2.8); Alkaline Phosphatase 56 U/L (38-126); Aspartate Aminotransferase 39 IU/L (14-36); Bilirubin Total 0.1 mg/dL (0.2-1.3); Blood Urea Nitrogen 23 mg/dL (7-17); Calcium 7.7 mg/dL (8.4-10.2); Carbon Dioxide 27 mmol/L (22-32); Chloride 109 mmol/L (98-107); Estimated Glomerular Filt Rate 36 mL/min (>60); Globulin 2.5 g/dL (1.7-4.1); Glucose 102 mg/dL (80-110); HEMOLYSIS < 15 (0-50); Potassium 3.7 mmol/L (3.4-5.1); Sodium 137 mmol/L (137-145); Total Protein 4.5 g/dL (6.3-8.2)
[2024-04-19 07:17] LABS: Magnesium 1.2 mg/dL (1.6-2.3)
[2024-04-19 07:20] LABS: INR 1.6 (0.9-1.3)
[2024-04-19 07:23] LABS: PTT Partial Thromboplastin Tim 35 SECONDS (25.1-36.5)
[2024-04-19] MEDS: APIXABAN 5 MG TABLET PO ×2 (09:23→20:17)
[2024-04-19] MEDS: MAGNESIUM SULFATE 2 GM/50 ML PIGGYBACK IV (09:23)
[2024-04-19] MEDS: FUROSEMIDE 20 MG TABLET PO (09:23)
[2024-04-19] MEDS: MAGNESIUM OXIDE 400 MG TABLET 200 MG PO (09:23)
[2024-04-19 11:00] VITALS: O2SAT 98
[2024-04-19 12:00] VITALS: BP 119/54; PULSE 67; RESP 16; TEMP 36.5; O2SAT 98
--- NOTE | 2024-04-19 12:10 | OT.IP.TRT ---
Current Diagnoses Acute embolism and thrombosis of unspecified deep veins of unspecified lower extremity (04/17/24) Chronic kidney disease, stage 3b (04/17/24) Acute cystitis with hematuria (04/17/24) Urinary tract infection, site not specified (04/17/24) Hyperglycemia, unspecified (04/17/24) Occupational Therapy Treatment Note M2 OT-IP Current Condition Start: 04/18/24 14:50 Freq: Status: Active Protocol: Document 04/18/24 14:51 [facility] (Rec: 04/18/24 15:13 [facility] [id number]) Occupational Therapy Current Condition Current Condition Evaluation Date 04/18/24 Treatment Diagnosis UTI/sepsis Diagnosis Onset Date 04/17/24 M3 OT- IP Subjective and Pain Start: 04/18/24 14:50 Freq: Status: Active Protocol: Document 04/19/24 12:13 [facility] (Rec: 04/19/24 12:23 [facility] [id number]) OT- Subjective Occupational Therapy Visit Type Type Treatment Note Visit Start Time 11:56 Visit Stop Time 12:10 Occupational Therapy Visit Comments Patient Comments Pt sitting up in the recliner and agreed to do SLUMS. Patient/Caregiver Goals To get better. OT Pain Assessment Pain When Pain Assessed At Rest Pain Present Pain Present Denied Pain M4 OT- IP ADL's Start: 04/18/24 14:50 Freq: Status: Active Protocol: Document 04/18/24 14:51 [facility] (Rec: 04/18/24 15:13 [facility] [id number]) OT [id number] Comments OT Self-Feeding Comments NOt at meal time. OT ADL-Grooming Comments OT Grooming Comments Pt able to wash her face after set-up while seated. OT ADL-Oral Care Comments Oral Care Comments NOt performed. OT ADL-Dressing General Eval Lower Body Dressing Ability Maximum Assistance Comments OT Dressing Comments Assist for socks and brief. OT ADL-Toileting General Evaluation Toileting Ability Maximum Assistance Areas Needing Assistance Manage Clothing,Perform Perineal Hygiene OT ADL-Bathing Comments OT Bathing Comments Not performed. M5 OT- IP IADL's Start: 04/18/24 14:50 Freq: Status: Active Protocol: Document 04/18/24 14:51 [facility] (Rec: 04/18/24 15:13 [facility] [id number]) OT-Instrumental Activities of Daily Living Home Safety Awareness Awareness of Need for Assistance at Home Good Awareness Ability to Problem Solve Emergency Unable to Problem Solve Situations Home Safety Comments Pt not able to answer all questions correctly for home safety- what to do is case of running of of medications or what to do if the toilet overflows. Pt insists someone is always home to assist her. Medication Management Medication Management Caregiver Administers Money Management Money Management Caregiver Provides Assistance Meal Preparation Meal Preparation Caregiver Provides Assist Commercial Lines Underwriter Commercial Lines Underwriter Caregiver Provides Assist M6 OT- IP Functional Cognition Start: 04/18/24 14:50 Freq: Status: Active Protocol: Document 04/19/24 12:13 [facility] (Rec: 04/19/24 12:23 [facility] [id number]) Cognitive Factors Limiting Selfcare Function Cognitive Ability Level of Alertness Alert Patient Orientation Name,Age,Birthday,Month,Date, Year,Day of Week,Place, Situation Attention Span Ability Capable of Focused Attention, Capable of Sustained Attention Ability to Follow Commands Able to Follow One Step Commands Cognitive Tests SLUMS Pt scored 23/30 which implies mild cognitive deficits. Pt score was 15/30 on prior admission October 2023. Pt able to name 14 animals in one minute, not able to draw the hour hands correctly after time given, not able to write the numbers accurately spaced on the clock. Cognitive Comments Cognitive Assessment Comments Pt aware thinking better today and states was able to tell her that she will not be doing any banking transactions as she is aware that she is not back to her baseline. M8 OT- IP Objective Assessments Start: 04/18/24 14:50 Freq: Status: Active Protocol: Document 04/18/24 14:51 [facility] (Rec: 04/18/24 15:13 [facility] [id number]) OT Gross Range of Motion Upper Extremity Range of Motion Assessment Within Functional Limits OT Strength Upper Extremity Strength Assessment Within Functional Limits Comments Strength Comments RUE NT at shoulder due to IV site notedbloddy IV site- nursing aware. OT- Coordination Assessment Upper Extremity Finger Tapping Test Within Functional Limits M9 OT- IP Assessment and Plan Start: 04/18/24 14:50 Freq: Status: Active Protocol: Document 04/19/24 12:13 [facility] (Rec: 04/19/24 12:23 [facility] [id number]) OT Summary Assessment and Plan Potential Rehabilitation Potential Good Analytic Complexity at Evaluation Moderate Summary OT Impairments Strength,Balance,Functional Cognition,Functional Mobility, Self-Feeding,Grooming,Dressing ,Toileting,Bathing,Toilet Transfers,Shower Transfers, Activity Tolerance Progress Towards Goals Progressing Toward Goals Assessment Summary Pt able to participate in SLUMS and score 25/30 which implies mild neurocognitive deficits. Pt to go to skilled rehab when medically stable. Goals Self-Feeding Goal Independent Grooming Goal Independent Dressing Goal Contact Guard Assistance Toileting Goal Independent Bathing Goal Minimal Assistance Toilet Transfer Goal Standby Assistance Shower Transfer Goal Contact Guard Assistance Days to Meet Goals 19 Frequency of Treatment Other frequency 5x/week Treatment Plan OT Treatment Plan ADL Training,Functional Mobility,Patient/Family Education,Discharge Planning Other Treatment Recommendations and Next Standing ADL's. Treatment Focus Discharge Recommendations OT Discharge Recommendations SNF Rehab Transportation Needs at Discharge Wheelchair/Cabulance
--- NOTE | 2024-04-19 13:08 | CM.DPNOTE ---
Addendum entered by AJLEN Ritter 04/19/24 15:17: Per DICTAPHONE TRANSCRIBER, pt wanted to talk to this MASTER YACHT again Pt reports while her preference for SNF placement is [facility], is open if needed to placement in [place] if needed. DEFINITELY does not want to dc to [facility]. MASTER YACHT answered questions to best of ability. SL Original Note: DCP note MASTER YACHT reviewed EMR per hospitalist in morning rounds, will need 7 total days of IV carbapenem. per RN report, pt currently has a midline. MASTER YACHT lvm with Marcela at [facility] about referral, no response likely due to holiday. MASTER YACHT met with pt in room. briefly reviewed plan, about to work with PT. confirmed preference for dc to [facility]. deny questions at this time. per chart review, pt has been to [facility] in the past. MASTER YACHT completed PASRR. level 1 review only. P; anticipate return to [facility] SNF pending official acceptance. transport plan needed. CM team will continue to follow closely JALEN Ritter
--- NOTE | 2024-04-19 13:17 | PT.IPTN ---
Current Diagnoses Acute embolism and thrombosis of unspecified deep veins of unspecified lower extremity (04/17/24) Chronic kidney disease, stage 3b (04/17/24) Acute cystitis with hematuria (04/17/24) Urinary tract infection, site not specified (04/17/24) Hyperglycemia, unspecified (04/17/24) Physical Therapy Treatment Note M2 PT-IP Current Condition Start: 04/18/24 15:30 Freq: NEEDED Status: Active Protocol: Document 04/18/24 14:11 [facility] (Rec: 04/18/24 15:43 [facility] [id number]) Physical Therapy Current Condition Current Condition Evaluation Date 04/18/24 Treatment Diagnosis UTI; difficulty in walking Onset Date 04/17/24 M3 PT-IP Subjective Start: 04/18/24 15:30 Freq: NEEDED Status: Active Protocol: Document 04/19/24 13:10 [facility] (Rec: 04/19/24 13:16 [facility] [id number]) Subjective Physical Therapy Visit Type Type Treatment Note Visit Start Time 12:59 Visit Stop Time 13:10 Number of LEATHER BELT MAKER Visits 0 Physical Therapy Visit Comments Patient Comments Pt is agreeable to get up to [facility] [place] [place] for PT. M4 PT-IP Mobility and Gait Start: 04/18/24 15:30 Freq: NEEDED Status: Active Protocol: Document 04/19/24 13:10 [facility] (Rec: 04/19/24 13:16 [facility] [id number]) PT-Transfer Assessment Equipment Transfer Assistive Device Gait Belt,Front Wheeled Walker Orthotic/Prosthetic Devices or Brace: No Transfers Transfer Destination Chair,Bedside Commode Transfer Technique Stepping Transfer Ability Level of Assist Maximum Assistance,1 Person Assistance,Use of Upper Extremities Comments Mobility Comments Pt doffs pull up brief in sitting and she requires max A to help with legs to don clean brief in sitting and dependent for hygiene after urination. Pt with profound LE weakness and leg length difference with shorter left leg and she requires heavy UE use on walker for transfer, standing and gait balance and she has posterior lean. Gait Assessment Gait Gait Assistance Required: Maximum Assistance Distance (Feet) 2 Able to Maintain Weight Bearing Status Yes During Gait Assistive Devices Assistive Device Gait Belt,Front Wheeled Walker Orthotic/Prosthetic Devices or Brace: No Gait Deviations General Gait Pattern Decreased Stride Length, Decreased Feet Clearance,Step- to Gait,Wide Based Gait Factors Limiting Gait Function Factors Limiting Gait Function Decreased Strength, Incoordination,Limited Range of Motion,Poor Balance Comments Gait Comments Pt presents with B foot drop and knee buckle and functional leg length difference with shorter LLE and LLE is smaller than right LE. 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 PT-Balance Assessment Sitting Balance and Reactions Static Sitting Balance Ability Good Dynamic Sitting Balance Ability Good Standing Balance and Reactions Static Standing Balance Ability Poor Dynamic Standing Balance Ability Poor Device Used FWW M5 PT-IP Objective Assessments Start: 04/18/24 15:30 Freq: NEEDED Status: Active Protocol: Document 04/18/24 14:11 [facility] (Rec: 04/18/24 15:43 [facility] [id number]) Orientation Orientation/Cognition Level of Alertness Alert Orientation Name,Place,Situation Language Function Ability No Deficits Noted Safety Awareness Decreased Safety Awareness Memory Description No Deficits Noted Strength Lower Extremity Strength Hip 3+/5 Knee 3+/5 Coordination Assessment Gross Coordination Gross Coordination WNL Muscle Tone Muscle Tone WNL Yes M6 PT-IP Treatment Start: 04/18/24 15:30 Freq: NEEDED Status: Active Protocol: Document 04/19/24 13:10 [facility] (Rec: 04/19/24 13:16 [facility] [id number]) Physical Therapy Treatment Education Education Provided Safety M7 PT-IP Assessment and Plan Start: 04/18/24 15:30 Freq: NEEDED Status: Active Protocol: Document 04/19/24 13:10 [facility] (Rec: 04/19/24 13:16 [facility] [id number]) PT Summary Assessment and Plan Potential Rehabilitation Potential Fair Status of Condition at Evaluation Evolving Summary Impairments Pain,ROM,Strength,Balance, Coordination,Sensation,Bed Mobility,Transfers,Gait, Activity Tolerance Progress Towards Goals Slow Progress due to Activity Tolerance Assessment Summary 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 She requires heavy UE support for transfers, gait, standing balance using RW. Decreased proprioception is also a major issue for pt's balance. She is high risk for falling. Goals Bed Mobility Goal Independent Transfer Goal Contact Guard Assistance,Front Wheeled Walker Gait Goal Contact Guard Assistance,Front Wheel Walker Gait Distance 50 Other Goals improve transfers and ambulation using 4WW ~ 100 ft mod I Days to Meet Goals 10 Frequency of Treatment Frequency Of Treatment Once a Day Treatment Plan Physical Therapy Treatment Plan Bed Mobility Training,Transfer Training,Gait Training, Therapeutic Exercise,Balance Retraining,Discharge Planning, Neuromuscular Re-ed, Coordination Retraining Precautions Other Precautions B knee buckling and foot drop from myesthenia gravis Recommendations To Nursing Amount of Assist Needed 2 Person Assist Discharge Recommendations PT Discharge Recommendations SNF Rehab Transportation Needs at Discharge Wheelchair/Cabulance
--- NOTE | 2024-04-19 17:59 | P.PN_ITS ---
Subjective Subjective Interval history: 83 F with post-polio syndrome, myasthenia gravis, HTN, hypothyroidism, recurrent DVT who was admitted with an ESBL Klebsiella as a direct admit after failing to coordinate outpatient antibiotic therapy. She has no complaints today, would like to go to SNF to complete antibiotic therapy. Exam Vital Signs (past 8 hours): - 04/19/24 11:00 04/19/24 12:00 Temperature 97.7 F Pulse Rate 67 Respiratory Rate 16 Blood Pressure 119/54 L Pulse Oximetry 98 98 Oxygen Delivery Method Room Air Oxygen Flow Rate 0 0 Oxygen Delivery Method Room Air Oxygen Flow Rate 0 Narrative Exam Narrative: Gen: No acute distress Abd: S NT ND Ext: no edema. Objective Labs 04/19/24 06:54 04/19/24 06:54 Labs: Laboratory Results - last 24 hr 04/19/24 06:54 WBC 8.3 RBC 3.15 L Hgb 10.0 L Hct 29.8 L MCV 94.5 MCH 31.7 MCHC 33.5 RDW 14.9 H Plt Count 168 Neut % (Auto) 68.5 Lymph % (Auto) 20.9 L [place] % (Auto) 6.3 Eos % (Auto) 3.3 Baso % (Auto) 1.0 Neut # (Auto) 5700 Lymph # (Auto) 1700 [place] # (Auto) 500 Eos # (Auto) 300 Baso # (Auto) 100 PT 18.0 H INR 1.6 H APTT 35 Sodium 137 Potassium 3.7 Chloride 109 H Carbon Dioxide 27 BUN 23 H Creatinine 1.44 H Estimated GFR 36 L BUN/Creatinine Ratio 16.0 Glucose 102 Calcium 7.7 L Magnesium 1.2 L Total Bilirubin 0.1 L AST 39 H ALT 28 Alkaline Phosphatase 56 Total Protein 4.5 L Albumin 2.0 L Globulin 2.5 Albumin/Globulin Ratio 0.8 L PFSH Medical History History of poliomyelitis (12/29/16) Elevated INR Herpes zoster CKD (chronic kidney disease) stage 3, GFR 30-59 ml/min Arthritis, multiple joint involvement Frequent urinary tract infections Chicken pox (~1947) Hyperthyroidism (~1992) History of [place] fever Shoulder pain History of eczema Polio History of chickenpox History of urinary incontinence History of ulcerative colitis History of gastric ulcer History of diverticulitis History of colitis History of skin cancer History of diabetes mellitus Type 2 diabetes mellitus without complication, without long-term current use of insulin (12/29/16) Surgical History History of shoulder replacement History of cholecystectomy Status post cholecystectomy History of knee replacement History of hip replacement Family History Sister Age: 81 Heart disease Father No problems noted. Mother Myocardial infarction Brother No problems noted. Brother No problems noted. Social History marital status: household members: spouse and children Smoking Status: Former smoker alcohol intake: former substance use type: does not use Assessment & Plan Assessment & Plan narrative: 1. Sepsis secondary to ESBL Klebsiella acute cystitis, with GAGAN and hypotension - continue ertapenem 1g q24. SOFA score of 2 on presentation. She is improving today, leukocytosis resolved and BP improved. - midline placed - case management assisting with how to finish 7 day course (last dose on 04/24/24), options include SNF, infusion clinic, or home infusions. She reports weakness will assess with therapy evaluation may benefit from SNF if weak from sepsis. Plan is for SNF as of 04/19/24. Attempting to go to [facility] [place] currently. - Cr slight bump today after stopping IV fluids, continue to monitor. 2. Gastritis - continue home PPI 3. History of DVT on anticoagulation, present on admission and active. - continue home apixaban 4. Hypothyroidism, present on admission and active. - continue home levothyroxine 5. Post-polio syndrome, present on admission and active. 6. Myasthenia gravis, history of. - no longer on prednisone 7. HTN - will hold home furosemide for now in the setting of sepsis. Code: Full, surrogate is patient's spouse DVT: Lovenox daily I have utilized all available immediate resources to obtain, update, or review the patient's current medications. Dispo: patient admitted under inpatient status. Likely SNF, timing when SNF is improved. Additional history obtained via discussions with the patient's primary care provider, mental health case manager, and overnight provider. These discussions contributed to the creation of the above assessment and plan. I have reviewed patient's presenting documentation, labs, and imaging personally. Time-Based Coding :: [TOTAL MINUTES] spent with patient and on the chart (including review of chart, obtaining history, exam, reviewing outside data, placing orders, documenting exam and treatment plan, and counseling patient) on [DATE]. Quality VTE Deep Vein Thrombosis/Pulmonary Embolism Present on Admission: No
[2024-04-19 19:00] VITALS: O2SAT 94
[2024-04-19 20:00] VITALS: BP 107/53; PULSE 87; RESP 16; TEMP 36.3; O2SAT 94
[2024-04-19] MEDS: MELATONIN 3 MG TABLET 6 MG PO (20:17)
[2024-04-20 03:00] VITALS: O2SAT 94
[2024-04-20] MEDS: ERTAPENEM 1 GM in SODIUM CHLORIDE 0.9% 100 ML IV (03:54)
[2024-04-20 04:00] VITALS: BP 109/71; PULSE 71; RESP 16; TEMP 36.4; O2SAT 91
[2024-04-20 05:41] LABS: Add Manual Diff / Slide Review NO; Basophils Absolute Auto 100 /uL (0-100); Basophils Percent Auto 0.6 % (0-2); Eosinophils Absolute Auto 300 /uL (0-450); Eosinophils Percent Auto 3.1 % (2-4); Hematocrit 27.1 % (36-46); Lymphocytes Absolute Auto 1400 /uL (1100-4500); Lymphocytes Percent Auto 15.1 % (25-40); Mean Corpuscular HGB Conc 33.3 % (30-36); Mean Corpuscular Hemoglobin 31.3 PG (26-34); Mean Corpuscular Volume 94.1 fL (80-100); Monocytes Absolute Auto 700 /uL (0-900); Monocytes Percent Auto 7.3 % (3-14); Neutrophils Absolute Auto 6900 /uL (1500-7000); Neutrophils Percent Auto 73.9 % (50-75); Platelet Count 150 X10^3/uL (150-400); Red Blood Cell Count 2.88 X10^6/uL (4.0-5.2); Red Cell Distribution Width 14.8 % (11.6-14.8); White Blood Cell Count 9.3 X10^3/uL (4.5-11.0)
[2024-04-20 05:56] LABS: Alanine Aminotransferase 29 IU/L (<35); Albumin 1.8 g/dL (3.5-5.0); Albumin Globulin Ratio 0.8 (1.0-2.8); Alkaline Phosphatase 53 U/L (38-126); Aspartate Aminotransferase 46 IU/L (14-36); BUN Creatinine Ratio 15.8 (6-22); Blood Urea Nitrogen 22 mg/dL (7-17); Calcium 7.6 mg/dL (8.4-10.2); Carbon Dioxide 25 mmol/L (22-32); Chloride 109 mmol/L (98-107); Estimated Glomerular Filt Rate 37 mL/min (>60); Globulin 2.3 g/dL (1.7-4.1); Glucose 134 mg/dL (80-110); HEMOLYSIS < 15 (0-50); Potassium 3.7 mmol/L (3.4-5.1); Sodium 135 mmol/L (137-145); Total Protein 4.1 g/dL (6.3-8.2)
[2024-04-20] MEDS: PANTOPRAZOLE DR 40 MG TABLET PO (06:01)
[2024-04-20] MEDS: LEVOTHYROXINE 100 MCG TABLET PO (06:01)
[2024-04-20 06:03] LABS: INR 1.5 (0.9-1.3); Prothrombin Time 16.7 SECONDS (9.4-12.5)
[2024-04-20 06:06] LABS: PTT Partial Thromboplastin Tim 35 SECONDS (25.1-36.5)
[2024-04-20 06:07] LABS: Bilirubin Total < 0.1 mg/dL (0.2-1.3)
[2024-04-20 07:22] LABS: Magnesium 1.6 mg/dL (1.6-2.3)
--- NOTE | 2024-04-20 07:52 | PM.PN.1 ---
Subjective Subjective Interval history: Summary: 83 F with post-polio syndrome, myasthenia gravis, HTN, hypothyroidism, recurrent DVT who was admitted with an ESBL Klebsiella as a direct admit after failing to coordinate outpatient antibiotic therapy. She has no complaints today, would like to go to SNF to complete antibiotic therapy. S: She was improving, her legs are still weak. She denies any chest pain, or dyspnea. No confusion. She is understanding of the plan to go to [facility]. Exam Vital Signs (past 8 hours): - 04/20/24 03:00 04/20/24 04:00 Temperature 97.6 F Pulse Rate 71 Respiratory Rate 16 Blood Pressure 109/71 Pulse Oximetry 94 91 Oxygen Delivery Method Room Air Oxygen Delivery Method Room Air Oxygen Flow Rate 0 Narrative Exam Narrative: NAD, alert and oriented. Fluent speech. Lungs are clear, normal rate and effort. Heart is regular, no murmur gallop or rub. Abdomen is soft, non distended. Extremities are free of edema. Objective Labs 04/20/24 05:09 04/20/24 05:09 Labs: Laboratory Results - last 24 hr 04/20/24 05:09 WBC 9.3 RBC 2.88 L Hgb 9.0 L Hct 27.1 L MCV 94.1 MCH 31.3 MCHC 33.3 RDW 14.8 Plt Count 150 Neut % (Auto) 73.9 Lymph % (Auto) 15.1 L [place] % (Auto) 7.3 Eos % (Auto) 3.1 Baso % (Auto) 0.6 Neut # (Auto) 6900 Lymph # (Auto) 1400 [place] # (Auto) 700 Eos # (Auto) 300 Baso # (Auto) 100 PT 16.7 H INR 1.5 H APTT 35 Sodium 135 L Potassium 3.7 Chloride 109 H Carbon Dioxide 25 BUN 22 H Creatinine 1.39 H Estimated GFR 37 L BUN/Creatinine Ratio 15.8 Glucose 134 H Calcium 7.6 L Magnesium 1.6 Total Bilirubin < 0.1 L AST 46 H ALT 29 Alkaline Phosphatase 53 Total Protein 4.1 L Albumin 1.8 L Globulin 2.3 Albumin/Globulin Ratio 0.8 L [facility] Medical History History of poliomyelitis (12/29/16) Elevated INR Herpes zoster CKD (chronic kidney disease) stage 3, GFR 30-59 ml/min Arthritis, multiple joint involvement Frequent urinary tract infections Chicken pox (~1947) Hyperthyroidism (~1992) History of [place] fever Shoulder pain History of eczema Polio History of chickenpox History of urinary incontinence History of ulcerative colitis History of gastric ulcer History of diverticulitis History of colitis History of skin cancer History of diabetes mellitus Type 2 diabetes mellitus without complication, without long-term current use of insulin (12/29/16) Surgical History History of shoulder replacement History of cholecystectomy Status post cholecystectomy History of knee replacement History of hip replacement Family History Sister Age: 81 Heart disease Father No problems noted. Mother Myocardial infarction Brother No problems noted. Brother No problems noted. Social History marital status: household members: spouse and children Smoking Status: Former smoker alcohol intake: former substance use type: does not use Assessment & Plan Assessment & Plan narrative: 1. Sepsis secondary to ESBL Klebsiella acute cystitis, with GAGAN and hypotension, present on admission and improved. - continue ertapenem 1g q24. SOFA score of 2 on presentation. She is improving today, leukocytosis resolved and BP improved. 2. Gastritis present on admission and stable. - continue home PPI 3. History of DVT on anticoagulation, present on admission and active. - continue home apixaban 4. Hypothyroidism, present on admission and active. - continue home levothyroxine 5. Post-polio syndrome, present on admission and active. 6. Myasthenia gravis, history of. - no longer on prednisone 7. HTN - will hold home furosemide for now in the setting of sepsis. Plan: -complete 7 days of ertapenem, midline in place. -discharge to [facility] tomorrow. Code: Full, surrogate is patient's spouse DVT: Lovenox daily MALLIKA: 04/21, [facility] with IV antibiotics. Time-Based Coding :: [TOTAL MINUTES] spent with patient and on the chart (including review of chart, obtaining history, exam, reviewing outside data, placing orders, documenting exam and treatment plan, and counseling patient) on [DATE]. Quality VTE Deep Vein Thrombosis/Pulmonary Embolism Present on Admission: No
[2024-04-20] MEDS: MAGNESIUM OXIDE 400 MG TABLET 200 MG PO (08:31)
[2024-04-20] MEDS: APIXABAN 5 MG TABLET PO ×2 (08:32→20:29)
[2024-04-20] MEDS: FUROSEMIDE 20 MG TABLET PO (08:32)
--- NOTE | 2024-04-20 09:00 | PT.IPTN ---
Current Diagnoses Acute embolism and thrombosis of unspecified deep veins of unspecified lower extremity (04/17/24) Chronic kidney disease, stage 3b (04/17/24) Acute cystitis with hematuria (04/17/24) Urinary tract infection, site not specified (04/17/24) Hyperglycemia, unspecified (04/17/24) Physical Therapy Treatment Note M2 PT-IP Current Condition Start: 04/18/24 15:30 Freq: NEEDED Status: Active Protocol: Document 04/18/24 14:11 AB (Rec: 04/18/24 15:43 AB [id number]) Physical Therapy Current Condition Current Condition Evaluation Date 04/18/24 Treatment Diagnosis UTI; difficulty in walking Onset Date 04/17/24 M3 PT-IP Subjective Start: 04/18/24 15:30 Freq: NEEDED Status: Active Protocol: Document 04/20/24 09:24 TS (Rec: 04/20/24 09:35 TS [id number]) Subjective Physical Therapy Visit Type Type Treatment Note Visit Start Time 09:00 Visit Stop Time 09:23 Number of CLINICAL RESOURCE DIRECTOR Visits 1 Physical Therapy Visit Comments Patient Comments Pt found resting in bed, she is agreeable to PT. M4 PT-IP Mobility and Gait Start: 04/18/24 15:30 Freq: NEEDED Status: Active Protocol: Document 04/20/24 09:24 TS (Rec: 04/20/24 09:35 TS [id number]) PT-Bed Mobility Assessment Supine to Sit Supine to Sit Minimal Assistance,1 Person Assistance Scooting Scooting to Edge of Bed Minimal Assistance PT-Transfer Assessment Sit to and From Stand Sit to and from Stand Maximum Assistance,1 Person Assistance Equipment Transfer Assistive Device Gait Belt,Front Wheeled Walker Orthotic/Prosthetic Devices or Brace: No Transfers Transfer Destination Chair,Bedside Commode Transfer Technique Stepping Transfer Ability Level of Assist Maximum Assistance,1 Person Assistance,Use of Upper Extremities Comments Mobility Comments Supine to sit Lily with cues for BUE support. STS with FWW, pt requries attempts x2 to come into standing. She performs stand step pivot to commode MaxA. STS from the commode MaxA x2 attempts to come into standing. She ambulates ~2' to the chair. Pt was left in the chair, all needs met. Gait Assessment Gait Gait Assistance Required: Maximum Assistance Distance (Feet) 3 Able to Maintain Weight Bearing Status Yes During Gait Assistive Devices Assistive Device Gait Belt,Front Wheeled Walker Gait Deviations General Gait Pattern Decreased Stride Length, Decreased Feet Clearance,Step- to Gait,Wide Based Gait Factors Limiting Gait Function Factors Limiting Gait Function Decreased Strength, Incoordination,Limited Range of Motion,Poor Balance PT-Balance Assessment Sitting Balance and Reactions Static Sitting Balance Ability Good Dynamic Sitting Balance Ability Good Standing Balance and Reactions Static Standing Balance Ability Poor Dynamic Standing Balance Ability Poor Device Used FWW M5 PT-IP Objective Assessments Start: 04/18/24 15:30 Freq: NEEDED Status: Active Protocol: Document 04/18/24 14:11 AB (Rec: 04/18/24 15:43 AB [id number]) Orientation Orientation/Cognition Level of Alertness Alert Orientation Name,Place,Situation Language Function Ability No Deficits Noted Safety Awareness Decreased Safety Awareness Memory Description No Deficits Noted Strength Lower Extremity Strength Hip 3+/5 Knee 3+/5 Coordination Assessment Gross Coordination Gross Coordination WNL Muscle Tone Muscle Tone WNL Yes M6 PT-IP Treatment Start: 04/18/24 15:30 Freq: NEEDED Status: Active Protocol: Document 04/20/24 09:24 TS (Rec: 04/20/24 09:35 TS [id number]) Physical Therapy Treatment Education Education Provided Safety M7 PT-IP Assessment and Plan Start: 04/18/24 15:30 Freq: NEEDED Status: Active Protocol: Document 04/20/24 09:24 TS (Rec: 04/20/24 09:35 TS [id number]) PT Summary Assessment and Plan Potential Rehabilitation Potential Fair Summary Impairments Pain,ROM,Strength,Balance, Coordination,Sensation,Bed Mobility,Transfers,Gait, Activity Tolerance Progress Towards Goals Slow Progress due to Activity Tolerance Assessment Summary Pt continues to have weakness in BLE's. She requries MaxA for STS and for stand step pivot transfers x2. PT continues to recommend SNF at this time. Goals Bed Mobility Goal Independent Transfer Goal Contact Guard Assistance,Front Wheeled Walker Gait Goal Contact Guard Assistance,Front Wheel Walker Gait Distance 50 Other Goals improve transfers and ambulation using 4WW ~ 100 ft mod I Days to Meet Goals 10 Frequency of Treatment Frequency Of Treatment Once a Day Treatment Plan Physical Therapy Treatment Plan Bed Mobility Training,Transfer Training,Gait Training, Therapeutic Exercise,Balance Retraining,Discharge Planning, Neuromuscular Re-ed, Coordination Retraining Precautions Other Precautions B knee buckling and foot drop from myesthenia gravis Recommendations To Nursing Amount of Assist Needed 2 Person Assist Discharge Recommendations PT Discharge Recommendations SNF Rehab Transportation Needs at Discharge Wheelchair/Cabulance
[2024-04-20 11:00] VITALS: O2SAT 99
[2024-04-20 12:00] VITALS: BP 97/51; PULSE 74; RESP 16; TEMP 36; O2SAT 99
--- NOTE | 2024-04-20 14:44 | OT.IP.TRT ---
Current Diagnoses Acute embolism and thrombosis of unspecified deep veins of unspecified lower extremity (04/17/24) Chronic kidney disease, stage 3b (04/17/24) Acute cystitis with hematuria (04/17/24) Urinary tract infection, site not specified (04/17/24) Hyperglycemia, unspecified (04/17/24) Occupational Therapy Treatment Note M2 OT-IP Current Condition Start: 04/18/24 14:50 Freq: Status: Active Protocol: Document 04/18/24 14:51 [facility] (Rec: 04/18/24 15:13 [facility] [id number]) Occupational Therapy Current Condition Current Condition Evaluation Date 04/18/24 Treatment Diagnosis UTI/sepsis Diagnosis Onset Date 04/17/24 M3 OT- IP Subjective and Pain Start: 04/18/24 14:50 Freq: Status: Active Protocol: Document 04/20/24 14:48 [facility] (Rec: 04/20/24 14:56 [facility] [id number]) OT- Subjective Occupational Therapy Visit Type Type Treatment Note Visit Start Time 14:20 Visit Stop Time 14:44 Occupational Therapy Visit Comments Patient Comments Pt agreed to get up. Patient/Caregiver Goals To get better. M7 OT- IP Mobility and Balance Start: 04/18/24 14:50 Freq: Status: Active Protocol: Document 04/20/24 14:48 [facility] (Rec: 04/20/24 14:56 [facility] [id number]) OT-Transfer Assessment Sit to and From Stand Sit to and from Stand Maximum Assistance Transfers Transfer Ability 1 Person Assistance Comments Mobility Comments Able to practice sit to stands with pt and needing MAXAX 1 to the FWW. Pt needing assist to help slide her feet back so better able to push on the FWW. Pt able to stand up to 1 minute at a time. Pt did clarify at home at times her family assist her by holding the 4ww in place while she leans forward on the [place] to help push herself up. OT- Balance Assessment Sitting Balance and Reactions Static Sitting Balance Ability Good Dynamic Sitting Balance Ability Fair Standing Balance and Reactions Static Standing Balance Ability Poor Dynamic Standing Balance Ability Poor M8 OT- IP Objective Assessments Start: 04/18/24 14:50 Freq: Status: Active Protocol: Document 04/18/24 14:51 [facility] (Rec: 04/18/24 15:13 [facility] [id number]) OT Gross Range of Motion Upper Extremity Range of Motion Assessment Within Functional Limits OT Strength Upper Extremity Strength Assessment Within Functional Limits Comments Strength Comments RUE NT at shoulder due to IV site notedbloddy IV site- nursing aware. OT- Coordination Assessment Upper Extremity Finger Tapping Test Within Functional Limits M9 OT- IP Assessment and Plan Start: 04/18/24 14:50 Freq: Status: Active Protocol: Document 04/20/24 14:48 [facility] (Rec: 04/20/24 14:56 [facility] [id number]) OT Summary Assessment and Plan Potential Rehabilitation Potential Good Analytic Complexity at Evaluation Moderate Summary OT Impairments Strength,Balance,Functional Cognition,Functional Mobility, Self-Feeding,Grooming,Dressing ,Toileting,Bathing,Toilet Transfers,Shower Transfers, Activity Tolerance Progress Towards Goals Progressing Toward Goals Assessment Summary Pt still needing lots of assist to stand to the FWW with MAXA X 1. Pt has difficulty to stand and keep her feet from sliding out from her. Pt will greatly benefit from skilled rehab prior to going home. Goals Self-Feeding Goal Independent Grooming Goal Independent Dressing Goal Minimal Assistance Toileting Goal Minimal Assistance Bathing Goal Minimal Assistance Toilet Transfer Goal Minimal Assistance Shower Transfer Goal Moderate Assistance Days to Meet Goals 19 Frequency of Treatment Other frequency 5x/week Treatment Plan OT Treatment Plan ADL Training,Functional Mobility,Patient/Family Education,Discharge Planning Discharge Recommendations OT Discharge Recommendations SNF Rehab Transportation Needs at Discharge Wheelchair/Cabulance
[2024-04-20 19:00] VITALS: O2SAT 99
[2024-04-20 20:00] VITALS: BP 103/44; PULSE 73; RESP 18; TEMP 35.9; O2SAT 99
[2024-04-21 03:00] VITALS: O2SAT 99
[2024-04-21 04:00] VITALS: BP 103/45; PULSE 75; RESP 18; TEMP 36.6; O2SAT 98
[2024-04-21] MEDS: ERTAPENEM 1 GM in SODIUM CHLORIDE 0.9% 100 ML IV (04:06)
[2024-04-21] MEDS: LOPERAMIDE 2 MG CAPSULE PO ×2 (04:09→09:47)
[2024-04-21] MEDS: PANTOPRAZOLE DR 40 MG TABLET PO (05:24)
[2024-04-21] MEDS: LEVOTHYROXINE 100 MCG TABLET PO (05:24)
[2024-04-21 08:00] VITALS: BP 115/68; PULSE 78; RESP 16; TEMP 36.6; O2SAT 96
--- NOTE | 2024-04-21 08:24 | CM.DPC ---
DCP to SNF Continued: Reviewed EMR and team rounds for pt?s medical status. Pt to discharge to [facility] today, 04/21/2024. [facility] coordinated to [facility] patient at 1130a, transport fee billed to [facility]. DCP notified Admissions, Marcela, at [facility] of transport time. CM Team notified FOLDING MACHINE SETTER and pt RN. PASRR completed, other dc paperwork pending to be sent to [facility]. Plan: Anticipating dc to [facility], transport via [facility] at 1130. CM Team will continue to follow for coordination of discharge plans. GALE Cameron
[2024-04-21] MEDS: ACETAMINOPHEN 325 MG TABLET 650 MG PO (09:47)
[2024-04-21] MEDS: APIXABAN 5 MG TABLET PO (09:47)
[2024-04-21] MEDS: FUROSEMIDE 20 MG TABLET PO (09:47)
[2024-04-21] MEDS: MAGNESIUM OXIDE 400 MG TABLET 200 MG PO (09:47)
--- NOTE | 2024-04-21 10:49 | P.DS_ITS ---
History of Present Illness History of Present Illness Chief complaint: UTI Narrative: From H&P: 83 y/o with PMH of recurrent UTIs in the last year, presented with ESBL Klebsiella cystitis. Referred by PCP. Not septic on admission. She was on different antibiotics with prior episodes. Most recent urine culture shows Klebsiella sensitive to carbapenems only. Patient is not a good historian and apparently has some cognitive deficits. She however denies dysuria, fever, chills, abdominal or flank pain or bloody urine. Additional PMH of DM, CKD stage 3, chronic leg DVT, arthritis, Hx of polyo with baseline lag weakness, Hx og GI bleed, hypothyroidism. Discharge Providers Provider Date of admission: 04/17/24 17:28 Discharge Date: 04/21/24 Primary care physician: Ana Ortiz MD Consults: 04/18/24 13:01 Consult to Occupational Therapy Evaluate & Treat Comment: Physician Instructions: Evaluate and treat Consult to Physical Therapy Evaluate & Treat Comment: Physician Instructions: Evaluate and Treat Discharge provider: Ariel Wyman MD Summary Hospital Course Discharge Diagnosis: 1. Sepsis secondary to ESBL Klebsiella acute cystitis, with GAGAN and hypotension, present on admission and improved. - continue ertapenem 1g q24. SOFA score of 2 on presentation. 2. Gastritis present on admission and stable. - continue home PPI 3. History of DVT on anticoagulation, present on admission and active. - continue home apixaban 4. Hypothyroidism, present on admission and active. - continue home levothyroxine 5. Post-polio syndrome, present on admission and active. 6. Myasthenia gravis, history of. - no longer on prednisone 7. HTN - will hold home furosemide for now in the setting of sepsis. Hospital Course: She was admitted and treated with ertapenem. Blood cultures remained negative. She received a 5th dose severe ertapenem on April 21 and has 2 additional doses to receive at shelter facility. She remains quite weak, especially with regards to her legs. She requires a midline for her last 2 doses and then this can be removed. She will require ongoing physical therapy and occupational therapy to work with her illness induced weakness. In addition, would recommend a urine analysis and dip after her 7th day of ertapenem to assure that her has clinically cleared. Dr. Dahl ([facility]) was consulted briefly over the telephone regarding choice of antibiotics and duration. If there is any question, we would contact her to discuss the possibility of a duration extension. Status at Discharge Cognitive/behavioral status at discharge: oriented Functional status at discharge: independent ambulation Overall status at discharge: patient is progressing back to baseline Time Spent with Patient Time spent: Greater than 30 minutes Exam Vital Signs (past 8 hours): - 04/21/24 03:00 04/21/24 04:00 04/21/24 08:00 Temperature 97.9 F 97.8 F Pulse Rate 75 78 Respiratory Rate 18 16 Blood Pressure 103/45 L 115/68 Pulse Oximetry 99 98 96 Oxygen Delivery Method Room Air Oxygen Flow Rate 0 Oxygen Delivery Method Room Air Oxygen Flow Rate 0 Narrative Exam Narrative: NAD, alert and oriented. Fluent speech. Lungs are clear, normal rate and effort. Heart is regular, no murmur gallop or rub. Abdomen is soft, non distended. Extremities are free of edema. Objective Labs 04/20/24 05:09 04/20/24 05:09 [facility] Medical History History of poliomyelitis (12/29/16) Elevated INR Herpes zoster CKD (chronic kidney disease) stage 3, GFR 30-59 ml/min Arthritis, multiple joint involvement Frequent urinary tract infections Chicken pox (~1947) Hyperthyroidism (~1992) History of [place] fever Shoulder pain History of eczema Polio History of chickenpox History of urinary incontinence History of ulcerative colitis History of gastric ulcer History of diverticulitis History of colitis History of skin cancer History of diabetes mellitus Type 2 diabetes mellitus without complication, without long-term current use of insulin (12/29/16) Surgical History History of shoulder replacement History of cholecystectomy Status post cholecystectomy History of knee replacement History of hip replacement Family History Sister Age: 81 Heart disease Father No problems noted. Mother Myocardial infarction Brother No problems noted. Brother No problems noted. Social History marital status: household members: spouse and children Smoking Status: Former smoker alcohol intake: former substance use type: does not use Discharge Assessment & Plan Assessment and Plan Assessment: 1. Sepsis secondary to ESBL Klebsiella acute cystitis, with GAGAN and hypotension, present on admission and improved. Plan of Treatment: Complete a 7 day course of ertapenem, the last dose of antibiotics will be on April 23. At that point will recheck a UA to assure that her urine has cleared. Would consider contacting Dr. Dahl if there is any question about her response prior to removing her midline. Discharge Plan Discharge Plan Patient Disposition: [facility] Transfer to: [facility] Under care of provider: [facility] Doctor Provider Discharge Comment: Stable for discharge, we will complete 7 days of ertapenem, midline in place. Discharge orders & Medications Prescriptions: New ertapenem 1 gram recon soln 1 g IV Q24H Qty: 2 0RF Continued magnesium oxide 200 mg magnesium tablet 200 mg PO DAILY Qty: 90 0RF loperamide [Anti-Diarrheal (loperamide)] 2 mg tablet 2 mg PO Q4H PRN (Reason: loose stool) Qty: 90 3RF Rx Instructions: administer after each loose stool until symptoms controlled; do not exceed 8 mg per 24 hrs cholecalciferol (vitamin D3) 125 mcg (5,000 unit) capsule 125 mcg PO DAILY Qty: 30 3RF omeprazole 20 mg capsule,delayed release(DR/EC) 40 mg PO DAILY levothyroxine 100 mcg Tablet 100 mcg PO DAILY furosemide [Lasix] 20 mg Tablet 20 mg PO DAILY Eliquis 5 mg Tablet 5 mg PO BID Discontinued cephalexin 500 mg tablet 500 mg PO TID 7 Days Qty: 21 0RF Medication counseling provided by Pharmacist: No Follow up/Referrals: Ana Ortiz MD [Primary Care Provider] - Discharge Health Status Multidrug resistant organism: Other Precautions: Contact Diet/Activity/Treatments Diet: Regular Skin/Wound/Dressing Care Report to your healthcare provider any signs of infection, such as:: chills, fever and increased pain Visit Report/Discharge Packet Instructions: Diarrhea, DI for Urinary Tract Infection (UTI), How to Prevent Falls, Peripherally Inserted Central Catheter, DI for Extended Spectrum Beta- Lactamase Infection, DI for Peripherally Inserted Central Catheter Removal Stand Alone Forms: Patient Portal/API Discharge Data Primary Care Provider: Ana Ortiz Quality VTE Deep Vein Thrombosis/Pulmonary Embolism Present on Admission: No
[2024-04-21 11:00] VITALS: O2SAT 95
--- NOTE | 2024-04-21 12:57 | PC.NURSE ---
Transfer: Transfered to [facility]. Report given to Marixa, admitting nurse. Reviewed pt's uti, esbl and contact precautions. Minimal pain and taking plain acetaminophen which has been effective. Pt has diarrhea which is chronic. She told this headline writer late this morning she usually takes 2 immodiums at bedtime. She had 4 bm's over night on noc shift and a large one this am. Another immodium was given. Recommend to get an order for the 2 lomotil at night. She has been unable to stand and required a tomasa lift to get her into chair. Reviewed adl's, pt does have MG which also contributes to her weakness. Questions answered. Pt transfered via their van.
== END 2024-04-21 11:40 | DRG 872 ==
PROVIDERS: Internal Medicine; Admitting Provider Internal Medicine; PCP Student in an Organized Health Care Education/Training Program; Referring Provider Internal Medicine; Visit Provider Internal Medicine
DX: A41.9 Sepsis, unspecified organism (principal); N30.01 Acute cystitis with hematuria; N17.9 Acute kidney failure, unspecified; Z16.24 Resistance to multiple antibiotics; R65.20 Severe sepsis without septic shock; N18.32 Chronic kidney disease, stage 3b; E11.22 Type 2 diabetes mellitus with diabetic chronic kidney disease; E11.65 Type 2 diabetes mellitus with hyperglycemia; E03.9 Hypothyroidism, unspecified; K21.9 Gastro-esophageal reflux disease without esophagitis; B96.89 Other specified bacterial agents as the cause of diseases classified elsewhere; G14 Postpolio syndrome; R41.89 Other symptoms and signs involving cognitive functions and awareness; I95.9 Hypotension, unspecified; I12.9 Hypertensive chronic kidney disease with stage 1 through stage 4 chronic kidney disease, or unspecified chronic kidney disease; K29.70 Gastritis, unspecified, without bleeding; Z86.2 Personal history of diseases of the blood and blood-forming organs and certain disorders involving the immune mechanism; Z87.891 Personal history of nicotine dependence; Z87.19 Personal history of other diseases of the digestive system; Z86.718 Personal history of other venous thrombosis and embolism; Z87.440 Personal history of urinary (tract) infections; Z79.01 Long term (current) use of anticoagulants
CPT/HCPCS: 36415; 80053; 81001; 82962; 83036; 83735; 84145; 85025; 85610; 85730; 87040; 87077; 87086; 87186; 97129; 97162; 97166; 97530; J1335; J1642; J3475